=== PATIENT | male | born 1945 ===

== ENCOUNTER 2016-10-23 08:46 | Inpatient (IN) | payer MEDICARE, OTHER ==
[2016-10-23 08:50] VITALS: BMI 18.6
[2016-10-23] MEDS ORDERED: Morphine 4 mg/ml ISec IVP STA ×2 (09:05→13:29)
--- NOTE | 2016-10-23 09:09 | ED PDOC ---
Arrival/HPI - General Chief Complaint: Abdominal Pain Time Seen by Provider: 10/23/16 08:52 Historian: Patient, Family - History of Present Illness Narrative History of Present Illness (Text): 10/23/16 09:02 A 71 year old male, whose past medical history includes lung cancer (in chemotherapy), anemia and hyperlipidema, presents to the emergency department complaining of worsening shortness of breath and left sided chest pain for the past 2 days. Family states the patient started experiencing the symptoms after his chemotherapy session. They denies any fever, cough, nausea, vomiting or any other complaints at this time. PMD: Dr. Greer Oncologist: Dr. Ma Time/Duration: Other (2 days) Symptom Onset: Sudden Symptom Course: Worsening Quality: Other Activities at Onset: Rest Context: Home Past Medical History - Provider Review Nursing Documentation Reviewed: Yes - Infectious Disease Hx of Infectious Diseases: None - Tetanus Immunization Tetanus Immunization: Unknown - Cardiac Hx Pacemaker: No - Pulmonary Hx Respiratory Disorders: No Hx Lung Cancer: Yes Other/Comment: on chemo last treatment wednesday - Neurological Hx Paralysis: No - HEENT Hx HEENT Disorder: No - Renal Hx Renal Disorder: No - Endocrine/Metabolic Hx Endocrine Disorders: No - Hematological/Oncological Hx Blood Transfusions: Yes - Integumentary Hx Dermatological Disorder: No - Musculoskeletal/Rheumatological Hx Musculoskeletal Disorders: Yes - Gastrointestinal Hx Gastrointestinal Disorders: No - Genitourinary/Gynecological Hx Genitourinary Disorders: No - Psychiatric Hx Substance Use: No - Surgical History Hx Appendectomy: Yes - Anesthesia Hx Anesthesia Reactions: No Hx Malignant Hyperthermia: No - Suicidal Assessment Feels Threatened In Home Enviroment: No Family/Social History - Physician Review Nursing Documentation Reviewed: Yes Family/Social History: Unknown Family HX Smoking Status: Former Smoker Hx Alcohol Use: Yes (9-10 beer once a week) Hx Substance Use: No Hx Substance Use Treatment: No Allergies/Home Meds Allergies/Adverse Reactions: Allergies No Known Allergies Allergy (Verified 12/09/15 18:10) Home Medications: Home Meds Medication Instructions Recorded Confirmed Atorvastatin [Lipitor] 10 mg PO DAILY 05/22/16 10/23/16 Ergocalciferol (Vitamin D2) 50,000 iu PO Q7D 06/19/16 10/23/16 [Vitamin D2] Folic Acid [Folic Acid] 1 mg PO DAILY 10/23/16 10/23/16 Review of Systems - Physician Review All systems were reviewed & negative as marked: Yes - Review of Systems Constitutional: absent: Fevers Respiratory: SOB. absent: Cough Cardiovascular: Chest Pain Gastrointestinal: absent: Nausea, Vomiting Physical Exam Vital Signs Reviewed: Yes Vital Signs Temp Pulse Resp BP Pulse Ox 10/23/16 13:21 94 H 16 129/64 98 10/23/16 11:03 89 17 111/62 100 10/23/16 09:00 97.6 F 109 H 18 132/52 L 99 Temperature: Afebrile Blood Pressure: Hypotensive Pulse: Tachycardic Respiratory Rate: Normal Appearance: Positive for: Well-Appearing, Non-Toxic, Comfortable Pain Distress: None Mental Status: Positive for: Alert and Oriented X 3 - Systems Exam Head: Present: Atraumatic, Normocephalic Pupils: Present: PERRL Extroacular Muscles: Present: EOMI Conjunctiva: Present: Normal Mouth: Present: Moist Mucous Membranes Neck: Present: Normal Range of Motion Respiratory/Chest: Present: Rales (bilateral at the bases). No: Respiratory Distress, Accessory Muscle Use, Wheezes, Decreased Breath Sounds, Rhonchi Cardiovascular: Present: Normal S1, S2, Tachycardic. No: Murmurs Abdomen: Present: Normal Bowel Sounds. No: Tenderness, Distention, Peritoneal Signs Back: Present: Normal Inspection Upper Extremity: Present: Normal Inspection. No: Cyanosis, Edema Lower Extremity: Present: Normal Inspection. No: Edema Neurological: Present: GCS=15, CN II-XII Intact, Speech Normal Skin: Present: Warm, Dry, Normal Color. No: Rashes Psychiatric: Present: Alert, Oriented x 3, Normal Insight, Normal Concentration Medical Decision Making ED Course and Treatment: 10/23/16 09:02 Impression: A 71 year old male with shortness of breath and chest pain. Differential Diagnosis include but are not limited to: bronchitis vs. pneumonia vs. lung cancer Plan: -- EKG -- Chest X-ray -- Labs -- Urinalysis -- Morphine -- Reassess and disposition Prior Visits: Notes and results from previous visits were reviewed. The patient last presented to the emergency department on 05/22/16 for evlauation of left flank pain. Progress Notes: EKG: Ordered, reviewed, and independently interpreted the EKG. Rate : 100 BPM Rhythm : Sinus tachycardia Interpretation : Nonspecific ST/T changes. Comparison : No change from previous EKG for comparison. 10/23/16 10:00 Chest X-ray: Creator : Jw Hernandez MD COMPARISON: 08/04/2016 FINDINGS: LUNGS: There is an interstitial infiltrate in the periphery of the right lung. PLEURA: No significant pleural effusion identified, no pneumothorax apparent. CARDIOVASCULAR: Normal. OSSEOUS STRUCTURES: No significant abnormalities. VISUALIZED UPPER ABDOMEN: Normal. OTHER FINDINGS: None. IMPRESSION: Interstitial infiltrate in the periphery of the right lung suspicious for pneumonia Will obtain an Angio-chest CT. 10/23/16 12:30 Angio-Chest CT: Creator : Jw Hernandez MD COMPARISON: 05/24/2016 FINDINGS: PULMONARY ARTERIES: Unremarkable. No pulmonary embolism. AORTA: No acute findings. No thoracic aortic aneurysm. LUNGS: There is an extensive interstitial infiltrate in the right lower lobe and portions of the right upper lobe. There is also an infiltrate at the left lung base. Findings are suspicious for pneumonia PLEURAL SPACES: Unremarkable. No effusion or pneuomothorax. HEART: Unremarkable. No cardiomegaly. No significant pericardial effusion. LYMPH NODES: No lymphadenopathy. BONES, CHEST WALL: Unremarkable. No fracture or destructive lesion OTHER FINDINGS: Unremarkable. IMPRESSION: No evidence of pulmonary embolus. Bilateral interstitial infiltrates right greater than left suspicious for pneumonia Patient will need admission for pneumonia. Dr. Jonathon holm. 10/23/16 12:42 noted luekocytosis. covered emprically for pna. case discussed with dr mejias. states chemo therapy agent can cause leukocytosis. ct added. ct confirms pna. dr jonathon holm. 10/23/16 13:[address] Greer, who is aware and agrees with the plan to admit the patient to Telemetry under his services for Pneumonia and Sepsis. I have discussed the results and plan with the patient and family, who expresses understanding. Patient and family given the opportunity to ask question, all questions were answered and there is agreement with the plan to be admitted to the hospital. - Lab Interpretations Lab Results: 10/23/16 09:25 10/23/16 09:25 Lab Results 10/23/16 10:10: pO2 124 H, VBG pH 7.39, VBG pCO2 38.0 L, VBG HCO3 23.0, VBG Total CO2 24.2, VBG O2 Sat (Calc) 97.7 H, VBG Base Excess -1.7 L, VBG Potassium 4.6, Sodium 132.0, Chloride 103.0, Glucose 86, Lactate 1.3, FiO2 21.0, Venous Blood Potassium 4.6 10/23/16 09:25: WBC 33.8 H* D, RBC 3.78, Hgb 10.5 L, Hct 31.7 L, MCV 83.9, MCH 27.8, MCHC 33.1, RDW 17.9 H, Plt Count 831 H* D, MPV 9.4, Neutrophils % (Manual ) 91 H, Band Neutrophils % 2, Lymphocytes % (Manual) 6 L, Monocytes % (Manual) TEST NOT PERFORMED, Eosinophils % (Manual) 1, Platelet Evaluation High, PT 17.3 H, INR 1.60 H, APTT 44.0 H, Sodium 134, Chloride 99, Potassium 3.9, Carbon Dioxide 24, Anion Gap 15, BUN 16, Creatinine 0.6, Est GFR ( Amer) > 60, Est GFR (Non-Af Amer) > 60, Random Glucose 93, Calcium 9.6, Magnesium 1.7, Total Bilirubin 0.5, AST 49, ALT 46, Alkaline Phosphatase 226 H, Lactate Dehydrogenase 1602 H, Total Creatine Kinase 31 L, Troponin I 0.05 D, NT-Pro-B Natriuret Pep 306, Total Protein 7.3, Albumin 3.7, Globulin 3.6, Albumin/ Globulin Ratio 1.0 L I have reviewed the lab results: Yes - RAD Interpretation Radiology Orders: 10/23/16 09:05 CHEST PORTABLE [RAD] Stat 10/23/16 10:05 ANGIO CHEST PE PROTOCOL [CT] Stat - Medication Orders Current Medication Orders: Discontinued Medications Piperacillin Sod/Tazobactam Sod (Zosyn 3.375 In Ns 100ml) 100 mls @ 200 mls/hr IVPB STAT STA PRN Reason: Protocol Stop: 10/23/16 10:29 Last Admin: 10/23/16 10:27 Dose: 200 MLS/HR eMAR Start Stop Document 10/23/16 10:27 SRE (Rec: 10/23/16 10:28 SRE [id number]) Intravenous Solution Start Date 10/23/16 Start Time 10:27 End Date 10/23/16 End time 11:15 Total Infusion Time 48 Vancomycin HCl (Vancomycin 1gm) 250 mls @ 167 mls/hr IVPB STAT STA PRN Reason: Protocol Stop: 10/23/16 11:29 Last Admin: 10/23/16 11:01 Dose: 167 MLS/HR eMAR Start Stop Document 10/23/16 11:01 SRE (Rec: 10/23/16 11:02 SRE [id number]) Intravenous Solution Start Date 10/23/16 Start Time 11:02 End Date 10/23/16 End time 12:40 Total Infusion Time 98 Iodixanol (Visipaque 320 Mg/Ml 100 Ml) Confirm Administered Dose 100 ml IV .STK- MED ONE Stop: 10/23/16 10:12 Morphine Sulfate (Morphine) 4 mg IVP STAT STA Stop: 10/23/16 09:06 Last Admin: 10/23/16 09:31 Dose: 4 MG MAR Pain Assessment Document 10/23/16 09:31 SRE (Rec: 10/23/16 09:31 SRE [id number]) Pain Reassessment Is this a pain reassessment? Yes Sleep Is patient sleeping during reassessment? Yes Pain Scale Used Pain Scale Used Numeric Location Pain Location Body Site Generalized Description Description Constant IVP Administration Document 10/23/16 09:31 SRE (Rec: 10/23/16 09:31 SRE [id number]) Charges for Administration # of IVP Administrations 1 Morphine Sulfate (Morphine) Confirm Administered Dose 4 mg .ROUTE .STK-MED ONE Stop: 10/23/16 13:08 Last Admin: 10/23/16 13:20 Dose: 4 MG MAR Pain Assessment Document 10/23/16 13:20 SRE (Rec: 10/23/16 13:20 SRE [id number]) Pain Reassessment Is this a pain reassessment? Yes Sleep Is patient sleeping during reassessment? No Presence of Pain Presence of Pain Yes Pain Scale Used Pain Scale Used Numeric Location Pain Location Body Site Generalized - Scribe Statement The provider has reviewed the documentation as recorded by the Shyannibe Kenton Saavedra Provider Scribe Attestation: All medical record entries made by the Scribe were at my direction and personally dictated by me. I have reviewed the chart and agree that the record accurately reflects my personal performance of the history, physical exam, medical decision making, and the department course for this patient. I have also personally directed, reviewed, and agree with the discharge instructions and disposition. Disposition/Present on Arrival - Present on Arrival Any Indicators Present on Arrival: No History of DVT/PE: No History of Uncontrolled Diabetes: No Urinary Catheter: No History of Decub. Ulcer: No History Surgical Site Infection Following: None - Disposition Have Diagnosis and Disposition been Completed?: Yes Diagnosis: Pneumonia Disposition: HOSPITALIZED Disposition Time: 12:30 Patient Problems: Current Active Problems Problem Status Diagnosed Colitis Acute Dehydration Acute Pneumonia Acute Condition: FAIR Referrals: Diego Greer MD [Primary Care Provider] - Follow up with primary
[2016-10-23 09:45] LABS: HEMATOCRIT 31.7 % (42.0-52.0); MEAN CELL VOLUME 83.9 fL (80.0-105.0); MEAN CORPUSCULAR HEMOGLOBIN 27.8 pg (25.0-35.0); MEAN CORPUSCULAR HGB CONC 33.1 g/dl (31.0-37.0); MEAN PLATELET VOLUME 9.4 fl (7.0-11.0); RED CELL DISTRIBUTION WIDTH 17.9 % (11.5-14.5)
[2016-10-23 09:49] LABS: ADD MANUAL DIFF? YES; PLATELET COUNT 831 10^3/uL (120.0-450.0); WHITE BLOOD COUNT 33.8 10^3/ul (4.5-11.0)
[2016-10-23 09:55] LABS: INR 1.6 (0.93-1.08)
[2016-10-23 09:59] LABS: ALKALINE PHOSPHATASE 226 U/L (38-133); ALT/SGPT 46 U/L (7-56); AST/SGOT 49 U/L (15-59); BILIRUBIN,TOTAL 0.5 mg/dL (0.2-1.3); BLOOD UREA NITROGEN 16 mg/dL (7-21); CALCIUM 9.6 mg/dL (8.4-10.5); CARBON DIOXIDE 24 mmol/L (21-33); CHLORIDE 99 mmol/L (98-107); GFR AFRICAN-AMERICAN > 60; GLUCOSE,RANDOM 93 mg/dL (70-110); MAGNESIUM 1.7 mg/dL (1.7-2.2); POTASSIUM 3.9 mmol/L (3.6-5.0); SODIUM 134 mmol/L (132-148); TOTAL PROTEIN 7.3 g/dL (5.8-8.3)
[2016-10-23] MEDS ORDERED: Vancomycin 1gm in NS 250ml 250 ML IVPB STA (10:00)
[2016-10-23] MEDS ORDERED: Piperacillin/Tazobact 3.375 gm 100 ML IVPB STA (10:00)
--- NOTE | 2016-10-23 10:00 | RAD ---
HISTORY: cp COMPARISON: 08/04/2016 FINDINGS: LUNGS: There is an interstitial infiltrate in the periphery of the right lung. PLEURA: No significant pleural effusion identified, no pneumothorax apparent. CARDIOVASCULAR: Normal. OSSEOUS STRUCTURES: No significant abnormalities. VISUALIZED UPPER ABDOMEN: Normal. OTHER FINDINGS: None. IMPRESSION: Interstitial infiltrate in the periphery of the right lung suspicious for pneumonia
[2016-10-23 10:08] LABS: BAND 2 % (0-2); NEUTROPHIL 91 % (50.0-70.0)
[2016-10-23 10:09] LABS: EOSINOPHIL 1 % (0.0-3.0); PLATELET ESTIMATE HIGH (NORMAL)
[2016-10-23] MEDS ORDERED: Iodixanol 320 MG/ML 100 ML BOTTLE IV ONE (10:11)
[2016-10-23 10:25] LABS: VENOUS BLOOD GAS BASE EXCESS -1.7 mmol/L (0.0-2.0); VENOUS BLOOD PH 7.39 (7.32-7.43)
[2016-10-23 12:26] LABS: TROPONIN I 0.05 ng/mL
--- NOTE | 2016-10-23 12:31 | CT ---
PROCEDURE: CT Chest with contrast (Pulmonary Angiogram) HISTORY: cp h/o of lung ca, r/o pe COMPARISON: 05/24/2016 TECHNIQUE: Axial computed tomography images were obtained of the chest in the pulmonary arterial phase of enhancement. Coronal and sagittal reformatted images were created and reviewed. Intravenous contrast dose: 100 cc of Visipaque Radiation dose: Total exam DLP = 842 mGy-cm. This CT exam was performed using one or more of the following dose reduction techniques: Automated exposure control, adjustment of the mA and/or kV according to patient size, and/or use of iterative reconstruction technique. FINDINGS: PULMONARY ARTERIES: Unremarkable. No pulmonary embolism. AORTA: No acute findings. No thoracic aortic aneurysm. LUNGS: There is an extensive interstitial infiltrate in the right lower lobe and portions of the right upper lobe. There is also an infiltrate at the left lung base. Findings are suspicious for pneumonia PLEURAL SPACES: Unremarkable. No effusion or pneuomothorax. HEART: Unremarkable. No cardiomegaly. No significant pericardial effusion. LYMPH NODES: No lymphadenopathy. BONES, CHEST WALL: Unremarkable. No fracture or destructive lesion OTHER FINDINGS: Unremarkable. IMPRESSION: No evidence of pulmonary embolus. Bilateral interstitial infiltrates right greater than left suspicious for pneumonia
[2016-10-23] MEDS ORDERED: Morphine 4 mg/ml ISec ONE (13:07)
[2016-10-23 13:47] LABS: PH,URINE 5.5 (4.7-8.0); URINE BILIRUBIN NEGATIVE (NEGATIVE); URINE BLOOD NEGATIVE (NEGATIVE); URINE KETONE NEGATIVE (NEGATIVE); URINE LEUKOCYTE ESTERASE NEGATIVE Leu/uL (NEGATIVE); URINE PROTEIN NEGATIVE mg/dL (<30 mg/dL); URINE UROBILINOGEN 0.2 E.U./dL (<1 E.U./dL)
[2016-10-23 13:48] LABS: URINE APPEARANCE CLEAR (CLEAR); URINE COLOR YELLOW (YELLOW); URINE GLUCOSE (UA) NEGATIVE (NEGATIVE)
--- NOTE | 2016-10-23 16:46 | CARD ---
APPROVED REPORT EKG Measurement Heart [id number] <Conclusion> Sinus tachycardia Anterior infarct, age undetermined Abnormal ECG
--- NOTE | 2016-10-23 17:38 | CON ---
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 The patient is admitted through the Em ergency Room today with worsening shortness of breath and left-sided chest pain over the past 2 days. The patient had been on Duragesic patches, plus the oxycodone tablets without much significant help and daughter had called me earlier today and I advised her to take her dad to the Emergency Room. T he patient had his last chemotherapy about 10 days ago and he also had his Neulasta about a week ago. The patient has a diagnosis of anemia and hyperlipidemia in addition to the findings of the lung ca ncer. The patient denies any history of fevers, cough, nausea, vomiting or any other complaints at t his time. PAST MEDICAL HISTORY: The patient was recently diagnosed to have stage IV nonsmall cell carcinoma of the lung, who presented with significant pleural effusion, had to have a thoracostomy tube put in. VATS procedure done ____ tetracycline ____ patient is in significant pain in the left side since the procedure, requiring both narcotics in the form of fentanyl patches, but also pills. The patient has also been losing appetite, has been on Megace for the same. Been started on systemic chemotherapy a fter he found out that he could not get radiation in this setting because patient has metastatic dise ase already with malignant fluid in the paracentesis fluid. Because of his overall frail status, we decided we would give him single agent Alimta to see how it did. He was not a candidate for radiatio n at the time of initial diagnosis. MEDICATIONS: Reviewed. He is on atorvastatin, vitamin D2, folic acid. In addition to that, he has been getting Duragesic patches 75 mcg daily. Along with that he has been getting oxycodone 20 mg q. 4 to q. 6 hours p.r.n. for pain. PHYSICAL EXAMINATION: VITAL SIGNS: Stable. T-max is 98.4, pulse of 94, respirations 16, blood pressure is 129/64, O2 sat is 98% on room air. HEENT: Head is normocephalic, atraumatic. Conjunctivae are pale. Sclerae are anicteric. Pupils ar e equally reactive to light and accommodation. Examination of the oropharynx reveals no oropharyngea l lesions. LUNGS: Reveals it to be clear to percussion and auscultation. HEART: S1 and S2 are normal. No gallop or murmur is heard on examination of the cardiovascular syst em. ABDOMEN: Soft, nontender. Liver and spleen are not palpable. EXTREMITIES: Reveals no cyanosis, clubbing or edema. NEUROLOGIC: Higher functions are normal. No focal deficits are noted. PSYCHIATRIC: The patient is awake, alert, and oriented from the psychiatric point of view with man l insight, normal concentration. LABORATORY DATA: Chest x-ray did not show anything significant. CAT scan of the chest showed bilate ral infiltrates, right greater than the left, consistent with evolving pneumonitis. The patient rece ived IV morphine for pain control and we will adjust his pain medicines. In view of the infiltrate, he is going to be admitted for management of pneumonia and will do pain control at the same time. La bs were reviewed. White count 33.8, which is consistent with the Neulasta that he had less than 10 d ays ago, hemoglobin 10.5, hematocrit 31, platelet count of ____. Sodium is 134, K 3.9, chloride 109, CO2 is 24, BUN is 16, creatinine 0.6 and blood sugar is 93. Troponin was 0.05. Creatine kinase is 31. ASSESSMENT, NOTES AND PLAN: The patient has been started on broad spectrum antibiotics with Zosyn. Will continue his pain medications while in the hospital and review his progress. He also received 1 dose of vancomycin in the Emergency Room. The patient received 4 mg of IV morphine stat in the ER f or the pain as well. Routine post exam instructions have been given to the patient. ____ will catracho nue to monitor him and make appropriate recommendations to Dr. Greer. Josee Ma MD cc: [id number] TT: 10/23/2016 17:37:30 Confirmation # [id number] Dictation # [id number] eugene
[2016-10-23] MEDS ORDERED: Pneumococcal 23-Valent Vaccine IM ONE (18:10)
[2016-10-23] MEDS: Oxycodone/Acetaminophen 10/325 mg Tab PO PRN (18:28)
[2016-10-23] MEDS: Meropenem 1g/NS 100mL IVPB 100 ML IVPB SCH (21:52)
[2016-10-23] MEDS: Vancomycin 1gm in NS 250ml 250 ML IVPB SCH (21:52)
[2016-10-23] MEDS ORDERED: Meropenem 1 GM in Sodium Chloride 0.9% 100 ML IVPB SCH (22:00)
[2016-10-24] MEDS: Meropenem 1g/NS 100mL IVPB 100 ML IVPB SCH ×3 (05:42→22:01)
[2016-10-24] MEDS: Oxycodone/Acetaminophen 10/325 mg Tab PO PRN ×2 (05:47→20:30)
[2016-10-24] MEDS: Enoxaparin 40 mg Syringe SC SCH (10:50)
[2016-10-24] MEDS: Vancomycin 1gm in NS 250ml 250 ML IVPB SCH ×2 (10:51→22:01)
[2016-10-24] MEDS: MethylPREDNISolone 40 mg Vial IV SCH ×2 (10:54→18:06)
[2016-10-24] MEDS: Levalbuterol 1.25 MG/3 ML Inhal Soln UD IH PRN ×3 (11:42→19:27)
--- NOTE | 2016-10-24 13:29 | CP.PCM.CON ---
History of Present Illness - History of Present Illness History of Present Illness: 71 year old male with PMH of lung cancer on chemotherapy, chronic anemia, dyslipidemia, S/P appendectomy, was brought in because of worsening shortness of breath for the past 2-3 days associated with dry cough and chest pain on breathing. He denies hemoptysis, no fever or chills, has generalized weakness, no nausea or vomiting, no has intermittent abdominal discomfort, no diarrhea, no dysuria, no dysphagia, no headache or dizziness, no sore throat, no rhinorrhea, no body aches. He had his last chemotherapy about 4 days ago. In the ED, CT chest was done which showed infiltrates on both lung bases, right greater than left. Infectious diseases consult is requested to further evaluate and manage. Review of Systems - Review of Systems All systems: reviewed and no additional remarkable complaints except (as per HPI ) Past Patient History - Infectious Disease Hx of Infectious Diseases: None - Tetanus Immunizations Tetanus Immunization: Unknown - Past Medical History & Family History Past Medical History?: Yes Past Family History: Reviewed and not pertinent - Past Social History Smoking Status: Former Smoker Alcohol: None Drugs: Denies Home Situation {Lives}: With Family - CARDIAC Hx Cardiac Disorders: Yes Hx Hypercholesterolemia: Yes Hx Pacemaker: No - PULMONARY Hx Respiratory Disorders: Yes (SMOKED 2-3 PPD CIGARETTES QUIT.H/O PLEURAL EFFUSION) Hx Chronic Obstructive Pulmonary Disease (COPD): Yes Other/Comment: on chemo last treatment wednesday10-21-2016 - NEUROLOGICAL Hx Neurological Disorder: Yes - HEENT Hx HEENT Problems: Yes Hx Deafness: Yes - RENAL Hx Chronic Kidney Disease: No - ENDOCRINE/METABOLIC Hx Endocrine Disorders: No - HEMATOLOGICAL/ONCOLOGICAL Hx Blood Disorders: Yes Hx Anemia: Yes (BLOOD TRANSFUSION) - INTEGUMENTARY Hx Dermatological Problems: Yes (GENERALIZED SKIN DRYNESS) - MUSCULOSKELETAL/RHEUMATOLOGICAL Hx Musculoskeletal Disorders: Yes Hx Back Pain: Yes Hx Falls: Yes Hx Herniated Disk: Yes - GASTROINTESTINAL Hx Gastrointestinal Disorders: Yes (POOR APPETITE,COLITIS) Hx Gastroesophageal Reflux: Yes - GENITOURINARY/GYNECOLOGICAL Hx Genitourinary Disorders: Yes Hx Incontinence: Yes - PSYCHIATRIC Hx Psychophysiologic Disorder: Yes (H/O SMOKING 2-3 PPD QUIT,ETOH ABUSE DRANK 9- 10 CANS OF BEER A WEEK.) Hx Emotional Abuse: No Hx Physical Abuse: No Hx Substance Use: No - SURGICAL HISTORY Hx Appendectomy: Yes Hx Cardiac Catheterization: Yes - ANESTHESIA Hx Anesthesia Reactions: No Hx Malignant Hyperthermia: No Meds Allergies/Adverse Reactions: Allergies Allergy/AdvReac Type Severity Reaction Status Date / Time No Known Allergies Allergy Verified 10/23/16 15:40 - Medications Medications: Current Medications Levalbuterol HCl (Xopenex) 1.25 mg IH [id number] PRN PRN Reason: Shortness of Breath Oxycodone/Acetaminophen (Percocet 10/325 Mg Tab) 1 tab PO Q6H PRN PRN Reason: Pain, moderate (4-7) Last Admin: 10/23/16 18:28 Dose: 1 tab Physical Exam - Constitutional Appears: Non-toxic, No Acute Distress - Head Exam Head Exam: NORMAL INSPECTION - ENT Exam ENT Exam: Mucous Membranes Moist - Neck Exam Neck exam: Negative for: Lymphadenopathy, Meningismus - Respiratory Exam Respiratory Exam: Decreased Breath Sounds Additional comments: right anterior chest wall port site clean and intact - Cardiovascular Exam Cardiovascular Exam: +S1, +S2 - GI/Abdominal Exam GI & Abdominal Exam: Soft. absent: Tenderness Results - Vital Signs Recent Vital Signs: Last Vital Signs Temp 98.6 F 10/23/16 18:00 Pulse 92 H 10/23/16 18:00 Resp 20 10/23/16 18:00 BP 111/59 L 10/23/16 18:00 Pulse Ox 95 10/23/16 15:15 - Labs Result Diagrams: 10/23/16 09:25 10/23/16 09:25 Labs: Laboratory Results - last 24 hr 10/23/16 13:40 Urine Color Yellow Urine Appearance Clear Urine pH 5.5 Ur Specific [place] 1.015 Urine Protein Negative Urine Glucose (UA) Negative Urine Ketones Negative Urine Blood Negative Urine Nitrate Negative Urine Bilirubin Negative Urine Urobilinogen 0.2 Ur Leukocyte Esterase Negative Assessment & Plan - Assessment and Plan (Free Text) Plan: Assessment sepsis with marked leukocytosis probably secondary to healthcare-associated pneumonia with possible gram positive cocci and/or gram negative bacilli and/or atypical bacteria lung cancer on chemotherapy chronic anemia dyslipidemia S/P appendectomy Plan Started patient on Vancomycin, Merrem and Doxycycline pending blood cx, sputum cx, PCT; reviewed CT chest Will monitor clinical response and trend WBC count
[2016-10-24] MEDS: Arformoterol 15 mcg/2 ml Inh Sol IH SCH (19:27)
[2016-10-24] MEDS: Budesonide 0.25 mg/2 ml Inhal Susp UD IH SCH (19:27)
--- NOTE | 2016-10-24 19:35 | CON ---
DATE: 10/24/2016 REFERRING PHYSICIAN: Dr. Greer. REASON FOR CONSULT: Cough, shortness of breath. HISTORY OF PRESENT ILLNESS: This is a 71-year-old gentleman with past medical history significant fo r lung cancer; been on chemotherapy. Anemia, chronic lung disease. Comes in to Emergency Room with worsening shortness of breath, cough, muscular-type chest pain. No nausea, no vomiting. No diarrhea . No leg pain or leg swelling. Had a CAT scan in the Emergency Room done which shows bibasilar infi ltrate. Seen by infectious disease and started on antibiotics. His last chemotherapy was about 4 da ys ago. PAST MEDICAL HISTORY: Again, significant for lung cancer on chemotherapy, chronic obstructive lung d isease, anemia, hyperlipidemia, has a chronic back problem with herniated disk, history of GERD, urin chandu incontinence. ALLERGIES: None known. SOCIAL HISTORY: Former smoker. Denied any alcohol use. FAMILY HISTORY: No significant cardiopulmonary disease reported. MEDICATIONS: He is on Brovana 15 mcg inhaled twice a day, doxycycline 100 mg twice a day, Lovenox 40 mg daily, meropenem 1 g IV q. 8 hours, Percocet 10/325 one tab q. 6 hours p.r.n., Pulmicort inhaled twice a day, Remeron 50 mg at bedtime, Solu-Medrol 20 mg IV q. 8 hours, vancomycin 1 g q. 12 hours, X openex inhaled q. 4 hours p.r.n. REVIEW OF SYSTEMS: No headache, no rhinitis. Has cough, shortness of breath, pleuritic-type pain. No nausea, no vomiting, no abdominal pain. No dysuria. No leg pain or leg swelling. PHYSICAL EXAMINATION: She is lying in the bed in mild distress secondary to cough and shortness of breath. Temp is 98, heart rate is 100, respiratory rate is 20, blood pressure 107/60, pulse ox 97% nasal raymond sulma. HENT: Moist mucous membrane. No ulcer or oral thrush noted. NECK: Supple. No JVD. LUNGS: Has a prolonged expiratory phase with scattered rhonchi. HEART: S1, S2. ABDOMEN: Soft, nontender. No organomegaly. EXTREMITIES: There is no edema. NEUROLOGICALLY: Awake, alert. Follows simple commands. LABORATORY DATA: Shows hemoglobin 10.5, hematocrit 31.7, WBC 33.8, platelet is 831. INR 1.60, PTT 4 4. VBG shows pH 7.39, pCO2 of 38, O2 of 128 on nasal cannula. Sodium 134, potassium 3.9, chloride 9 9, bicarbonate 24, BUN 16, creatinine 0.6, glucose 93, calcium 9.6, magnesium 1.7. AST 49, ALT 46, a lk phos is 226, creatinine kinase is 31. Troponin 0.05. Procalcitonin 0.78. Urinalysis is unremark able. Blood Culture: There is no growth. Had a CAT scan of the chest done on admission. Shows no evidence of pulmonary embolism, bilateral in terstitial infiltrates, right greater than the left. IMPRESSION AND PLAN: Adenocarcinoma of the lung with a history of malignant effusion, obstructive roxanne ng disease, hyperlipidemia. May have a component of sleep apnea syndrome. Pulmonary point of view, continue IV and inhaled bronchodilator. I agree with antibiotics. Gastric prophylaxis. DVT prophylaxis. Followup labs in the morning. Fall precautions. Thank you, and will follow with you. Shell Vargas MD cc: [phone] TT: 10/24/2016 19:35:39 Confirmation # [id number] Dictation # [id number] jn
[2016-10-24] MEDS ORDERED: Bisacodyl 5mg EC Tab PO PRN (21:08)
[2016-10-25] MEDS: MethylPREDNISolone 40 mg Vial IV SCH ×3 (01:51→17:42)
[2016-10-25] MEDS: Meropenem 1g/NS 100mL IVPB 100 ML IVPB SCH ×3 (05:00→21:24)
[2016-10-25 07:05] LABS: ALB/GLOB RATIO 1.1 (1.1-1.8); ALKALINE PHOSPHATASE 171 U/L (38-133); ALT/SGPT 46 U/L (7-56); AST/SGOT 46 U/L (15-59); BILIRUBIN,TOTAL 0.6 mg/dL (0.2-1.3); BLOOD UREA NITROGEN 15 mg/dL (7-21); CALCIUM 9.6 mg/dL (8.4-10.5); CARBON DIOXIDE 26 mmol/L (21-33); CHLORIDE 101 mmol/L (98-107); GFR AFRICAN-AMERICAN > 60; GLUCOSE,RANDOM 193 mg/dL (70-110); POTASSIUM 4.4 mmol/L (3.6-5.0); SODIUM 135 mmol/L (132-148)
[2016-10-25 07:19] LABS: HEMATOCRIT 31.7 % (42.0-52.0); MEAN CELL VOLUME 84.3 fL (80.0-105.0); MEAN CORPUSCULAR HEMOGLOBIN 27.4 pg (25.0-35.0); MEAN CORPUSCULAR HGB CONC 32.5 g/dl (31.0-37.0); MEAN PLATELET VOLUME 9.8 fl (7.0-11.0); RED CELL DISTRIBUTION WIDTH 17.8 % (11.5-14.5); WHITE BLOOD COUNT 3.9 10^3/ul (4.5-11.0)
[2016-10-25] MEDS: Budesonide 0.25 mg/2 ml Inhal Susp UD IH SCH ×2 (07:35→20:06)
[2016-10-25] MEDS: Arformoterol 15 mcg/2 ml Inh Sol IH SCH ×2 (07:35→20:06)
[2016-10-25] MEDS: Levalbuterol 1.25 MG/3 ML Inhal Soln UD IH PRN (08:13)
[2016-10-25] MEDS: Enoxaparin 40 mg Syringe SC SCH (10:55)
[2016-10-25] MEDS: Vancomycin 1gm in NS 250ml 250 ML IVPB SCH (11:00)
--- NOTE | 2016-10-25 11:57 | CP.PCM.PN ---
Subjective - Date & Time of Evaluation Date of Evaluation: 10/25/16 Time of Evaluation: 10:50 - Subjective Subjective: Patient is feeling a little better today, not in distress, no fevers overnight, less cough, no SOB at rest. Objective - Vital Signs/Intake and Output Vital Signs (last 24 hours): Temp Pulse Resp BP Pulse Ox 97.4 F L 81 20 126/64 100 10/25/16 06:00 10/25/16 06:00 10/25/16 06:00 10/25/16 06:00 10/25/16 06:00 Intake and Output: 10/25/16 10/25/16 06:59 18:59 Intake Total 810 Output Total 1200 Balance -390 - Medications Medications: Current Medications Arformoterol Tartrate (Brovana) 15 mcg IH [id number] [facility] Last Admin: 10/25/16 07:35 Dose: 15 mcg Benzonatate (Tessalon Perles) 100 mg PO TID [facility] Last Admin: 10/25/16 10:55 Dose: 100 mg Bisacodyl (Dulcolax) 5 mg PO BID PRN PRN Reason: Constipation Budesonide (Pulmicort Respules) 0.25 mg IH [id number] [facility] Last Admin: 10/25/16 07:35 Dose: 0.25 mg Doxycycline Hyclate (Doryx) 100 mg PO Q12 DONNA PRN Reason: Protocol Last Admin: 10/25/16 10:55 Dose: 100 mg Enoxaparin Sodium (Lovenox) 40 mg SC DAILY [facility] Last Admin: 10/25/16 10:55 Dose: 40 mg Vancomycin HCl (Vancomycin 1gm) 250 mls @ 167 mls/hr IVPB Q12H [facility] PRN Reason: Protocol Last Admin: 10/25/16 11:00 Dose: 167 mls/hr Meropenem 1g/NS 100mL IVPB (Meropenem 1g/Ns 100ml Ivpb) 100 mls @ 100 mls/hr IVPB Q8 DONNA PRN Reason: Protocol Stop: 10/30/16 22:01 Last Admin: 10/25/16 05:00 Dose: 100 mls/hr Levalbuterol HCl (Xopenex) 1.25 mg IH [id number] PRN PRN Reason: Shortness of Breath Last Admin: 10/25/16 08:13 Dose: 1.25 mg Methylnaltrexone [place] (Relistor) 8 mg SC QOTHERDAY PRN PRN Reason: Constipation Methylprednisolone (Solu-Medrol) 30 mg IV Q8H [facility] Last Admin: 10/25/16 10:55 Dose: 30 mg Mirtazapine (Remeron) 15 mg PO HS [facility] Last Admin: 10/24/16 22:01 Dose: 15 mg Morphine Sulfate (Morphine) 2 mg IVP Q4H PRN PRN Reason: Pain, severe (8-10) Oxycodone/Acetaminophen (Percocet 10/325 Mg Tab) 1 tab PO Q6H PRN PRN Reason: Pain, moderate (4-7) Last Admin: 10/24/16 20:30 Dose: 1 tab - Labs Labs: 10/25/16 06:49 10/25/16 06:49 PT 17.3 Seconds (9.9-11.8) H 10/23/16 09:25 INR 1.60 (0.93-1.08) H 10/23/16 09:25 APTT 44.0 Seconds (23.7-30.8) H 10/23/16 09:25 - Constitutional Appears: Non-toxic, No Acute Distress - Head Exam Head Exam: NORMAL INSPECTION - ENT Exam ENT Exam: Mucous Membranes Moist - Neck Exam Neck Exam: absent: Lymphadenopathy, Meningismus - Respiratory Exam Respiratory Exam: Decreased Breath Sounds (with crackles at the bases) - Cardiovascular Exam Cardiovascular Exam: +S1, +S2 - GI/Abdominal Exam GI & Abdominal Exam: Soft. absent: Tenderness Assessment and Plan - Assessment and Plan (Free Text) Plan: Assessment sepsis with marked leukocytosis probably secondary to healthcare-associated pneumonia with possible gram positive cocci and/or gram negative bacilli and/or atypical bacteria, slowly improving lung cancer on chemotherapy chronic anemia dyslipidemia S/P appendectomy Plan blood cx are negative - will d/c Vancomycin and continue Merrem and Doxycycline day 2; PCT is elevated at 0.78; reviewed CT chest Will continue to monitor clinical response and trend WBC count
[2016-10-25] MEDS: Morphine 2 mg/ml ISec IVP PRN ×2 (13:23→21:25)
--- NOTE | 2016-10-25 15:43 | CP.PCM.PN ---
Subjective - Date & Time of Evaluation Date of Evaluation: 10/24/16 Time of Evaluation: 14:00 - Subjective Subjective: Continues to have SOB with even minimal exertion (like sitting to edge of bed). Has many visitors today with nieces/nephews. Daughter was in earlier this morning. ROS: no fevers; chills; n/v; bowel/urinary changes; headaches; CP; visual changes; Objective - Vital Signs/Intake and Output Vital Signs (last 24 hours): Temp Pulse Resp BP Pulse Ox 97 F L 80 18 122/63 100 10/25/16 12:00 10/25/16 12:00 10/25/16 12:00 10/25/16 12:00 10/25/16 06:00 Intake and Output: 10/25/16 10/25/16 06:59 18:59 Intake Total 810 Output Total 1200 Balance -390 - Medications Medications: Current Medications Arformoterol Tartrate (Brovana) 15 mcg IH [id number] [facility] Last Admin: 10/25/16 07:35 Dose: 15 mcg Benzonatate (Tessalon Perles) 100 mg PO TID [facility] Last Admin: 10/25/16 13:55 Dose: 100 mg Bisacodyl (Dulcolax) 5 mg PO BID PRN PRN Reason: Constipation Budesonide (Pulmicort Respules) 0.25 mg IH [id number] [facility] Last Admin: 10/25/16 07:35 Dose: 0.25 mg Doxycycline Hyclate (Doryx) 100 mg PO Q12 [facility] PRN Reason: Protocol Last Admin: 10/25/16 10:55 Dose: 100 mg Enoxaparin Sodium (Lovenox) 40 mg SC DAILY [facility] Last Admin: 10/25/16 10:55 Dose: 40 mg Meropenem 1g/NS 100mL IVPB (Meropenem 1g/Ns 100ml Ivpb) 100 mls @ 100 mls/hr IVPB Q8 [facility] PRN Reason: Protocol Stop: 10/30/16 22:01 Last Admin: 10/25/16 13:13 Dose: 100 mls/hr Levalbuterol HCl (Xopenex) 1.25 mg IH [id number] PRN PRN Reason: Shortness of Breath Last Admin: 10/25/16 08:13 Dose: 1.25 mg Methylnaltrexone [place] (Relistor) 8 mg SC QOTHERDAY PRN PRN Reason: Constipation Methylprednisolone (Solu-Medrol) 30 mg IV Q8H DONNA Last Admin: 10/25/16 10:55 Dose: 30 mg Mirtazapine (Remeron) 15 mg PO HS DONNA Last Admin: 10/24/16 22:01 Dose: 15 mg Morphine Sulfate (Morphine) 2 mg IVP Q4H PRN PRN Reason: Pain, severe (8-10) Last Admin: 10/25/16 13:23 Dose: 2 mg Oxycodone/Acetaminophen (Percocet 10/325 Mg Tab) 1 tab PO Q6H PRN PRN Reason: Pain, moderate (4-7) Last Admin: 10/24/16 20:30 Dose: 1 tab - Labs Labs: 10/25/16 06:49 10/25/16 06:49 PT 17.3 Seconds (9.9-11.8) H 10/23/16 09:25 INR 1.60 (0.93-1.08) H 10/23/16 09:25 APTT 44.0 Seconds (23.7-30.8) H 10/23/16 09:25 - Constitutional Appears: Non-toxic - Head Exam Head Exam: ATRAUMATIC, NORMAL INSPECTION, NORMOCEPHALIC - Respiratory Exam Respiratory Exam: Accessory Muscle Use Additional comments: Decreased breath sounds b/l at bases with less air movement on lower right - Cardiovascular Exam Cardiovascular Exam: REGULAR RHYTHM, +S1, +S2. absent: Murmur - GI/Abdominal Exam GI & Abdominal Exam: Soft, Normal Bowel Sounds. absent: Tenderness - Extremities Exam Extremities Exam: Full ROM, Normal Capillary Refill, Normal Inspection. absent : Joint Swelling, Pedal Edema Assessment and Plan - Assessment and Plan (Free Text) Plan: 71 year old male with PMH of lung cancer on chemotherapy, chronic anemia, dyslipidemia, S/P appendectomy, was brought in because of worsening shortness of breath for the past 2-3 days associated with dry cough and chest pain on breathing. Ddx for SOB includes infection (pna), COPD exacerbation, or potentially drug affect (Side affect from pemetrexed). For now will continue with corticosteroids, nebulizers and abx and will see how patient responds. Lamine Ma MD Oncology Service p: [phone]
--- NOTE | 2016-10-25 16:29 | PN ---
DATE: 10/24/2016 This is a 71-year-old male who came in with pneumonia. The patient today feels a little better, yaw lee complaining of significant shortness of breath, left-sided pain, seen by consultants. PHYSICAL EXAMINATION: VITAL SIGNS: Temperature 98.2, heart rate 93, blood pressure 113/69, respirations 20. HEAD AND NECK: Normal. No JVD, no thyromegaly. CHEST: Clear, good entry. CARDIAC: First and second sounds are normal. ABDOMEN: Soft, nontender. EXTREMITIES: No edema. LUNGS: Diminished breath sounds, more on the left than right, a few rhonchi. NEUROLOGIC: Normal. LABORATORY DATA: Will be ordered for tomorrow. IMPRESSION AND PLAN: 1. Nosocomial pneumonia. The patient has been immunocompromised by underlying malignancy and chemot herapy, being in the doctor's office multiple times for chemo and the hospital. Continue on current antibiotic, meropenem and vancomycin and doxycycline currently and Brovana and Pulmicort added plus S gerhard-Medrol, small dose. We will follow up with pulmonary and ID consult. Continue current treatment . The patient complained of more pain and we are going to add morphine p.r.n. 2. Lung carcinoma. At this time, we will hold off on any chemo. Follow up with Dr. Ma. 3. Chronic obstructive pulmonary disease. Continue inhaled bronchodilators, IV bronchodilators, cur rent IV antibiotics and will follow up clinically. The patient is full code. Continue current treat ment. Diego Greer MD cc: [phone] TT: 10/25/2016 16:28:21 Confirmation # [id number] Dictation # [id number] mn
--- NOTE | 2016-10-25 16:33 | HP ---
REASON FOR ADMISSION: Fever and short of breath. HISTORY OF PRESENT ILLNESS: A 71-year-old male, history of lung cancer being treated by chemo. With in the last week, patient experienced short of breath, chest pain, coughing, fever and was advised to come to the Emergency Room for evaluation. Initial chest x-ray showed pneumonia and high white coun ts. He denied any nausea or vomiting, but he decreased his appetite. He has loss of appetite. Ther e is no other complaint. He feels weak and tired and fever and chills. PAST MEDICAL HISTORY: As I mentioned, COPD, lung CA, currently on chemotherapy, anemia, also gluten sensitive enteropathy, vitamin D deficiency, chronic neck pain, chronic back pain. HOME MEDICATIONS: He takes vitamin D, Percocet, vitamin B12, , multivitamins, Protonix 40, foli c acid, iron pills and Lipitor 10 and inhalers. ALLERGIES: No known allergies. SOCIAL HISTORY: He lives by himself. His a couple of years ago. He smokes heavily for years. He drinks socially. Recently, he decreased drinking, quit drinking. FAMILY HISTORY: Brother had lung CA. He lives by himself. He has a daughter, very supportive to [facility] and he has grandchildren. REVIEW OF SYSTEMS: As in the present illness, general weakness, dyspnea, cough, depression and anxie ty with recent loss of his . PHYSICAL EXAMINATION: On 10/23/2016: GENERAL: The patient was seen, he complained of left side chest pain, complained of short of breath, cough, feels tired. PHYSICAL EXAMINATION: VITAL SIGNS: Temperature 98.6, heart rate 92, blood pressure 111/59, respirations 20. HEAD AND NECK: Normal. No JVD, no thyromegaly. CHEST: Very diminished breath sounds, more on the left than right, and mild rhonchi. CARDIAC: First sound, second sound normal. ABDOMEN: Soft, nontender. EXTREMITIES: No edema. NEUROLOGIC: Normal. INITIAL LABORATORY STUDIES: Shows white count 33.8, hemoglobin 10.5, hematocrit 31.7, platelet 831. Also shows chemistry: Sodium 134, potassium 3.9, chloride 99, bicarbonate 24, BUN 16, creatinine 0. 6. The patient has alkaline phosphatase 226. Lactate dehydrogenase 1602. His troponin is slightly up 0.05. The patient has procalcitonin, which was high, 0.78. The patient also had PT, PTT which sl ightly elevated on both of them. INR is 1.6 and PTT 44, which is elevated. His urine shows negative urine, clean urine. His ABG shows pO2 124, pH 7.39, pCO2 38. We have also a CT of the chest, which was done, which shows the following: Bilateral interstitial, r ight greater than left, suspicious for pneumonia and no evidence of pulmonary embolism. IMPRESSION AND PLAN: A 71-year-old male with history of lung cancer, immunocompromised under chemoth erapy. Came in with fever and evidence of leukocytosis and infiltrate on the lung. 1. Acute community-acquired pneumonia in immunocompromised patient. We will give the patient merope nem, vancomycin, doxycycline. ID consult, Dr. Laguna, will follow up clinically. Pulmonary consult, Dr. Vargas, will follow up clinically. Continue IV fluid, Percocet p.r.n. for pain and inhaled bronc hodilators. Resume his meds. Also, we will get oncology consult for evaluation of underlying cancer . At this time, we will continue treating his underlying sepsis evident by fever, leukocytosis, pres ence of pneumonia and will follow up on the blood cultures, urine cultures. The patient has been cul tured. Continue current treatment. Diego Greer MD cc: [phone] TT: 10/25/2016 16:32:07 en
--- NOTE | 2016-10-25 16:49 | PN ---
DATE: 10/25/2016 REFERRING PHYSICIAN: Dr. Greer SUBJECTIVE: He is lying in the bed, head at 45 degrees. Mild shortness of breath on supplemental ox ygen. No cough, no nausea, no vomiting, no leg pain or leg swelling. OBJECTIVE: GENERAL: No acute distress. VITAL SIGNS: Temperature is 98, heart is 80, respiratory rate is 20, blood pressure 122/63, pulse ox 100% on nasal cannula. HEENT: Moist mucous membrane. No ulcer or thrush noted. NECK: Supple. No JVD. LUNGS: Has a few scattered rhonchi, prolonged expiratory phase. HEART: S1 and S2. ABDOMEN: Soft, nontender. No organomegaly. EXTREMITIES: There is no edema. NEUROLOGIC: Awake, alert, follows simple command. MEDICATIONS: He is on Brovana 15 mcg inhaled twice a day, doxycycline 100 mg twice a day, Lovenox 40 mg daily, meropenem 1 g IV q. 8 hours, morphine 2 mg IV q. 4 hours p.r.n., Pulmicort inhaled twice a day, Relistor 8 mg p.r.n. basis, mirtazapine 50 mg at bedtime, Solu-Medrol 30 mg q. 8 hours, Tessalo n Perles 100 mg 3 times a day, Xopenex inhaled q. 4 hours. LABORATORY DATA: Shows hemoglobin 10.3, hematocrit 31.7, WBC 3.9, platelet is 690. Sodium 135, pota ssium 4.4, chloride 101, bicarbonate 26, BUN 15, creatinine 0.6, glucose 193, calcium 9.6, AST 46, AL T 46, alkaline phosphatase is 171. Albumin is 3.6. Procalcitonin from yesterday 0.78. MICROBIOLOGY: Blood culture has been negative. IMPRESSION AND PLAN: Adenocarcinoma of the lung with history of malignant effusion, obstructive lung disease, hyperlipidemia, may have a sleep apnea syndrome. Continue antibiotics as per infectious di seases, bronchodilator. Gastric prophylaxis, deep venous thrombosis prophylaxis. Out of bed to cat howard Thank you and we will follow with you. Shell Vargas MD cc: [phone] TT: 10/25/2016 16:49:08 Confirmation # [id number] Dictation # [id number] en
--- NOTE | 2016-10-26 00:09 | PN ---
DATE: 10/25/2016 LOCATION: The patient is in room 264, bed 2. 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 The patient was admitted with fevers, chills, shortness of breath, failure to thrive and has been started on broa d spectrum antibiotics for newly evolving right lower lobe lung pneumonitis and a background history of having pain in the left side related to thoracostomy tube placement and intrapleural instillation of medications and the patient has been in pain ever since. The patient has been on outpatient chemo therapy with Alimta and he has had so far 5 cycles. Each treatment given 3 weeks apart. SUBJECTIVE: The patient is lying in bed, head at 45 degrees. Mild shortness of breath on supplement al oxygen. No cough, no nausea, no vomiting, no leg pain. No fevers or chills. OBJECTIVE GENERAL: The patient is examined in bed. VITAL SIGNS: Stable. T-max is 98.4, heart rate is 80, respirations 20, blood pressure 122/63, pulse ox 100% on nasal cannula. HEENT: Head is normocephalic, atraumatic. Conjunctivae pale. Temporal muscle wasting is noted. No oropharyngeal lesions are noted. Tongue is moist. NECK: Supple. There is no adenopathy. LUNGS: Reveals scattered rhonchi with prolonged expiratory phase and decreased breath sounds on the left side. HEART: Reveals PMI to be in the 5th intercostal space inside the midclavicular line. S1 and S2 are normal. No gallop or murmur is heard. ABDOMEN: Soft, nontender. Bowel sounds are present. There is no rebound, rigidity or guarding note d. EXTREMITIES: Reveals no cyanosis, clubbing or edema. NEUROLOGIC: Higher functions are normal. No focal deficits are noted. MEDICATIONS: The patient's medications were reviewed. He is on Brovana 15 mcg inhaled twice a day. He is on doxycycline 100 b.i.d. for the infiltrate in the right lung, Lovenox 40 mg daily, meropenem 1 gram IV q. 8 hours, morphine 2 mg IV q. 4 hours p.r.n., Pulmicort inhaled twice a day, 8 mg p.r.n., mirtazapine 50 mg at bedtime, Remeron, Solu-Medrol 30 mg IV q. 8 hours, Tessalon 100 mg 3 natalie es a day and Xopenex inhaled q. 4 hours. LABORATORY DATA: Reveals a hemoglobin of 10.3, hematocrit 31, white count 3.9, platelet count is 690 . Sodium is 135, K is 4.4, chloride is 101, bicarbonate 26, BUN 15, creatinine 0.6, glucose of 183, calcium 9.6, AST is 46, ALT is 46, alkaline phosphatase is 171 with an albumin of 3.6, procalcitonin 0.78, blood cultures are negative. ASSESSMENT NOTES AND PLAN: The patient has stage IV metastatic carcinoma of the lung, obstructive roxanne ng disease, hyperlipidemia, may have sleep apnea syndrome. The patient is post-chemotherapy. Did re ceive the Neulasta and, since he is on chemotherapy, the immunity is suppressed, may not show all the tell-tale signs of an infection, so, I would continue the antibiotics as instructed by joselin ellis and not stop it based on the procalcitonin. Continue gastric prophylaxis and venous prophylaxi s, out of bed to chair and will discuss my findings with both Dr. Greer and Dr. Vargas, the pulmonol ogist. We will speak to the family as well. Josee Ma MD cc: [id number] TT: 10/26/2016 00:09:22 Confirmation # [id number] Dictation # [id number] ronaldo
[2016-10-26] MEDS: MethylPREDNISolone 40 mg Vial IV SCH ×3 (03:04→18:00)
[2016-10-26] MEDS: Meropenem 1g/NS 100mL IVPB 100 ML IVPB SCH ×3 (06:27→22:52)
[2016-10-26] MEDS: Arformoterol 15 mcg/2 ml Inh Sol IH SCH ×2 (08:05→19:48)
[2016-10-26] MEDS: Budesonide 0.25 mg/2 ml Inhal Susp UD IH SCH ×2 (08:06→19:48)
[2016-10-26] MEDS: Levalbuterol 1.25 MG/3 ML Inhal Soln UD IH PRN ×3 (08:06→19:48)
[2016-10-26] MEDS: Morphine 2 mg/ml ISec IVP PRN ×3 (08:45→16:40)
[2016-10-26] MEDS: Enoxaparin 40 mg Syringe SC SCH (10:09)
--- NOTE | 2016-10-26 19:41 | PN ---
DATE: 10/26/2016 REFERRING PHYSICIAN: Dr. Greer. SUBJECTIVE: The patient is lying in the bed, head at 45 degrees, using supplement oxygen, feels okay . Short of breath with exertion. No cough, no sputum production, no nausea, vomiting, diarrhea. No leg pain or leg swelling. OBJECTIVE: GENERAL: No acute distress. VITAL SIGNS: Temp is 98, heart rate is 97, respiratory rate is 20, blood pressure 129/57, pulse ox 9 8% on 3 liters nasal cannula. HEENT: Moist mucous membrane. Crowded airway. NECK: Supple. No JVD. LUNGS: Has scattered rhonchi, prolonged expiratory phase. HEART: S1, S2. ABDOMEN: Soft, nontender. No organomegaly. EXTREMITIES: There is no edema. NEUROLOGIC: Awake, alert, follows simple commands. MEDICATIONS: He is on Ambien 5 mg at bedtime p.r.n., Brovana 15 mcg inhaled twice a day, doxycycline 100 mg twice a day, Dulcolax 5 mg twice a day, Lovenox 40 mg daily, meropenem 1 g IV q. 8 hours, mor phine 2 mg IV q. 4 hours p.r.n., Percocet 10/325 one tab q. 6 hours p.r.n., Pulmicort inhaled twice daily, Remeron 50 mg at bedtime, Solu-Medrol 30 mg q. 8 hours, Tessalon Perles 100 mg 3 times a day, Xopenex inhaler q. 8 hours p.r.n. LABORATORY DATA: Reviewed. No new lab is available since yesterday. Microbiology cultures have bee n negative. IMPRESSION AND PLAN: Adenocarcinoma of the lung, history of malignant effusion, obstructive lung dis ease, hyperlipidemia, may have a component of sleep apnea syndrome. Continue antibiotics, IV and inh aled bronchodilator. Gastric prophylaxis. Deep venous thrombosis prophylaxis. Out of bed to chair. Fall precaution. Continue supplemental oxygen. Thank you and we will follow with you. Shell Vargas MD cc: [phone] TT: 10/26/2016 19:41:04 Confirmation # [id number] Dictation # [id number] jn
--- NOTE | 2016-10-26 20:39 | PN ---
DATE: 10/26/2016 SUBJECTIVE: The patient seen in room 264, bed 2 earlier. No fevers and no chills. PHYSICAL EXAMINATION: VITAL SIGNS: Temperature is 97, blood pressure is 130/50, respiratory rate of 18. HEENT: Unremarkable. NECK: Supple. LUNGS: Have decreased breath sounds. HEART: Normal S1, S2. ABDOMEN: Soft, nontender. LABORATORY DATA: Reveals a white count of 3.9, hemoglobin of 10 and platelets of 690, BUN is 15, cre atinine 0.6, procalcitonin 0.78. Urinalysis is noted. Microbiology reveals the blood cultures are n egative. Review of the orders revealed the patient to have p.o. doxycycline and IV meropenem. Microbiology re veals the blood cultures are no growth. Dr. Vargas's progress note from today is reviewed. ASSESSMENT AND PLAN: This is a 71-year-old male with sepsis, marked leukocytosis secondary to health care-associated pneumonia, possible gram-positive cocci, possible gram-negative yamilka, slowly improving lung cancer on chemotherapy and chronic anemia on chemotherapy. The patient is currently on doxycyc line and meropenem day #3. Elevated procalcitonin and now today's WBC count is down to 3.9. The pat ient is on Solu-Medrol. We will follow closely with you. Mack Dubose MD cc: [id number] TT: 10/26/2016 20:39:18 Confirmation # [id number] Dictation # [id number] deniz
--- NOTE | 2016-10-26 22:39 | PN ---
DATE: 10/26/2016 The patient is in room 264, bed 2. SUBJECTIVE: The patient is lying in bed, head at 45 degrees using supplemental oxygen. As per his d artie, who translated for me, the patient has been in considerable pain because he did not get the pain medicine as written around the clock. He is short of breath with exertion. No cough, no sputum production, no nausea, vomiting or diarrhea. No leg pain or leg swelling. PHYSICAL EXAMINATION: GENERAL: The patient is examined in bed, is in no acute distress. VITAL SIGNS: Stable. T-max is 98.4, heart rate is 97, respirations 20, blood pressure is 129/57, pu lse ox is 98% on 3 liters of oxygen. HEENT: Head is normocephalic, atraumatic. Temporal muscle wasting is noted. Conjunctivae pale. Sc lerae are anicteric. Pupils are equally reactive to light and accommodation. Examination of the christian pharynx reveals tongue to be coated. No oropharyngeal lesions are seen. NECK: Supple. There is no adenopathy. No jugular venous distention noted. LUNGS: Reveals scattered rhonchi with prolonged expiratory phase. Decreased breath sounds at the le ft base posteriorly. HEART: Reveals S1 and S2 to be normal. No gallop or murmur is heard. ABDOMEN: Soft, nontender. Bowel sounds are present. EXTREMITIES: Reveals no cyanosis, clubbing or edema. NEUROLOGIC: Higher functions are normal. No focal deficits are noted. MEDICATIONS: Reviewed. He is on Ambien 5 at bedtime, Brovana 15 mcg inhaled twice a day, doxycyclin e 100 mg twice a day, Dulcolax 5 mg twice a day, Lovenox 40 mg daily. He is on meropenem 1 gram q. 8 hours, morphine 2 mg IV q. 4 hours p.r.n., Percocet 10/325 one tablet q. 6 hours p.r.n., Pulmicort inhaled twice daily, Remeron 15 mg at bedtime, Solu-Medrol 30 mg q. 8 hours, Tessalon Perles 100 mg 3 times a day, Xopenex inhaler q. 8 hours p.r.n. LABORATORY DATA: From yesterday were reviewed. No new labs were done today. Microbiology cultures have been negative. 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 Differential diagnosis would be to make sure this was not lung injury caused by chemotherapy as well. Given the fact that this happened after the chemotherapy when he is technicall y immune suppressed, infection is not uncommon and this is on the right side, but his tumor is on the left side, we have to take that into consideration. The patient is on broad-spectrum antibiotics an d he is on inhaled bronchodilators. He is on gastric and DVT prophylaxis. Will continue to monitor him and discuss with the family regarding the overall prognosis and where we proceed from here. Will try to control the pain. I had a talk with the daughter today, I tried to readjust the pain medicin es so the pain is better controlled. Routine post exam instructions have been given to the patient a nd had lengthy discussions with the patient through the daughter earlier this morning. Josee Ma MD cc: [id number] TT: 10/26/2016 22:38:55 Confirmation # [id number] Dictation # [id number] deniz
[2016-10-27] MEDS: Morphine 2 mg/ml ISec IVP PRN ×4 (00:45→14:04)
[2016-10-27] MEDS: MethylPREDNISolone 40 mg Vial IV SCH (03:01)
[2016-10-27 06:23] LABS: ADD MANUAL DIFF? NO
[2016-10-27] MEDS: Meropenem 1g/NS 100mL IVPB 100 ML IVPB SCH ×3 (06:34→21:44)
[2016-10-27 06:51] LABS: ALB/GLOB RATIO 1.2 (1.1-1.8); ALKALINE PHOSPHATASE 162 U/L (38-133); ALT/SGPT 53 U/L (7-56); AST/SGOT 78 U/L (15-59); BILIRUBIN,TOTAL 0.5 mg/dL (0.2-1.3); BLOOD UREA NITROGEN 19 mg/dL (7-21); CALCIUM 9.6 mg/dL (8.4-10.5); CARBON DIOXIDE 29 mmol/L (21-33); CHLORIDE 100 mmol/L (95-110); GFR AFRICAN-AMERICAN > 60; GLUCOSE,RANDOM 162 mg/dL (70-110); POTASSIUM 4.4 mmol/L (3.6-5.0); SODIUM 138 mmol/L (132-148); TOTAL PROTEIN 6.4 g/dL (5.8-8.3)
[2016-10-27 07:03] LABS: BASO # 0.01 K/mm3 (0.0-2.0); BASO % 0.1 % (0.0-3.0); GRAN % 93.9 % (50.0-68.0); HEMATOCRIT 29.5 % (42.0-52.0); LYMPH # 0.4 (1.2-3.4); LYMPH % 2.9 % (22.0-35.0); MEAN CELL VOLUME 84.5 fL (80.0-105.0); MEAN CORPUSCULAR HEMOGLOBIN 27.8 pg (25.0-35.0); MEAN CORPUSCULAR HGB CONC 32.9 g/dl (31.0-37.0); MEAN PLATELET VOLUME 9.6 fl (7.0-11.0); MONO # 0.5 (0.1-0.6); MONO % 3.1 % (1.0-6.0); PLATELET COUNT 481 10^3/uL (120.0-450.0); WHITE BLOOD COUNT 14.4 10^3/ul (4.5-11.0)
[2016-10-27] MEDS: Budesonide 0.25 mg/2 ml Inhal Susp UD IH SCH ×2 (07:54→20:19)
[2016-10-27] MEDS: Arformoterol 15 mcg/2 ml Inh Sol IH SCH ×2 (07:54→20:19)
--- NOTE | 2016-10-27 09:32 | PN ---
DATE: 10/26/2016 The patient seemed better, less short of breath, less pain. Has no nausea, no vomiting. Appetite is a little bit low. Otherwise, he feels better. His temperature is 97.2, heart rate 84, blood pressure 135/57, respirations 20, saturation 95% on 3 L nasal cannula. HEAD AND NECK EXAMINATION: Normal. CHEST EXAMINATION: Diminished breath sounds on the left more than right, but clear. CARDIAC: First sound, second sound normal. ABDOMEN: Soft. Bowel sounds intact. EXTREMITIES: No edema. NEUROLOGICALLY: Normal. LABORATORIES: Last lab is 3.9 white count, hemoglobin 10.3, hematocrit 31.7, platelet 690. Chemistr y: Sodium 135, potassium 4.4, chloride 101, bicarb 26, BUN 15, creatinine 0.6. Blood sugar 193. Li ange function test within normal except alk phos 171. IMPRESSION AND PLAN: Pneumonia in immunocompromised patient. Pneumonia with sepsis and marked leuko cytosis in immunocompromised patient with bilateral lower lobe pneumonia. He does have a history of lung cancer; off chemotherapy a week ago. At this time we will continue meropenem, and also doxycycl ine. Will continue Solu-Medrol, will decrease the dose gradually. The patient feels better. Contin ue current treatment. Continue inhaled bronchodilators, and will follow up clinically. 1. The patient also currently getting doxycycline 100 mg p.o. q. 12. Continue current treatment. 2. Chronic obstructive pulmonary disease, poor appetite. Will give Ensure. 3. Constipation secondary to pain medicine. The patient currently in Relistor every other day. Con yanet also Dulcolax p.r.n. Continue current treatment. Follow up clinically. Follow up with oncology, ID consult, pulmonology. Diego Greer MD cc: [phone] TT: 10/27/2016 09:31:31 Confirmation # [id number] Dictation # [id number] deniz
[2016-10-27] MEDS: MethylPREDNISolone 40 mg Vial IVP SCH ×2 (10:32→21:46)
[2016-10-27] MEDS: Enoxaparin 40 mg Syringe SC SCH (10:41)
--- NOTE | 2016-10-27 13:46 | PN ---
DATE: 10/27/2016 The patient is in bed in no acute distress, nontoxic. The patient was seen early this morning, chron ically ill and debilitated, in room 264, bed 2. PHYSICAL EXAMINATION: VITAL SIGNS: Temperature of 98, blood pressure is 120/50, respiratory rate 20, heart rate of 85. HEENT: Unremarkable. NECK: Supple. LUNGS: Decreased breath sounds. HEART: Normal S1, S2. ABDOMEN: Soft, nontender. LABORATORY EXAMINATION: Reveals a white count of 14,400; hemoglobin of 9, platelets of 481. Machine Stemmer kailash are noted. BUN of 19, creatinine of 0.7. Procalcitonin is noted. Microbiology reveals the blo od cultures have no growth. Review of the orders reveals the patient is on meropenem and Solu-Medrol, doxycycline. Dr. Greer's note is reviewed. ASSESSMENT AND PLAN: A 71-year-old male seen earlier in 264, bed 2, with sepsis with marked leukocyt osis secondary to healthcare-associated pneumonia, possible gram-positive cocci, possible gram-negati ve yamilka. On day #4 of meropenem, doxycycline. Would complete 4-7 days of antibiotics. We will follo w with you. Mack Dubose MD cc: 350 TT: 10/27/2016 13:45:44 Confirmation # [id number] Dictation # [id number] sn
[2016-10-27] MEDS: Oxycodone/Acetaminophen 10/325 mg Tab PO PRN (15:58)
--- NOTE | 2016-10-27 18:29 | PN ---
DATE: 10/27/2016 REFERRING PHYSICIAN: Dr. Greer. SUBJECTIVE: He is lying in the bed, head at 45 degrees, feels better on supplemental oxygen. Cough decreased. Also, shortness of breath is decreased. No nausea, no vomiting, no diarrhea. No leg judy n or leg swelling. OBJECTIVE: GENERAL: In no acute distress. VITAL SIGNS: Temperature is 98, heart rate is 85, respiratory rate is 20, blood pressure 128/65, pul se ox 95% on 2 liters nasal cannula. HEENT: Moist mucous membrane. No ulcer or oral thrush noted. NECK: Supple. No JVD. LUNGS: Has a prolonged expiratory phase with some wheezing. HEART: S1, S2. ABDOMEN: Soft, nontender. No organomegaly. EXTREMITIES: There is no edema. NEUROLOGIC: Awake, alert, follows simple commands. MEDICATIONS: He is on Ambien 5 mg at bedtime p.r.n., Brovana 15 mcg inhaled twice a day, doxycycline 100 mg twice a day, Lovenox 40 mg daily, meropenem 1 g IV q.8 hours, morphine 2 mg IV q.4 hours p.r. n., Percocet 10/325 one tab q.6 hours p.r.n., Pulmicort inhaled twice a day, methylnaltrexone 8 mg valentin bQ p.r.n. basis, Remeron 50 mg at bedtime, Solu-Medrol is 30 mg q.12 hours, Tessalon Perles 100 mg 3 times a day, Xopenex inhaled q.4 hours p.r.n. LABORATORY DATA: Shows hemoglobin 9.7, hematocrit , WBC 14.4, platelet count is 481. Sodium 13 8, potassium 4.4, chloride 100, bicarbonate 29, BUN is 19, creatinine 0.6, glucose is 62, calcium 9.6 , AST 78, ALT 53, alk phos is 162, albumin is 3.5. MICROBIOLOGY: Blood cultures have been negative. IMPRESSION AND PLAN: Adenocarcinoma of the lung, history of malignant effusion, obstructive lung dis ease, hyperlipidemia, there may be a component of sleep apnea syndrome. Pulmonary point of view, he is doing better on IV and inhaled bronchodilator, antibiotics. Keep head elevated at 45 degrees. Ga stric prophylaxis. Deep venous thrombosis prophylaxis. Out of bed to chair. Thank you and will follow with you. Shell Vargas MD cc: [id number] TT: 10/27/2016 18:29:34 Confirmation # [id number] Dictation # [id number] dn
[2016-10-28] MEDS: Meropenem 1g/NS 100mL IVPB 100 ML IVPB SCH ×3 (06:04→21:56)
[2016-10-28] MEDS: Budesonide 0.25 mg/2 ml Inhal Susp UD IH SCH ×2 (07:09→21:10)
[2016-10-28] MEDS: Arformoterol 15 mcg/2 ml Inh Sol IH SCH ×2 (07:09→21:11)
[2016-10-28] MEDS: Morphine 2 mg/ml ISec IVP PRN ×3 (07:50→18:10)
--- NOTE | 2016-10-28 09:19 | PN ---
DATE: 10/27/2016 The patient seems to be doing better. He is comfortable in bed. Otherwise, no new complaints. PHYSICAL EXAMINATION: VITAL SIGNS: Temperature 97.9, heart rate 85, blood pressure 128/65, respirations 20, saturation 100 %. HEAD AND NECK: Normal. No JVD, no thyromegaly. CHEST: Clear but diminished breath sounds, more on the right than left. CARDIAC: First and second sounds are normal. ABDOMEN: Soft, nontender. EXTREMITIES: No edema. NEUROLOGIC: Normal. LABORATORY DATA: White count 14.4, hemoglobin 9.7, hematocrit 29.5, platelets 481. Chemistry: Sodi um 138, potassium 4.4, chloride 100, bicarbonate 29, BUN 19, creatinine 0.6, blood sugar 162. Liver function test is normal. AST 78, ALT is 53 (normal), alkaline phosphatase is 162. Total protein, al bumin, globulin are normal. IMPRESSION AND PLAN: 1. Healthcare-associated pneumonia in immunocompromised patient, lung cancer, received chemotherapy within a week. He is improving. Will continue current IV antibiotic, meropenem IV every 8 hours. T he patient also getting doxycycline 100 mg b.i.d., nebulizer ____, morphine p.r.n. for pain. Seems t o be doing better. Will continue current treatment. 2. Acute chronic obstructive pulmonary disease exacerbation. Continue inhaled bronchodilators and I V. Decrease Solu-Medrol from 30 q. 8 to 30 q. 12. Will monitor his breathing status. 3. Generalized weakness, lung cancer, deconditioning. Will start physical therapy. Possibly patien t may go to transitional care unit for continuation of physical therapy. Continue current treatment. Increase p.o. intake. Diego Greer MD cc: [phone] TT: 10/28/2016 09:18:36 Confirmation # [id number] Dictation # [id number] mn
[2016-10-28] MEDS: Enoxaparin 40 mg Syringe SC SCH (09:59)
[2016-10-28] MEDS: MethylPREDNISolone 40 mg Vial IVP SCH ×2 (10:00→21:56)
--- NOTE | 2016-10-28 12:47 | PN ---
DATE: 10/28/2016 REFERRING PHYSICIAN: Dr. Greer. SUBJECTIVE: He is lying in the bed, head at 45 degrees, feels better on nasal cannula oxygen. Gets short of breath with exertion. No nausea, no vomiting, no diarrhea. No leg pain or leg swelling. OBJECTIVE: GENERAL: No acute distress. VITAL SIGNS: Temp is 98, heart rate is 77, respiratory rate is 20, blood pressure 130/70, pulse ox 9 9% on nasal cannula. HEENT: Moist mucous membrane. No ulcer or oral thrush noted. NECK: Supple. No JVD. LUNGS: Have a few scattered rhonchi, prolonged expiratory phase. HEART: S1, S2. ABDOMEN: Soft, nontender. No organomegaly. EXTREMITIES: There is no edema. NEUROLOGIC: Awake, alert, follows simple commands. MEDICATIONS: He is on Ambien 5 mg at bedtime p.r.n., Brovana 15 mcg inhaled twice a day, doxycycline 100 mg twice a day, Dulcolax 5 mg twice a day p.r.n., Lovenox 40 mg daily, meropenem 1 g IV q. 8 alyssa rs, morphine 2 mg IV q. 4 hours p.r.n., Pulmicort inhaled twice a day, Relistor 8 mg subQ 1 weekly, R emeron 15 mg at bedtime, Solu-Medrol 30 mg q. 12 hours, Tessalon Perles 100 mg 3 times a day, Xopenex inhaled q. 4 hours. LABORATORY DATA: Reviewed, noted. No new laboratory data available since yesterday. Microbiology: Blood cultures have been no growth. IMPRESSION AND PLAN: Adenocarcinoma of the lung, history of malignant effusion, obstructive lung dis ease, hyperlipidemia. There may be a component of sleep apnea syndrome. Activities of daily living dysfunction. Pulmonary point of view, doing okay. Continue IV and inhaled bronchodilator, get him o ut of bed to chair. Fall precautions. Gastric prophylaxis. May benefit from rehab services. We wi ll follow with you. Shell Vargas MD cc: [id number] TT: 10/28/2016 12:46:20 Confirmation # [id number] Dictation # [id number] tn
--- NOTE | 2016-10-28 16:43 | PN ---
DATE: 10/28/2016 The patient was seen early this morning. No fevers and chills; however, chronically ill and debilita eliazar. PHYSICAL EXAMINATION: VITAL SIGNS: Temperature is 98, blood pressure is 130/70, respiratory rate of 20, heart rate of 77. The patient's BMI is only 19. HEENT: Reveals temporal wasting. NECK: Supple. LUNGS: Have decreased breath sounds. HEART: Normal S1, S2. ABDOMEN: Soft. LABORATORY EXAMINATION: Reveals the patient to have a white count of 14,400, hemoglobin of 9, platel ets of 481. Chemistries reveal the BUN of 19, creatinine of 0.6, procalcitonin is 0.78. Urinalysis is noted. Serology: Legionella is negative. Blood cultures are no growth. Review of the orders re veals the repeat procalcitonin is pending. Currently, the patient is on meropenem which we are requi red to renew which I would renew and p.o. doxycycline. ASSESSMENT AND PLAN: A 71-year-old male seen earlier today, sepsis, marked leukocytosis secondary to healthcare-associated pneumonia, possible gram-positive cocci, possible gram-negative yamilka, day #5 of meropenem and doxycycline. Will complete 4-7 days. We will check on the repeat procalcitonin. We will make further recommendations. Mack Dubose MD cc: 350 TT: 10/28/2016 16:42:23 Confirmation # [id number] Dictation # [id number] tn
--- NOTE | 2016-10-28 21:18 | PN ---
DATE: 10/28/2016 This is the patient's hospital visit on the medical floor. For Dr. Ma. SUBJECTIVE: The patient is a 71-year-old male with known stage IV nonsmall cell CA of the lung treat ed with single agent Alimta in the past, admitted by the Emergency Room for shortness of breath, ches t pain on the left side. With this, the patient is now reporting that his pain is significant; not b eing controlled with the 2 mg of morphine given, with the recommendations for increasing the dose, as per Dr. Ma. We will do this for the patient's relief of his severe pain. He is otherwise in n o acute distress. OBJECTIVE: PHYSICAL EXAMINATION: VITAL SIGNS: Temperature 97.7, pulse 74, respirations 20, blood pressure 123/67, pulse ox of 98%. HENT: Unremarkable. NECK: Supple. HEART: Regular rate. Occasional ectopic beat. LUNGS: Rare rhonchi. ABDOMEN: Soft, nontender. EXTREMITIES: No edema. SKIN: Warm, dry, and clear. NEUROLOGIC: Awake and alert. The patient's labs were done yesterday, with a white count of 14.4, hemoglobin 9.7, hematocrit 29.5, platelet count of 481,000 after he came in with initial platelet count of 831,000. His chem metaboli c panel from yesterday was within normal limits, except for an AST of 78, with the procalcitonin leve l today of 0.59. His INR from 5 days prior was 1.60. testing was negative. Blood cultures we re negative after 5 days. The assessment for this patient is that of sepsis, pneumonia, stage IV nonsmall cell carcinoma of the lung, intractable pain of cancer. The plan for this patient, after conversation with Dr. Ma, is to increase the patient's narcotic analgesics to 20 mg of oxycodone q. 6 hours p.r.n., along with morphine 2 mg IV q. 4 hours p.r.n. fo r moderate pain. We will ask nurses to ask the patient q. shift if he needs pain medication. Will m onitor clinically and with labs. Vincenzo Dias MD cc: [id number] TT: 10/28/2016 21:17:41 Confirmation # [id number] Dictation # [id number] jn
[2016-10-29] MEDS: Meropenem 1g/NS 100mL IVPB 100 ML IVPB SCH ×3 (05:53→21:23)
[2016-10-29 06:59] LABS: BASO # 0.01 K/mm3 (0.0-2.0); GRAN # 20.37 (1.4-6.5); GRAN % 92.2 % (50.0-68.0); HEMATOCRIT 34.7 % (42.0-52.0); LYMPH % 4.3 % (22.0-35.0); MEAN CELL VOLUME 84.6 fL (80.0-105.0); MEAN CORPUSCULAR HEMOGLOBIN 27.6 pg (25.0-35.0); MEAN CORPUSCULAR HGB CONC 32.6 g/dl (31.0-37.0); MEAN PLATELET VOLUME 9.4 fl (7.0-11.0); MONO # 0.8 (0.1-0.6); MONO % 3.5 % (1.0-6.0); PLATELET COUNT 329 10^3/uL (120.0-450.0); RED CELL DISTRIBUTION WIDTH 17.8 % (11.5-14.5); WHITE BLOOD COUNT 22.1 10^3/ul (4.5-11.0)
[2016-10-29 07:30] LABS: ALB/GLOB RATIO 1.2 (1.1-1.8); ALKALINE PHOSPHATASE 205 U/L (38-133); ALT/SGPT 81 U/L (7-56); AST/SGOT 47 U/L (15-59); BILIRUBIN,TOTAL 0.5 mg/dL (0.2-1.3); BLOOD UREA NITROGEN 21 mg/dL (7-21); CALCIUM 9.4 mg/dL (8.4-10.5); CARBON DIOXIDE 29 mmol/L (21-33); CHLORIDE 98 mmol/L (98-107); GFR AFRICAN-AMERICAN > 60; GLUCOSE,RANDOM 158 mg/dL (70-110); POTASSIUM 4.2 mmol/L (3.6-5.0); SODIUM 137 mmol/L (132-148); TOTAL PROTEIN 6.5 g/dL (5.8-8.3)
[2016-10-29 08:01] LABS: ADD MANUAL DIFF? NO
[2016-10-29 08:08] LABS: INR 1.3 (0.93-1.08)
[2016-10-29] MEDS: Morphine 2 mg/ml ISec IVP PRN ×3 (08:38→21:34)
[2016-10-29] MEDS: Arformoterol 15 mcg/2 ml Inh Sol IH SCH ×2 (08:40→20:18)
[2016-10-29] MEDS: Budesonide 0.25 mg/2 ml Inhal Susp UD IH SCH ×2 (08:40→20:18)
[2016-10-29] MEDS: MethylPREDNISolone 40 mg Vial IV SCH ×2 (09:58→21:21)
[2016-10-29] MEDS: Enoxaparin 40 mg Syringe SC SCH (09:58)
--- NOTE | 2016-10-29 17:50 | PN ---
DATE: 10/29/2016 The patient is in bed in no acute distress, nontoxic. PHYSICAL EXAMINATION: VITAL SIGNS: Temperature is 97, blood pressure is 125/70, respiratory rate of 16. HEENT: Unremarkable. NECK: Supple. LUNGS: Decreased breath sounds. HEART: Normal S1, S2. ABDOMEN: Soft. LABORATORY EXAMINATION: Reveals a white count of 22,000. Dr. Vincenzo Dias's note is reviewed. ASSESSMENT AND PLAN: A 71-year-old male with sepsis with marked leukocytosis secondary to healthcare -associated pneumonia, possible gram-positive cocci, possible gram-negative yamilka. On day #6 of merope nem and doxycycline. Would complete 4-7 days of antibiotics. Review of the orders reveals the doxyc ycline is active and so is meropenem. Repeat procalcitonin is down to 0.59. The patient is on Solu- Medrol, which may explain the leukocytosis. We will follow closely with you. Mack Dubose MD cc: 350 TT: 10/29/2016 17:49:48 Confirmation # [id number] Dictation # [id number] sn
--- NOTE | 2016-10-29 21:25 | PN ---
DATE: 10/29/2016 SUBJECTIVE: The patient is a 71-year-old male seen lying awake in bed with his pain significantly im proved after adjustment of his pain medications at Dr. Ma's recommendation. He is admitted for left-sided chest pain, shortness of breath, known to have stage IV nonsmall cell CA of the lung. Wit h this, the patient is otherwise now resting more comfortably, in no acute distress, being treated fo r sepsis and pneumonia and intractable pain of cancer. OBJECTIVE: PHYSICAL EXAMINATION: VITAL SIGNS: Temperature 97.5, pulse 89, respirations 20, blood pressure 125/72, pulse ox 98%. HEENT: Unremarkable. NECK: Supple. HEART: Regular rate. LUNGS: Rare rhonchi. ABDOMEN: Soft. EXTREMITIES: No edema. SKIN: Warm, dry and clear. NEUROLOGIC: Awake, alert. LABORATORY DATA: The patient's labs were done. White blood count of 22.1 thousand, hemoglobin 11.3, hematocrit of 34.7 and platelet count of 329,000. A chem metabolic panel showing an ALT of 81, othe rwise normal chem metabolic panel. Procalcitonin 0.59. INR of 1.30. ASSESSMENT: Sepsis, pneumonia, intractable pain of cancer, stage IV nonsmall cell CA of the lung. PLAN: Continue present medical regimen with the patient's leukocytosis related to his Solu-Medrol 20 IV q. 12 at this point. Vincenzo Dias MD cc: [id number] TT: 10/29/2016 21:25:13 Confirmation # [id number] Dictation # [id number] mn
--- NOTE | 2016-10-29 21:54 | PN ---
DATE: 10/29/2016 REFERRING PHYSICIAN: Dr. Greer. SUBJECTIVE: He is lying in the bed. Did well in therapy; able to walk around the nurses' station wi th the therapist. Still short of breath, using supplemental oxygen. No nausea, no vomiting or diarr hea. No leg pain or leg swelling. OBJECTIVE: GENERAL: In no acute distress. VITAL SIGNS: Temp is 98, heart rate 89, respiratory rate is 20, blood pressure 125/72. Pulse ox 98% on nasal cannula. HEENT: Moist mucous membrane. No ulcer or oral thrush noted. NECK: Supple. No JVD. LUNGS: Has a prolonged expiratory phase with few wheezing. HEART: S1 and S2. ABDOMEN: Soft, nontender. No organomegaly. EXTREMITIES: There is no edema. NEUROLOGIC: Awake, alert, follows simple commands. MEDICATIONS: He is on Ambien 5 mg at bedtime p.r.n., Brovana 15 mcg inhaled twice a day, doxycycline 100 mg twice a day, Dulcolax 5 mg twice a day p.r.n., Lovenox 40 mg subQ daily, meropenem 1 g IV q. 8 hours, morphine 2 mg IV q. 4 hours p.r.n., oxycodone immediate release 20 mg q 6 hours p.r.n., Pul micort inhaler twice a day, methylnaltrexone 8 mg subQ weekly p.r.n., mirtazapine 50 mg at bedtime, S gerhard-Medrol 20 mg IV q. 12 hours, Tessalon Perles 100 mg 3 times a day, Xopenex inhaled q. 4 hours p.r .n. LABORATORY DATA: Shows hemoglobin 11.3, hematocrit 34.7, WBC 22,000, platelet count is 329. INR 1.3 0. Sodium 137, potassium 4.2, chloride 98, bicarbonate 29, BUN 21, creatinine 0.6, glucose 158, calc ium is 9.4. AST 47, ALT 81, alkaline phosphatase is 205, albumin is 3.5. Microbiology: Blood cultu res have been negative. IMPRESSION AND PLAN: Adenocarcinoma of the lung, history of malignant effusion, obstructive lung dis ease, hyperlipidemia, activities of daily living dysfunction. Continue bronchodilator, antibiotics, gastric prophylaxis, pain management, gall precaution. Thank you, and will follow with you. Shell Vargas MD cc: 336 TT: 10/29/2016 21:53:58 Confirmation # [id number] Dictation # [id number] mn
[2016-10-30] MEDS: Meropenem 1g/NS 100mL IVPB 100 ML IVPB SCH (05:33)
[2016-10-30] MEDS: Morphine 2 mg/ml ISec IVP PRN ×3 (05:39→17:29)
[2016-10-30] MEDS: Arformoterol 15 mcg/2 ml Inh Sol IH SCH ×2 (07:53→19:58)
[2016-10-30] MEDS: Budesonide 0.25 mg/2 ml Inhal Susp UD IH SCH ×2 (07:55→19:58)
[2016-10-30 09:09] LABS: ADD MANUAL DIFF? NO
[2016-10-30 09:12] LABS: BASO # 0.02 K/mm3 (0.0-2.0); BASO % 0.1 % (0.0-3.0); EOS % 0.1 % (1.5-5.0); GRAN # 15.44 (1.4-6.5); GRAN % 84.5 % (50.0-68.0); HEMATOCRIT 37.6 % (42.0-52.0); LYMPH # 1.3 (1.2-3.4); LYMPH % 7.2 % (22.0-35.0); MEAN CELL VOLUME 85.5 fL (80.0-105.0); MEAN CORPUSCULAR HGB CONC 32.7 g/dl (31.0-37.0); MEAN PLATELET VOLUME 9.4 fl (7.0-11.0); MONO # 1.5 (0.1-0.6); MONO % 8.1 % (1.0-6.0); PLATELET COUNT 278 10^3/uL (120.0-450.0); RED CELL DISTRIBUTION WIDTH 18.5 % (11.5-14.5); WHITE BLOOD COUNT 18.3 10^3/ul (4.5-11.0)
[2016-10-30 09:28] LABS: ALB/GLOB RATIO 1.2 (1.1-1.8); ALKALINE PHOSPHATASE 195 U/L (38-133); ALT/SGPT 85 U/L (7-56); AST/SGOT 43 U/L (15-59); BILIRUBIN,TOTAL 0.8 mg/dL (0.2-1.3); BLOOD UREA NITROGEN 21 mg/dL (7-21); CALCIUM 9.6 mg/dL (8.4-10.5); CARBON DIOXIDE 31 mmol/L (21-33); CHLORIDE 94 mmol/L (98-107); GFR AFRICAN-AMERICAN > 60; GLUCOSE,RANDOM 140 mg/dL (70-110); POTASSIUM 4.2 mmol/L (3.6-5.0); SODIUM 134 mmol/L (132-148); TOTAL PROTEIN 7.1 g/dL (5.8-8.3)
[2016-10-30] MEDS: Enoxaparin 40 mg Syringe SC SCH (09:41)
--- NOTE | 2016-10-30 11:29 | PN ---
DATE: 10/30/2016 The patient is in room 575, bed 1. The patient seen earlier this morning in no acute distress, nonto xic, no fevers and chills. No nausea, no vomiting. PHYSICAL EXAMINATION: VITAL SIGNS: Temperature is 98, blood pressure is 120/70, respiratory rate of 16. HEENT: Unremarkable. NECK: Supple. LUNGS: Have decreased breath sounds. HEART: Normal S1, S2. ABDOMEN: Soft, nontender. LABORATORY EXAMINATION: Reveals the patient's white count of 18,300, hemoglobin of 12 and BUN of 21, creatinine of 0.6. Review of orders reveals the patient to be on doxycycline and meropenem. The pa farheen is also on prednisone. Dr. Vargas's note is reviewed with adenocarcinoma of the lung, history of malignant effusion, obstructive lung disease. Dr. Vincenzo Dias's note is reviewed. ASSESSMENT AND PLAN: A 71-year-old male with sepsis, marked leukocytosis secondary to healthcare-ass ociated pneumonia, possible gram-positive cocci, possible gram-negative yamilka Today is day #7 of merope nem and doxycycline. The patient is on Solu-Medrol. We will discontinue the antibiotics. The patie nt has had adequate antibiotics. Overall, prognosis is quite poor for this patient who has a history of adenocarcinoma of the lung, history of malignant effusion, history of chronic obstructive lung di sease, hyperlipidemia and has received 7 days of antibiotics. Overall prognosis is poor for this pat ient who appears end-stage cachectic with a body mass index of only 18. Mack Dubose MD cc: 350 TT: 10/30/2016 11:28:08 Confirmation # [id number] Dictation # [id number] tn
[2016-10-30] MEDS: oxyCODONE 20 mg Immediate Release Tab PO PRN ×2 (14:07→21:47)
--- NOTE | 2016-10-30 14:37 | PN ---
DATE: 10/30/2016 REFERRING PHYSICIAN: Dr. Greer. SUBJECTIVE: He is lying in the bed, head at 45 degrees. Doing well in therapy. Breathing is better . Decreased cough. No nausea, no vomiting, no diarrhea, no leg pain or leg swelling. OBJECTIVE: GENERAL: No acute distress. VITAL SIGNS: Temperature is 98, heart rate is 78, respiratory rate is 20, blood pressure 117/68, pul se ox 98% on 2 liters nasal cannula. HEENT: Moist mucous membrane. No ulcer or oral thrush noted. NECK: Supple. No JVD. LUNGS: Has a fair airflow with prolonged expiratory phase. HEART: S1, S2. ABDOMEN: Soft, nontender. No organomegaly. EXTREMITIES: There is no edema. NEUROLOGIC: Awake, alert, follows simple commands. MEDICATIONS: He is on Ambien 5 mg at bedtime p.r.n., Brovana 15 mcg inhaled twice a day, Dulcolax 5 mg twice a day p.r.n., Lovenox 40 mg subQ daily, morphine 2 mg q. 4 hours p.r.n., oxycodone immediate release 20 mg q. 6 hours p.r.n., prednisone 10 mg daily, Pulmicort inhaled twice a day, Relistor is 8 mg p.r.n. basis, Remeron 50 mg at bedtime, Tessalon Perles 100 mg 3 times a day, inhaled q. 6 hours. LABORATORY DATA: Shows hemoglobin 12.3, hematocrit 37.6, WBC 18.3, platelet is 278. Sodium 134, pot assium 4.2, chloride 94, bicarbonate 31, BUN 21, creatinine 0.6, glucose 140, calcium is 9.6, AST 43, ALT 85, alk phos is 195, albumin is 3.8. Microbiology: Blood cultures have been negative. IMPRESSION AND PLAN: Adenocarcinoma of the lung, history of malignant effusion, obstructive lung dis ease, hyperlipidemia, activities of daily living dysfunction. Pulmonary point of view, doing okay. Continue p.o. and inhaled bronchodilator. Keep head elevated at 45 degrees, aspiration precautions, fall precautions, gastric prophylaxis, pain management. Will follow with you. Shell Vargas MD cc: [id number] TT: 10/30/2016 14:36:44 Confirmation # [id number] Dictation # [id number] rn
--- NOTE | 2016-10-30 15:19 | PN ---
DATE: 10/30/[address] Ma. SUBJECTIVE: The patient is a 71-year-old male seen lying awake in bed, reporting that his pain is si gnificantly improved on the regimen given. There was a question of constipation; however, he reports that is now not a problem for him. 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 He is being treated for sepsis and pneumonia. OBJECTIVE PHYSICAL EXAMINATION: VITAL SIGNS: Temperature 97.6, pulse 78, respirations 20, blood pressure 117/68, pulse ox 100%. HEENT: With temporal muscle wasting. NECK: Supple. HEART: Regular rate. LUNGS: Occasional rhonchi. ABDOMEN: Soft. EXTREMITIES: No edema. SKIN: Warm, dry. NEUROLOGIC: Awake and alert. LABORATORY DATA: The patient's labs were done. White blood cell count of 18.3, hemoglobin 12.3, hem atocrit 37.6, platelet count 278,000 and admission platelet count of 831,000 which was reactive. Juanis m metabolic panel showed an ALT of 85, alk phos 195. Otherwise, normal chem metabolic panel. INR ye was 1.3. The patient's blood cultures were negative after 5 days. ASSESSMENT: Pneumonia, cachexia, chronic obstructive pulmonary disease, adenocarcinoma of the lung, history of malignant effusion, deconditioning, constipation, intractable pain of cancer. PLAN: To continue with present medical regimen. His elevated white blood cell count is most likely secondary to the Solu-Medrol IV he is receiving with continuation of his present medical regimen. We will monitor clinically and follow up as per Dr. Greer. Vincenzo Dias MD cc: [id number] TT: 10/30/2016 15:18:57 Confirmation # [id number] Dictation # [id number] tn
[2016-10-31] MEDS: Arformoterol 15 mcg/2 ml Inh Sol IH SCH ×2 (07:30→19:52)
[2016-10-31] MEDS: Budesonide 0.25 mg/2 ml Inhal Susp UD IH SCH ×2 (07:31→19:53)
[2016-10-31] MEDS: Enoxaparin 40 mg Syringe SC SCH (09:09)
[2016-10-31] MEDS: oxyCODONE 20 mg Immediate Release Tab PO PRN ×3 (09:10→20:48)
--- NOTE | 2016-10-31 14:08 | PN ---
DATE: 10/31/2016 The patient seen earlier this morning in room 575, bed 1. No fevers and no chills, no nausea, no vom iting. He is weak. He is endstage appearing. PHYSICAL EXAMINATION: VITAL SIGNS: Temperature is 97, blood pressure is 130/70, respiratory rate of 20. HEENT: Unremarkable. NECK: Supple. LUNGS: Have decreased breath sounds. HEART: Normal S1, S2. ABDOMEN: Soft. LABORATORY DATA: Reveals a white count of 18,000, hemoglobin of 12 and BUN of 21, creatinine of 0.6 and procalcitonin is down to 0.59. Urinalysis is noted. Serology for legionella antigen is negative . Microbiology reveals the blood cultures are negative. His sputum cultures are pending. ASSESSMENT AND PLAN: This is a 71-year-old male with sepsis, marked leukocytosis, healthcare-associa eliazar pneumonia, possible gram-positive cocci, possible gram-negative yamilka, had been treated with over 8 days of meropenem and doxycycline in this patient who has adenocarcinoma of the lung with a malignan t effusion and chronic obstructive lung disease, hyperlipidemia. Overall, prognosis is poor. He is cachectic with a BMI of 18. Review of the orders reveals the patient to be now off of antibiotics. The patient is on prednisone, which may explain the leukocytosis. Dr. Vincenzo Dias's progress no te is reviewed. Mack Dubose MD cc: [id number] TT: 10/31/2016 14:07:55 Confirmation # [id number] Dictation # [id number] jn
--- NOTE | 2016-10-31 14:35 | PN ---
DATE: 10/31/[address] Ma. SUBJECTIVE: The patient is a 71-year-old male seen sitting up in a chair, reporting that his pain is significantly improved. Constipation is also improved. He is having his lunch now and is in no acu te distress. 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 OBJECTIVE PHYSICAL EXAMINATION: VITAL SIGNS: Temperature 97.8, pulse 95, respirations 20, blood pressure 137/71 and pulse ox 100%. HEENT: Unremarkable. NECK: Supple. HEART: Regular rate, occasional ectopic beat. LUNGS: Minimal decreased breath sounds at the bases. ABDOMEN: Soft, nontender. EXTREMITIES: No edema. SKIN: Warm, dry and clear. NEUROLOGIC: Awake, alert. The patient appears cachectic as he weighs 126 pounds and is 5 feet 10 in ches tall. LABORATORY DATA: The patient's labs were done yesterday and will be repeated tomorrow. ASSESSMENT: Pneumonia with sepsis, carcinoma of the lung, history of malignant effusion, chronic obs tructive pulmonary disease, deconditioning, cachexia, intractable pain of cancer, constipation, relie nayeli. PLAN: To check his labs in the morning, continue present medical regimen. Prognosis for this patien t is guarded with consideration for hospice care. Vincenzo Dias MD cc: [id number] TT: 10/31/2016 14:35:12 Confirmation # [id number] Dictation # [id number] tn
[2016-10-31 17:29] VITALS: O2SAT 97
--- NOTE | 2016-10-31 18:12 | PN ---
DATE: 10/31/2016 REFERRING PHYSICIAN: Dr. Greer. SUBJECTIVE: The patient is lying in the bed, head at 45 degrees. Feels better, decreased cough, dec reased shortness of breath. No nausea, no vomiting, no diarrhea. No leg pain or leg swelling. OBJECTIVE: GENERAL: In no acute distress. VITAL SIGNS: Temperature is 98, heart rate is 75, respiratory rate is 20, blood pressure 161/70, pul se ox 97% on 3 liter nasal cannula. HEENT: Moist mucous membrane. No ulcer or oral thrush noted. NECK: Supple. No JVD. LUNGS: Has a prolonged expiratory phase. HEART: S1 and S2. ABDOMEN: Soft, nontender. No organomegaly. EXTREMITIES: There is no edema. NEUROLOGIC: Awake, alert, follows simple commands. MEDICATIONS: He is on Ambien 5 mg at bedtime, p.r.n. for insomnia; Brovana 15 mcg inhaled twice a da y, Dulcolax 5 mg twice a day p.r.n., Lovenox 40 mg daily, morphine 2 mg IV q.4 hours p.r.n., oxycodon e 20 mg q.4 hours p.r.n., prednisone 10 mg daily, Pulmicort inhaler twice a day, p.r.n. basis, Remeron 50 mg at bedtime, Tessalon Perles 100 mg 3 times a day, Xopenex inhaler q.4 hours p.r.n. IMPRESSION AND PLAN: Adenocarcinoma of the lung, history of malignant effusion, obstructive lung dis ease, hyperlipidemia, dysfunction. Pulmonary point of view, doing well. Getting pain manageme nt. Continue p.o. and inhaled bronchodilators. Keep head elevated at 45 degrees. Gastric prophylax is. Deep venous thrombosis prophylaxis. Fall precaution. Continue rehabilitation. Thank you and will follow with you. Shell Vargas MD cc: [id number] TT: 10/31/2016 18:11:20 Confirmation # [id number] Dictation # [id number] dn
--- NOTE | 2016-10-31 18:14 | PN ---
DATE: 10/28/2016 The patient clinically stable. He is doing better. Currently on IV antibiotics. No chest pain, get ting physical therapy on daily basis. PHYSICAL EXAMINATION: VITAL SIGNS: Temperature 97.7, heart rate 74, blood pressure 123/67, respirations 20, saturation 98 on room air. HEAD AND NECK: Normal. No JVD, no thyromegaly. CHEST: Clear, good entry. CARDIAC: First and second sounds are normal. ABDOMEN: Soft, nontender. EXTREMITIES: No edema. NEUROLOGIC: Normal. IMPRESSION AND PLAN: 1. Nosocomial pneumonia in immunocompromised patient. Continue Zosyn IV as per ID consults. Contin ue current IV antibiotic. 2. Thrombocytosis, leukocytosis, probably reactive secondary to underlying infections, could be ster oid related. We will monitor blood count in the morning. CBC in the morning. 3. Lung CA adenocarcinoma. His last chemotherapy more than a week ago. Will follow up with oncolog ist. 4. Chronic anemia, stable. His hemoglobin in the 10 to 10+ range. We will follow up labs in the mo rning. 5. Chronic obstructive pulmonary disease. Continue inhaled and IV bronchodilators. 6. Generalized weakness, poor nutrition. The patient seems to be eating better. Continue physical therapy on daily basis. Diego Greer MD cc: 223 TT: 10/31/2016 18:14:05 Confirmation # [id number] Dictation # [id number] ronaldo
--- NOTE | 2016-10-31 18:18 | PN ---
DATE: 10/31/2016 The patient is clinically stable breathing better, comfortable. He still complained of left side judy n, on narcotics, oxycodone. No short of breath, no nausea, no vomiting. Eating better, getting phys ical therapy on a daily basis. PHYSICAL EXAMINATION on 10/29: VITAL SIGNS: Temperature 97.5. Heart rate 89, blood pressure 125/72, respirations 20, saturation 98 %. HEAD AND NECK: Normal. No JVD, no thyromegaly. CHEST: Clear, good entry. CARDIAC: First and second sounds are normal. ABDOMEN: Soft, nontender. EXTREMITIES: No edema. NEUROLOGIC: Nonfocal, alert, awake, oriented x 3, but has generalized weakness. IMPRESSION AND PLAN: 1. Nosocomial pneumonia in immunocompromised patient with underlying malignancy, adenocarcinoma of t he lung, plus underlying chronic obstructive pulmonary disease. Continue IV steroids. The patient i s getting meropenem seems to be doing well. Continue current treatment. Follow up clinically. 2. Poor appetite. Continue Remeron will follow up on that and the patient is getting Ensure 3 times a day, encouraged to take it. 3. Chronic pain, left-sided pain is currently on morphine 2 mg IV q. plus oxycodone. Continue to mo nitor that. 4. Chronic obstructive pulmonary disease. Continue Brovana, Xopenex. Continue Pulmicort. The meredith ent currently on IV steroids would decrease the dose to 30 mg q. 12, planning to switch it to p.o. At this time, continue physical therapy. Continue to encourage p.o. intake. Continue IV antibiotic for now. We will discuss further with the ID consult. Diego Greer MD cc: 223 TT: 10/31/2016 18:18:15 Confirmation # [id number] Dictation # [id number] jn
--- NOTE | 2016-10-31 18:23 | PN ---
DATE: 10/30/2016 The patient seems to be doing well, walking around, moved his bowels last night. He has no chest judy n. His breathing is better. No nausea, no vomiting. Clinically better. PHYSICAL EXAMINATION: VITAL SIGNS: Temperature 97.8, heart rate is 95, blood pressure 137/71, respirations 20, and saturat ion 100%. HEAD AND NECK: Normal. No JVD, no thyromegaly. CHEST: Clear, good air entry. CARDIAC: First sound and second sound normal. ABDOMEN: Soft, nontender. EXTREMITIES: No edema. NEUROLOGIC: Normal. LABORATORY DATA: White count 18.3, hemoglobin 12.3, hematocrit 37.6, platelets are 278. His mix chemist ry noted for sodium 134, potassium 4.2, chloride 94, bicarbonate 31, BUN 21, creatinine 0.6, blood valentin gar is 140. Liver function test noted alk phos and is 195. IMPRESSION AND PLAN: 1. Nosocomial pneumonia in an immunocompromised patient on meropenem. Will discontinue meropenem. As per ID, will switch it him to p.o. antibiotics and probably the patient will be discharged wheneve r the family is ready. Still getting physical therapy. This will be done in the morning. 2. Chronic obstructive pulmonary disease with acute exacerbation. Seems to be doing well. He is cu rrently switched to steroids and being decreased gradually and will be switched to p.o. antibiotics o n the ; it seems white count responding well to that and continue current treatment. 3. Generalized weakness. Continue physical therapy. Encourage p.o. intake. Continue Remeron for a ntidepressant and increasing his appetite. 4. For his left pain, continue oxycodone and will followup. Will discharge him on narcotics f or pain. Continue current treatment. Diego Greer MD cc: 223 TT: 10/31/2016 18:22:49 Confirmation # [id number] Dictation # [id number] brayan
[2016-10-31] MEDS: Levalbuterol 1.25 MG/3 ML Inhal Soln UD IH PRN (19:53)
[2016-11-01] MEDS: oxyCODONE 20 mg Immediate Release Tab PO PRN ×2 (06:07→14:29)
[2016-11-01 06:41] LABS: HEMATOCRIT 31.6 % (42.0-52.0); MEAN CELL VOLUME 87.1 fL (80.0-105.0); MEAN CORPUSCULAR HEMOGLOBIN 28.1 pg (25.0-35.0); MEAN CORPUSCULAR HGB CONC 32.3 g/dl (31.0-37.0); MEAN PLATELET VOLUME 9.6 fl (7.0-11.0); PLATELET COUNT 191 10^3/uL (120.0-450.0); RED CELL DISTRIBUTION WIDTH 19.3 % (11.5-14.5); WHITE BLOOD COUNT 21.9 10^3/ul (4.5-11.0)
[2016-11-01 06:42] LABS: ADD MANUAL DIFF? YES
[2016-11-01 07:05] LABS: ALB/GLOB RATIO 1.1 (1.1-1.8); ALKALINE PHOSPHATASE 161 U/L (38-133); ALT/SGPT 72 U/L (7-56); AST/SGOT 35 U/L (15-59); BILIRUBIN,TOTAL 0.3 mg/dL (0.2-1.3); BLOOD UREA NITROGEN 22 mg/dL (7-21); CALCIUM 8.8 mg/dL (8.4-10.5); CARBON DIOXIDE 29 mmol/L (21-33); CHLORIDE 100 mmol/L (98-107); GFR AFRICAN-AMERICAN > 60; GLUCOSE,RANDOM 135 mg/dL (70-110); SODIUM 136 mmol/L (132-148); TOTAL PROTEIN 6.1 g/dL (5.8-8.3)
[2016-11-01 07:12] LABS: BAND 2 % (0-2); NEUTROPHIL 78 % (50.0-70.0)
[2016-11-01 07:13] LABS: ANISOCYTOSIS SLIGHT; EOSINOPHIL 1 % (0.0-3.0); PLATELET ESTIMATE NORMAL (NORMAL)
[2016-11-01] MEDS: Arformoterol 15 mcg/2 ml Inh Sol IH SCH (07:33)
[2016-11-01] MEDS: Budesonide 0.25 mg/2 ml Inhal Susp UD IH SCH (07:33)
[2016-11-01 08:14] VITALS: BP 109/66; PULSE 99; RESP 22; TEMP 98
[2016-11-01] MEDS: Enoxaparin 40 mg Syringe SC SCH (09:22)
[2016-11-01] MEDS: Morphine 2 mg/ml ISec IVP PRN (09:26)
--- NOTE | 2016-11-01 15:43 | PN ---
DATE: 11/01/2016 This is the patient's hospital visit on the medical floor. SUBJECTIVE: The patient is a 71-year-old male seen sitting up in a chair for discharge home later to day with his pain medication needed to be given every 4 hours as after 5-6 hours pain kicks again. [place] is admitted for sepsis with pneumonia. He is known to have stage IV cancer of the lung. He is oth erwise in no acute distress this visit. OBJECTIVE/PHYSICAL EXAM: VITAL SIGNS: Temperature 98, pulse 75, respirations 22, blood pressure 109/66, pulse ox 97%. HEENT: Unremarkable. NECK: Supple. HEART: Regular rate. LUNGS: Occasional rhonchi. ABDOMEN: Soft, nontender. EXTREMITIES: No edema. SKIN: Warm, dry and clear. NEUROLOGIC: Awake, alert and oriented. SKIN: The patient appears cachectic. LABORATORY DATA: The patient's labs were done. White blood cell count of 21.9, hemoglobin 10.2, hem atocrit 31.6, platelet count of 191,000 with a chem metabolic panel showing an ALT of 72, AST of 35 a nd alkaline phosphatase 161. ASSESSMENT: Pneumonia with sepsis, carcinoma of the lung history with malignant effusions, chronic o bstructive pulmonary disease, deconditioning, cachexia, intractable pain of cancer, nosocomial pneumo miya. PLAN: Will be to continue his present medical regimen and follow up with Dr. Ma in 1 weeks' natalie e or earlier. Vincenzo Dias MD cc: [phone] TT: 11/01/2016 15:42:41 Confirmation # [id number] Dictation # [id number] dn
--- NOTE | 2016-11-01 16:33 | PN ---
DATE: 11/01/2016 REFERRING PHYSICIAN: Dr. Greer SUBJECTIVE: He is lying in the bed, head at 45 degree, off oxygen. Feels better, decreased cough, d ecreased shortness of breath. No nausea, no vomiting, diarrhea. No leg pain or leg swelling. OBJECTIVE: GENERAL: No acute distress. VITAL SIGNS: Temperature is 98, heart rate is 99, respiratory rate is 20, blood pressure 109/66, pul se ox 97% on 3 liters nasal cannula. HEENT: Moist mucous membranes. No ulcer or oral thrush noted. NECK: Supple. No JVD. LUNGS: Has a fair airflow with few rhonchi. HEART: S1, S2. ABDOMEN: Soft, nontender. No organomegaly. EXTREMITIES: There is no edema. NEUROLOGIC: Awake, alert, follows simple commands. MEDICATIONS: Reviewed and noted. No new changes in medication reported since yesterday. LABORATORY DATA: Reviewed. Shows hemoglobin 10.2, hematocrit 31.6, WBC 21.9, and platelet count is 191. IMPRESSION AND PLAN: Adenocarcinoma of the lung, history of malignant effusion, obstructive lung di sease, hyperlipidemia, activities of daily living dysfunction. Pulmonary point of view, he is doing okay, able to stand up and walk, steady on his feet, being discharged home on tapered steroids, antib iotics, gastric prophylaxis, deep venous thrombosis prophylaxis. Thank you and will follow with you. Shell Vargas MD cc: [id number] TT: 11/01/2016 16:33:14 Confirmation # [id number] Dictation # [id number] ln
--- NOTE | 2016-11-01 22:42 | DS ---
HISTORY OF PRESENT ILLNESS: A 71-year-old male admitted with bilateral lower lobe pneumonia versus n osocomial pneumonia in immunocompromised patient with recent chemotherapy. Has bilateral infiltrates on CT of the chest. The patient received 7 days of IV antibiotic and was discharged home. Seen by p ulmonologist, Dr. Vargas; ID consult, Dr. Dubose; and oncology/hematology for the patient's possi bility of drug related reaction in the lung, which is . The patient was given IV meropenem. She was also given bronchodilators, steroids IV, inhaled bronchodilators and did well, improved. Did comp li of left-sided chest pain, was given oxycodone. We increased the dose to 20 mg. He also had a g ood bowel movement. He has no other complaints. Physical therapy was done and patient did very well . On day of discharge, the patient is comfortable, no distress. PHYSICAL EXAMINATION: VITAL SIGNS: Temperature 98, heart rate 99, blood pressure 109/66, saturating 97% room air. HEAD AND NECK: Normal. No JVD, no thyromegaly. CHEST: Clear, good entry. CARDIAC: First and second sounds are normal. ABDOMEN: Soft, nontender. EXTREMITIES: No edema. NEUROLOGIC: Normal. LABORATORY DATA: Blood cultures x 2 were negative, sputum negative. IMPRESSION AND PLAN: 1. Nosocomial pneumonia, finish antibiotic. 2. Acute chronic obstructive pulmonary disease exacerbations. He is off steroids, continue inhaled bronchodilators. 3. Lung adenocarcinoma followed by his oncologist for chemotherapy. 4. Chronic osteoarthritis and decreased p.o. intake. The patient advised to continue Remeron and c ontinue multivitamins, B complex and vitamin Follow up in a week. 5. The patient also has left-sided chest pain, was given oxycodone 15 mg 4 times a day. Diego Greer MD cc: 223 TT: 11/01/2016 22:41:30 ln
--- NOTE | 2016-11-02 08:28 | PN ---
DATE: 11/01/2016 The patient was seen early this morning in 578, bed 1. No fevers, no chills, no nausea, no vomiting. PHYSICAL EXAMINATION: VITAL SIGNS: Temperature is 98, blood pressure is 109/60, respiratory rate 22. HEENT: Unremarkable. NECK: Supple. LUNGS: Have decreased breath sounds. HEART: Normal S1, S2. ABDOMEN: Soft, nontender. LABORATORY DATA: Reveals a white count of 21,000, hemoglobin of 10. BUN of 22, creatinine of 0.5. Procalcitonin 0.59. microbiology is noted. ASSESSMENT AND PLAN: This is a 71-year-old male who was seen early this morning in room 578, bed 1, admitted with sepsis, marked leukocytosis, healthcare-associated pneumonia, possible gram-positive co cci, possible gram-negative yamilka, in a patient with adenocarcinoma of the lung with malignant effusion , chronic obstructive lung disease and hyperlipidemia, off of antibiotics and possible discharge for today. Mack Dubose MD cc: [id number] TT: 11/01/2016 17:48:27 Confirmation # [id number] Dictation # [id number] dn
== END 2016-11-01 15:30 | disposition home or self-care (01) | DRG 871 ==
LOC: ED 08:46 → ERH 13:27 → 2RNO 14:52 → 5RSO 10-27 19:32
PROVIDERS: ADMIT Internal Medicine; ATTEND Internal Medicine
DX: A41.9 Sepsis, unspecified organism (principal); J18.9 Pneumonia, unspecified organism; R64 Cachexia; J91.0 Malignant pleural effusion; D89.9 Disorder involving the immune mechanism, unspecified; C34.92 Malignant neoplasm of unspecified part of left bronchus or lung; J44.0 Chronic obstructive pulmonary disease with (acute) lower respiratory infection; D64.9 Anemia, unspecified; J44.1 Chronic obstructive pulmonary disease with (acute) exacerbation; Z68.1 Body mass index [BMI] 19.9 or less, adult; E86.0 Dehydration; D47.3 Essential (hemorrhagic) thrombocythemia; E78.5 Hyperlipidemia, unspecified; K21.9 Gastro-esophageal reflux disease without esophagitis; K52.9 Noninfective gastroenteritis and colitis, unspecified; Z87.891 Personal history of nicotine dependence; E78.00 Pure hypercholesterolemia, unspecified; G89.29 Other chronic pain; H91.90 Unspecified hearing loss, unspecified ear; K59.03 Drug induced constipation; M19.90 Unspecified osteoarthritis, unspecified site; R62.7 Adult failure to thrive; Y95 Nosocomial condition; Z79.899 Other long term (current) drug therapy; Z80.1 Family history of malignant neoplasm of trachea, bronchus and lung; Z90.49 Acquired absence of other specified parts of digestive tract; E55.9 Vitamin D deficiency, unspecified; M54.9 Dorsalgia, unspecified; M54.2 Cervicalgia; K90.0 Celiac disease; R32 Unspecified urinary incontinence; M51.26 Other intervertebral disc displacement, lumbar region; G47.30 Sleep apnea, unspecified; R53.81 Other malaise; G89.3 Neoplasm related pain (acute) (chronic)

== ENCOUNTER 2016-11-08 21:32 | Inpatient (IN) | payer MEDICARE, OTHER ==
[2016-11-08 21:38] VITALS: BMI 18.4
--- NOTE | 2016-11-08 22:02 | ED PDOC ---
Arrival/HPI - General Chief Complaint: Chest Pain Time Seen by Provider: 11/08/16 21:33 Historian: Patient, Family - History of Present Illness Narrative History of Present Illness (Text): 11/08/16 22:00 Terrence Thornton is a 71 year old male, whose past medical history includes COPD , lung cancer, anemia, hyperlipidemia, and chronic neck/back pain, who presents to the Emergency department accompanied by family complaining of chest pain. Family report patient has been experiencing left-sided chest pain, worsened with deep inspiration, with associated shortness of breath throughout the day. Relative notes patient was recently discharged from the hospital on 11/01/2016 following treatment of pneumonia. Patient denies any fever, chills, nausea, vomiting, diarrhea, urinary symptoms, headache, dizziness, or any other complaints. PMD: Dr. Rupali Greer Oncologist: Dr. Ma Time/Duration: Other (today) Symptom Onset: Gradual Symptom Course: Unchanged Activities at Onset: Rest, Light Context: Home Past Medical History - Provider Review Nursing Documentation Reviewed: Yes - Infectious Disease Hx of Infectious Diseases: None - Tetanus Immunization Tetanus Immunization: Unknown - Cardiac Hx Cardiac Disorders: Yes - Pulmonary Hx Chronic Obstructive Pulmonary Disease (COPD): Yes Hx Lung Cancer: Yes (stage 4) - Neurological Hx Neurological Disorder: Yes - HEENT Hx HEENT Disorder: Yes Hx Deafness: Yes - Renal Hx Renal Disorder: No - Endocrine/Metabolic Hx Endocrine Disorders: No - Hematological/Oncological Hx Blood Disorders: Yes Hx Anemia: Yes (BLOOD TRANSFUSION) - Integumentary Hx Dermatological Disorder: Yes (GENERALIZED SKIN DRYNESS) - Musculoskeletal/Rheumatological Hx Musculoskeletal Disorders: Yes Hx Back Pain: Yes Hx Falls: Yes Hx Herniated Disk: Yes - Gastrointestinal Hx Gastrointestinal Disorders: Yes (POOR APPETITE,COLITIS) Hx Gastroesophageal Reflux: Yes - Genitourinary/Gynecological Hx Genitourinary Disorders: Yes Hx Incontinence: Yes - Psychiatric Hx Psychophysiologic Disorder: Yes (H/O SMOKING 2-3 PPD QUIT,ETOH ABUSE DRANK 9- 10 CANS OF BEER A WEEK.) Hx Emotional Abuse: No Hx Physical Abuse: No Hx Substance Use: No - Surgical History Hx Appendectomy: Yes Hx Cardiac Catheterization: Yes Other/Comment: R chest port - Anesthesia Hx Anesthesia: Yes Hx Anesthesia Reactions: No Hx Malignant Hyperthermia: No - Suicidal Assessment Feels Threatened In Home Enviroment: No Family/Social History - Physician Review Nursing Documentation Reviewed: Yes Family/Social History: No Known Family HX Smoking Status: Former Smoker Hx Alcohol Use: Yes (QUIT DRINKING .DRANK 9-10 BEERS ONCE A WEEK) Hx Substance Use: No Hx Substance Use Treatment: No Allergies/Home Meds Allergies/Adverse Reactions: Allergies No Known Allergies Allergy (Verified 10/23/16 15:40) Home Medications: Home Meds Medication Instructions Recorded Confirmed Atorvastatin [Lipitor] 10 mg PO DAILY 05/22/16 10/23/16 Ergocalciferol (Vitamin D2) 50,000 iu PO Q7D 06/19/16 10/23/16 [Vitamin D2] Folic Acid 1 mg PO DAILY 10/23/16 10/23/16 Review of Systems - Physician Review All systems were reviewed & negative as marked: Yes - Review of Systems Constitutional: Normal. absent: Fevers Eyes: Normal ENT: Normal Respiratory: SOB Cardiovascular: Chest Pain Gastrointestinal: Normal. absent: Abdominal Pain, Diarrhea, Nausea, Vomiting Genitourinary Male: Normal. absent: Dysuria, Frequency, Hematuria, Urinary Output Changes Musculoskeletal: Normal Skin: Normal. absent: Rash Neurological: Normal. absent: Headache, Dizziness Endocrine: Normal Hemo/Lymphatic: Normal Psychiatric: Normal Physical Exam Vital Signs Reviewed: Yes Vital Signs Temp Pulse Pulse Resp BP Pulse Ox 11/09/16 04:49 98.4 F 79 79 19 125/62 11/09/16 04:25 79 19 125/62 11/09/16 03:00 97.6 F 78 22 110/66 97 11/09/16 01:19 97.8 F 89 20 115/64 97 11/08/16 21:32 97.7 F 99 H 24 120/56 L 100 Temperature: Afebrile Blood Pressure: Normal Pulse: Regular Respiratory Rate: Normal Appearance: Positive for: Cachectic, Other (Emaciated) Mental Status: Positive for: Alert and Oriented X 3 - Systems Exam Head: Present: Atraumatic, Normocephalic Pupils: Present: PERRL Extroacular Muscles: Present: EOMI Conjunctiva: Present: Normal Mouth: Present: Moist Mucous Membranes Neck: Present: Normal Range of Motion Respiratory/Chest: Present: Rhonchi (Left-sided rhonchi). No: Respiratory Distress, Accessory Muscle Use Cardiovascular: Present: Regular Rate and Rhythm, Normal S1, S2. No: Murmurs Abdomen: Present: Normal Bowel Sounds. No: Tenderness, Distention, Peritoneal Signs Upper Extremity: Present: Normal Inspection. No: Cyanosis, Edema Lower Extremity: Present: Normal Inspection. No: Edema Neurological: Present: GCS=15, CN II-XII Intact, Speech Normal Skin: Present: Warm, Dry, Normal Color. No: Rashes Psychiatric: Present: Alert, Oriented x 3, Normal Insight, Normal Concentration Medical Decision Making ED Course and Treatment: 11/08/16 22:01 Impression: 71 year old male brought in by family for left-sided chest pain and shortness of breath today. Differential Diagnosis include but are not limited to: pneumonia vs. ACS vs. lung ca Plan: -- EKG -- Chest X-ray -- Labs, cardiac enzymes, BNP -- Duoneb -- Morphine -- Zofran -- Reassess and disposition Prior Visits: Notes and results from previous visits were reviewed. On 10/23/2016, pt was seen in the Emergency department for worsening shortness of breath and left-sided chest pain. Pt was admitted to the hospital for further evaluation. Progress Notes: Reviewed EKG, NSR at 93 bpm. PAC. LVH. Anterior infarct. Non-specific ST/T wave changes. 11/09/16 02:04 Reviewed radiology, Chest X-ray shows: Diffuse interstitial disease, acute versus chronic; mild cardiomegaly; Port-A-Cath 11/09/16 02:[address] Greer, who is aware and agrees with plan. Accepts pt in to his service. Pt will be admitted to Telemetry for lung cancer and COPD exacerbation. Requests Dr. Vargas on consult. - Lab Interpretations Lab Results: 11/08/16 22:10 11/08/16 22:10 Lab Results 11/08/16 22:10: WBC 9.2 D, RBC 3.21 L, Hgb 9.1 L, Hct 27.5 L, MCV 85.7, MCH 28.3, MCHC 33.1, RDW 19.2 H, Plt Count 727 H* D, MPV 8.7, PT 12.8 H, INR 1.19 H , APTT 33.6 H, Sodium 134, Potassium 3.7, Chloride 98, Carbon Dioxide 24, Anion Gap 16, BUN 15, Creatinine 0.5, Est GFR ( Amer) > 60, Est GFR (Non-Af Amer) > 60, Random Glucose 141 H, Calcium 9.4, Total Bilirubin 0.6, AST 55, ALT 84 H, Alkaline Phosphatase 250 H, Lactate Dehydrogenase 984 H, Total Creatine Kinase 23 L, Troponin I < 0.01 D, NT-Pro-B Natriuret Pep 238, Total Protein 7.3 , Albumin 3.6, Globulin 3.7, Albumin/Globulin Ratio 1.0 L I have reviewed the lab results: Yes - RAD Interpretation Narrative RAD Interpretations (Text): Chest X-ray shows: Tubes and catheters: There is a right sided Port-A-Cath, catheter tip in the right atrium Heart, mediastinum and diandra: Heart size is normal. Aorta is mildly uncoiled. Hilar contours are unremarkable. Vascularity: Pulmonary vascularity is normal. Lungs: There is diffuse increase in interstitial markings. There are more focal opacities at the lung bases. Pleural spaces: There is no definite effusions. Bony structures: Bony structures are osteopenic. Upper abdomen: There is gaseous distention of upper bowel loops IMPRESSION: Diffuse interstitial disease, acute versus chronic; mild cardiomegaly; Port-A-Cath Radiology Orders: 11/08/16 22:02 CHEST PORTABLE [RAD] Stat [place] Inspector: Radiologist - EKG Interpretation EKG Interpretation (Text): EKG: Ordered, reviewed, and independently interpreted the EKG. Rate : 93 BPM Rhythm : NSR Interpretation : PAC. LVH. Anterior infarct. Non-specific ST/T wave changes. Comparison : No acute change from previous EKG on 10/23/2016. Interpreted by ED Physician: Yes Type: 12 lead EKG - Medication Orders Current Medication Orders: Arformoterol Tartrate (Brovana) 15 mcg IH [id number] [facility] Last Admin: 11/09/16 22:03 Dose: 15 MCG Bisacodyl (Dulcolax) 5 mg PO DAILY PRN PRN Reason: Constipation Last Admin: 11/09/16 18:04 Dose: 5 MG Budesonide (Pulmicort Respules) 0.5 mg IH [id number] [facility] Last Admin: 11/09/16 22:03 Dose: 0.5 MG Enoxaparin Sodium (Lovenox) 30 mg SC DAILY [facility] PRN Reason: Protocol Famotidine (Pepcid) 40 mg PO [facility] Last Admin: 11/09/16 21:45 Dose: 40 MG Folic Acid (Folic Acid) 1 mg PO DAILY [facility] Last Admin: 11/09/16 10:37 Dose: 1 MG Meropenem 1g/NS 100mL IVPB (Meropenem 1g/Ns 100ml Ivpb) 100 mls @ 100 mls/hr IVPB Q8 DONNA PRN Reason: Protocol Stop: 11/16/16 08:16 Last Admin: 11/09/16 21:05 Dose: 100 MLS/HR eMAR Start Stop Document 11/09/16 21:05 TREE (Rec: 11/09/16 21:05 TREE [id number]) Intravenous Solution Start Date 11/09/16 Start Time 21:05 End Date 11/09/16 End time 22:05 Total Infusion Time 60 Vancomycin HCl (Vancomycin 1gm) 250 mls @ 167 mls/hr IVPB Q12H DONNA PRN Reason: Protocol Stop: 11/16/16 08:16 Last Admin: 11/09/16 21:36 Dose: 167 MLS/HR eMAR Start Stop Document 11/09/16 21:36 TREE (Rec: 11/09/16 21:36 TREE [facility]) Intravenous Solution Start Date 11/09/16 Start Time 21:36 End Date 11/09/16 End time 23:30 Total Infusion Time 114 Methylprednisolone (Solu-Medrol) 20 mg IVP Q12 [facility] Last Admin: 11/09/16 21:46 Dose: 20 MG IVP Administration Document 11/09/16 21:46 TREE (Rec: 11/09/16 21:47 TREE [facility]) Charges for Administration # of IVP Administrations 1 Morphine Sulfate (Morphine) 2 mg IVP Q4H PRN PRN Reason: severe pain Multivitamins (Thera Tab) 1 tab PO DAILY [facility] Last Admin: 11/09/16 10:39 Dose: 1 TAB Non-Formulary Medication (Vit B12/Pyridoxine/Thiamine [Pv Neuro Nisha Tablet]) 1 ,000 mg PO DAILY [facility] Last Admin: 11/09/16 10:43 Dose: Oxycodone HCl (Oxycodone Immediate Release Tab) 15 mg PO Q6H PRN PRN Reason: pain Last Admin: 11/09/16 15:49 Dose: 15 MG Discontinued Medications Albuterol/Ipratropium (Duoneb 3 Mg/0.5 Mg (3 Ml) Ud) 3 ml IH ONCE STA Stop: 11/08/16 22:05 Last Admin: 11/08/16 23:19 Dose: 3 ML Albuterol/Ipratropium (Duoneb 3 Mg/0.5 Mg (3 Ml) Ud) 3 ml IH ONCE STA Stop: 11/09/16 02:07 Last Admin: 11/09/16 02:32 Dose: 3 ML Ceftriaxone Sodium (Rocephin 1 Gram Ivpb) 100 mls @ 200 mls/hr IVPB STAT STA PRN Reason: Protocol Stop: 11/09/16 02:38 Last Admin: 11/09/16 02:32 Dose: 200 MLS/HR eMAR Start Stop Document 11/09/16 02:32 RE (Rec: 11/09/16 02:33 [place] [id number]) Intravenous Solution Start Date 11/09/16 Start Time 02:33 Azithromycin (Zithromax 500mg In Ns) 250 mls @ 166.667 mls/hr IV STAT STA PRN Reason: Protocol Stop: 11/09/16 03:39 Last Admin: 11/09/16 03:21 Dose: 166.667 MLS/HR eMAR Start Stop Document 11/09/16 03:21 RE (Rec: 11/09/16 03:21 [facility] Intravenous Solution Start Date 11/09/16 Start Time 03:21 Morphine Sulfate (Morphine) 4 mg IVP STAT STA Stop: 11/08/16 22:04 Last Admin: 11/08/16 23:18 Dose: 4 MG MAR Pain Assessment Document 11/08/16 23:18 RE (Rec: 11/08/16 23:19 [email or web address] Pain Reassessment Is this a pain reassessment? No Sleep Is patient sleeping during reassessment? No Presence of Pain Presence of Pain Yes Pain Scale Used Pain Scale Used Numeric Location Pain Location Body Site Chest Description Description Constant Pain Behavior Moaning Alleviating Factors/Management Medication Techniques IVP Administration Document 11/08/16 23:18 RE (Rec: 11/08/16 23:19 [email or web address] Charges for Administration # of IVP Administrations 1 Morphine Sulfate (Morphine) 4 mg IVP STAT STA Stop: 11/09/16 02:07 Last Admin: 11/09/16 02:32 Dose: 4 MG MAR Pain Assessment Document 11/09/16 02:32 RE (Rec: 11/09/16 02:32 RE [place] [id number]) Pain Reassessment Is this a pain reassessment? Yes Sleep Is patient sleeping during reassessment? No Presence of Pain Presence of Pain Yes Pain Scale Used Pain Scale Used Numeric Location Pain Location Body Site Back Description Description Throbbing Pain Behavior Moaning Aggravating Factors None IVP Administration Document 11/09/16 02:32 RE (Rec: 11/09/16 02:32 RE [place] [id number]) Charges for Administration # of IVP Administrations 1 Non-Formulary Medication (Multivitamin [Daily Nisha]) 1 each PO DAILY DONNA Ondansetron HCl (Zofran Inj) 4 mg IVP ONCE ONE Stop: 11/08/16 22:04 Last Admin: 11/08/16 23:19 Dose: 4 MG IVP Administration Document 11/08/16 23:19 RE (Rec: 11/08/16 23:19 RE [place] [id number]) Charges for Administration # of IVP Administrations 1 Oxycodone/Acetaminophen (Percocet 5/325 Mg Tab) 1 tab PO Q4H PRN PRN Reason: Pain, moderate (4-7) Stop: 11/09/16 11:00 Last Admin: 11/09/16 04:34 Dose: 1 TAB - Scribe Statement The provider has reviewed the documentation as recorded by the Nic [place] Provider Attestation: All medical record entries made by the Nic were at my direction and personally dictated by me. I have reviewed the chart and agree that the record accurately reflects my personal performance of the history, physical exam, medical decision making, and the department course for this patient. I have also personally directed, reviewed, and agree with the discharge instructions and disposition. Disposition/Present on Arrival - Present on Arrival Any Indicators Present on Arrival: No History of DVT/PE: No History of Uncontrolled Diabetes: No Urinary Catheter: No History of Decub. Ulcer: No History Surgical Site Infection Following: None - Disposition Have Diagnosis and Disposition been Completed?: Yes Diagnosis: Lung mass, Chest pain, Pneumonia Disposition: HOSPITALIZED Disposition Time: 02:20 Patient Problems: Current Active Problems Problem Status Diagnosed Colitis Acute Dehydration Acute Condition: STABLE
[2016-11-08] MEDS ORDERED: Morphine 4 mg/ml ISec IVP STA (22:03)
[2016-11-08] MEDS ORDERED: Albuterol-Ipratrop 3 mg / 0.5 (3 ml) UD IH STA (22:04)
[2016-11-08 22:18] LABS: HEMATOCRIT 27.5 % (42.0-52.0); MEAN CELL VOLUME 85.7 fL (80.0-105.0); MEAN CORPUSCULAR HEMOGLOBIN 28.3 pg (25.0-35.0); MEAN CORPUSCULAR HGB CONC 33.1 g/dl (31.0-37.0); MEAN PLATELET VOLUME 8.7 fl (7.0-11.0); RED CELL DISTRIBUTION WIDTH 19.2 % (11.5-14.5); WHITE BLOOD COUNT 9.2 10^3/ul (4.5-11.0)
[2016-11-08 22:34] LABS: ALKALINE PHOSPHATASE 250 U/L (38-133); ALT/SGPT 84 U/L (7-56); AST/SGOT 55 U/L (15-59); BILIRUBIN,TOTAL 0.6 mg/dL (0.2-1.3); BLOOD UREA NITROGEN 15 mg/dL (7-21); CALCIUM 9.4 mg/dL (8.4-10.5); CARBON DIOXIDE 24 mmol/L (21-33); CHLORIDE 98 mmol/L (98-107); GFR AFRICAN-AMERICAN > 60; GLUCOSE,RANDOM 141 mg/dL (70-110); POTASSIUM 3.7 mmol/L (3.6-5.0); SODIUM 134 mmol/L (132-148); TOTAL PROTEIN 7.3 g/dL (5.8-8.3)
[2016-11-08 22:46] LABS: TROPONIN I < 0.01 ng/mL
[2016-11-08 22:50] LABS: INR 1.19 (0.93-1.08); PARTIAL THROMBOPLASTIN TIME 33.6 Seconds (23.7-30.8)
--- NOTE | 2016-11-09 01:58 | RAD ---
EXAM: XR Chest, 1 View CLINICAL HISTORY: 71 years old, male; Pain; Chest pain TECHNIQUE: Frontal view of the chest. EXAM DATE/TIME: 11/08/2016 10:02 PM COMPARISON: CT - ANGIO CHEST PE PROTOCOL 10/23/2016 11:48:51 AM FINDINGS: Tubes and catheters: There is a right sided Port-A-Cath, catheter tip in the right atrium Heart, mediastinum and diandra: Heart size is normal. Aorta is mildly uncoiled. Hilar contours are unremarkable. Vascularity: Pulmonary vascularity is normal. Lungs: There is diffuse increase in interstitial markings. There are more focal opacities at the lung bases. Pleural spaces: There is no definite effusions. Bony structures: Bony structures are osteopenic. Upper abdomen: There is gaseous distention of upper bowel loops IMPRESSION: Diffuse interstitial disease, acute versus chronic; mild cardiomegaly; Port-A-Cath
[2016-11-09] MEDS ORDERED: Morphine 4 mg/ml ISec IVP STA (02:06)
[2016-11-09] MEDS ORDERED: Albuterol-Ipratrop 3 mg / 0.5 (3 ml) UD IH STA (02:06)
[2016-11-09] MEDS ORDERED: cefTRIAXone 1 gm 100 ML IVPB STA (02:09)
[2016-11-09] MEDS ORDERED: Azithromycin 500MG/NS 250ml 250 ML IV STA (02:10)
[2016-11-09] MEDS ORDERED: Oxycodone/Acetaminophen 5/325 mg Tab PO PRN (02:21)
[2016-11-09] MEDS: Vancomycin 1gm in NS 250ml 250 ML IVPB SCH ×2 (08:41→21:36)
[2016-11-09] MEDS ORDERED: PYRIDOXINE PO SCH (10:00)
[2016-11-09] MEDS ORDERED: THIAMINE PO SCH (10:00)
[2016-11-09] MEDS ORDERED: CYANOCOBALAMIN PO SCH (10:00)
[2016-11-09] MEDS ORDERED: MULTIVITAMIN PO SCH (10:00)
[2016-11-09] MEDS: Meropenem 1g/NS 100mL IVPB 100 ML IVPB SCH ×3 (10:38→21:05)
[2016-11-09] MEDS: Multivitamin Therapeutic Tab PO SCH (10:39)
[2016-11-09] MEDS: CYANOCOBALAMIN PO SCH (10:43)
[2016-11-09] MEDS: THIAMINE PO SCH (10:43)
[2016-11-09] MEDS: PYRIDOXINE PO SCH (10:43)
--- NOTE | 2016-11-09 15:15 | CP.PCM.CON ---
History of Present Illness - History of Present Illness History of Present Illness: 71 year old male with PMH of lung cancer on chemotherapy, chronic anemia, dyslipidemia, S/P appendectomy was recently admitted in [facility] this month for HCAP. He did well with antibiotics and was discharged home. He was doing well until about a day ago when he started complaining of left sided chest pain associated with shortness of breath. He continues to have a dry cough. The patient denies fever or chills, no nausea or vomiting, no abdominal pain, no diarrhea, no dysuria. In the ED, CXR showed some interstitial infiltrates and Infectious diseases consult is requested to further evaluate and manage. Review of Systems - Review of Systems All systems: reviewed and no additional remarkable complaints except (as per HPI ) Past Patient History - Infectious Disease Hx of Infectious Diseases: None - Tetanus Immunizations Tetanus Immunization: Unknown - Past Medical History & Family History Past Medical History?: Yes - Past Social History Smoking Status: Former Smoker - CARDIAC Hx Cardiac Disorders: Yes - PULMONARY Hx Chronic Obstructive Pulmonary Disease (COPD): Yes - NEUROLOGICAL Hx Neurological Disorder: Yes - HEENT Hx HEENT Problems: Yes Hx Deafness: Yes - RENAL Hx Chronic Kidney Disease: No - ENDOCRINE/METABOLIC Hx Endocrine Disorders: No - HEMATOLOGICAL/ONCOLOGICAL Hx Blood Disorders: Yes Hx Anemia: Yes (BLOOD TRANSFUSION) - INTEGUMENTARY Hx Dermatological Problems: Yes (GENERALIZED SKIN DRYNESS) - MUSCULOSKELETAL/RHEUMATOLOGICAL Hx Musculoskeletal Disorders: Yes Hx Back Pain: Yes Hx Falls: Yes Hx Herniated Disk: Yes - GASTROINTESTINAL Hx Gastrointestinal Disorders: Yes (POOR APPETITE,COLITIS) Hx Gastroesophageal Reflux: Yes - GENITOURINARY/GYNECOLOGICAL Hx Genitourinary Disorders: Yes Hx Incontinence: Yes - PSYCHIATRIC Hx Psychophysiologic Disorder: Yes (H/O SMOKING 2-3 PPD QUIT,ETOH ABUSE DRANK 9- 10 CANS OF BEER A WEEK.) Hx Emotional Abuse: No Hx Physical Abuse: No Hx Substance Use: No - SURGICAL HISTORY Hx Appendectomy: Yes Hx Cardiac Catheterization: Yes Other/Comment: R chest port - ANESTHESIA Hx Anesthesia: Yes Hx Anesthesia Reactions: No Hx Malignant Hyperthermia: No Meds Allergies/Adverse Reactions: Allergies Allergy/AdvReac Type Severity Reaction Status Date / Time No Known Allergies Allergy Verified 10/23/16 15:40 - Medications Medications: Current Medications Bisacodyl (Dulcolax) 5 mg PO DAILY PRN PRN Reason: Constipation Folic Acid (Folic Acid) 1 mg PO DAILY DONNA Multivitamins (Thera Tab) 1 tab PO DAILY [facility] Non-Formulary Medication (Vit B12/Pyridoxine/Thiamine [Pv Neuro Nisha Tablet]) 1 ,000 mg PO DAILY [facility] Oxycodone/Acetaminophen (Percocet 5/325 Mg Tab) 1 tab PO Q4H PRN PRN Reason: Pain, moderate (4-7) Stop: 11/09/16 11:00 Last Admin: 11/09/16 04:34 Dose: 1 tab Physical Exam - Constitutional Appears: Non-toxic, No Acute Distress, Cachectic, Chronically Ill - Head Exam Head Exam: NORMAL INSPECTION - ENT Exam ENT Exam: Mucous Membranes Moist - Neck Exam Neck exam: Negative for: Lymphadenopathy, Meningismus - Respiratory Exam Respiratory Exam: Decreased Breath Sounds, Rales (scattered) - Cardiovascular Exam Cardiovascular Exam: +S1, +S2 - GI/Abdominal Exam GI & Abdominal Exam: Soft. absent: Tenderness Results - Vital Signs Recent Vital Signs: Last Vital Signs Temp 98.4 F 11/09/16 04:49 Pulse 79 11/09/16 06:00 Resp 19 11/09/16 04:49 BP 125/62 11/09/16 04:49 Pulse Ox 97 11/09/16 03:00 - Labs Result Diagrams: 11/08/16 22:10 11/08/16 22:10 Assessment & Plan - Assessment and Plan (Free Text) Plan: Assessment Consider hospital-acquired pneumonia in a patient recently treated for healthcare-associated pneumonia lung cancer on chemotherapy chronic anemia dyslipidemia S/P appendectomy Plan started patient on Vancomycin and Merrem pending blood cx, urine cx, sputum cx, PCT; ordered CT chest to further evaluate the infiltrates Follow up Pulmonary evaluation and recommendations Will monitor clinically
[2016-11-09] MEDS: oxyCODONE 15 mg Immediate Release Tab PO PRN (15:49)
[2016-11-09] MEDS: Bisacodyl 5mg EC Tab PO PRN (18:04)
--- NOTE | 2016-11-09 21:07 | CON ---
DATE: 11/09/2016 REFERRING PHYSICIAN: Dr. Greer. REASON FOR CONSULT: Chronic obstructive lung disease, history of lung cancer. HISTORY OF PRESENT ILLNESS: This is a 71-year-old gentleman who just recently discharged from the [facility] with exacerbation of chronic lung disease with lung cancer, comes into ER with chest pain, wor se with deep inspiration, short of breath. No hemoptysis, no hematemesis, no hematuria, no diarrhea reported. PAST MEDICAL HISTORY: Chronic obstructive lung disease, lung cancer, hyperlipidemia. ALLERGIES: None known. SOCIAL HISTORY: He is a former smoker. Denies any alcohol use. FAMILY HISTORY: No significant cardiopulmonary disease reported. MEDICATIONS: He is on Dulcolax 5 mg daily p.r.n., folic acid 1 mg daily, meropenem 1 g q. 8 hours, m orphine 2 mg IV q. 4 hours p.r.n., oxycodone immediate release 15 mg q. 6 hours p.r.n., multivitamins daily, vancomycin 1 g IV q. 12 hours, and getting neuro vitamins daily. REVIEW OF SYSTEMS: No headache, no rhinitis. Had chest pain on admission. Short of breath with exe rtion. No nausea, no vomiting, no diarrhea. Has difficulty walking. PHYSICAL EXAMINATION: GENERAL: Lying in the bed in no acute distress. VITAL SIGNS: Temp is 98, heart rate 85, respiratory rate is 20, blood pressure 120/78, pulse ox 98% on nasal cannula. HEENT: Moist mucous membrane. No ulcer or oral thrush noted. NECK: Supple. No JVD. LUNGS: Has a few crackles at the bases, prolonged expiratory phase with few wheezing. HEART: S1 and S2. ABDOMEN: Soft, nontender. No organomegaly. EXTREMITIES: There is no edema. NEUROLOGIC: Awake, alert, follows simple commands. LABORATORY DATA: Shows hemoglobin 9.1, hematocrit 27.5, WBC 9.2, platelet is 727. INR 1.19, PTT 33. Sodium 134, potassium 3.7, chloride 98, bicarbonate 34, BUN 15, creatinine 0.5, glucose 141, calciu m 9.4. AST is 55, ALT 84, alkaline phosphatase is 250. Albumin is 3.6. Microbiology: Blood cultur e and urine culture have been negative from last admission. Chest x-ray done yesterday shows interst itial lung disease, acute versus chronic, cardiomyopathy, pulmonary infiltrate. Being treated for healthcare-associated pneumonia, history of lung cancer, immunocompromised, been on chemotherapy, anemia, ADL dysfunction. The patient was started on broad spectrum antibiotic. Pulmo nary point of view, he is doing okay. Continue inhaled bronchodilator. May add Solu-Medrol 20 mg q. 12 hours. Gastric prophylaxis, deep venous thrombosis prophylaxis. Supplement oxygen. Thank you and we will follow with you. Shell Vargas MD cc: [id number] TT: 11/09/2016 21:06:28 Confirmation # [id number] Dictation # [id number]
[2016-11-09] MEDS: MethylPREDNISolone 40 mg Vial IVP SCH (21:46)
[2016-11-09] MEDS: Arformoterol 15 mcg/2 ml Inh Sol IH SCH (22:03)
[2016-11-09] MEDS: Budesonide 0.5 mg/2 ml Inhal Susp UD IH SCH (22:03)
--- NOTE | 2016-11-09 23:18 | CON ---
DATE: 11/09/2016 LOCATION: The patient is in ICU 128, bed 2. REASON FOR CONSULT: The patient has a history of stage IV nonsmall cell lung carcinoma on active latricia motherapy with carboplatin and Alimta and is now readmitted to the hospital with worsening shortness of breath. The patient's daughter called me earlier this morning when she was taking him to the ER a s his breathing was progressively worsening. The patient had been just recently in the hospital and was discharged after he had been admitted with exacerbation of his chronic obstructive pulmonary dise ase and the background history of having lung cancer, had come to the ER with chest pain, worsening w ith inspiration. No hemoptysis, no hematemesis, no hematuria, no diarrhea. PAST MEDICAL HISTORY: Significant for COPD, stage IV nonsmall cell carcinoma of the lung. ALLERGIES: No known allergies. SOCIAL HISTORY: The patient is a former smoker. He denies any alcohol use. FAMILY HISTORY: The patient has no significant cardiopulmonary disease reported. MEDICATIONS: Dulcolax 5 mg daily, folic acid 1 mg daily. He is on meropenem 1 gram q. 8 hours, morp haven 2 mg IV q. 4 hours p.r.n., oxycodone 50 mg q. 6 hours p.r.n., multivitamins daily, vancomycin 1 gram IV q. 12 hours. The patient is also taking neurotropic vitamins as well. REVIEW OF SYSTEMS: The patient denies any headaches, . Chest pain on admission, shortness of breath. No nausea, vomiting, diarrhea. PHYSICAL EXAMINATION: GENERAL: The patient is examined by the bedside. VITAL SIGNS: Stable. T-max is 98.4, heart rate is 85, respirations 20, blood pressure is 120/70, pu lse ox of 98% on room air. HEENT: Head is normocephalic, atraumatic. Temporal muscle wasting is noted. Examination of the christian pharynx, tongue to be moist, no oropharyngeal lesions are noted. NECK: Supple. There is no adenopathy. No jugular venous distention is noted. CHEST: Lungs reveals crackles at the bases, prolonged expiratory phase of breathing with few wheezin g. CARDIOVASCULAR: Reveals S1 and S2 to be normal. No gallop or murmur is heard. ABDOMEN: Soft, nontender. No organomegaly is noted. EXTREMITIES: Reveals no cyanosis, clubbing or edema. NEUROLOGIC: Higher functions are normal. No focal deficits are noted. LABORATORY DATA: From today reveals a hemoglobin of 9.1, hematocrit 27.5, white count is 9.2, platel et count 727,000. INR is 1.19, PTT 33, sodium 134, K is 3.7, chloride 98, bicarbonate 34, BUN of 15, creatinine 0.5, glucose is 141, calcium is 9.4. AST is 56, ALT 84, alkaline phosphatase 251, albumi n 3.6. Blood cultures and urine cultures have been negative from the last admission. Chest x-ray sh ows interstitial lung disease and acute versus chronic cardiomyopathy and pulmonary infiltrates. ASSESSMENT NOTES AND PLAN: The patient has already been started on antibiotics. We will get input f rom both renal and pulmonology as far as further management is concerned. Continue inhaled bronchodi lators. He is on Solu-Medrol 20 IV q. 12 hours. The patient also on gastric and deep venous thrombo sis prophylaxis and will try to figure out what else we can do to ameliorate some of the side effects from the Alimta if that was what was a causative factor in this situation. Will follow the patient with you and make appropriate recommendations. Josee Ma MD cc: [id number] TT: 11/09/2016 23:17:15 Confirmation # [id number] Dictation # [id number] ronaldo
[2016-11-10] MEDS: oxyCODONE 15 mg Immediate Release Tab PO PRN ×2 (03:37→16:28)
[2016-11-10 06:58] LABS: ADD MANUAL DIFF? NO
[2016-11-10 07:45] LABS: BASO # 0.01 K/mm3 (0.0-2.0); BASO % 0.2 % (0.0-3.0); GRAN % 96.4 % (50.0-68.0); HEMATOCRIT 28.3 % (42.0-52.0); LYMPH # 0.2 (1.2-3.4); LYMPH % 2.9 % (22.0-35.0); MEAN CELL VOLUME 86.8 fL (80.0-105.0); MEAN CORPUSCULAR HEMOGLOBIN 28.2 pg (25.0-35.0); MEAN CORPUSCULAR HGB CONC 32.5 g/dl (31.0-37.0); MEAN PLATELET VOLUME 8.7 fl (7.0-11.0); MONO % 0.5 % (1.0-6.0); RED CELL DISTRIBUTION WIDTH 19.2 % (11.5-14.5); WHITE BLOOD COUNT 5.5 10^3/ul (4.5-11.0)
[2016-11-10 07:47] LABS: PLATELET COUNT 761 10^3/uL (120.0-450.0)
[2016-11-10] MEDS: Arformoterol 15 mcg/2 ml Inh Sol IH SCH ×2 (08:01→20:02)
[2016-11-10] MEDS: Budesonide 0.5 mg/2 ml Inhal Susp UD IH SCH ×2 (08:01→20:02)
[2016-11-10] MEDS: Vancomycin 1gm in NS 250ml 250 ML IVPB SCH ×2 (08:02→21:41)
[2016-11-10 08:34] LABS: ALKALINE PHOSPHATASE 190 U/L (38-133); ALT/SGPT 59 U/L (7-56); AST/SGOT 54 U/L (15-59); BILIRUBIN,TOTAL 0.5 mg/dL (0.2-1.3); BLOOD UREA NITROGEN 9 mg/dL (7-21); CALCIUM 9.3 mg/dL (8.4-10.5); CARBON DIOXIDE 24 mmol/L (21-33); CHLORIDE 102 mmol/L (95-110); GFR AFRICAN-AMERICAN > 60; GLUCOSE,RANDOM 163 mg/dL (70-110); POTASSIUM 4.4 mmol/L (3.6-5.0); SODIUM 136 mmol/L (132-148); TOTAL PROTEIN 6.7 g/dL (5.8-8.3)
--- NOTE | 2016-11-10 09:47 | HP ---
The patient complained he is short of breath and left side chest pain. HISTORY OF PRESENT ILLNESS: This 71-year-old male with history of adenocarcinoma of his lung due to heavy smoking and chronic smoking. The patient has diagnosis of left side pulmonary adenocarcinoma w hich was biopsied and getting chemotherapy. The patient came to the hospital because of severe left- sided pain, short of breath, not feeling well. Denied fever, but he feels weak, tired and brought in to the Emergency Room very weak and cannot breathe normal. PAST MEDICAL HISTORY: As I mentioned lung CA, COPD, B12 deficiency, gluten sensitive enteropathy, ga stritis, generalized osteoarthritis, chronic osteoarthritis, hypercholesterolemia and getting chemoth erapy. ALLERGIES: No known allergies. SOCIAL HISTORY: He quit smoking recently, but he smoked for years. He does drink beer on weekend ba . He lives by himself, but he has a very supportive daughter. She takes care of him very well. MEDICATIONS: At home, the patient takes inhalers, bronchodilator with Spiriva and he takes, oxycodo ne, B12, Zofran, daily vitamin, folic acid and calcium and vitamin D, Dulcolax, Lipitor 10 mg, Ventol in inhaler also. REVIEW OF SYSTEMS: As in the present illness, the patient complained of left side chest pain. Also, complained of chronic cough and short of breath, especially after recent discharge from the hospital . He does also complain of generalized weakness. Appetite improved after discharge from the [facility] and it was diminished before. Chronic osteoarthritis, chronic pain, especially left side. On 11/09 , which is the day of admission in the ICU, the patient lying in bed, seems comfortable on oxygen. PHYSICAL EXAMINATION: VITAL SIGNS: Temperature is 99.5, heart rate 80, blood pressure 115/54, respirations 20, saturating 98% on 2-3 L. HEAD AND NECK: Normal. No JVD, no thyromegaly. CHEST: A few rhonchi bilaterally, but diminished breath sounds, especially on the left lung base. CARDIAC: First sound, second sound normal. ABDOMEN: Soft, nontender. EXTREMITIES: No edema. NEUROLOGIC: Normal. LABORATORY DATA: White count is 9.2, hemoglobin 9.1, hematocrit 27.5, platelets 727. Chemistry show s sodium 134, potassium 3.7, chloride 98, bicarb 24, BUN 15, creatinine 0.5, blood sugar 141. His li ange enzymes noted for normal AST, ALT 84, dave phos 250. Lactic dehydrogenase is 984. Troponin is n egative. The patient also had a chest x-ray on admission which shows the following: Diffuse interst itial disease, acute versus chronic, mild cardiomegaly, Port-A-Cath in. IMPRESSION AND PLAN: Acute nosocomial pneumonia. Probably, the patient coming in and out from chemo therapy in an immunocompromised patient with underlying chronic obstructive pulmonary disease and ángela g cancer. We will admit the patient for ICU. Continue IV antibiotic. Infectious disease consult, Brielle Laguna and Gracy, pulmonary consult, Dr. Vargas and oncology, Dr. Ma. We will continue inhaled bronchodilators, IV bronchodilators. Continue vancomycin and meropenem for now. The patient also getting Brovana, getting Pulmicort. Continue B12, gastrointestinal and deep venous thrombosis prophylaxis. We will follow up clinically. Diego Greer MD cc: [phone] TT: 11/10/2016 09:45:50 tn
[2016-11-10] MEDS: CYANOCOBALAMIN PO SCH (10:45)
[2016-11-10] MEDS: THIAMINE PO SCH (10:45)
[2016-11-10] MEDS: PYRIDOXINE PO SCH (10:45)
--- NOTE | 2016-11-10 10:54 | CT ---
PROCEDURE: CT Chest without contrast HISTORY: pneumonia COMPARISON: 10/23/2016 and 05/24/2016 TECHNIQUE: Contiguous axial images were obtained through the chest without intravenous contrast enhancement. Sagittal and coronal reconstructions were performed. Radiation dose (DLP): 291.25 mGy-cm. This CT exam was performed using one or more of the following dose reduction techniques: Automated exposure control, adjustment of the mA and/or kV according to patient size, and/or use of iterative reconstruction technique. FINDINGS: LUNGS: Extensive right lower lobe interstitial infiltrate unchanged from prior examination. There is subpleural fibrosis seen in the right upper lobe, unchanged from prior examination. There is no jim right-sided consolidation. There is left posterior pleural thickening associated with pleural calcification, new since examination of 05/24/2016 and possibly resulting from pleurodesis. Please correlate with history. Mild interstitial infiltrate in left lower lobe as well as mild dependent consolidation, possibly atelectasis versus pneumonia. This is slightly decreased from the prior examination. Minimal lingular consolidation, nonspecific and unchanged from prior. MEDIASTINUM: Unremarkable thoracic aorta. No aneurysm. Mild cardiomegaly. Central venous infusion port. Main pulmonary artery unremarkable. No vascular congestion. No lymphadenopathy. Likely multiple right sided thyroid nodules. Correlate with thyroid ultrasound. PLEURA: No pleural effusion. As noted above, left posterior pleural thickening with pleural calcification. Question is raised as to possible prior left pleurodesis. BONES: No fracture. No destructive lesion. UPPER ABDOMEN: Significant for right upper pole renal cyst only partially included, measuring at least 2.9 cm in diameter. OTHER FINDINGS: None. IMPRESSION: Persistent extensive right lower lobe interstitial infiltrate. This is unchanged from examination of 10/23/2016. This was not evident on earlier examination of 05/24/2016. There is subpleural fibrosis noted in the right upper lobe. No jim right-sided consolidation. Probable dependent atelectasis versus minimal residual infiltrate left lower lobe. Curvilinear left pleural calcification, possibly resulting from prior pleurodesis. Please correlate with history. Minimal lingular consolidation, nonspecific and unchanged. Probably multiple right-sided thyroid nodules. Correlate with thyroid ultrasound.
[2016-11-10] MEDS: Enoxaparin 30 mg Syringe SC SCH (11:08)
[2016-11-10] MEDS: Bisacodyl 5mg EC Tab PO PRN (11:08)
[2016-11-10] MEDS: MethylPREDNISolone 40 mg Vial IVP SCH ×2 (11:10→21:40)
[2016-11-10] MEDS: Multivitamin Therapeutic Tab PO SCH (11:13)
--- NOTE | 2016-11-10 13:03 | CP.PCM.PN ---
Subjective - Date & Time of Evaluation Date of Evaluation: 11/10/16 Time of Evaluation: 10:10 - Subjective Subjective: Patient is comfortable on a chair, but still with intermittent shortness of breath. No cough or fevers overnight. Objective - Vital Signs/Intake and Output Vital Signs (last 24 hours): Temp Pulse Resp BP Pulse Ox 99.5 F 79 20 113/54 L 98 11/10/16 00:01 11/10/16 02:00 11/10/16 00:01 11/10/16 00:01 11/10/16 00:01 - Medications Medications: Current Medications Arformoterol Tartrate (Brovana) 15 mcg IH [id number] [facility] Last Admin: 11/10/16 08:01 Dose: 15 mcg Bisacodyl (Dulcolax) 5 mg PO DAILY PRN PRN Reason: Constipation Last Admin: 11/10/16 11:08 Dose: 5 mg Budesonide (Pulmicort Respules) 0.5 mg IH [id number] [facility] Last Admin: 11/10/16 08:01 Dose: 0.5 mg Enoxaparin Sodium (Lovenox) 30 mg SC DAILY [facility] PRN Reason: Protocol Last Admin: 11/10/16 11:08 Dose: 30 mg Famotidine (Pepcid) 40 mg PO HS [facility] Last Admin: 11/09/16 21:45 Dose: 40 mg Fentanyl (Duragesic) 1 patch TD Q72H [facility] Folic Acid (Folic Acid) 1 mg PO DAILY [facility] Last Admin: 11/10/16 11:08 Dose: 1 mg Meropenem 1g/NS 100mL IVPB (Meropenem 1g/Ns 100ml Ivpb) 100 mls @ 100 mls/hr IVPB Q8 [facility] PRN Reason: Protocol Stop: 11/16/16 08:16 Last Admin: 11/09/16 21:05 Dose: 100 mls/hr Vancomycin HCl (Vancomycin 1gm) 250 mls @ 167 mls/hr IVPB Q12H [facility] PRN Reason: Protocol Stop: 11/16/16 08:16 Last Admin: 11/10/16 08:02 Dose: 167 mls/hr Methylprednisolone (Solu-Medrol) 20 mg IVP Q12 [facility] Last Admin: 11/10/16 11:10 Dose: 20 mg Morphine Sulfate (Morphine) 2 mg IVP Q4H PRN PRN Reason: severe pain Multivitamins (Thera Tab) 1 tab PO DAILY [facility] Last Admin: 11/10/16 11:13 Dose: 1 tab Non-Formulary Medication (Vit B12/Pyridoxine/Thiamine [Pv Neuro Nisha Tablet]) 1 ,000 mg PO DAILY [facility] Last Admin: 11/09/16 10:43 Dose: Not Given Oxycodone HCl (Oxycodone Immediate Release Tab) 15 mg PO Q6H PRN PRN Reason: pain Last Admin: 11/10/16 03:37 Dose: 15 mg Pantoprazole Sodium (Protonix Inj) 40 mg IVP DAILY [facility] Last Admin: 11/10/16 11:09 Dose: 40 mg - Labs Labs: 11/10/16 04:30 11/10/16 07:00 PT 12.8 Seconds (9.9-11.8) H 11/08/16 22:10 INR 1.19 (0.93-1.08) H 11/08/16 22:10 APTT 33.6 Seconds (23.7-30.8) H 11/08/16 22:10 - Constitutional Appears: Non-toxic, No Acute Distress - Head Exam Head Exam: NORMAL INSPECTION - ENT Exam ENT Exam: Mucous Membranes Moist - Neck Exam Neck Exam: absent: Lymphadenopathy, Meningismus - Respiratory Exam Respiratory Exam: Decreased Breath Sounds (with crackles at the bases) - Cardiovascular Exam Cardiovascular Exam: +S1, +S2 - GI/Abdominal Exam GI & Abdominal Exam: Soft. absent: Tenderness Assessment and Plan - Assessment and Plan (Free Text) Plan: Assessment Consider hospital-acquired pneumonia in a patient recently treated for healthcare-associated pneumonia lung cancer on chemotherapy chronic anemia dyslipidemia S/P appendectomy Plan started patient on Vancomycin and Merrem day 2 pending final blood cx, urine cx , sputum cx results, PCT;reviewed CT chest results which shows the right lower lobe interstitial infiltrates Follow up Pulmonary evaluation and recommendations Will continue to monitor clinically
[2016-11-10] MEDS: Meropenem 1g/NS 100mL IVPB 100 ML IVPB SCH ×2 (13:30→21:40)
[2016-11-10] MEDS: Morphine 2 mg/ml ISec IVP PRN ×2 (18:54→23:58)
[2016-11-11] MEDS: oxyCODONE 15 mg Immediate Release Tab PO PRN ×2 (00:24→17:35)
--- NOTE | 2016-11-11 02:38 | PN ---
DATE: 11/10/2016 REFERRING PHYSICIAN: Dr. Greer. SUBJECTIVE: He is lying in the bed at 45 degrees, feels better, mild cough and shortness of breath. No nausea, no vomiting, no diarrhea. No leg pain or leg swelling. OBJECTIVE: GENERAL: No acute distress. VITAL SIGNS: Temperature is 98, heart rate is 90, respiratory rate is 18, blood pressure 120/90, pul se ox 97% on room air. HEENT: Moist mucous membrane. No ulcer or oral thrush noted. NECK: Supple. No JVD. LUNGS: Has scattered rhonchi, has a prolonged expiratory phase. HEART: S1 and S2. ABDOMEN: Soft, nontender. No organomegaly. EXTREMITIES: There is no edema. NEUROLOGIC: Awake, alert, follows simple command. MEDICATIONS: Brovana 15 mcg inhaled twice a day, Dulcolax 5 mg daily p.r.n., fentanyl patch q. 72 ho urs, folic acid 1 mg daily, Lovenox 30 mg subQ daily, meropenem 1 g IV q. 8 hours, morphine 2 mg IV q . 4 hours p.r.n., oxycodone 15 mg q. 6 hours p.r.n., Pepcid 40 mg at bedtime, Protonix 40 mg daily, P ulmicort inhaled twice a day, Solu-Medrol 20 mg q. 12 hours, multivitamins daily, vancomycin 1 g IV q . 12 hours, vitamin B12 with pyridoxamine 1000 mg p.o. daily. LABORATORY DATA: Shows hemoglobin 9.2, hematocrit 28.3, WBC 5.5, platelet 761. Sodium 136, potassiu m 4.4, chloride 102, bicarbonate 24, BUN 9, creatinine 0.4, glucose 163, calcium 9.3, AST is 54, ALT 59, and alkaline phosphatase is 190, albumin is 3.3. Microbiology: Blood cultures have been negativ e. IMPRESSION AND PLAN: Being treated for healthcare-associated pneumonia, history of lung cancer, immu nocompromised, been on chemotherapy, anemia, ADL dysfunction, chronic obstructive lung disease. Will continue IV and inhaled bronchodilator, keep head elevated at 45 degree. Antibiotics as per infecti ous diseases. Gastric prophylaxis. Deep venous thrombosis prophylaxis. Fall precaution. Infectiou s disease and oncology followup. Thank you and will follow with you. Shell Vargas MD cc: [phone] TT: 11/11/2016 02:38:06 Confirmation # [id number] Dictation # [id number] mn
[2016-11-11] MEDS: Morphine 2 mg/ml ISec IVP PRN ×3 (05:39→20:37)
[2016-11-11] MEDS: Meropenem 1g/NS 100mL IVPB 100 ML IVPB SCH ×2 (05:39→21:48)
[2016-11-11] MEDS: Vancomycin 1gm in NS 250ml 250 ML IVPB SCH ×2 (08:09→21:48)
[2016-11-11] MEDS: Arformoterol 15 mcg/2 ml Inh Sol IH SCH ×2 (09:30→19:58)
[2016-11-11] MEDS: Budesonide 0.5 mg/2 ml Inhal Susp UD IH SCH ×2 (09:30→19:59)
[2016-11-11] MEDS: Multivitamin Therapeutic Tab PO SCH (09:50)
[2016-11-11] MEDS: Enoxaparin 30 mg Syringe SC SCH (09:50)
[2016-11-11] MEDS: MethylPREDNISolone 40 mg Vial IVP SCH ×2 (09:50→21:48)
[2016-11-11] MEDS: THIAMINE PO SCH (09:54)
[2016-11-11] MEDS: CYANOCOBALAMIN PO SCH (09:54)
[2016-11-11] MEDS: PYRIDOXINE PO SCH (09:54)
--- NOTE | 2016-11-11 10:42 | PN ---
DATE: 11/10/2016 The patient is a 71-year-old male. The patient is in the chair. Complained of left side chest pain. No respiratory distress. No nausea, no vomiting, afebrile, in ICU. PHYSICAL EXAMINATION: VITAL SIGNS: Temperature is 97.6, heart rate 94, blood pressure 120/90, respirations 18, and saturat ing 97% room air. HEAD AND NECK: Normal. No JVD, no thyromegaly. CHEST: Clear, diminished breath sounds on left side. CARDIAC: First and second sounds are normal. ABDOMEN: Soft. Bowel sounds intact. EXTREMITIES: No edema. NEUROLOGIC: Normal. LABORATORY DATA: White count 5.5, hemoglobin 9.2, hematocrit 28.3, platelets 761. Chemistry noted f or sodium 136, potassium 4.4, chloride 102, bicarbonate 24, BUN 9, creatinine 0.4, blood sugar is nor mal. Liver enzymes, AST is normal, ALT elevated at 59, alkaline phosphatase 190, which is less than before. His blood sugar is 163. IMPRESSION AND PLAN: 1. Acute community-acquired pneumonia and patient is on chemotherapy with underlying lung cancer, ad enocarcinoma, came in with short of breath, pain, found to have pneumonia. We will continue current IV antibiotic as per ID consult. The patient currently getting meropenem 1 gram IV q. 8 hours and al so is getting vancomycin. Continue current therapy. Follow up with the oral pathologist. 2. Lung cancer, adenocarcinoma, stable, chronic obstructive pulmonary disease. Continue inhaled bro nchodilators, IV steroids. The patient getting 20 mg IV every 8 hours. We will decrease the dose gr adually. 3. Generalized weakness. Will continue Lovenox for deep venous thrombosis prophylaxis. Continue Br ovana. Continue physical therapy. 4. The patient also has some sort of chronic left side chest pain, chronic pain. Continue . W ill add Duragesic patch 25 mcg every 72 hours. Continue morphine and oxycodone as prescribed before. Will follow up his symptoms. Diego Greer MD cc: [phone] TT: 11/11/2016 10:42:28 Confirmation # [id number] Dictation # [id number] rn
--- NOTE | 2016-11-11 16:22 | PN ---
DATE: 11/11/2016 REFERRING PHYSICIAN: Dr. Greer. SUBJECTIVE: He is lying in the bed, head at 45 degree. No headache, no rhinitis. Feels tired. No nausea, no vomiting, diarrhea. No leg pain or leg swelling. Gets short of breath with exertion. OBJECTIVE: GENERAL: In no acute distress. VITAL SIGNS: Temp is 98, heart is 82, respiratory rate is 18, blood pressure 128/77, pulse ox 99% on nasal cannula. HEENT: Moist mucous membrane. Crowded airway. NECK: Supple, no JVD. LUNGS: Have a prolonged expiratory phase. HEART: S1, S2. ABDOMEN: Soft, nontender. No organomegaly. EXTREMITIES: No edema. NEUROLOGIC: Awake, alert, follows simple commands. MEDICATIONS: He is on Brovana 15 mcg inhaled twice a day, Dulcolax 5 mg daily p.r.n., Duragesic patc h q. 72 hours, folic acid 1 mg daily, Lovenox 30 mg subQ daily, meropenem 1 g IV q. 8 hours, morphine 2 mg IV q. 4 hours, oxycodone immediate release 15 mg q. 6 hours p.r.n., Pepcid 40 mg daily, Protoni x 40 mg daily, prednisone with budesonide 0.5 mg inhaled twice a day, Solu-Medrol 20 mg q. 12 hours, multivitamins daily, vancomycin 1 g IV q. 12 hours, vitamin B12, Pradaxa and thiamine p.o. daily. LABORATORY DATA: Reviewed. No new lab is available since yesterday. MICROBIOLOGY: Blood culture has been negative. IMPRESSION AND PLAN: Chronic obstructive lung disease, unresectable lung cancer. Pulmonary infiltra geeta/ pneumonia. Activities of daily living dysfunction, anemia. We will continue bronchodilator, ke ep head at 45 degree. Gastric prophylaxis. Deep venous thrombosis prophylaxis. Antibiotics as per infectious diseases, out of bed to chair. Physical therapy. Fall precaution. Thank you and will fo llow with you. Shell Vargas MD cc: [phone] TT: 11/11/2016 16:21:31 Confirmation # [id number] Dictation # [id number] tn
--- NOTE | 2016-11-11 20:39 | CP.PCM.PN ---
Subjective - Date & Time of Evaluation Date of Evaluation: 11/11/16 Time of Evaluation: 13:20 - Subjective Subjective: Comfortable in bed, not in distress, afebrile. Breathing better. Objective - Vital Signs/Intake and Output Vital Signs (last 24 hours): Temp Pulse Resp BP Pulse Ox 97.6 F 80 20 124/80 98 11/11/16 16:00 11/11/16 16:00 11/11/16 16:00 11/11/16 16:00 11/11/16 16:00 - Medications Medications: Current Medications Arformoterol Tartrate (Brovana) 15 mcg IH [id number] [facility] Last Admin: 11/11/16 19:58 Dose: 15 mcg Bisacodyl (Dulcolax) 5 mg PO DAILY PRN PRN Reason: Constipation Last Admin: 11/10/16 11:08 Dose: 5 mg Budesonide (Pulmicort Respules) 0.5 mg IH [id number] [facility] Last Admin: 11/11/16 19:59 Dose: 0.5 mg Enoxaparin Sodium (Lovenox) 30 mg SC DAILY [facility] PRN Reason: Protocol Last Admin: 11/11/16 09:50 Dose: 30 mg Famotidine (Pepcid) 40 mg PO HS [facility] Last Admin: 11/10/16 21:40 Dose: 40 mg Fentanyl (Duragesic) 1 patch TD Q72H [facility] Last Admin: 11/10/16 13:20 Dose: 1 patch Folic Acid (Folic Acid) 1 mg PO DAILY [facility] Last Admin: 11/11/16 09:50 Dose: 1 mg Meropenem 1g/NS 100mL IVPB (Meropenem 1g/Ns 100ml Ivpb) 100 mls @ 100 mls/hr IVPB Q8 [facility] PRN Reason: Protocol Stop: 11/16/16 08:16 Last Admin: 11/11/16 05:39 Dose: 100 mls/hr Vancomycin HCl (Vancomycin 1gm) 250 mls @ 167 mls/hr IVPB Q12H [facility] PRN Reason: Protocol Stop: 11/16/16 08:16 Last Admin: 11/11/16 08:09 Dose: 167 mls/hr Methylprednisolone (Solu-Medrol) 20 mg IVP Q12 [facility] Last Admin: 11/11/16 09:50 Dose: 20 mg Morphine Sulfate (Morphine) 2 mg IVP Q4H PRN PRN Reason: severe pain Last Admin: 11/11/16 09:50 Dose: 2 mg Multivitamins (Thera Tab) 1 tab PO DAILY [facility] Last Admin: 11/11/16 09:50 Dose: 1 tab Non-Formulary Medication (Vit B12/Pyridoxine/Thiamine [Pv Neuro Nisha Tablet]) 1 ,000 mg PO DAILY [facility] Last Admin: 11/11/16 09:54 Dose: Not Given Oxycodone HCl (Oxycodone Immediate Release Tab) 15 mg PO Q6H PRN PRN Reason: pain Last Admin: 11/11/16 17:35 Dose: 15 mg Pantoprazole Sodium (Protonix Inj) 40 mg IVP DAILY [facility] Last Admin: 11/11/16 09:50 Dose: 40 mg Zolpidem Tartrate (Ambien) 5 mg PO HS PRN; Protocol PRN Reason: Insomnia - Labs Labs: 11/10/16 04:30 11/10/16 07:00 PT 12.8 Seconds (9.9-11.8) H 11/08/16 22:10 INR 1.19 (0.93-1.08) H 11/08/16 22:10 APTT 33.6 Seconds (23.7-30.8) H 11/08/16 22:10 - Constitutional Appears: Non-toxic, No Acute Distress - Head Exam Head Exam: NORMAL INSPECTION - ENT Exam ENT Exam: Mucous Membranes Moist - Neck Exam Neck Exam: absent: Lymphadenopathy, Meningismus - Respiratory Exam Respiratory Exam: Decreased Breath Sounds - Cardiovascular Exam Cardiovascular Exam: +S1, +S2 - GI/Abdominal Exam GI & Abdominal Exam: Soft. absent: Tenderness Assessment and Plan - Assessment and Plan (Free Text) Plan: Assessment Consider hospital-acquired pneumonia in a patient recently treated for healthcare-associated pneumonia lung cancer on chemotherapy chronic anemia dyslipidemia S/P appendectomy Plan started patient on Vancomycin and Merrem day 3 to complete a 4-7 day course; blood cx negative; reviewed CT chest results which shows the right lower lobe interstitial infiltrates Will continue to monitor clinically
--- NOTE | 2016-11-11 22:20 | PN ---
DATE: 11/11/2016 HISTORY OF PRESENT ILLNESS: The patient seems to be doing better. [facility] is [facility] medical [facility]. His pain patch, Duragesic patch, seems to be doing well for him. He has no other complaint. No nausea, no vomiting, no fever. Still on the chair. PHYSICAL EXAMINATION VITAL SIGNS: Today, which is 11/11/2016, temperature 97.6, heart rate 80, blood pressure 124/80, res pirations 20, saturation 98%. HEAD AND NECK: Normal. No JVD. No thyromegaly. CHEST: Clear, good entry. CARDIAC: First sound, second sound normal. LUNGS: Diminished breath sounds on the left lung. ABDOMEN: Soft, nontender. EXTREMITIES: No edema. NEUROLOGIC: Normal. IMPRESSION AND PLAN: 1. Community-acquired pneumonia in immunocompromised patient with lung cancer and chronic obstructiv e pulmonary disease. Continue current IV antibiotic. The patient currently getting meropenem IV q. 8 hours and vancomycin. Continue current treatment for now. 2. Acute chronic obstructive pulmonary disease exacerbation. The patient getting Solu-Medrol, inhale d and IV bronchodilators. Seems to be doing well on that. Continue current treatment. 3. Chronic left-sided chest pain, probably cancer related. Continue Duragesic patch. Continue oxyc odone and morphine p.r.n. 4. Generalized weakness. Start physical therapy, maybe TCU evaluation. Continue Ambien for insomnia and other medications. Diego Greer MD cc: [phone] TT: 11/11/2016 22:19:36 Confirmation # [id number] Dictation # [id number]
--- NOTE | 2016-11-11 22:51 | PN ---
DATE: 11/11/2016 This is the patient's hospital visit on the medical floor. For Dr. Ma. 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 PHYSICAL EXAMINATION: VITAL SIGNS: Temperature 97.6, pulse 80, respirations 20, blood pressure 124/80, pulse ox 98%. HEENT: Unremarkable. NECK: Supple. HEART: Regular rate. LUNGS: Decreased breath sounds on the left. ABDOMEN: Soft, nontender. EXTREMITIES: No edema. SKIN: Warm, dry and clear. NEUROLOGIC: Awake, alert and oriented. The patient appears cachectic. LABORATORIES: The patient's labs were done yesterday and will be repeated tomorrow. 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 PLAN: Continue his present medical regimen. We will ask for the patient to be out of bed on a daily basis with physiotherapy for his legs as he reports they are weak, with continuation of his antibiot ics as per Dr. Dubose and Dr. Laguna, with analgesics for his pain to continue. We will monitor c linically and with labs. Vincenzo Dias MD cc: 411 TT: 11/11/2016 22:50:27 Confirmation # [id number] Dictation # [id number] ln
[2016-11-12] MEDS: Morphine 2 mg/ml ISec IVP PRN ×4 (01:42→20:37)
[2016-11-12] MEDS: oxyCODONE 15 mg Immediate Release Tab PO PRN ×3 (04:33→21:15)
[2016-11-12 05:07] LABS: ADD MANUAL DIFF? NO
[2016-11-12 05:28] LABS: BASO # 0.01 K/mm3 (0.0-2.0); BASO % 0.2 % (0.0-3.0); GRAN % 90.4 % (50.0-68.0); HEMATOCRIT 29.2 % (42.0-52.0); LYMPH # 0.4 (1.2-3.4); LYMPH % 7.9 % (22.0-35.0); MEAN CELL VOLUME 86.4 fL (80.0-105.0); MEAN CORPUSCULAR HEMOGLOBIN 28.1 pg (25.0-35.0); MEAN CORPUSCULAR HGB CONC 32.5 g/dl (31.0-37.0); MEAN PLATELET VOLUME 8.5 fl (7.0-11.0); MONO # 0.1 (0.1-0.6); MONO % 1.5 % (1.0-6.0); RED CELL DISTRIBUTION WIDTH 18.5 % (11.5-14.5); WHITE BLOOD COUNT 5.4 10^3/ul (4.5-11.0)
[2016-11-12 05:30] LABS: ALKALINE PHOSPHATASE 157 U/L (38-133); ALT/SGPT 50 U/L (7-56); AST/SGOT 71 U/L (15-59); BILIRUBIN,TOTAL 0.4 mg/dL (0.2-1.3); BLOOD UREA NITROGEN 15 mg/dL (7-21); CALCIUM 9.8 mg/dL (8.4-10.5); CARBON DIOXIDE 30 mmol/L (21-33); CHLORIDE 96 mmol/L (95-110); GFR AFRICAN-AMERICAN > 60; GLUCOSE,RANDOM 142 mg/dL (70-110); POTASSIUM 4.4 mmol/L (3.6-5.0); SODIUM 138 mmol/L (132-148); TOTAL PROTEIN 7.2 g/dL (5.8-8.3)
[2016-11-12 05:40] LABS: PLATELET COUNT 832 10^3/uL (120.0-450.0)
[2016-11-12] MEDS: Meropenem 1g/NS 100mL IVPB 100 ML IVPB SCH ×3 (05:41→22:55)
[2016-11-12] MEDS: Pantoprazole 40 mg EC Tab PO SCH (07:55)
[2016-11-12] MEDS: Budesonide 0.5 mg/2 ml Inhal Susp UD IH SCH ×2 (08:07→20:13)
[2016-11-12] MEDS: Arformoterol 15 mcg/2 ml Inh Sol IH SCH ×2 (08:07→20:13)
[2016-11-12] MEDS: Enoxaparin 30 mg Syringe SC SCH (09:18)
[2016-11-12] MEDS: MethylPREDNISolone 40 mg Vial IVP SCH ×2 (09:24→22:57)
[2016-11-12] MEDS: Multivitamin Therapeutic Tab PO SCH (09:24)
[2016-11-12] MEDS: Vancomycin 1gm in NS 250ml 250 ML IVPB SCH ×2 (09:56→20:22)
[2016-11-12] MEDS: CYANOCOBALAMIN PO SCH (09:57)
[2016-11-12] MEDS: PYRIDOXINE PO SCH (09:57)
[2016-11-12] MEDS: THIAMINE PO SCH (09:57)
--- NOTE | 2016-11-12 22:51 | PN ---
DATE: 11/12/2016 SUBJECTIVE: The patient was seen earlier this morning in 364, bed 2. The patient is in bed, appeari ng weak and chronically ill, cachectic. PHYSICAL EXAMINATION: VITAL SIGNS: Temperature of 97, blood pressure is 140/70, respiratory rate of 20, heart rate of 80. HEENT: Unremarkable. NECK: Supple. LUNGS: Have decreased breath sounds. HEART: Normal S1, S2. ABDOMEN: Soft. LABORATORY DATA: Reveals a white count of 5.4, hemoglobin of 9 and a platelet 832. Coagulation is n oted. Chemistries reveal the BUN of 15, creatinine of 0.5. Blood cultures are no growth. ASSESSMENT AND PLAN: This is a 71-year-old with hospital-acquired pneumonia. The patient recently t reated for healthcare-associated pneumonia in a patient with lung cancer on chemotherapy, chronic ane kevin, dyslipidemia, on vancomycin and meropenem day #4. Would complete 4-7 days of antibiotics. Revi ew of the orders reveals the meropenem to be active and vancomycin to be active. Overall prognosis i s poor. Mack Dubose MD cc: 350 TT: 11/12/2016 22:50:25 Confirmation # [id number] Dictation # [id number] jn
--- NOTE | 2016-11-13 00:10 | PN ---
DATE: 11/12/2016 REFERRING PHYSICIAN: Dr. Greer. SUBJECTIVE: The patient is lying in the bed, head at 45 degree. Daughter is at bedside. Did not do well in therapy. Got short of breath. No nausea, no vomiting, diarrhea. No leg pain or leg swelli ng. OBJECTIVE: GENERAL: In no acute distress. VITAL SIGNS: Temp is 98, heart rate is 79, respiratory rate is 18, blood pressure 145/73, pulse ox 9 9% on 2 L nasal cannula. HEENT: Moist mucous membranes. Crowded airway. NECK: Supple. No JVD. LUNGS: Have a fair airflow with prolonged expiratory phase. HEART: S1 and S2. ABDOMEN: Soft, nontender. No organomegaly. EXTREMITIES: There is no edema. NEUROLOGIC: Awake, alert, follows simple commands. MEDICATIONS: He is on Ambien 5 mg at bedtime p.r.n., Brovana inhaled twice a day, Dulcolax p.r.n. ba sis, Duragesic patch q. 72 hours, folic acid 1 mg daily, Lovenox 30 mg subcutaneous daily, meropenem 1 g IV q. 8 hours, morphine 2 mg IV q. 8 hours p.r.n., oxycodone immediate release 15 mg q. 6 hours p .r.n., Pepcid 40 mg at bedtime, Protonix 40 mg daily, Pulmicort inhaled twice a day, Solu-Medrol 20 m g q. 12 hours, multivitamins daily, vancomycin 1 g IV q. 12 hours. Has vitamin B12, Pradaxa, and thi amine daily basis. LABORATORY DATA: Shows hemoglobin 9.5, hematocrit 29.2, WBC 5.4, platelet count is 832. Sodium 138, potassium 4.4, chloride 96, bicarbonate 30, BUN 15, creatinine 0.5, glucose 142, calcium is 9.8, AST 71, ALT 50, alk phos is 157, albumin is 3.6. Microbiology: Blood cultures have been negative. IMPRESSION AND PLAN: Chronic obstructive lung disease, unresectable lung cancer, pulmonary infiltrat e, pneumonia, activities of daily living dysfunction, anemia. I spoke to family at bedside. All the ir questions were answered to their satisfaction. Will continue to encourage out of bed to chair. P hysical therapy. Continue IV and inhaled bronchodilator, antibiotics, pain medication, gastric proph ylaxis, deep venous thrombosis prophylaxis. Thank you and will follow with you. Shell Vargas MD cc: 336 TT: 11/13/2016 00:10:16 Confirmation # [id number] Dictation # [id number] dn
[2016-11-13] MEDS: Morphine 2 mg/ml ISec IVP PRN ×4 (01:27→13:31)
--- NOTE | 2016-11-13 03:13 | PN ---
DATE: 11/12/2016 HISTORY OF PRESENT ILLNESS: The patient was feeling weak, tired. He also felt short of breath today with minimal exertions. Chest pain seems controlled with pain medicine. Otherwise stable. PHYSICAL EXAMINATION: VITAL SIGNS: Temperature 97.6, heart rate 79, blood pressure 135/80, respirations 20, saturation 99% on 2 L nasal cannula. HEAD AND NECK: Normal. No JVD, no thyromegaly. CHEST: Clear on the right. Diminished breath sound on the left. CARDIAC: First sound and second sound normal. No murmur, rub or gallop. ABDOMEN: Soft, nontender. EXTREMITIES: No edema. NEUROLOGIC: Moves all extremities. Alert, awake, oriented x 3. LABORATORY DATA: Shows white count 5.4, hemoglobin 9.5, hematocrit 29.2, platelets are 832. His INR 1.19 and his PTT 33.6. Chemistry shows sodium 138, potassium 4.4, chloride 96, bicarb 30, BUN 15, c reatinine 0.5, blood sugar 142, AST slightly elevated at 71, alkaline phosphatase 157 slightly elevat ed. IMPRESSION AND PLAN: 1. Community-acquired pneumonia in immunocompromised patient with underlying lung malignancy on immun osuppressive aggressive chemotherapy and underlying chronic obstructive pulmonary disease. Continue meropenem. Continue vancomycin. Continue inhaled bronchodilators. 2. Acute COPD exacerbation on top of chronic. Continue Solu-Medrol. We will decrease the dose, curr ently 20 mg IV q. 12. Continue inhaled bronchodilator, Brovana and Pulmicort. We will follow up cli nically. 3. Chronic osteoarthritis, chronic back pain. Continue Duragesic patch, morphine and oxycodone p.r.n . Generalized weakness, dyspnea. The patient needs more physical therapy. Probably TCU evaluation. C annetta current treatment. Diego Greer MD cc: 223 TT: 11/13/2016 03:11:48 Confirmation # [id number] Dictation # [id number] dn
[2016-11-13] MEDS: Meropenem 1g/NS 100mL IVPB 100 ML IVPB SCH (06:10)
[2016-11-13] MEDS: oxyCODONE 15 mg Immediate Release Tab PO PRN ×3 (06:11→21:36)
[2016-11-13] MEDS: Arformoterol 15 mcg/2 ml Inh Sol IH SCH ×2 (07:47→19:44)
[2016-11-13] MEDS: Budesonide 0.5 mg/2 ml Inhal Susp UD IH SCH ×2 (07:47→19:44)
[2016-11-13] MEDS: Enoxaparin 30 mg Syringe SC SCH (09:21)
[2016-11-13] MEDS: Vancomycin 1gm in NS 250ml 250 ML IVPB SCH (09:22)
[2016-11-13] MEDS: MethylPREDNISolone 40 mg Vial IVP SCH (09:22)
[2016-11-13] MEDS: Pantoprazole 40 mg EC Tab PO SCH (09:22)
[2016-11-13] MEDS: Multivitamin Therapeutic Tab PO SCH (09:22)
[2016-11-13] MEDS: PYRIDOXINE PO SCH (09:23)
[2016-11-13] MEDS: CYANOCOBALAMIN PO SCH (09:23)
[2016-11-13] MEDS: THIAMINE PO SCH (09:23)
--- NOTE | 2016-11-13 11:32 | PN ---
DATE: 11/13/2016 The patient seen earlier today in 364, bed 2. He is weak, he is chronically ill. He has had no feve rs and he has mild shortness of breath. PHYSICAL EXAMINATION: VITAL SIGNS: Temperature of 97, blood pressure is 130/78, respiratory rate of 20, heart rate of 72. NECK: Supple. LUNGS: Have decreased breath sounds. HEART: Normal S1, S2. ABDOMEN: Soft. LABORATORY EXAMINATION: Reveals the blood cultures are negative. His white count is 5.4, hemoglobin of 9, platelets of 832 with a BUN of 15, creatinine of 0.5 and blood cultures are no growth. Review of the medications reveals the patient to be on meropenem and vancomycin. ASSESSMENT AND PLAN: A 71-year-old, hospital-acquired pneumonia, treated for healthcare-associated p neumonia with lung cancer and chronic anemia, dyslipidemia and day #5 of antibiotics. Will discontin ue the antibiotics. Dr. Greer's note is reviewed. Will discontinue the IV antibiotics and complete with p.o. Discontinue the meropenem, discontinue the vancomycin. Will switch to p.o. doxycycline 1 00 mg b.i.d. x 5 days. Mack Dubose MD cc: 350 TT: 11/13/2016 11:31:31 Confirmation # [id number] Dictation # [id number] en
--- NOTE | 2016-11-13 11:43 | PN ---
DATE: 11/12/2016 This is the patient's hospital visit on the medical floor. For Dr. Ma. SUBJECTIVE: The patient is a 71-year-old male seen sitting up in bed, known to suffer from stage IV nonsmall cell CA of the lung with exacerbation of COPD, resting comfortably in no acute distress, rep orting that his pain medications are helping and his breathing has now improved. PHYSICAL EXAMINATION: VITAL SIGNS: Temperature 98.4, pulse 79, respirations 18, blood pressure 145/73, pulse ox 99%. HEENT: Unremarkable, poor dentition. NECK: Supple. HEART: Regular rate, occasional ectopic beat. LUNGS: Rare rhonchi. ABDOMEN: Soft, nontender. EXTREMITIES: No edema. SKIN: Warm, dry and clear. NEUROLOGIC: Awake, alert. LABORATORY DATA: The patient's labs were done. White blood cell count 5.4, hemoglobin 9.5, hematocr it 29.2, platelet count of 832,000, which is thought to be reactive. ASSESSMENT: Exacerbation of chronic obstructive pulmonary disease, pneumonia, stage IV nonsmall cell cancer of the lung, on chemotherapy, anemia, chronic pain of cancer. PLAN: The patient is to continue present medical regimen with physiotherapy to evaluate the patient for ambulation with assist. The patient will be monitored clinically and with labs. Vincenzo Dias MD cc: 411 TT: 11/13/2016 11:43:05 Confirmation # [id number] Dictation # [id number] eugene
--- NOTE | 2016-11-13 13:57 | PN ---
DATE: 11/13/2016 This is patient's hospital visit on the medical floor. For Dr. Ma. SUBJECTIVE: The patient is a 71-year-old male looking older than his stated age, sitting in a chair, his son at the bedside, reporting that his pain is worse despite having a Duragesic patch and parent eral and oral analgesics being given. He reports that the oral analgesics work better for him and we will increase the frequency of his pain medication to that end, with consideration to increase his p atch, should this not be effective. Otherwise, he is without complaint, continuing his present medic al regimen for his course of IV antibiotics for his pneumonia. OBJECTIVE: VITAL SIGNS: Temperature 97.5, pulse 72, respirations 20, blood pressure 130/78, pulse ox 100%. GENERAL: He appears cachectic. HEENT: Unremarkable. NECK: Supple. HEART: Regular rate. LUNGS: Occasional rhonchi. ABDOMEN: Soft, nontender. EXTREMITIES: No edema. SKIN: Warm, dry and clear. NEUROLOGIC: Awake, alert. LABORATORY DATA: The patient's labs were done yesterday. They will be repeated in the morning. His blood cultures are negative at 4 days' time. ASSESSMENT: Pneumonia, chronic obstructive pulmonary disease with exacerbation, stage IV nonsmall ce ll cancer of the lung, on chemotherapy, anemia, chronic intractable pain. PLAN: The patient is to continue present medical regimen. We will monitor clinically and check his labs in the morning with IV antibiotics as per Dr. Dubose. We will adjust his analgesics as amy cated. He continues his IV steroids with H2 arlene and proton pump inhibitor as per Dr. Vargas and Dr. Greer as indicated. Prognosis for this patient is guarded. Vincenzo Dias MD cc: 411 TT: 11/13/2016 13:56:51 Confirmation # [id number] Dictation # [id number] eugene
[2016-11-13] MEDS: Morphine 4 mg/ml ISec IVP PRN ×2 (17:49→21:35)
--- NOTE | 2016-11-13 20:43 | PN ---
DATE: 11/13/2016 REFERRING PHYSICIAN: Dr. Greer. SUBJECTIVE: The patient is lying in the bed, head at 45 degrees. Night was unremarkable. Participa eliazar in therapy and did well today. Decreased shortness of breath. No nausea, no vomiting, no diarrh ea. No leg pain or leg swelling. OBJECTIVE: GENERAL: In no acute distress. VITAL SIGNS: Temp is 98, heart rate 89, respiratory rate is 20, blood pressure 126/66, pulse ox 98% on 2 liters nasal cannula. HEENT: Moist mucous membranes. Small oral cavity. NECK: Supple. No JVD. LUNGS: Has a fair airflow with a few rhonchi, prolonged expiratory phase. HEART: S1 and S2. ABDOMEN: Soft, nontender. No organomegaly. EXTREMITIES: There is no edema. NEUROLOGIC: Awake, alert, follows simple commands. MEDICATIONS: He is on Ambien 5 mg at bedtime p.r.n., Brovana 15 mcg inhaled twice a day, doxycycline 100 mg twice a day, Dulcolax 5 mg p.r.n., Duragesic patch q.72 hours, folic acid 1 mg daily, Lovenox 30 mg daily, morphine 3 mg q.4 hours p.r.n., oxycodone immediate release 15 mg q.4 hours p.r.n., Pep memanuel 40 mg daily, Protonix 40 mg daily, Pulmicort inhaled twice a day, Solu-Medrol 20 mg q.12 hours, m ultivitamins daily, vitamin B12, pyridoxine, thiamine 1000 mg daily. LABORATORY DATA: Reviewed. No new lab is available. Microbiology: Blood cultures have been negati ve. IMPRESSION AND PLAN: Chronic obstructive lung disease, lung cancer, pulmonary infiltrate, pneu monia, activities of daily living dysfunction and anemia. Feels a little better. Able to ambulate b gallito with the help of therapist today. Decreased cough, decreased shortness of breath. Continue ga stric prophylaxis, deep venous thrombosis prophylaxis. Will discontinue Solu-Medrol and start predni sone 20 mg daily. Thank you and will follow with you. Shell Vargas MD cc: 336 TT: 11/13/2016 20:42:28 Confirmation # [id number] Dictation # [id number] dn
[2016-11-14] MEDS: Morphine 4 mg/ml ISec IVP PRN ×6 (01:17→21:24)
[2016-11-14] MEDS: Pantoprazole 40 mg EC Tab PO SCH ×2 (05:13→06:48)
[2016-11-14] MEDS: oxyCODONE 15 mg Immediate Release Tab PO PRN (06:12)
[2016-11-14 07:58] LABS: ADD MANUAL DIFF? NO
[2016-11-14 08:02] LABS: BASO # 0.02 K/mm3 (0.0-2.0); BASO % 0.3 % (0.0-3.0); EOS # 0.1 (0.0-0.7); GRAN # 3.99 (1.4-6.5); GRAN % 69.8 % (50.0-68.0); HEMATOCRIT 34.4 % (42.0-52.0); LYMPH # 1.1 (1.2-3.4); LYMPH % 19.8 % (22.0-35.0); MEAN CELL VOLUME 86.9 fL (80.0-105.0); MEAN CORPUSCULAR HEMOGLOBIN 27.3 pg (25.0-35.0); MEAN CORPUSCULAR HGB CONC 31.4 g/dl (31.0-37.0); MEAN PLATELET VOLUME 8.4 fl (7.0-11.0); MONO # 0.5 (0.1-0.6); MONO % 9.1 % (1.0-6.0); WHITE BLOOD COUNT 5.7 10^3/ul (4.5-11.0)
[2016-11-14 08:18] LABS: PLATELET COUNT 720 10^3/uL (120.0-450.0)
[2016-11-14 08:29] LABS: ALB/GLOB RATIO 1.1 (1.1-1.8); ALKALINE PHOSPHATASE 149 U/L (38-133); ALT/SGPT 70 U/L (7-56); AST/SGOT 70 U/L (15-59); BILIRUBIN,TOTAL 0.6 mg/dL (0.2-1.3); BLOOD UREA NITROGEN 17 mg/dL (7-21); CALCIUM 10.2 mg/dL (8.4-10.5); CARBON DIOXIDE 36 mmol/L (21-33); CHLORIDE 94 mmol/L (98-107); GFR AFRICAN-AMERICAN > 60; GLUCOSE,RANDOM 76 mg/dL (70-110); POTASSIUM 4.3 mmol/L (3.6-5.0); SODIUM 138 mmol/L (132-148); TOTAL PROTEIN 7.6 g/dL (5.8-8.3)
[2016-11-14] MEDS: Arformoterol 15 mcg/2 ml Inh Sol IH SCH ×2 (08:40→21:10)
[2016-11-14] MEDS: Budesonide 0.5 mg/2 ml Inhal Susp UD IH SCH ×2 (08:40→21:10)
[2016-11-14] MEDS: Enoxaparin 30 mg Syringe SC SCH (09:00)
[2016-11-14] MEDS: Multivitamin Therapeutic Tab PO SCH (09:01)
[2016-11-14] MEDS: THIAMINE PO SCH (09:03)
[2016-11-14] MEDS: PYRIDOXINE PO SCH (09:03)
[2016-11-14] MEDS: CYANOCOBALAMIN PO SCH (09:03)
--- NOTE | 2016-11-14 14:36 | PN ---
DATE: 11/14/2016 This is the patient's hospital visit on the medical floor. For Dr. Ma. SUBJECTIVE: The patient is a 71-year-old male seen lying awake in bed with the patient's pain medici carlos a adjusted yesterday with good effect, reporting his pain is better. With this, the patient is oth erwise being treated for pneumonia. He has stage IV nonsmall cell CA of the lung, on chemotherapy. OBJECTIVE PHYSICAL EXAMINATION: VITAL SIGNS: Temperature 97.9, pulse 83, respirations 18, blood pressure 123/71, pulse ox 99%. HEENT: Unremarkable. NECK: Supple. HEART: Regular rate. LUNGS: Occasional rhonchi. ABDOMEN: Soft, nontender. EXTREMITIES: No edema with muscle wasting. NEUROLOGIC: Awake and alert. SKIN: Warm, dry. LABORATORY DATA: The patient's labs were done. White blood cell count of 5.7, hemoglobin 10.8, leonides tocrit 34.4, platelet count of 720,000 down from 832,000 yesterday. His chem panel showed an AST of 70, ALT of 70. Otherwise, normal chem panel. ASSESSMENT: Chronic obstructive pulmonary disease with exacerbation, pneumonia, stage IV nonsmall ce ll carcinoma of the lung, on chemotherapy, anemia, chronic intractable pain; thrombocytosis, reactive . PLAN: Continue with present medical regimen. We will monitor clinically and with labs with physioth erapy to continue, for TCU eval. Vincenzo Dias MD cc: 411 TT: 11/14/2016 14:36:03 Confirmation # [id number] Dictation # [id number] tn
[2016-11-14 16:17] VITALS: O2SAT 100
[2016-11-14] MEDS: Bisacodyl 5mg EC Tab PO PRN (17:26)
--- NOTE | 2016-11-14 19:37 | PN ---
DATE: 11/14/2016 The patient is in bed in no acute distress, nontoxic. PHYSICAL EXAMINATION: VITAL SIGNS: Temperature is 98, blood pressure is 125/60, respiratory rate of 18. HEENT: Unremarkable. NECK: Supple. LUNGS: Have decreased breath sounds. HEART: Normal S1, S2. ABDOMEN: Soft. LABORATORY DATA: Reveals a white count of 5.7, hemoglobin of 10 and platelets of 720. Chemistries r eveal the BUN of 17, creatinine of 0.6. LFTs are elevated. Review of the orders reveals the patient to be on doxycycline. Dr. Vincenzo Dias's note is review ed from today. Dr. Vargas's note from yesterday is reviewed. ASSESSMENT AND PLAN: This is a 71-year-old male treated for healthcare-associated pneumonia with pat ient with lung cancer, chronic anemia, dyslipidemia. We will discontinue the p.o. doxycycline due to mild elevation of liver function tests and no further antibiotics necessary at this point. The meredith ent is on prednisone and will monitor the liver function tests. Mack Dubose MD cc: 350 TT: 11/14/2016 19:37:00 Confirmation # [id number] Dictation # [id number] jn
--- NOTE | 2016-11-14 22:16 | PN ---
DATE: 11/14/2016 REFERRING PHYSICIAN: Dr. Duran. SUBJECTIVE: She is lying in the bed, head at 45 degrees, feels better, decreased shortness of breath or decreased cough. No nausea, no vomiting or diarrhea. No leg pain or leg swelling. OBJECTIVE: GENERAL: No acute distress. VITAL SIGNS: Temp is 98, heart rate is 98, respiratory rate is 18, blood pressure 125/66 and pulse o x 100% on 2 liters nasal cannula. HEENT: Moist mucous membranes. No ulcer or oral thrush noted. NECK: Supple. No JVD. LUNGS: Have a prolonged expiratory phase. HEART: S1 and S2. ABDOMEN: Soft and nontender. No organomegaly. EXTREMITIES: No edema. NEUROLOGIC: Awake, alert and follows simple command. MEDICATIONS: He is on Ambien 5 mg at bedtime p.r.n., Brovana 15 mcg inhaled twice a day, Dulcolax 5 mg daily p.r.n., Duragesic patch q. 72 hours, folic acid 1 mg daily, Lovenox 30 mg subcu daily, morph ine 3 mg q. 4 hours p.r.n., oxycodone immediate release 15 mg q. 4 hours p.r.n., Pepcid 40 mg daily, prednisone 20 mg daily, Protonix 40 mg daily, Pulmicort inhaled twice a day, multivitamins daily, vit [place] B and thiamine on a daily basis. LABORATORY DATA: Shows hemoglobin 10.8, hematocrit 34.4, WBC 5.7 and platelets are 20. Sodium 138, potassium 4.3, chloride 98, bicarbonate 36, BUN 17, creatinine 0.6, glucose 76, calcium 10.2, AST 70, ALT 78, alk phos is 149 and albumin 3.9. MICROBIOLOGY: Blood culture has been negative. IMPRESSION AND PLAN: Chronic obstructive lung disease, unresectable lung cancer, pulmonary infiltra te, dysfunction, status post pneumonia and anemia. Pulmonary point of view, doing okay. Continue p.o. and inhaled bronchodilator. Gastric prophylaxis. DVT prophylaxis, physical therapy and fall precautions. Shell Vargas MD cc: 336 TT: 11/14/2016 22:15:26 Confirmation # [id number] Dictation # [id number] sn
[2016-11-15] MEDS: Morphine 4 mg/ml ISec IVP PRN ×3 (01:16→11:33)
[2016-11-15] MEDS: oxyCODONE 15 mg Immediate Release Tab PO PRN ×5 (04:21→21:41)
[2016-11-15] MEDS: Pantoprazole 40 mg EC Tab PO SCH (07:55)
[2016-11-15] MEDS: Budesonide 0.5 mg/2 ml Inhal Susp UD IH SCH (08:11)
[2016-11-15] MEDS: Arformoterol 15 mcg/2 ml Inh Sol IH SCH (08:11)
[2016-11-15 09:01] VITALS: RESP 18; TEMP 98
[2016-11-15] MEDS: Multivitamin Therapeutic Tab PO SCH (09:52)
[2016-11-15] MEDS: Enoxaparin 30 mg Syringe SC SCH (09:52)
[2016-11-15] MEDS: CYANOCOBALAMIN PO SCH (09:56)
[2016-11-15] MEDS: THIAMINE PO SCH (09:56)
[2016-11-15] MEDS: PYRIDOXINE PO SCH (09:56)
[2016-11-15] MEDS: POLYETHYLENE GLYCOL 3350 17 GM/Dose PACKET PO SCH (14:23)
--- NOTE | 2016-11-15 15:19 | PN ---
DATE: 11/15/2016 This is the patient's hospital visit on the medical floor. For Dr. Ma. SUBJECTIVE: The patient is a 71-year-old male with known nonsmall cell CA of the lung with pneumonia , now modestly improved, reporting that his pain medicines are helping his pain. He is in no acute d istress, seen with multiple family members at the bedside. The family members report that his analgesics at home were a 75 mcg per hour patch of fentanyl, not t he present 25 mcg patch. We will increase the fentanyl patch to 50 and continue his p.r.n. morphine as is ordered. Also, he had a bowel movement yesterday. However, family requests something to help his bowels in the future with Colace on a daily basis and MiraLax to be ordered for as this has helpe d in the past. He is feeling better and as per Dr. Greer, we will continue his present medical regimen with dischar ge planning soon with followup in the office with Dr. Ma upon discharge. OBJECTIVE AND PHYSICAL EXAMINATION: VITAL SIGNS: Temperature 98, pulse 82, respirations 18, blood pressure 106/50, pulse ox 100%. HEENT: Unremarkable with muscle wasting noted. NECK: Supple. HEART: Regular rate, occasional ectopic beat. LUNGS: Minimal decreased breath sounds with rare rhonchi. ABDOMEN: Scaphoid, nontender. EXTREMITIES: No edema, but muscle wasting is noted. NEUROLOGIC: Awake and alert. SKIN: Warm and dry. The patient's labs were done yesterday and will be repeated tomorrow with his platelet count modestly improved, thought to be reactive thrombocythemia. ASSESSMENT: Pneumonia, chronic obstructive pulmonary disease with exacerbation, stage IV nonsmall ce ll cancer of the lung, on chemotherapy, chronic intractable pain of cancer, thrombocytosis, reactive, deconditioning. PLAN: As above. We will adjust his pain medications. Give MiraLax, Colace. Colace twice a day wit h MiraLax on a daily basis, to be held for loose stool with discharge planning as per Dr. Greer once the patient is stable. Vincenzo Dias MD cc: 411 TT: 11/15/2016 15:18:35 Confirmation # [id number] Dictation # [id number] en
--- NOTE | 2016-11-15 16:52 | PN ---
DATE: 11/15/2016 The patient is in bed in no acute distress, nontoxic. Was seen earlier this morning, chronically ill and weak. PHYSICAL EXAMINATION: VITAL SIGNS: Temperature of 98, blood pressure is 106/80, respiratory rate 16. HEENT: Unremarkable. NECK: Supple. LUNGS: Have decreased breath sounds. HEART: Normal S1, S2. ABDOMEN: Soft and nontender. LABORATORY DATA: Reveals a white count of 5.7, hemoglobin of 10, platelets of 720. Chemistries reve al the BUN of 17, creatinine of 0.6. Microbiology reveals the blood cultures are negative. Review of the orders reveals the patient to be on prednisone p.o. The patient is off of antibiotics. Dr. Vincenzo Dias's note from today is reviewed. ASSESSMENT AND PLAN: This is a 71-year-old male who was treated for healthcare-associated pneumonia lung cancer, chronic anemia and dyslipidemia. Currently, now off of antibiotics, afebrile; how ever, chronically ill and debilitated. The patient's LFTs are mildly elevated. Will follow with you . Mack Dubose MD cc: 350 TT: 11/15/2016 16:51:24 Confirmation # [id number] Dictation # [id number] brayan
--- NOTE | 2016-11-15 19:29 | PN ---
DATE: 11/15/2016 REFERRING PHYSICIAN: Dr. Greer. SUBJECTIVE: He is lying in the bed, head at 45 degrees. Feels better. Short of breath with exertio n. No cough. No nausea, no vomiting or diarrhea. No leg pain or leg swelling. OBJECTIVE: GENERAL: No acute distress. VITAL SIGNS: Temp is 98, heart rate 82, respiratory rate is 18, blood pressure 106/58, pulse ox 100% on nasal cannula. HEENT: Moist mucous membranes. Small oral cavity. NECK: Supple. No JVD. LUNGS: Have a few scattered rhonchi, prolonged expiratory phase with some wheezing. HEART: S1, S2. ABDOMEN: Soft, nontender. No organomegaly. EXTREMITIES: There is no edema. NEUROLOGIC: Awake, alert, follows simple command. MEDICATIONS: He is on Ambien 5 mg at bedtime p.r.n., Brovana inhaled twice a day, Colace 100 mg twic e daily, Duragesic patch q. 72 hours, folic acid 1 mg daily, Lovenox 30 mg subQ daily, MiraLax 17 gra ms p.o. daily, oxycodone immediate release 15 mg q. 4 hours p.r.n., Pepcid 40 mg at bedtime, predniso ne 20 mg daily, Protonix 40 mg daily, Pulmicort inhaled twice a day, multivitamins daily, vitamin B12 , pyridoxine, thiamine daily. MICROBIOLOGY: Blood cultures have been negative. IMPRESSION AND PLAN: Chronic obstructive lung disease, unresectable lung cancer with pulmonary infil trate, activities of daily living dysfunction, anemia. Will continue p.o. and inhaled bronchodilator . Keep head elevated at 45 degrees. Gastric prophylaxis, deep vein thrombosis prophylaxis. Encoura ge p.o. intake. Oncology follow up. Physical therapy. Thank you, and will follow with you. Shell Vargas MD cc: 336 TT: 11/15/2016 19:28:40 Confirmation # [id number] Dictation # [id number] mn
--- NOTE | 2016-11-16 01:10 | PN ---
DATE: 11/15/2016 SUBJECTIVE: The patient clinically stable. No respiratory distress. He feels is on p.o. antibiotic now. The patient doing well, afebrile. No nausea, no vomiting. PHYSICAL EXAMINATION: VITAL SIGNS: Temperature 98, heart rate 82, blood pressure 106/58, respiration 18, saturation 100%. HEAD AND NECK: Normal. No JVD, no thyromegaly. CHEST: Clear, good entry. CARDIAC: First and second sounds are normal. ABDOMEN: Soft, nontender. EXTREMITIES: No edema. NEUROLOGIC: Normal. IMPRESSION AND PLAN: 1. Healthcare-associated pneumonia. He is off antibiotic. He is off doxycycline due to elevated li ange enzymes. 2. Chronic obstructive pulmonary disease , continuing p.o. . 3. Lung cancer, will follow up with oncologist as outpatient. 4. Poor nutrition. Continue on . The patient is taking Ensure and encouraged p.o. intake. 5. Chronic chest pain, back pain, probably related to his lung cancer. Continue fentanyl patch, con tinue oxycodone. 6. Continue gastrointestinal and deep vein thrombosis prophylaxis for now. David p.rpatrice, multivit amins. PLAN: Discharge the patient home whenever possible. Diego Greer MD cc: 223 TT: 11/16/2016 01:10:14 Confirmation # [id number] Dictation # [id number] ronaldo
--- NOTE | 2016-11-16 01:20 | PN ---
DATE: 11/14/2016 SUBJECTIVE: The patient seems to be doing better regarding his breathing, but is still weak. His ap petite , is getting some Ensure and does not seem to be in any respiratory distress. PHYSICAL EXAMINATION: VITAL SIGNS: Temperature 97.8, heart rate 98, blood pressure 125/66, respirations 19, saturation 100 %. HEAD AND NECK: Normal. No JVD, no thyromegaly. CHEST: Clear, good air entry. CARDIAC: First sound, second sound normal. LUNG: Diminished breath sounds. ABDOMEN: Soft. EXTREMITIES: No edema. NEUROLOGIC: Normal, but generally weak. LABORATORY DATA: His white count 5.7, hemoglobin 10.8, hematocrit 34.4, platelets 720. Chemistry: Sodium 138, potassium 4.6, chloride 94, bicarbonate 36, BUN 17, creatinine 0.6. The patient also has abnormal AST, ALT in the 70s, alkaline phosphatase 149. IMPRESSION AND PLAN: 1. The patient has healthcare-associated pneumonia, seems to be doing better now. He is getting day #7 of IV antibiotics, meropenem and vancomycin. Will follow up with Dr. Dubose, BOB recommendati on, and also pulmonary consult. 2. Acute chronic obstructive pulmonary disease exacerbations. Continue current treatment. The meredith ent is getting inhaled bronchodilators, nebulizer treatments and IV steroids. Continue current treat ment. Seems to be doing better today. We will switch him to p.o. prednisone. 3. Lung cancer, chronic chest pain, chronic back pain, chronic osteoarthritis. Continue oxycodone a nd follow up clinically. Diego Greer MD cc: [phone] TT: 11/16/2016 01:19:47 Confirmation # [id number] Dictation # [id number] ronaldo
[2016-11-16] MEDS: oxyCODONE 15 mg Immediate Release Tab PO PRN ×4 (05:19→16:09)
[2016-11-16 06:28] LABS: ADD MANUAL DIFF? NO
[2016-11-16 07:03] LABS: ALKALINE PHOSPHATASE 123 U/L (38-133); ALT/SGPT 59 U/L (7-56); AST/SGOT 53 U/L (15-59); BILIRUBIN,TOTAL 0.6 mg/dL (0.2-1.3); BLOOD UREA NITROGEN 26 mg/dL (7-21); CALCIUM 9.9 mg/dL (8.4-10.5); CARBON DIOXIDE 34 mmol/L (21-33); CHLORIDE 96 mmol/L (98-107); GFR AFRICAN-AMERICAN > 60; GLUCOSE,RANDOM 96 mg/dL (70-110); POTASSIUM 4.3 mmol/L (3.6-5.0); SODIUM 137 mmol/L (132-148); TOTAL PROTEIN 7.1 g/dL (5.8-8.3)
[2016-11-16 07:18] LABS: BASO # 0.01 K/mm3 (0.0-2.0); BASO % 0.2 % (0.0-3.0); EOS # 0.1 (0.0-0.7); EOS % 2.6 % (1.5-5.0); GRAN # 2.79 (1.4-6.5); GRAN % 60.4 % (50.0-68.0); HEMATOCRIT 31.9 % (42.0-52.0); LYMPH % 20.8 % (22.0-35.0); MEAN CELL VOLUME 86.4 fL (80.0-105.0); MEAN CORPUSCULAR HEMOGLOBIN 27.4 pg (25.0-35.0); MEAN CORPUSCULAR HGB CONC 31.7 g/dl (31.0-37.0); MEAN PLATELET VOLUME 8.6 fl (7.0-11.0); MONO # 0.7 (0.1-0.6); PLATELET COUNT 552 10^3/uL (120.0-450.0); RED CELL DISTRIBUTION WIDTH 17.9 % (11.5-14.5); WHITE BLOOD COUNT 4.6 10^3/ul (4.5-11.0)
[2016-11-16] MEDS: Arformoterol 15 mcg/2 ml Inh Sol IH SCH (08:13)
[2016-11-16] MEDS: Budesonide 0.5 mg/2 ml Inhal Susp UD IH SCH (08:13)
[2016-11-16 08:16] VITALS: BP 117/70; PULSE 85
[2016-11-16] MEDS: Pantoprazole 40 mg EC Tab PO SCH (08:35)
[2016-11-16] MEDS: POLYETHYLENE GLYCOL 3350 17 GM/Dose PACKET PO SCH (09:33)
[2016-11-16] MEDS: Enoxaparin 30 mg Syringe SC SCH (09:33)
[2016-11-16] MEDS: Multivitamin Therapeutic Tab PO SCH (09:33)
[2016-11-16] MEDS: CYANOCOBALAMIN PO SCH (09:51)
[2016-11-16] MEDS: THIAMINE PO SCH (09:51)
[2016-11-16] MEDS: PYRIDOXINE PO SCH (09:51)
--- NOTE | 2016-11-16 19:53 | PN ---
DATE: 11/16/2016 REFERRING PHYSICIAN: Dr. Greer. SUBJECTIVE: The patient is lying in the bed. Daughter is at bedside, night was unremarkable, feels better, decreased cough, decreased shortness of breath. Presently on room air. No nausea, vomiting, diarrhea. No leg pain or leg swelling. OBJECTIVE: GENERAL: No acute distress. VITAL SIGNS: Temperature is 98, heart rate is 85, respiratory rate is 20, blood pressure 117/70, pul se ox 100% on 2 liters nasal cannula. HEENT: Moist mucous membrane. Crowded airway. NECK: Supple. No JVD. LUNGS: Has a fair airflow. HEART: S1, S2. ABDOMEN: Soft, nontender. No organomegaly. EXTREMITIES: There is no edema. NEUROLOGIC: Awake, alert, follows simple command. MEDICATIONS: Reviewed. No new medication reported since yesterday. LABORATORY DATA: Shows hemoglobin 10.1, hematocrit 31.9, WBC 4.6, platelet is 552. Sodium 137, pota ssium 4.3, chloride 96, bicarbonate 34, BUN 26, creatinine 0.5, glucose 96, calcium 9.9, AST 53, ALT 59, and alkaline phosphatase is 123, albumin is 3.6. Microbiology: Blood cultures have been negativ e. IMPRESSION AND PLAN: Chronic obstructive lung disease, unresectable lung cancer with pulmonary infil trate, activities of daily living dysfunction, anemia. Pulmonary point of view, doing well. Will be discharged home today on p.o. prednisone and inhaled bronchodilator. Gastric prophylaxis. Fall pre caution. Oncology follow up as outpatient. Thank you and will follow with you. Shell Vargas MD cc: [phone] TT: 11/16/2016 19:52:59 Confirmation # [id number] Dictation # [id number] mn
--- NOTE | 2016-11-17 08:11 | PN ---
DATE: 11/16/2016 The patient seen earlier today in 364, bed 2. No fevers and no chills. No nausea, no vomiting. PHYSICAL EXAMINATION: VITAL SIGNS: Temperature is 98, blood pressure is 117/70, respiratory rate of 16. HEENT: Unremarkable. NECK: Supple. LUNGS: Have decreased breath sounds. HEART: Normal S1, S2. ABDOMEN: Soft. LABORATORY DATA: Reveals a white count of 4.6, hemoglobin of 10, platelets of 552. Chemistries reve al the BUN of 26, creatinine of 0.5. Blood cultures are no growth. ASSESSMENT AND PLAN: This is a 71-year-old male who was treated with healthcare-associated pneumonia , lung cancer, chronic anemia, dyslipidemia, off of antibiotics, afebrile. The patient to be followe d as an outpatient and will follow the LFTs as outpatient. Mack Dubose MD cc: [phone] TT: 11/16/2016 18:41:42 Confirmation # [id number] Dictation # [id number] mn
--- NOTE | 2016-11-17 08:19 | DS ---
The admitted with pneumonia in an immunocompromised patient with lung cancer and acute COPD exacerbat ion. The patient was given steroids, seems to be doing well. The patient feels better, has no chest pain, no short of breath. He is hemodynamically stable. The patient has most of his meds at home. PHYSICAL EXAMINATION: VITAL SIGNS: Discharge on 11/16/2016, temperature 98, heart rate 85, blood pressure 117/70, respiratio ns 18, saturation 100% on room air. HEAD AND NECK: Normal. No JVD, no thyromegaly. CHEST: Diminished breath sounds, but clear. CARDIAC: First and second sounds are normal. ABDOMEN: Soft, nontender. EXTREMITIES: No edema. NEUROLOGIC: Normal. LABORATORY DATA: White count 4.6, hemoglobin 10.1, hematocrit 31.9, platelets 552. His chemistry sh ows sodium 137, potassium 4.3, chloride 96, bicarb 34, BUN 26, creatinine 0.5. Liver function test i mproved and down. His ALT 59. Alkaline phos is normal. DISCHARGE DIAGNOSES: 1. Community-acquired pneumonia in an immunocompromised patient seems better. He is off antibiotic. We will monitor clinically. 2. Acute chronic obstructive pulmonary disease exacerbation has improved. He is off steroids now. Will follow up at home. Continue inhaled bronchodilators and follow up as outpatient. 3. Chronic back pain. He does have lung cancer, possibly mets. He has persistent left-sided chest pain; stable and comfortable with oxycodone 15 mg every 4 hours p.r.n. plus Duragesic patch 50 mcg ev charly 3 days. The patient will be seen by who will prescribe further pain management and judy n medicine for. At this time, continue with current therapy. Follow up clinically and see him in a couple of weeks. Discussed the case with his daughters. Diego Greer MD cc: [phone] TT: 11/17/2016 08:18:25 fl
== END 2016-11-16 17:34 | disposition home or self-care (01) | DRG 190 ==
LOC: ED 21:32 → ERH 11-09 02:17 → CCU 11-09 04:25 → 3RNO 11-10 17:55
PROVIDERS: ADMIT Internal Medicine; ATTEND Internal Medicine
PROC: 3E0F7GC Introduction of Other Therapeutic Substance into Respiratory Tract, Via Natural or Artificial Opening (ICD-10-PCS; principal; 2016-11-09)
DX: J44.0 Chronic obstructive pulmonary disease with (acute) lower respiratory infection (principal); J18.9 Pneumonia, unspecified organism; C34.90 Malignant neoplasm of unspecified part of unspecified bronchus or lung; J44.1 Chronic obstructive pulmonary disease with (acute) exacerbation; R64 Cachexia; D64.9 Anemia, unspecified; E53.8 Deficiency of other specified B group vitamins; E78.5 Hyperlipidemia, unspecified; K29.70 Gastritis, unspecified, without bleeding; Y95 Nosocomial condition; E78.00 Pure hypercholesterolemia, unspecified; G89.29 Other chronic pain; G47.00 Insomnia, unspecified; M15.9 Polyosteoarthritis, unspecified; Z90.49 Acquired absence of other specified parts of digestive tract; Z87.891 Personal history of nicotine dependence

== ENCOUNTER 2016-11-28 11:51 | Inpatient (IN) | payer MEDICARE, OTHER ==
[2016-11-28 12:08] VITALS: BMI 17.5
[2016-11-28] MEDS ORDERED: HYDROmorphone 1 mg/ml ISec IVP STA (12:10)
[2016-11-28] MEDS ORDERED: Sodium Chloride 0.9% 1,000 ML IV STA (12:11)
--- NOTE | 2016-11-28 12:11 | ED PDOC ---
Arrival/HPI - General Chief Complaint: Chest Pain Time Seen by Provider: 11/28/16 11:53 Historian: Patient - History of Present Illness Narrative History of Present Illness (Text): 11/28/16 12:08 71 year old male whose past medical history includes lung cancer (finished chemo ), COPD, hypercholesterolemia, and chronic osteoarthritis presents to the emergency department with constipation, abdominal pain, chest pain, and shortness of breath for the past two days. No fever, hematochezia, or other symptoms. PMD: Dr. Greer Oncologist: Dr. Ma Time/Duration: < week Symptom Onset: Gradual Symptom Course: Unchanged Modifying Factors (Text): None Past Medical History - Provider Review Nursing Documentation Reviewed: Yes - Infectious Disease Hx of Infectious Diseases: None - Tetanus Immunization Tetanus Immunization: Unknown - Cardiac Hx Cardiac Disorders: Yes - Pulmonary Hx Chronic Obstructive Pulmonary Disease (COPD): Yes - Neurological Hx Neurological Disorder: Yes - HEENT Hx HEENT Disorder: Yes Hx Deafness: Yes - Renal Hx Renal Disorder: No - Endocrine/Metabolic Hx Endocrine Disorders: No - Hematological/Oncological Hx Blood Disorders: Yes Hx Anemia: Yes (BLOOD TRANSFUSION) - Integumentary Hx Dermatological Disorder: Yes (GENERALIZED SKIN DRYNESS) - Musculoskeletal/Rheumatological Hx Musculoskeletal Disorders: Yes Hx Back Pain: Yes Hx Falls: Yes Hx Herniated Disk: Yes - Gastrointestinal Hx Gastrointestinal Disorders: Yes (POOR APPETITE,COLITIS) Hx Gastroesophageal Reflux: Yes - Genitourinary/Gynecological Hx Genitourinary Disorders: Yes Hx Incontinence: Yes - Psychiatric Hx Psychophysiologic Disorder: Yes (H/O SMOKING 2-3 PPD QUIT,ETOH ABUSE DRANK 9- 10 CANS OF BEER A WEEK.) Hx Emotional Abuse: No Hx Physical Abuse: No Hx Substance Use: No - Surgical History Hx Appendectomy: Yes Hx Cardiac Catheterization: Yes Other/Comment: R chest port - Anesthesia Hx Anesthesia: Yes - Suicidal Assessment Feels Threatened In Home Enviroment: No Family/Social History - Physician Review Nursing Documentation Reviewed: Yes Family/Social History: Unknown Family HX Smoking Status: Former Smoker Hx Alcohol Use: Yes (QUIT DRINKING .DRANK 9-10 BEERS ONCE A WEEK) Hx Substance Use: No Hx Substance Use Treatment: No Allergies/Home Meds Allergies/Adverse Reactions: Allergies No Known Allergies Allergy (Verified 11/28/16 11:54) Home Medications: Home Meds Medication Instructions Recorded Confirmed Atorvastatin [Lipitor] 10 mg PO DAILY 05/22/16 11/28/16 Ergocalciferol (Vitamin D2) 50,000 iu PO Q7D 06/19/16 11/28/16 [Vitamin D2] Folic Acid 1 mg PO DAILY 10/23/16 11/28/16 Review of Systems - Physician Review All systems were reviewed & negative as marked: Yes - Review of Systems Constitutional: absent: Fevers Respiratory: SOB Gastrointestinal: Abdominal Pain, Constipation. absent: Hematochezia Physical Exam Vital Signs Reviewed: Yes Vital Signs Temp Pulse Resp BP Pulse Ox 11/28/16 15:32 86 20 115/61 100 11/28/16 11:52 98.7 F 111 H 18 137/76 100 Temperature: Afebrile Blood Pressure: Normal Pulse: Tachycardic Respiratory Rate: Normal Appearance: Positive for: Ill-Appearing Pain Distress: Moderate Mental Status: Positive for: Alert and Oriented X 3 - Systems Exam Head: Present: Atraumatic, Normocephalic Pupils: Present: PERRL Conjunctiva: Present: Normal Mouth: Present: Moist Mucous Membranes Pharnyx: Present: Normal. No: ERYTHEMA, EXUDATE Neck: Present: Normal Range of Motion Respiratory/Chest: Present: Good Air Exchange, Decreased Breath Sounds, Other ( Crackles at left base). No: Respiratory Distress, Accessory Muscle Use Cardiovascular: Present: Regular Rate and Rhythm, Normal S1, S2. No: Murmurs Abdomen: Present: Tenderness (Diffuse), Normal Bowel Sounds. No: Distention, Peritoneal Signs Rectal: Present: Other (Soft brown stool, guaiac negative) Back: Present: Normal Inspection Upper Extremity: Present: Normal Inspection. No: Cyanosis, Edema Lower Extremity: Present: Normal Inspection. No: Edema Neurological: Present: GCS=15, CN II-XII Intact, Speech Normal Skin: Present: Warm, Dry, Normal Color. No: Rashes Psychiatric: Present: Alert, Oriented x 3, Normal Insight, Normal Concentration Medical Decision Making ED Course and Treatment: Impression: 71 year old male whose past medical history includes lung cancer ( finished chemo), COPD, hypercholesterolemia, and chronic osteoarthritis presents to the emergency department with constipation, abdominal pain, and shortness of breath for the past two days. Differential Diagnosis include but are not limited to: pleural spread of CA vs. effusion Plan: -- CT Abdomen/Pelvis, CTA, Chest X-ray, EKG -- Pain medication -- Labs -- Reassess and disposition Prior Visits: Notes and results from previous visits were reviewed. Patient last seen in ED on 11/08/16 for chest pain and admitted for Lung mass, Chest pain, Pneumonia. Progress Notes: 11/28/16 16:21 Patient with noted history presenting with cp, sob, and abd pain. Labs are nondiagnostic. Initially with tachycardia with some improvement after dilaudid for pain. CT of chest results are noted below as is abdomen. Patient with advanced CA and continues to have symptoms - will need to be hospitalized for additional pain control, evaluation, and treatment. 11/28/16 16:25 Case was discussed with Dr. Greer for admission. - Lab Interpretations Lab Results: 11/28/16 11:52 11/28/16 11:52 Lab Results 11/28/16 11:52: Sodium 134, Potassium 3.8, Chloride 98, Carbon Dioxide 24, Anion Gap 16, BUN 8, Creatinine 0.5, Est GFR ( Amer) > 60, Est GFR (Non- Af Amer) > 60, Random Glucose 107, Calcium 10.1, Magnesium 1.9, Total Bilirubin 0.8, AST 47, ALT 39, Alkaline Phosphatase 142 H, Lactate Dehydrogenase 1025 H, Total Creatine Kinase 31 L, Troponin I < 0.01, Total Protein 8.2, Albumin 4.1, Globulin 4.1, Albumin/Globulin Ratio 1.0 L, Lipase 48 11/28/16 11:52: PT 13.7 H, INR 1.27 H, APTT 35.9 H 11/28/16 11:52: WBC 5.3, RBC 3.59, Hgb 9.8 L, Hct 29.9 L, MCV 83.3, MCH 27.3, MCHC 32.8, RDW 17.8 H, Plt Count 451 H, MPV 8.4, Gran % 71.0 H, Lymph % (Auto) 12.8 L, [place] % (Auto) 12.8 H, Eos % (Auto) 3.0, Baso % (Auto) 0.4, Gran # 3.77, Lymph # 0.7 L, [place] # 0.7 H, Eos # 0.2, Baso # 0.02 - RAD Interpretation Narrative RAD Interpretations (Text): PROCEDURE: CT Chest with contrast (Pulmonary Angiogram) Charge Machine Operator : Dong Mix MD Report Date : 11/28/2016 15:33:15 FINDINGS: PULMONARY ARTERIES: Nondiagnostic exam as far as pulmonary arterial defects. AORTA: Contrast seen in the aortic arch. LUNGS: Extensive architectural distortion, stack cystic spaces thickening of interlobular septa noted. These findings are consistent with pulmonary fibrosis. This is particularly seen on the right. Hyperinflation of the right lung. The left lung also demonstrates stat cystic spaces along the peripheral aspect. There is diffuse pleural thickening particularly on the left. Small masslike consolidation along the peripheral aspect of the vertical fissure and along the left lung base. Evaluation of small pulmonary nodules is suboptimal given the setting. PLEURAL SPACES: Focus of pleural calcification in the left upper lobe. Pleurodesis along the left posterior lung. This could be related to prior surgery. HEART: Mild cardiomegaly. Medication port with the distal tip of catheter in the right atrium. Coronary arterial calcifications. LYMPH NODES: Scattered fine moderately enlarged mediastinal lymphadenopathy. Bilateral hilar lymphadenopathy particularly on the right. These are suboptimally evaluated due to timing of contrast. Small AP window lymphadenopathy. Few calcified lymph nodes in the left hilum. BONES, CHEST WALL: Degenerative changes. OTHER FINDINGS: Heterogeneous thyroid gland. Please refer to CT abdomen pelvis done on the same day for evaluation of the abdomen. IMPRESSION: Nondiagnostic study for pulmonary embolism. Architectural distortion consistent with pulmonary fibrosis right greater than left. Masslike consolidation along the peripheral aspect of the wire sickle fissure and along the left lung base could represent atelectasis versus pneumonia. Diffuse pleural thickening on the left. Underlying pulmonary nodules suboptimally evaluated. Patient is status post left lung surgery. Scattered lymphadenopathy in the mediastinum and bilateral hilar regions. Heterogeneous thyroid gland. Dedicated ultrasound can be obtained if indicated. Please refer to CT abdomen pelvis done on the same day for evaluation of the abdomen. PROCEDURE: CT Abdomen and Pelvis with contrast Charge Machine Operator : Dong Mix MD Report Date : 11/28/2016 15:58:03 FINDINGS: LOWER THORAX: Fibrotic changes in architectural distortion including postsurgical changes in the lung bases. (please refer to CT chest done on the same day for further evaluation. LIVER: No obvious gross lesion. GALLBLADDER AND BILE DUCTS: Dilated gallbladder without significant pericholecystic inflammatory changes. PANCREAS: Prominent pancreatic duct measuring approximately 3 millimeters. No definite pancreatic mass identified. KIDNEYS AND URETERS: Exophytic and partially exophytic cysts in both kidneys. No hydronephrosis. S VASCULATURE: Scattered atherosclerotic calcification throughout the abdominal aorta and its main branches. Portal vein patent. No aneurysm. BOWEL: Extensive stool in the rectum with mild rectal wall thickening and perirectal stranding. Fecal impaction with superimposed proctitis can be considered. Extensive stool seen throughout the sigmoid colon with colonic dilatation noted. The distal fecal impaction has caused a partial large bowel obstruction. APPENDIX: No CT evidence of appendicitis. LYMPH NODES: No bulky intra-abdominal lymphadenopathy. BLADDER: Layering contrast seen in the urinary bladder posteriorly. REPRODUCTIVE: Prostatic concretions. BONES: Degenerative changes of the hips. IMPRESSION: Findings suspicious for fecal impaction involving the rectum with associated proctitis. Possible partial large bowel obstruction due to this impaction. Fibrotic changes in both lungs and postsurgical changes in the left lung. Presumed renal cysts. Radiology Orders: 11/28/16 12:08 CHEST PORTABLE [RAD] Stat 11/28/16 12:10 ABD & PELVIS IV CONTRAST ONLY [CT] Stat ANGIO CHEST PE PROTOCOL [CT] Stat Jewelry Estimator: Radiologist - EKG Interpretation EKG Interpretation (Text): EKG shows sinus tachycardia at 104 BPM with LVH, no ST/T changes compared to 02/01 Interpreted by ED Physician: Yes Type: 12 lead EKG - Medication Orders Current Medication Orders: Albuterol/Ipratropium (Duoneb 3 Mg/0.5 Mg (3 Ml) Ud) 3 ml IH [id number] DONNA Hydromorphone HCl (Dilaudid) 1 mg IVP Q4H PRN PRN Reason: Pain, moderate (4-7) Sodium Chloride (Sodium Chloride 0.9%) 1,000 mls @ 200 mls/hr IV .Q5H STA Stop: 11/28/16 17:10 Last Admin: 11/28/16 12:23 Dose: 200 mls/hr Discontinued Medications Hydromorphone HCl (Dilaudid) 1 mg IVP STAT STA Stop: 11/28/16 12:11 Last Admin: 11/28/16 12:23 Dose: 1 mg Re-Assess: NIKIA Pain Assessment Document 11/28/16 13:23 SRE (Rec: 11/28/16 14:11 SRE [id number]) Pain Reassessment Is this a pain reassessment? Yes Sleep Is patient sleeping during reassessment? No Presence of Pain Presence of Pain Yes Pain Scale Used Pain Scale Used Numeric Location Pain Location Body Site Generalized Iodixanol (Visipaque 320 Mg/Ml 100 Ml) Confirm Administered Dose 100 ml IV .STK- MED ONE Stop: 11/28/16 13:52 - Scribe Statement The provider has reviewed the documentation as recorded by the Nic Luciano Provider Scribe Attestation: All medical record entries made by the Shyannibdara were at my direction and personally dictated by me. I have reviewed the chart and agree that the record accurately reflects my personal performance of the history, physical exam, medical decision making, and the department course for this patient. I have also personally directed, reviewed, and agree with the discharge instructions and disposition. Disposition/Present on Arrival - Present on Arrival Any Indicators Present on Arrival: No History of DVT/PE: No History of Uncontrolled Diabetes: No Urinary Catheter: No History of Decub. Ulcer: No History Surgical Site Infection Following: None - Disposition Have Diagnosis and Disposition been Completed?: Yes Diagnosis: Chest pain, Abdominal pain, Constipation Disposition: HOSPITALIZED Disposition Time: 16:15 Patient Plan: Admission Patient Problems: Current Active Problems Problem Status Onset Abdominal pain Acute Chest pain Acute Constipation Acute Condition: SERIOUS
[2016-11-28 12:21] LABS: ADD MANUAL DIFF? NO
[2016-11-28 12:28] LABS: BASO # 0.02 K/mm3 (0.0-2.0); BASO % 0.4 % (0.0-3.0); EOS # 0.2 (0.0-0.7); GRAN # 3.77 (1.4-6.5); HEMATOCRIT 29.9 % (42.0-52.0); LYMPH # 0.7 (1.2-3.4); LYMPH % 12.8 % (22.0-35.0); MEAN CELL VOLUME 83.3 fL (80.0-105.0); MEAN CORPUSCULAR HEMOGLOBIN 27.3 pg (25.0-35.0); MEAN CORPUSCULAR HGB CONC 32.8 g/dl (31.0-37.0); MEAN PLATELET VOLUME 8.4 fl (7.0-11.0); MONO # 0.7 (0.1-0.6); MONO % 12.8 % (1.0-6.0); PLATELET COUNT 451 10^3/uL (120.0-450.0); RED CELL DISTRIBUTION WIDTH 17.8 % (11.5-14.5); WHITE BLOOD COUNT 5.3 10^3/ul (4.5-11.0)
--- NOTE | 2016-11-28 12:28 | RAD ---
HISTORY: sob COMPARISON: 11/08/2016 FINDINGS: LUNGS: Reticular opacities throughout both lungs right greater than left, representing underlying fibrotic changes. PLEURA: Biapical pleural parenchymal thickening noted. CARDIOVASCULAR: Stable cardiomediastinal silhouette. OSSEOUS STRUCTURES: The osseous structures demonstrate degenerative changes. VISUALIZED UPPER ABDOMEN: Upper abdomen is suboptimally evaluated. OTHER FINDINGS: Right-sided medication port with the tip of the catheter overlying the projection of the right atrium. IMPRESSION: Underlying fibrotic changes involving the lungs right greater than left. Evaluation of pulmonary nodules suboptimal given the setting.
[2016-11-28 12:34] LABS: ALKALINE PHOSPHATASE 142 U/L (38-133); ALT/SGPT 39 U/L (7-56); AST/SGOT 47 U/L (15-59); BILIRUBIN,TOTAL 0.8 mg/dL (0.2-1.3); BLOOD UREA NITROGEN 8 mg/dL (7-21); CALCIUM 10.1 mg/dL (8.4-10.5); CARBON DIOXIDE 24 mmol/L (21-33); CHLORIDE 98 mmol/L (98-107); GFR AFRICAN-AMERICAN > 60; GLUCOSE,RANDOM 107 mg/dL (70-110); INR 1.27 (0.93-1.08); LIPASE 48 U/L (23-300); MAGNESIUM 1.9 mg/dL (1.7-2.2); PARTIAL THROMBOPLASTIN TIME 35.9 Seconds (23.7-30.8); POTASSIUM 3.8 mmol/L (3.6-5.0); SODIUM 134 mmol/L (132-148); TOTAL PROTEIN 8.2 g/dL (5.8-8.3)
[2016-11-28 12:48] LABS: TROPONIN I < 0.01 ng/mL
[2016-11-28] MEDS ORDERED: Iodixanol 320 MG/ML 100 ML BOTTLE IV ONE (13:51)
--- NOTE | 2016-11-28 15:34 | CT ---
PROCEDURE: CT Chest with contrast (Pulmonary Angiogram) HISTORY: cp, sob, lung CA - r/p PE COMPARISON: Multiple prior CTs most recently from 11/10/2016 TECHNIQUE: Axial computed tomography images were obtained of the chest in the pulmonary arterial phase of enhancement. Coronal and sagittal reformatted images were created and reviewed. Intravenous contrast dose: 100 mL Radiation dose: Total exam DLP = 557.23 mGy-cm. This CT exam was performed using one or more of the following dose reduction techniques: Automated exposure control, adjustment of the mA and/or kV according to patient size, and/or use of iterative reconstruction technique. FINDINGS: PULMONARY ARTERIES: Nondiagnostic exam as far as pulmonary arterial defects. AORTA: Contrast seen in the aortic arch. LUNGS: Extensive architectural distortion, stack cystic spaces thickening of interlobular septa noted. These findings are consistent with pulmonary fibrosis. This is particularly seen on the right. Hyperinflation of the right lung. The left lung also demonstrates stat cystic spaces along the peripheral aspect. There is diffuse pleural thickening particularly on the left. Small masslike consolidation along the peripheral aspect of the vertical fissure and along the left lung base. Evaluation of small pulmonary nodules is suboptimal given the setting. PLEURAL SPACES: Focus of pleural calcification in the left upper lobe. Pleurodesis along the left posterior lung. This could be related to prior surgery. HEART: Mild cardiomegaly. Medication port with the distal tip of catheter in the right atrium. Coronary arterial calcifications. LYMPH NODES: Scattered fine moderately enlarged mediastinal lymphadenopathy. Bilateral hilar lymphadenopathy particularly on the right. These are suboptimally evaluated due to timing of contrast. Small AP window lymphadenopathy. Few calcified lymph nodes in the left hilum. BONES, CHEST WALL: Degenerative changes. OTHER FINDINGS: Heterogeneous thyroid gland. Please refer to CT abdomen pelvis done on the same day for evaluation of the abdomen. IMPRESSION: Nondiagnostic study for pulmonary embolism. Architectural distortion consistent with pulmonary fibrosis right greater than left. Masslike consolidation along the peripheral aspect of the wire sickle fissure and along the left lung base could represent atelectasis versus pneumonia. Diffuse pleural thickening on the left. Underlying pulmonary nodules suboptimally evaluated. Patient is status post left lung surgery. Scattered lymphadenopathy in the mediastinum and bilateral hilar regions. Heterogeneous thyroid gland. Dedicated ultrasound can be obtained if indicated. Please refer to CT abdomen pelvis done on the same day for evaluation of the abdomen. Discussed with Dr. Kunz at approximately 3:30 p.m. on 11/28/2016.
--- NOTE | 2016-11-28 15:59 | CT ---
PROCEDURE: CT Abdomen and Pelvis with contrast HISTORY: abd pain, lung CA COMPARISON: CT from 12/09/[address]/PET from 06/22/2016 TECHNIQUE: Contrast dose: 100 mL. Radiation dose: Total exam DLP = 289.62 mGy-cm. This CT exam was performed using one or more of the following dose reduction techniques: Automated exposure control, adjustment of the mA and/or kV according to patient size, and/or use of iterative reconstruction technique. Limited evaluation of soft tissue structures due to suboptimal timing of contrast. FINDINGS: LOWER THORAX: Fibrotic changes in architectural distortion including postsurgical changes in the lung bases. (please refer to CT chest done on the same day for further evaluation. LIVER: No obvious gross lesion. GALLBLADDER AND BILE DUCTS: Dilated gallbladder without significant pericholecystic inflammatory changes. PANCREAS: Prominent pancreatic duct measuring approximately 3 millimeters. No definite pancreatic mass identified. SPLEEN: Unremarkable. ADRENALS: Unremarkable. No mass. KIDNEYS AND URETERS: Exophytic and partially exophytic cysts in both kidneys. No hydronephrosis. S VASCULATURE: Scattered atherosclerotic calcification throughout the abdominal aorta and its main branches. Portal vein patent. No aneurysm. BOWEL: Extensive stool in the rectum with mild rectal wall thickening and perirectal stranding. Fecal impaction with superimposed proctitis can be considered. Extensive stool seen throughout the sigmoid colon with colonic dilatation noted. The distal fecal impaction has caused a partial large bowel obstruction. APPENDIX: No CT evidence of appendicitis. PERITONEUM: Unremarkable. No free fluid. No free air. LYMPH NODES: No bulky intra-abdominal lymphadenopathy. BLADDER: Layering contrast seen in the urinary bladder posteriorly. REPRODUCTIVE: Prostatic concretions. BONES: Degenerative changes of the hips. OTHER FINDINGS: None. IMPRESSION: Findings suspicious for fecal impaction involving the rectum with associated proctitis. Possible partial large bowel obstruction due to this impaction. Fibrotic changes in both lungs and postsurgical changes in the left lung. Presumed renal cysts. Discussed with Dr. Kunz at approximately 4 p.m. on 11/28/2016.
[2016-11-28 16:39] LABS: URINE BILIRUBIN NEGATIVE (NEGATIVE); URINE BLOOD NEGATIVE (NEGATIVE); URINE GLUCOSE (UA) NEGATIVE (NEGATIVE); URINE KETONE NEGATIVE (NEGATIVE); URINE LEUKOCYTE ESTERASE NEGATIVE Leu/uL (NEGATIVE); URINE PROTEIN TRACE mg/dL (<30 mg/dL); URINE UROBILINOGEN 0.2 E.U./dL (<1 E.U./dL)
[2016-11-28 16:40] LABS: URINE APPEARANCE CLEAR (CLEAR); URINE COLOR YELLOW (YELLOW)
[2016-11-28] MEDS: HYDROmorphone 1 mg/ml ISec IVP PRN ×2 (17:12→21:13)
[2016-11-28 17:16] LABS: URINE RBC 0 - 2 /hpf (0-2); URINE WBC 0 - 2 /hpf (0-6)
[2016-11-28 17:17] LABS: URINE AMORPHOUS SEDIMENT TRACE; URINE BACTERIA FEW (NEG)
[2016-11-28] MEDS: CYANOCOBALAMIN PO SCH (17:57)
[2016-11-28] MEDS: THIAMINE PO SCH (17:57)
[2016-11-28] MEDS: PYRIDOXINE PO SCH (17:57)
[2016-11-28] MEDS ORDERED: Non Formulary Medication (Ferrous Sulfate [Feosol] 325 MG) PO SCH (18:00)
[2016-11-28] MEDS: Pantoprazole 40 mg EC Tab PO SCH (18:06)
[2016-11-28] MEDS: Enoxaparin 40 mg Syringe SC SCH (18:06)
[2016-11-28] MEDS: Ergocalciferol 50,000 Intl Units Cap PO SCH (18:07)
[2016-11-28] MEDS: Tmp-Smz 800 mg-160 mg DS Tab PO SCH (18:07)
[2016-11-28] MEDS ORDERED: Albuterol-Ipratrop 3 mg / 0.5 (3 ml) UD IH SCH (19:30)
[2016-11-28] MEDS: Bisacodyl 5mg EC Tab PO PRN (20:04)
[2016-11-28] MEDS: Budesonide 0.5 mg/2 ml Inhal Susp UD IH SCH (20:07)
[2016-11-28] MEDS: Arformoterol 15 mcg/2 ml Inh Sol IH SCH (20:07)
[2016-11-28] MEDS: MethylPREDNISolone 40 mg Vial IVP SCH (21:13)
[2016-11-28] MEDS ORDERED: Pneumococcal 23-Valent Vaccine IM ONE (21:25)
[2016-11-29] MEDS: HYDROmorphone 1 mg/ml ISec IVP PRN ×6 (01:17→23:02)
[2016-11-29] MEDS: oxyCODONE 15 mg Immediate Release Tab PO PRN (07:42)
[2016-11-29] MEDS: Bisacodyl 5mg EC Tab PO PRN (07:42)
[2016-11-29] MEDS: Arformoterol 15 mcg/2 ml Inh Sol IH SCH ×2 (07:55→20:34)
[2016-11-29] MEDS: Budesonide 0.5 mg/2 ml Inhal Susp UD IH SCH ×2 (07:55→20:35)
[2016-11-29] MEDS: Enoxaparin 40 mg Syringe SC SCH (09:28)
[2016-11-29] MEDS: Tmp-Smz 800 mg-160 mg DS Tab PO SCH ×2 (09:29→17:05)
[2016-11-29] MEDS: Multivitamin Therapeutic Tab PO SCH (09:29)
[2016-11-29] MEDS: Pantoprazole 40 mg EC Tab PO SCH (09:30)
[2016-11-29] MEDS: MethylPREDNISolone 40 mg Vial IVP SCH ×2 (09:32→22:17)
[2016-11-29] MEDS: THIAMINE PO SCH (09:39)
[2016-11-29] MEDS: PYRIDOXINE PO SCH (09:39)
[2016-11-29] MEDS: CYANOCOBALAMIN PO SCH (09:39)
--- NOTE | 2016-11-29 10:22 | CARD ---
APPROVED REPORT EKG Measurement Heart [id number] <Conclusion> Sinus tachycardia Left ventricular hypertrophy STTW changes c/w ischemia Small q waves 3,F No change
--- NOTE | 2016-11-29 16:09 | CON ---
DATE: 11/29/2016 This is the patient's hospital consult on the medical floor. For Dr. Ma. CHIEF COMPLAINT: Chest pain, abdominal pain. HISTORY OF PRESENT ILLNESS: The patient is a 71-year-old male admitted via the Emergency Room for sh ortness of breath and obstipation and chest pain. 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 oxycodone for breakthrough pain. However, he is now having opioid-induced constipation with disimpaction to be necessary? as per Dr. Laboy. ALLERGIES: No known allergies. 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 PRESENT MEDICATIONS: Include Spiriva, fentanyl, oxycodone, B12, Dulcolax, MiraLax, Lipitor, Ventolin inhaler. The patient was also recently given nebulizer treatments. FAMILY HISTORY AND SOCIAL HISTORY: The patient is a former smoker, drinks beer on weekends, with fam tobi at the bedside. REVIEW OF SYSTEMS: Essentially negative to questioning except as above. OBJECTIVE AND PHYSICAL EXAMINATION: VITAL SIGNS: Temperature 97.5, pulse 93, respirations 21, blood pressure 121/78, pulse ox of 97%. HEENT: The patient appears cachectic, temporal muscle wasting is noted. NECK: Supple. HEART: Regular rate. LUNGS: Decreased breath sounds, occasional expiratory wheeze. ABDOMEN: Soft. EXTREMITIES: No edema. SKIN: Warm, dry and clear. NEUROLOGIC: Awake, alert and oriented. The patient's labs were done yesterday. White blood cell count of 5.3, hemoglobin 9.8, hematocrit 29 .9, platelet count of 451,000 with a chem metabolic panel within normal range except for an LDH of 10 25 with an alk phos of 142. His INR is 1.27 with a urinalysis showing trace of protein, otherwise ne gative. The patient had a chest x-ray done yesterday. It was read as underlying fibrotic changes involving l ungs, right greater than left, evaluation of pulmonary nodule suboptimal. He had a CAT scan of the c hest done yesterday. It was read as pulmonary fibrosis, right greater than left, mass-like consolida tion along the perihilar aspect with along the left lung base, could represent atelectasis vers us pneumonia, diffuse pleural thickening and left underlying pulmonary nodules, status post left lung surgery. The patient had a CAT scan of the abdomen and pelvis done yesterday. It was read as suspicious findi ng for fecal impaction involving the rectum with associated proctitis, possible large bowel obstructi on due to the impaction, fibrotic changes of both lungs, postsurgical change of the left lung. The patient had an EKG done yesterday. It was read as sinus tachycardia, left ventricular hypertroph y, ST-T wave changes consistent with ischemia, small Q-waves in III and F. Otherwise, no change. ASSESSMENT: Stage IV nonsmall cell cancer of the lung, on active chemotherapy with carboplatin and A limta on hold due to readmission to the hospital, chronic obstructive pulmonary disease with exacerba tion, opioid-induced constipation due to patient's intractable pain of cancer, cachexia of malignancy as the patient is 5 feet 11 inches tall and weighs 126 pounds, gluten enteropathy, degenerative join t disease. PLAN: To continue present medical regimen. We will adjust his narcotic analgesics as he was taking 75 mcg per hour of fentanyl with consult with Dr. Laboy for his severe opioid-induced constipation with continuation of present medical regimen as per Dr. Greer. We will monitor clinically and with labs. Consult with Dr. Vargas, his bird cage assembler, with the prognosis for this patient guarded. Vincenzo Dias MD cc: [phone] TT: 11/29/2016 16:08:50 Confirmation # [id number] Dictation # [id number] en
[2016-11-29] MEDS: POLYETHYLENE GLYCOL 3350 17 GM/Dose PACKET PO SCH (17:05)
--- NOTE | 2016-11-29 18:31 | CON ---
DATE: 11/29/2016 REASON FOR CONSULT: Cough, shortness of breath. HISTORY OF PRESENT ILLNESS: This is a 71-year-old gentleman with known history of unresectable lung cancer, hyperlipidemia, chronic obstructive lung disease, pulmonary fibrosis, was seen in Dr. Ma 's office about 2 days or so with shortness of breath. He was placed on p.o. prednisone and also neb ulizer treatment was ordered. He comes in to the Emergency Room with the family with increased short ness of breath with no nausea, no vomiting, diarrhea. No leg pain or leg swelling. PAST MEDICAL HISTORY: Chronic obstructive lung disease, pulmonary fibrosis, lung cancer, hyperlipide kevin. ALLERGIES: None known. SOCIAL HISTORY: He is a former smoker. Denies any alcohol use. FAMILY HISTORY: No significant cardiopulmonary disease reported. MEDICATIONS: He is on Bactrim double strength 1 tab twice a day, Brovana 15 mcg inhaled twice a day, Daliresp 500 mcg daily, Dilaudid 1 mg q. 4 hours p.r.n., vitamin D 50,000 units q. 7 days, Dulcolax 5 mg daily p.r.n., DuoNeb q. 4 hours p.r.n., Duragesic patch q. 72 hours, lactulose 20 grams p.o. at bedtime, ferrous sulfate 324 mg twice a day, folic acid 1 mg daily, Lipitor 10 mg daily, Lovenox 40 mg daily, MiraLax 17 grams twice a day, oxycodone 15 mg p.o. q. 4 hours p.r.n., Protonix 40 mg daily, Pulmicort inhaled twice a day, Solu-Medrol 40 mg q. 12 hours, multivitamins daily, vitamin B12 1000 mg p.o. daily. LABORATORY DATA: Reviewed and shows hemoglobin yesterday is 9.8, hematocrit 29.9, WBC 5.3, platelet is 451. INR 1.27, PTT is 36. Sodium 134, potassium 3.8, chloride 98, bicarbonate , BUN 8, crea tinine 0.5, glucose 107, calcium is 10.1, AST 47, ALT 39, alkaline phosphatase is 142. LDH 1025, cre atinine kinase is 31 and lipase is 48. Microbiology: Blood cultures have been negative. Had a CAT scan of the chest done in ER admission, which shows no PE. There is architectural distortion consist ent with pulmonary fibrosis right greater than the left, mass-like consolidation along the peripheral aspects of the fissure and along the left lung base representing some atelectasis, also pneumo miya and diffuse pleural thickening on the left. He is status post thoracotomy in the remote past. IMPRESSION AND PLAN: Chronic obstructive lung disease with some pulmonary fibrosis, lung cancer, ane kevin, short of breath with minimal exertion. The patient started on IV and inhaled bronchodilator, an tibiotics, gastric prophylaxis, DVT prophylaxis. I spoke to the patient's daughter and patient at [facility]. All of their questions answered. Will request echocardiogram, assess RV and LV function and rule out pulmonary hypertension. Will follow with you. Shell Vargas MD cc: [phone] TT: 11/29/2016 18:30:52 Confirmation # [id number] Dictation # [id number] mn
--- NOTE | 2016-11-29 19:41 | CON ---
DATE: 11/29/2016 This patient was seen and evaluated earlier. The patient's family was at bedside during examination. I also discussed with Dr. Vincenzo Dias. This is a 71-year-old patient with a past medical history of lung cancer, status post chemotherapy an d COPD was admitted with shortness of breath and also constipation. The patient complains also of so me chest pain. The patient has a history of also celiac disease and a history of anemia. The patien t has stage IV nonsmall cell carcinoma of the lung. He has been on pain medication with fentanyl and oxycodone. The patient did receive Relistor earlier and also, just before my examination, had a tap water enema with good results. The patient was feeling better at the time of examination. Other pa st medical history as above; history of gastritis, degenerative joint disease, dyslipidemia and B12 d eficiency. FAMILY HISTORY: Noncontributory. SOCIAL HISTORY: Ex-smoker, alcohol on the weekends. REVIEW OF SYSTEMS: Positive as above. Other systems were reviewed and negative. PHYSICAL EXAMINATION: GENERAL: The patient is lying on the bed, not in acute distress. VITAL SIGNS: Temperature is afebrile. Blood pressure 121/78, pulse 93, respirations 18. HEENT: Atraumatic, anicteric. NECK: Supple. HEART: S1, S2 heard. LUNGS: Bilateral air entry present. ABDOMEN: Soft. There is no tenderness. EXTREMITIES: No edema, no cyanosis. NEUROLOGIC: Alert, oriented. Moves all the extremities. LABORATORY DATA: Hemoglobin 9.8, hematocrit 29.9, WBC 5.3, platelets 2451. Chemistry is essentially unremarkable except LDH was 1025 and alkaline phosphatase was 142. The patient had a CT scan of the abdomen and pelvis done, which showed a large amount of stool in the colon and also a large amount o f the rectum with fecal impaction. The CT of the chest was also done. With the pulmonary fibrosis h e has a mass along the peripheral aspect of the left lung base. He is status post left lung surgery. IMPRESSION: This I a 71-year-old patient with a nonsmall cell carcinoma of the lung, status post truong yusuf, status post chemotherapy, admitted with chest pain and also severe constipation. The patient d oes still have the fecal impaction. Did receive Relistor and also a tap water enema with good result s. At the time of examination his abdomen was soft and there was no tenderness. The patient has bee n on a regular diet. The patient is on steroids. I would recommend: 1. Continue the MiraLax at least twice a day. The patient may require every other day Relistor ____ _ in 48 hours another dose of Relistor. The patient is also taking lactulose 30 mL at night in addit ion to his GoLYTELY and also MiraLax; will continue that for the time being. Will continue to closel y follow up and the patient will be put on a gluten diet. Thank you very much for allowing us to participate in the care of the patient. Celestino Laboy MD cc: [phone] TT: 11/29/2016 19:40:34 Confirmation # [id number] Dictation # [id number] dn
[2016-11-30] MEDS: HYDROmorphone 1 mg/ml ISec IVP PRN ×6 (03:37→23:31)
[2016-11-30 06:43] LABS: HEMATOCRIT 28.1 % (42.0-52.0); MEAN CELL VOLUME 82.4 fL (80.0-105.0); MEAN CORPUSCULAR HEMOGLOBIN 27.3 pg (25.0-35.0); MEAN CORPUSCULAR HGB CONC 33.1 g/dl (31.0-37.0); MEAN PLATELET VOLUME 8.4 fl (7.0-11.0); PLATELET COUNT 392 10^3/uL (120.0-450.0); RED CELL DISTRIBUTION WIDTH 17.6 % (11.5-14.5)
[2016-11-30 06:51] LABS: WHITE BLOOD COUNT 2.1 10^3/ul (4.5-11.0)
[2016-11-30 06:55] LABS: ADD MANUAL DIFF? YES
[2016-11-30 07:08] LABS: ALKALINE PHOSPHATASE 121 U/L (38-133); ALT/SGPT 47 U/L (7-56); AST/SGOT 55 U/L (15-59); BILIRUBIN,TOTAL 0.6 mg/dL (0.2-1.3); BLOOD UREA NITROGEN 14 mg/dL (7-21); CALCIUM 9.9 mg/dL (8.4-10.5); CARBON DIOXIDE 26 mmol/L (21-33); CHLORIDE 99 mmol/L (98-107); GFR AFRICAN-AMERICAN > 60; GLUCOSE,RANDOM 143 mg/dL (70-110); POTASSIUM 4.7 mmol/L (3.6-5.0); SODIUM 135 mmol/L (132-148); TOTAL PROTEIN 7.6 g/dL (5.8-8.3)
[2016-11-30] MEDS: Bisacodyl 5mg EC Tab PO PRN (07:34)
[2016-11-30] MEDS: Budesonide 0.5 mg/2 ml Inhal Susp UD IH SCH ×2 (08:04→21:23)
[2016-11-30] MEDS: Arformoterol 15 mcg/2 ml Inh Sol IH SCH ×2 (08:04→21:23)
[2016-11-30] MEDS: POLYETHYLENE GLYCOL 3350 17 GM/Dose PACKET PO SCH ×2 (09:24→18:11)
[2016-11-30] MEDS: Enoxaparin 40 mg Syringe SC SCH (09:24)
[2016-11-30] MEDS: Tmp-Smz 800 mg-160 mg DS Tab PO SCH ×2 (09:24→18:11)
[2016-11-30] MEDS: MethylPREDNISolone 40 mg Vial IVP SCH ×2 (09:24→21:33)
[2016-11-30] MEDS: Multivitamin Therapeutic Tab PO SCH (09:25)
[2016-11-30] MEDS: Pantoprazole 40 mg EC Tab PO SCH (09:25)
[2016-11-30 09:58] LABS: ANISOCYTOSIS 1+; HYPOCHROMIA 1+; MICROCYTOSIS 1+; NEUTROPHIL 85 % (50.0-70.0); OVALOCYTES SLIGHT; PLATELET ESTIMATE NORMAL (NORMAL); POLYCHROMASIA SLIGHT; TOXIC GRANULATION SLIGHT
[2016-11-30 09:59] LABS: POIKILOCYTOSIS SLIGHT; TEAR DROP CELLS SLIGHT
[2016-11-30] MEDS: PYRIDOXINE PO SCH (10:20)
[2016-11-30] MEDS: CYANOCOBALAMIN PO SCH (10:20)
[2016-11-30] MEDS: THIAMINE PO SCH (10:20)
--- NOTE | 2016-11-30 10:23 | HP ---
The patient was seen on 11/28/2016. REASON FOR ADMISSION: The patient came in with left-sided chest pain and abdominal discomfort with c onstipation. HISTORY OF PRESENT ILLNESS: A 71-year-old male with history of underlying lung CA and getting chemot herapy and has left side chest pain that he is receiving Duragesic patch 75 mcg every 3 days for it i n addiction to oxycodone. He also has been treated for COPD with nebulizers. Has been complaining o f worsening left side chest pain and worsening constipation. He did not move his bowels for almost 5 -7 days. He has no nausea, no vomiting. He does feel rectal discomfort from could not move his hina ls and no nausea and no vomiting. PAST MEDICAL HISTORY: As I mentioned above, COPD, chronic back pain. He does have B12 deficiency. He also has history of anemia, has also celiac disease, lung CA. ALLERGIES: No known allergy. SOCIAL HISTORY: He smoked for almost 30 years, stopped recently. No drinking until recently. He dr inks almost every day or every week, but he has been drinking for years. He lives by himself. He is a . He also has a supportive daughter. FAMILY HISTORY: His brother from lung carcinoma. REVIEW OF SYSTEMS: He does have cough, weakness, chest pain, joint pain, back pain, constipation, sh ort of breath occasionally, otherwise negative. PHYSICAL EXAMINATION: VITAL SIGNS: Temperature 98.7, heart rate 90, blood pressure 119/64, respirations 20, saturation on 2 liters 100%. HEAD AND NECK: Normal. No JVD, no thyromegaly. CHEST: There are diminished sounds, but clear. CARDIAC: First sound, second sound normal. ABDOMEN: Seems a little bit distended and there is some mild discomfort and tenderness in the lower abdomen. Bowel sounds intact. NEUROLOGIC: Normal except general weakness. LABORATORY DATA: White count 5.3, hemoglobin 9.8, hematocrit 29.9 and platelets 451. His chemistry: Sodium 134, potassium 3.8, chloride 98, bicarbonate 24, BUN 8, creatinine 0.5. Liver function test is normal. Alkaline phosphatase 142. Lactate dehydrogenase 1025. CPK is 31. Troponin is negative . Lipase is normal. Also, his urine is negative. The patient also had abdominal CT and pelvic CT in addition to. The abdominal and pelvic CT shows th e following: Exophytic and partially exophytic cysts in both kidneys, no hydronephrosis, also extens benjie stool in the rectum with mild rectal wall thickening and perirectal stranding, fecal impaction wi th superimposed proctitis can be considered, extensive stool through the whole sigmoid colon with col onic dilation noted, distal rectum impaction has caused partial large bowel obstructions. Chest CT w as done also, nondiagnostic. It showed with intravenous contrast heterogeneous thyroid gland, scatte red lymphadenopathy in the mediastinum and bilateral hilar lesions, pulmonary fibrosis greater on the left, mass-like consolidation along the peripheral aspect of the fissure along with lung base, also diffuse pleural thickening on the left and pulmonary nodules. IMPRESSION AND PLAN: 1. Abdominal, probably stool impaction with chronic constipation with partial obstruction. We will try to give the patient Dulcolax suppository and get a GI consult, Dr. Laboy. Dulcolax suppositor y and Colace and Dulcolax tablets. We will see how he does and maybe a small amount maybe will try R elistor for chronic induced and also will get a GI consult, Dr. Laboy. We will follow up clinical ly, see how the patient responds for this problem. 2. Chronic obstructive pulmonary disease, lung cancer. Continue pain meds in addition to Relistor. Continue nebulizer treatment for underlying chronic obstructive pulmonary disease and will follow up with the storage consultant. Oncology consult has been called and pulmonary, Dr. Vargas. Continue current management. Continue steroids. Continue deep venous thrombosis and gastrointestina l prophylaxis. We will follow up clinically. Diego Greer MD cc: [phone] TT: 11/30/2016 10:04:23 en
--- NOTE | 2016-11-30 10:24 | PN ---
DATE: 11/29/2016 A 71-year-old male who has abdominal discomfort, constipation. The patient did move his bowels a lit tle bit last night and also today. He did have a little bit of bowel movement yesterday and little b it of bowel movement today. He still has abdominal discomfort, but he has no nausea and no vomiting. PHYSICAL EXAMINATION: VITAL SIGNS: His temperature is 97.5, heart rate 109, blood pressure 121/78, respirations 21, satura tion 97%. HEAD AND NECK: Normal. No JVD, no thyromegaly. CHEST: Clear, good air entry. CARDIAC: First sound, second sound normal. ABDOMEN: It is mild distended. There is mild tenderness in the lower abdomen, more on the left. EXTREMITIES: No edema. NEUROLOGIC: Normal. IMPRESSION: 1. Abdominal pain, chronic constipation versus superimposed stool infections. The patient seems imp roving a little bit. Still needs more laxatives and more time to help him. We will give him Relisto r every other day. Continue lactulose and MiraLax p.r.n. and twice a day and we will see how the pat ient does. A small tap water edema may help him clinically, but we will see how the patient does. C ontinue current treatment. Follow up clinically. 2. Chronic obstructive pulmonary disease, chronic back pain, left side chest pain, lung cancer. Con tinue nebulizer treatment. Continue inhaled and IV bronchodilators. 3. Anemia. We will continue iron. 4. Chronic pain. We will continue Duragesic patch and oxycodone for pain management. 5. Continue gastrointestinal and deep venous thrombosis prophylaxis. Follow up clinically. Diego Greer MD cc: [phone] TT: 11/30/2016 09:42:05 Confirmation # [id number] Dictation # [id number] en
--- NOTE | 2016-11-30 21:57 | PN ---
DATE: 11/30/2016 REFERRING PHYSICIAN: Dr. Greer. SUBJECTIVE: He is lying in the bed complaining about shortness of breath with exertion, at rest, no cough, no sputum production, no nausea, no vomiting, no diarrhea. No leg pain or leg swelling. OBJECTIVE: GENERAL: No acute distress. VITAL SIGNS: Temp is 98, heart rate is 100, respiratory rate is 18, blood pressure 120/60, pulse ox 96% on nasal cannula. HEENT: Moist mucous membrane. No ulcer or oral thrush noted. NECK: Supple, no JVD. Crowded airway. LUNGS: Have a prolonged expiratory phase with some crackles and wheezing. HEART: S1 and S2. ABDOMEN: Soft, nontender. No organomegaly. EXTREMITIES: No edema. NEUROLOGIC: Awake, alert, follows simple command. MEDICATIONS: 1 tab twice a day, Brovana 15 mcg inhaled twice daily, Daliresp 500 mcg daily, Di laudid 1 mg q. 4 hours p.r.n., vitamin D 50,000 units q. 7 days, Dulcolax 5 mg daily, DuoNeb q. 4 alyssa rs, fentanyl patch q. 72 hours, lactulose 20 mg at bedtime, ferrous sulfate 324 mg twice a day, folic acid 1 mg daily, Lipitor 10 mg daily, Lovenox 40 mg daily, MiraLax 17 grams p.o. twice a day, oxycod one immediate release 15 mg q. 4 hours p.r.n., Protonix 40 mg daily, Pulmicort inhaled twice daily, S gerhard-Medrol 40 mg q. 12 hours, multivitamins daily. LABORATORY DATA: Shows hemoglobin 9.3, hematocrit 28.1, WBC 2.1, platelet is 392. Sodium 135, potas sium 4.7, chloride 99, bicarbonate 26, BUN 14, creatinine 0.5, glucose 143, calcium 9.9. AST 55, ALT 47, alkaline phosphatase is 121. Albumin is 3.8. IMPRESSION AND PLAN: Chronic obstructive lung disease with pulmonary fibrosis, lung cancer, and anem ia. Activities of daily living dysfunction. We will continue IV and inhaled bronchodilator. Gastri c prophylaxis. Sequential compression device to lower extremity. Waiting for echocardiogram to asses s right ventricular and left ventricular function. I spoke to daughter at bedside. All the question s were answered to her satisfaction. Out of bed to chair. Physical therapy. We will follow with pedro u. Shell Vargas MD cc: [phone] TT: 11/30/2016 21:57:02 Confirmation # [id number] Dictation # [id number]
--- NOTE | 2016-11-30 23:38 | CP.PCM.PN ---
Subjective - Date & Time of Evaluation Date of Evaluation: 11/30/16 Time of Evaluation: 23:37 - Subjective Subjective: S:Patient was seen because he requested a sleeping pill. Has no other complaints now. Denies chest pain, sob. Medical record was reviewed. O:VSS. Alert, oriented , not in distress. LUNGS:Normal breathing pattern. A:Adjustment insomnia. P:Ambien 5 mg PO x 1 . Objective - Vital Signs/Intake and Output Vital Signs (last 24 hours): Temp Pulse Resp BP Pulse Ox 97.2 F L 80 18 120/60 96 11/30/16 16:00 11/30/16 22:00 11/30/16 16:00 11/30/16 16:00 11/30/16 16:00 Intake and Output: 11/30/16 12/01/16 18:59 06:59 Intake Total 540 Output Total 850 Balance -310 - Medications Medications: Current Medications Albuterol/Ipratropium (Duoneb 3 Mg/0.5 Mg (3 Ml) Ud) 3 ml IH [id number] PRN PRN Reason: Shortness of Breath Arformoterol Tartrate (Brovana) 15 mcg IH [id number] [facility] Last Admin: 11/30/16 21:23 Dose: 15 mcg Atorvastatin Calcium (Lipitor) 10 mg PO DAILY [facility] Last Admin: 11/30/16 09:24 Dose: 10 mg Bisacodyl (Dulcolax) 5 mg PO DAILY PRN PRN Reason: Constipation Last Admin: 11/30/16 07:34 Dose: 5 mg Budesonide (Pulmicort Respules) 0.5 mg IH [id number] [facility] Last Admin: 11/30/16 21:23 Dose: 0.5 mg Enoxaparin Sodium (Lovenox) 40 mg SC DAILY [facility] PRN Reason: Protocol Last Admin: 11/30/16 09:24 Dose: 40 mg Ergocalciferol (Drisdol 50,000 Intl Units Cap) 1 cap PO Q7D [facility] Last Admin: 11/28/16 18:07 Dose: 1 cap Fentanyl (Duragesic) 1 patch TD Q72H [facility] Last Admin: 11/29/16 13:18 Dose: 1 patch Ferrous Sulfate (Feosol) 324 mg PO BID [facility] Last Admin: 11/30/16 18:11 Dose: 324 mg Folic Acid (Folic Acid) 1 mg PO DAILY [facility] Last Admin: 11/30/16 09:24 Dose: 1 mg Hydromorphone HCl (Dilaudid) 1 mg IVP Q4H PRN PRN Reason: Pain, moderate (4-7) Last Admin: 11/30/16 23:31 Dose: 1 mg Lactulose (Enulose) 20 gm PO HS [facility] Last Admin: 11/30/16 21:33 Dose: 20 gm Methylprednisolone (Solu-Medrol) 40 mg IVP Q12 [facility] Last Admin: 11/30/16 21:33 Dose: 40 mg Multivitamins (Thera Tab) 1 tab PO DAILY [facility] Last Admin: 11/30/16 09:25 Dose: 1 tab Non-Formulary Medication (Vit B12/Pyridoxine/Thiamine [Pv Neuro Nisha Tablet]) 1 ,000 mg PO DAILY [facility] Last Admin: 11/30/16 10:20 Dose: Not Given Oxycodone HCl (Oxycodone Immediate Release Tab) 15 mg PO Q4H PRN PRN Reason: Pain, severe (8-10) Last Admin: 11/29/16 07:42 Dose: 15 mg Pantoprazole Sodium (Protonix Ec Tab) 40 mg PO DAILY [facility] Last Admin: 11/30/16 09:25 Dose: 40 mg Polyethylene Glycol (Miralax) 17 gm PO BID [facility] Last Admin: 11/30/16 18:11 Dose: 17 gm Roflumilast (Daliresp) 500 mcg PO DAILY [facility] Last Admin: 11/30/16 09:25 Dose: 500 mcg Trimethoprim/Sulfamethoxazole (Bactrim Ds Tab) 1 tab PO BID [facility] PRN Reason: Protocol Last Admin: 11/30/16 18:11 Dose: 1 tab - Labs Labs: 11/30/16 06:00 11/30/16 06:00 PT 13.7 Seconds (9.9-11.8) H 11/28/16 11:52 INR 1.27 (0.93-1.08) H 11/28/16 11:52 APTT 35.9 Seconds (23.7-30.8) H 11/28/16 11:52
--- NOTE | 2016-11-30 23:50 | PN ---
DATE: 11/30/2016 LOCATION: The patient is in room 367, bed 2. 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 SUBJECTIVE: The patient is lying in bed complaining of shortness of breath on minimal exertion. At rest, the patient has no cough, no sputum production, no nausea, vomiting or diarrhea. Denies any le g pain, leg swelling, fevers or chills. PHYSICAL EXAMINATION: GENERAL: The patient is examined in bed, is in no acute distress. VITAL SIGNS: Stable. T-max is 98.4, heart rate is 100, respirations 18, blood pressure is 120/60, p ulse ox is 96% on nasal cannula. HEENT: Head is normocephalic, atraumatic. Temporal muscle wasting is noted. Examination of the christian pharynx reveals no ulcers or oral thrush. No oropharyngeal lesions are noted. NECK: Supple. There is no adenopathy. No jugular venous distention noted. LUNGS: Reveals a prolonged expiratory phase with crackles and wheezing. HEART: Reveals S1 and S2 to be normal. No gallop or murmur is heard. ABDOMEN: Soft, nontender. Liver and spleen not palpable. EXTREMITIES: Reveals no cyanosis, clubbing or edema. NEUROLOGIC: Higher functions are normal. No focal deficits are noted. MEDICATIONS: The patient is on multiple pulmonary medications. He is on Brovana 15 mcg inhaled twic e a day, Daliresp 500 mcg daily, Dilaudid 1 mg q. 4 hours p.r.n. for pain, vitamin D 50,000 units a q . weekly, Dulcolax 5 mg daily, DuoNeb q. 4 hours inhalation therapy, fentanyl patch q. 72 hours, lact ulose 20 mg at bedtime, ferrous sulfate 325 mg b.i.d., folic acid 1 daily, Lipitor 10 mg daily, Loven ox 40 mg subQ daily, MiraLax 17 grams p.o. twice a day, oxycodone immediate release 15 mg q. 4 hours p.r.n., Protonix 40 mg daily, Pulmicort inhaled twice a day, Solu-Medrol 40 mg q. 12 hours, multivita mins 1 tablet daily. LABORATORY DATA: Reveals a hemoglobin of 9.3, hematocrit 28, white count of 2.1 with a platelet coun t 392,000. Sodium is 135, K is 4.7, chloride 99, bicarbonate 26, BUN 14, creatinine 0.5, glucose 143 , calcium is 9.9, AST is 56, ALT is 47, and alkaline phosphatase is 121, albumin is 3.8. ASSESSMENT NOTES AND PLAN: The patient has chronic obstructive pulmonary disease with pulmonary fibr osis, lung cancer, anemia, activities of daily living dysfunction. The patient is on IV and inhaled bronchodilators, is on gastric prophylaxis, he is on sequential compression devices to the lower extr emities. The patient had an echocardiogram, results of which are still pending. Out of bed to chair and physical therapy has been ordered. Labs for a.m. have been requested. A CAT scan of the chest that was done initially on admission for PE purposes does not reveal anything major except for the ch ronic changes in the form of emphysema, along with changes in the left lower lobe near the base that could be compatible either with pneumonia and/or, possibly at this time, persistent disease. Routine post exam instructions have been given to the patient. I will speak to the daughter in [facility] as far as further plans for therapy for his cancer are concerned. Routine post exam instructions have been given to the patient. I will speak to Dr. Greer as well and will also discuss the finding s with the automated teller manager, Dr. Vargas. Josee Ma MD cc: [id number] TT: 11/30/2016 23:49:34 Confirmation # [id number] Dictation # [id number] mn
[2016-12-01] MEDS: HYDROmorphone 1 mg/ml ISec IVP PRN ×5 (03:37→20:02)
[2016-12-01] MEDS: Budesonide 0.5 mg/2 ml Inhal Susp UD IH SCH ×2 (07:47→19:17)
[2016-12-01] MEDS: Arformoterol 15 mcg/2 ml Inh Sol IH SCH ×2 (07:47→19:17)
--- NOTE | 2016-12-01 08:13 | PN ---
DATE: 11/30/2016 ADDENDUM: This patient was seen and evaluated earlier today. The patient does not want to eat a gluten diet. He wants bread. The patient did have bowel movements. PHYSICAL EXAMINATION: VITAL SIGNS: Temperature is 97.2, pulse 111 and blood pressure is 120/60. HEENT: Atraumatic. Anicteric. NECK: Supple. HEART: S1, S2 heard. LUNGS: Bilateral air entry present. ABDOMEN: Soft. There is some tenderness. EXTREMITIES: No edema. LABORATORY DATA: Hemoglobin 9.3, hematocrit 28.1, WBC 2.1 and platelets . Chemistry is essentially unremarkable. IMPRESSION: This 71-year-old patient with a history of lung cancer status post- surgery, status post chemotherapy is now admitted with abdominal discomfort. 1. The patient was found to have chronic constipation with fecal impactions. The patient did have bowel movements and the patient has been on lactulose and also MiraLAX. Will consider another dose of Relistor based on hisBM, if no further bowel movements. 2. History of chronic obstructive pulmonary disease and history of lung cancer. Continue the present treatment. 3. History of anemia with celiac disease. The patient is poorly compliant. 4. The patient is said to be Gluten sensitive. Would request for a celiac disease profile also. Consider in a.m. Thank you very much for allowing us to participate in the care of this patient. Celestino Laboy MD cc: [id number] TT: 11/30/2016 21:27:39 Confirmation # [id number] Dictation # [id number] sn [email or web address]
--- NOTE | 2016-12-01 08:52 | PN ---
DATE: 11/30/2016 SUBJECTIVE: The patient seems feeling better today. He had a bowel movement yesterday with a tap wa ter edema, still complains of constipation, but feels better. His breathing seems better. He has pa in in his left side. Chest pain is controlled with pain medicine. PHYSICAL EXAMINATION: VITAL SIGNS: Temperature 97.2, heart rate 62, blood pressure 120/60, respiratory rate 18, saturation 96% saturation. HEAD AND NECK: Normal. No JVD, no thyromegaly. CHEST: Clear, good air entry. Few rhonchi in the bases, and diminished breath sounds on the left si de. CARDIAC: First and second sounds are normal. ABDOMEN: Soft, nontender. General - maybe on the left side. EXTREMITIES: No edema. NEUROLOGIC: Normal. LABORATORY DATA: White count 2.1, hemoglobin 9.3, hematocrit 28.1, platelets 392. Chemistry shows s odium 135, potassium 4.7, chloride 99, bicarb 26, BUN 14, creatinine 0.5. Blood sugar is 143. Calci um 9.9, total bilirubin 0.6. AST and ALT, alk phos is normal. Urine is normal. IMPRESSION AND PLAN: 1. Abdominal pain. Constipation seems better. Continue Relistor every other day and MiraLax plus l actulose. 2. Chronic obstructive pulmonary disease. Continue IV steroids, inhaled bronchodilators, oxygen, an d seems better. 3. Lung carcinoma. Left-sided pain, pleural thickness. Continue pain medicine as it is. The patie nt may benefit from Movantik ____. 4. Chronic back pain, chronic chest pain. Continue pain medicine. We will continue current treatment. Continue physical therapy. Diego Greer MD cc: [phone] TT: 12/01/2016 08:51:46 Confirmation # [id number] Dictation # [id number] jn
[2016-12-01] MEDS: Pantoprazole 40 mg EC Tab PO SCH (09:07)
[2016-12-01] MEDS: Tmp-Smz 800 mg-160 mg DS Tab PO SCH ×2 (09:07→18:44)
[2016-12-01] MEDS: Multivitamin Therapeutic Tab PO SCH (09:08)
[2016-12-01] MEDS: MethylPREDNISolone 40 mg Vial IVP SCH ×3 (09:09→21:53)
[2016-12-01] MEDS: POLYETHYLENE GLYCOL 3350 17 GM/Dose PACKET PO SCH ×2 (09:11→18:45)
[2016-12-01] MEDS: Enoxaparin 40 mg Syringe SC SCH (09:12)
--- NOTE | 2016-12-01 12:28 | PN ---
DATE: 12/01/2016 Seen and examined at the bedside earlier today. He is reporting he had a good bowel movement yesterd ay. No reports of any bleeding. Occasionally, has the periumbilical discomfort, but is in no distre ss now. Complains of a poor appetite, but no problems swallowing. No respiratory distress at this t zack. VITAL SIGNS: Temperature 98.3, blood pressure 120/78, pulse 91, respirations 20, 98% nasal cannula. LABORATORIES: No new labs are noted for today. PHYSICAL EXAMINATION: HEENT: Sclera is anicteric. NECK: Supple. CARDIAC: S1, S2. LUNG SOUNDS: With decreased breath sounds with good air entry, positive air entry, minimal rhonchi. ABDOMEN: With bowel sounds, soft, no tenderness at this time. No rebound, guarding, or organomegaly . EXTREMITIES: No edema. NEUROLOGIC: Awake, alert, and oriented. ASSESSMENT: The patient with abdominal pain. The patient was found to be fecally impacted with demond re constipation. The patient was given, was cleaned out, given Relistor as well as MiraLax and enema s. No reports of any bleeding. He also has history of chronic obstructive pulmonary disease and ángela g cancer, anemia with celiac disease. Continue gluten free, low fiber diet. He is on Lovenox. He is on Duragesic patch. He is also on ir on, Dilaudid p.r.n., getting lactulose, on Solu-Medrol. Continue PPI. The patient is on multiple me dications for pain relief. Continue the MiraLax b.i.d. He is also on oral antibiotics of Bactrim. Follow up celiac disease panel. The patient was seen and case discussed with Dr. Laboy. Elo Perezes BELÉN cc: [id number] TT: 12/01/2016 12:27:34 Confirmation # [id number] Dictation # [id number] en
[2016-12-01] MEDS: oxyCODONE 15 mg Immediate Release Tab PO PRN ×2 (16:40→21:06)
--- NOTE | 2016-12-01 22:51 | PN ---
DATE: 12/01/2016 REFERRING PHYSICIAN: Dr. Greer. SUBJECTIVE: He is out of bed to chair, having dinner. Gets short of breath with exertion. No nause a, vomiting, diarrhea. No leg pain or leg swelling. OBJECTIVE: GENERAL: No acute distress. VITAL SIGNS: Temp is 98, heart rate 68, respiratory rate is 20, blood pressure 116/72, pulse ox 98% on 2 liters nasal cannula. HEENT: Moist mucous membranes. Crowded airway. NECK: Supple. No JVD. LUNGS: Have crackles at the bases with scattered rhonchi. HEART: S1, S2. ABDOMEN: Soft, nontender. No organomegaly. EXTREMITIES: There is no edema. NEUROLOGIC: Awake, alert, follows simple command. MEDICATIONS: He is on Bactrim double strength 1 tab twice a day, Brovana 15 mcg inhaled twice a day , Daliresp 500 mcg daily, Dilaudid 1 mg q. 4 hours, vitamin D 50,000 units q. 7 days, Dulcolax p.r.n. basis, DuoNeb q. 4 hours p.r.n., fentanyl patch q. 72 hours, lactulose 20 mg p.o. at bedtime, ferrou s sulfate mg twice a day, folic acid 1 mg daily, Lipitor 10 mg daily, Lovenox 40 mg subQ daily, MiraLax 17 grams twice a day, oxycodone 15 mg q. 4 hours p.r.n., Protonix 40 mg daily, Pulmicort inh aled twice a day, Solu-Medrol 40 mg q. 12 hours, multivitamins daily, also getting vitamin B12 with t hiamine daily. LABORATORY DATA: Shows hemoglobin 9.3, hematocrit 28.1, WBC 2.1, platelet is 392. IMPRESSION AND PLAN: Chronic obstructive lung disease with pulmonary fibrosis, lung cancer, anemia, activities of daily living dysfunction. We will decrease Solu-Medrol to 20 q. 12 hours. Continue Ba ctrim, gastric prophylaxis, SCD to lower extremities. Waiting for echocardiogram to assess LV and RV function. Physical therapy, out of bed to chair as tolerated. Thank and will follow with you. Shell Vargas MD cc: [phone] TT: 12/01/2016 22:50:49 Confirmation # [id number] Dictation # [id number] mn
[2016-12-02] MEDS: oxyCODONE 15 mg Immediate Release Tab PO PRN ×4 (01:05→14:39)
--- NOTE | 2016-12-02 02:04 | PN ---
DATE: 12/01/2016 SUBJECTIVE: This patient was seen and evaluated earlier today. Discussed with nursing staff. PHYSICAL EXAMINATION: ABDOMEN: Soft. There is no mass, no tenderness. The patient initially received Relistor and has been on MiraLax. The patient is on chronic pain medication. History of lung cancer. Celestino Laboy MD cc: [id number] TT: 12/02/2016 01:49:47 Confirmation # [id number] Dictation # [id number] tn MTDD
--- NOTE | 2016-12-02 02:04 | PN ---
DATE: 12/01/2016 LOCATION: The patient is in room 367, bed 2. SUBJECTIVE: The patient is out of bed to the chair. He is having his meal and still gets short of b reath on minimal exertion without any nausea, vomiting, or diarrhea. No significant leg pain, leg sw elling, fevers or chills. OBJECTIVE: GENERAL: The patient is in no acute distress. VITAL SIGNS: Stable. T-max is 98.4, heart rate is 68, respirations 20, blood pressure is 116/72, pu lse ox is 98% on 2 liters of oxygen. HEENT: Head is normocephalic, atraumatic. Conjunctivae pale. Sclerae are anicteric. Pupils are eq ually reactive to light and accommodation. Examination of the oropharynx reveals no oropharyngeal le sions. Tongue is moist. NECK: Supple. There is no adenopathy. No jugular venous distention noted. LUNGS: Reveals crackles at the bases with scattered wheezes and rhonchi. HEART: Reveals S1 and S2 to be normal. No gallop or murmur is heard. ABDOMEN: Soft, nontender. No rebound, rigidity or guarding is noted. EXTREMITIES: Reveals no cyanosis, clubbing or edema. NEUROLOGIC: Higher functions are normal. No focal deficits are noted. MEDICATIONS: Reviewed. Bactrim-DS one tablet twice a day, Brovana 15 mcg inhaled twice a day, Dalir jose francisco 500 mcg daily. He is on Dilaudid 1 mg q. 4 hours p.r.n., vitamin B 50,000 units q. 7 days, Dulco lax p.r.n., DuoNeb q. 4 hours, Fentanyl patch q. 72 hours, lactulose 20 mg p.o. at bedtime, ferrous s ulfate 325 mg twice a day, folic acid 1 mg daily, Lipitor 10 daily, Lovenox 40 mg subQ daily, MiraLax 17 grams twice a day, oxycodone 15 mg q. 4 hours p.r.n., Protonix 40 mg daily, Pulmicort inhaled twi ce a day, Solu-Medrol 40 mg IV q. 12 hours, multivitamins daily. He is also getting B12 and thiamine also daily. LABORATORY DATA: Reveals a hemoglobin of 9.3, hematocrit 28, white count is 2.8 with a platelet coun t of 390,000. ASSESSMENT NOTES AND PLAN: The patient has chronic obstructive pulmonary disease, which is acutely e xacerbated with pulmonary fibrosis, stage IV nonsmall cell lung adenocarcinoma, currently off treatme nt. CAT scan showing no significant active disease at this time. The patient also has activities of daily living dysfunction, tapered 20 mg q. 12 hours. He is still on Bactrim, gastric prophyla xis, and sequential compression device for the lower extremities. The patient is going to start phys ical therapy and out of bed as tolerated. Lab chemistries have been ordered for tomorrow. We will f ollow the patient with you and make appropriate recommendations. The patient may be a candidate base d on his disease to be maintained on a drug such as Keytruda or Opdivo that may be enough to keep his disease from progressing. I will speak to the daughter about the same in the near future. Routine post exam instructions have been given to the patient. Josee Ma MD cc: [phone] TT: 12/02/2016 00:02:59 Confirmation # [id number] Dictation # [id number] ronaldo
[2016-12-02] MEDS: HYDROmorphone 1 mg/ml ISec IVP PRN ×5 (05:03→21:30)
[2016-12-02] MEDS: Budesonide 0.5 mg/2 ml Inhal Susp UD IH SCH ×2 (08:28→19:31)
[2016-12-02] MEDS: Arformoterol 15 mcg/2 ml Inh Sol IH SCH ×2 (08:28→19:31)
[2016-12-02] MEDS: Enoxaparin 40 mg Syringe SC SCH (09:07)
[2016-12-02] MEDS: Tmp-Smz 800 mg-160 mg DS Tab PO SCH ×2 (09:07→17:24)
[2016-12-02] MEDS: Pantoprazole 40 mg EC Tab PO SCH (09:07)
[2016-12-02] MEDS: POLYETHYLENE GLYCOL 3350 17 GM/Dose PACKET PO SCH ×2 (09:08→17:27)
[2016-12-02] MEDS: MethylPREDNISolone 40 mg Vial IVP SCH ×2 (09:10→21:29)
[2016-12-02] MEDS: Bisacodyl 5mg EC Tab PO PRN ×2 (09:15→17:28)
[2016-12-02] MEDS: Multivitamin Therapeutic Tab PO SCH (09:15)
[2016-12-02] MEDS: PYRIDOXINE PO SCH (10:00)
[2016-12-02] MEDS: THIAMINE PO SCH (10:00)
[2016-12-02] MEDS: CYANOCOBALAMIN PO SCH (10:00)
[2016-12-02 10:41] LABS: ADD MANUAL DIFF? NO
[2016-12-02 10:53] LABS: ALB/GLOB RATIO 1.1 (1.1-1.8); ALKALINE PHOSPHATASE 125 U/L (38-133); ALT/SGPT 67 U/L (7-56); AST/SGOT 66 U/L (15-59); BILIRUBIN,TOTAL 0.7 mg/dL (0.2-1.3); BLOOD UREA NITROGEN 19 mg/dL (7-21); CALCIUM 10.2 mg/dL (8.4-10.5); CARBON DIOXIDE 28 mmol/L (21-33); CHLORIDE 93 mmol/L (98-107); GFR AFRICAN-AMERICAN > 60; GLUCOSE,RANDOM 218 mg/dL (70-110); POTASSIUM 4.5 mmol/L (3.6-5.0); SODIUM 131 mmol/L (132-148); TOTAL PROTEIN 7.9 g/dL (5.8-8.3)
[2016-12-02 11:08] LABS: GRAN # 4.66 (1.4-6.5); HEMATOCRIT 32.5 % (42.0-52.0); LYMPH # 0.3 (1.2-3.4); LYMPH % 5.4 % (22.0-35.0); MEAN CELL VOLUME 80.8 fL (80.0-105.0); MEAN CORPUSCULAR HEMOGLOBIN 26.6 pg (25.0-35.0); MEAN CORPUSCULAR HGB CONC 32.9 g/dl (31.0-37.0); MEAN PLATELET VOLUME 8.6 fl (7.0-11.0); MONO # 0.2 (0.1-0.6); MONO % 4.6 % (1.0-6.0); PLATELET COUNT 443 10^3/uL (120.0-450.0); RED CELL DISTRIBUTION WIDTH 17.3 % (11.5-14.5); WHITE BLOOD COUNT 5.2 10^3/ul (4.5-11.0)
--- NOTE | 2016-12-02 11:43 | PN ---
DATE: 12/02/2016 GI FOLLOWUP NOTE Seen and examined at the bedside earlier this morning. The patient still gets some abdominal discomf ort. Report of no bowel movement, although no reports of nausea or vomiting. The patient is asking for food. No acute overnight events are reported. VITAL SIGNS: Temperature is 97.7. Heart rate is 102. His blood pressure is 126/76, respirations 21 , 100 on O2. LABORATORY DATA: Sodium 131. K is 4.5. BUN 19. Creatinine is 0.6. His total bilirubin is 0.7. A ST 66. ALT is 67. Alkaline phosphatase is 125. This is mildly elevated - his AST and ALT. PHYSICAL EXAMINATION: HEENT: Sclerae are anicteric. NECK: Supple. CARDIAC: S1 and S2. LUNGS: Lung sounds with decreased breath sounds with positive air entry, and noted some minimal rhon chi. ABDOMEN: With bowel sounds, softly distended, nontender on palpation. No rebound or organomegaly. EXTREMITIES: No edema. ASSESSMENT: This 71-year-old male with history of lung cancer, chronically on pain medication was fo und to be fecally impacted with severe constipation. He was initially given a dose of Relistor and s tarted on MiraLax and enemas. He did have a bowel movement, but no recent reports, occasionally has some abdominal pain. He also has history of chronic obstructive pulmonary disease, anemia, and alberto c disease. PLAN: We will request for an abdominal x-ray, rule out any obstruction. If the abdominal x-ray is n egative, then we will consider giving him a dose of Relistor which can only be administered every 48 hours. He currently is on maintenance with MiraLax b.i.d. He is also on lactulose, and can get Dulc olax p.r.n., but the patient remains on a fentanyl patch. He is also on iron, getting Dilaudid and o xycodone. The patient is also on oral antibiotic of Bactrim. He is noted to have some mild elevatio n of AST, ALT. It could be drug-induced. We will continue to monitor. The patient was seen and case discussed with Dr. Laboy. Elo MELISSA cc: [phone] TT: 12/02/2016 11:42:13 Confirmation # [id number] Dictation # [id number] jn
--- NOTE | 2016-12-02 13:02 | RAD ---
HISTORY: constipation COMPARISON: No prior. FINDINGS: BOWEL: Normal. No obstruction. No free air. Mild constipation BONES: Normal. OTHER FINDINGS: None. IMPRESSION: Mild constipation
--- NOTE | 2016-12-02 13:58 | PN ---
DATE: 12/02/2016 The patient seen, complained of weakness. He did have a small bowel movement. His abdominal discomf ort is better. His still complained of short of breath and chest pain on the left side. PHYSICAL EXAMINATION: On 12/01: VITAL SIGNS: Temperature is 97.2, heart rate 88, blood pressure 116/72, respirations 20, saturating 98%. HEAD AND NECK: Normal. No JVD, no thyromegaly. CHEST: Clear, good air entry. CARDIAC: First sound, second sound normal. ABDOMEN: Soft. Mild general tender. EXTREMITIES: No edema. NEUROLOGIC: Normal. LABORATORY DATA: As follows: Lab ordered for tomorrow, but his sodium 135, potassium 4.7, chloride 99, bicarb 26, BUN 14, creatinine 0.5. CBC shows white count 2.1, hemoglobin 9.3, hematocrit 28.1, p latelets 392. The patient also had a CT abdomen and pelvis which shows proctitis and stool and parti al obstructions, also ____ changes in both lungs and postsurgical changes in the left lung, also feca l impaction and proctitis. IMPRESSION AND PLAN: 1. Chronic constipation, seems improving clinically. Doing well with medications, continue current management. 2. Chronic obstructive pulmonary disease exacerbation. Continue intravenous and inhaled bronchodila tors. Seems doing well. 3. Chronic back pain, chronic chest pain. Continue oxycodone. 4. Hypercholesterolemia, iron deficiency anemia. The patient has celiac sprue. Continue iron intra venous. Continue ____. The patient will need physical therapy. We will followup clinically. Kurtdara marerin on Bactrim-DS 1 twice a day. Diego Greer MD cc: [phone] TT: 12/02/2016 13:57:31 Confirmation # [id number] Dictation # [id number] sn
--- NOTE | 2016-12-02 15:56 | CARD ---
APPROVED REPORT EXAM: Two-dimensional and M-mode echocardiogram with Doppler and color Doppler. INDICATION Cardiomyopathy 2D DIMENSIONS Left Atrium (2D)3.0 (1.6-4.0cm)IVSd1.0 (0.7-1.1cm) LVDd4.1 (3.9-5.9cm)PWd1.0 (0.7-1.1cm) LVDs3.3 (2.5-4.0cm)FS (%) 20.1 % LVEF (%)41.6 (>50%) M-Mode DIMENSIONS Aortic Root2.70 (2.2-3.7cm)Aortic Cusp Exc.1.70 (1.5-2.0cm) Aortic Valve AoV Peak Yqlsigwg548.0cm/Ashu Peak GR.8mmHg Mitral Valve MV E Lnudmfmb87.5cm/sMV A Jpztrwhk991.0cm/sE/A ratio0.6 TDI E/Lateral E'0.0E/Medial E'0.0 Tricuspid Valve TR Peak Xoudhmgm420li/sRAP [id number] Peak Gr.8mmHg [id number] LEFT VENTRICLE The left ventricle is normal size. There is normal left ventricular wall thickness. The systolic function is moderately impaired. There is global hypokinesis of the left ventricle. Transmitral Doppler flow pattern is Grade I-abnormal relaxation pattern. No left ventricle thrombus noted on this study. RIGHT VENTRICLE The right ventricle is normal size. There is normal right ventricular wall thickness. The right ventricular systolic function is normal. ATRIA The left atrium size is normal. The right atrium size is normal. AORTIC VALVE The aortic valve is normal in structure. No aortic regurgitation is present. MITRAL VALVE The mitral valve is normal in structure. There is no mitral valve regurgitation noted. TRICUSPID VALVE There is no pulmonary hypertension. GREAT VESSELS The aortic root is normal in size. The IVC is normal in size and collapses >50% with inspiration. <Conclusion> The left ventricle is normal size. There is normal left ventricular wall thickness. The systolic function is moderately impaired. Transmitral Doppler flow pattern is Grade I-abnormal relaxation pattern. No left ventricle thrombus noted on this study.
--- NOTE | 2016-12-02 15:58 | PN ---
DATE: 12/02/2016 REFERRING PHYSICIAN: Dr. Greer. SUBJECTIVE: He just came back from echocardiograph. Got short of breath with minimal exertion routi ne. There is no cough, no sputum production. No nausea, vomiting or diarrhea. No leg pain or leg s welling. OBJECTIVE: GENERAL: No acute distress. VITAL SIGNS: Temperature is 98, heart is 82, respiratory rate is 20, blood pressure 126/76, pulse ox 95% on 2 liters nasal cannula. HEENT: Moist mucous membrane. No ulcer or oral thrush noted. NECK: Supple. No JVD. LUNGS: Have a prolonged expiratory phase with a few crackles at the bases. HEART: S1 and S2. ABDOMEN: Soft, nontender. No organomegaly. EXTREMITIES: There is no edema. NEUROLOGIC: Awake, alert, follows simple commands. MEDICATIONS: He is on Bactrim double strength 1 tab twice, Brovana 15 mcg inhaled twice a day, Dalir jose francisco 500 mcg daily, Dilaudid 1 mg q. 4 hours p.r.n., vitamin D 50,000 units weekly, Dulcolax p.r.n. ba sis, DuoNeb q. 4 hours p.r.n., Duragesic patch q. 72 hours, lactulose 20 grams p.o. at bedtime, abril us sulfate 325 mg twice a day, folic acid 1 mg daily, Lipitor 10 mg daily, Lovenox 40 mg subQ daily, MiraLax 17 grams daily, oxycodone immediate release 15 mg q. 4 hours p.r.n., Protonix 40 mg daily, P ulmicort inhaled twice a day, Solu-Medrol 20 mg q. 12 hours, multivitamins daily. LABORATORY DATA: Shows hemoglobin 10.7, hematocrit 32.5, WBC 5.2, platelet is 443. Sodium 131, pota ssium 4.5, chloride 93, bicarbonate 28, BUN 19, creatinine 0.6, glucose 218, calcium 10.2. AST 66, A LT 67, alk phos is 125, albumin is 4.2. Had abdominal x-ray done today which suggested constipation, otherwise unremarkable. Echocardiogram done, report is still pending. IMPRESSION AND PLAN: Chronic obstructive lung disease, pulmonary fibrosis, history of lung cancer, a nemia, constipated, activities of daily living dysfunction. Repeating the echocardiogram to assure t hat there is no pulmonary hypertension related to severe lung disease, which may be adding up into th e shortness of breath with exertion. Previous echocardiogram 6 months ago did not reveal any pulmona ry hypertension. Presently, continue Solu-Medrol, continue Bactrim, continue inhaled bronchodilator. Gastric prophylaxis. DVT prophylaxis. Also, has a mild anemia that could be also contributing to the shortness of breath with exertion. Thank you, and will follow with you. Shell Vargas MD cc: [phone] TT: 12/02/2016 15:57:59 Confirmation # [id number] Dictation # [id number] mn
[2016-12-02] MEDS ORDERED: HYDROmorphone 1 mg/ml ISec IVP PRN (17:08)
--- NOTE | 2016-12-02 17:56 | CP.PCM.PCO ---
Physician Communication Note - Physician Communication Note Physician Communication Note: abd xray negative, had good bm w/relief of abd pain, no Relistor
--- NOTE | 2016-12-02 23:18 | PN ---
DATE: 12/02/2016 This is the patient's hospital visit on the medical floor. For Dr. Ma. SUBJECTIVE: The patient is a 71-year-old male seen lying awake in bed with the patient reporting pedrito t his abdominal pain has subsided after the patient's obstipation was improved; however, a flat plate of the abdomen today showed mild constipation. He is being treated by Dr. Laboy and the patient is reporting that his analgesics are helping his pain with resumption of chemotherapy to begin once h e is stable in the near future should he improved. 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 PHYSICAL EXAMINATION: VITAL SIGNS: Temperature 97.4, pulse 108, respirations 18, blood pressure 155/68, pulse ox 98%. GENERAL: He appears cachectic, 5 foot 11 inches tall, 126 pounds. HEENT: Temples are sunken. NECK: Supple. HEART: Tachy rate, regular rhythm. LUNGS: Faint crackles, minimal decreased breath sounds. ABDOMEN: Soft, nontender. EXTREMITIES: No edema. SKIN: Warm, dry and clear. NEUROLOGIC: Awake, alert. LABORATORY DATA: The patient's labs were done. White blood cell count of 5.2, hemoglobin 10.7, leonides tocrit 32.5, platelet count of 443,000 with a chem panel showing a sodium of 131, chloride of 93, AST of 66, ALT of 67 with celiac disease testing pending. The patient did have a flat plate of the abdo men earlier today. It was read as mild constipation. He had an echocardiogram done earlier today. It was read as systolic function moderately impaired. No ventricle thrombus noted on the study. ASSESSMENT: Constipation, opioid induced secondary to narcotic analgesics for chronic intractable pa in of cancer of the lung, stage IV nonsmall cell adenocarcinoma, pulmonary fibrosis, chronic back juyd n. PLAN: Will be to continue present medical regimen as per Dr. Greer with further treatment as per Dr Rolly Laboy as the patient needs his analgesics to control his intractable pain of cancer with resumpt ion of chemotherapy once the patient should stabilize. Dr. Ma reports he may be a candidate for Keytruda or Opdivo to keep his disease from progressing. We will monitor clinically and with labs. Vincenzo Arun REESE cc: [phone] TT: 12/02/2016 23:17:59 Confirmation # [id number] Dictation # [id number] mn
--- NOTE | 2016-12-03 07:37 | PN ---
DATE: 12/02/2016 ADDENDUM This is an addendum to the GI progress report dictated by Elo Casiano NP. This patient was seen and evaluated earlier. The patient has been moving his bowels now. On examination abdomen is soft. Abdominal x-ray was negative. The patient did received Relistor at time of admission. The patient has been on MiraLax. We will continue with that. History of celiac disease on the gluten-free diet. History of lung cancer, chronic obstructive pulmonary disease. Continue the present management. Celestino Laboy MD cc: [id number] TT: 12/02/2016 21:45:08 Confirmation # [id number] Dictation # [id number] jn MTDD
--- NOTE | 2016-12-03 16:40 | PN ---
DATE: 12/03/2016 Seen and examined at the bedside earlier today. [employer] system is unavailable and as of now remains unavailable. HISTORY OF PRESENT ILLNESS: The patient had abdominal x-ray done yesterday which was negative, showe d mild constipation. The patient reported having a bowel movement with relief. No abdominal pain. The patient this morning denies any nausea, vomiting, or pain. No further reports of bowel movement. No reports of any overt GI bleed. VITAL SIGNS: Stable. Any recent labs or diagnostic tests are unable to be reviewed as [employer] system is unavailable. PHYSICAL EXAMINATION: HEENT: Sclerae are anicteric. NECK: Supple. CARDIAC: S1, S2. LUNGS: With decreased breath sounds. No wheezing. ABDOMEN: With bowel sounds. Soft. It was nontender on palpation. No rebound, guarding, or organom egaly. ASSESSMENT: This is a 71-year-old male with history of lung cancer; chronic pain, on multiple narcot ics with severe constipation, likely narcotic induced; he also has a history of celiac disease, he is noncompliant with the diet, and anemia. PLAN: We will give the patient a dose of Relistor 8 mg subQ x 1 today; this can only be given every 48 hours. He has not had a recent dose. We will continue his bowel regimen. He is also on MiraLax. The patient is still on pain medicines, Dilaudid and oxycodone. Continue the diet as tolerated. H e should be on a gluten-free diet and monitor for any overt GI bleed. The patient was seen and case discussed with Dr. Laboy. Elo MELISSA cc: [id number] TT: 12/03/2016 16:39:56 Confirmation # [id number] Dictation # [id number] mn
--- NOTE | 2016-12-03 17:32 | CON ---
DATE: 12/03/2016 SERVICE: Cardiology. REASON FOR CONSULTATION: Tachycardia, sinus tachycardia. BRIEF CLINICAL HISTORY: This is a 71-year-old male with past medical history of lung CA diagnosed 6 months ago, ex-smoker, admitted with chest pain, very tender left side secondary to tumor, found to be tachycardic, so cardiac consult was called. The patient denies any palpitation. The chest pain is tender and it is on the left side of the chest. PAST MEDICAL HISTORY: Significant for hypertension, hyperlipidemia, lung CA, status post chemo, according to patient, hypertension, hyperlipidemia. PREVIOUS CARDIAC WORKUP: The patient had echocardiography done on 05/25/2016 that shows a technically difficult study, normal chamber size, ejection fraction 55%-60%, trace MR, trace TR. SOCIAL HISTORY: Ex-tobacco abuse, ex-alcohol abuse. REVIEW OF SYSTEMS: A 14-point review of systems is negative except as per HPI. PHYSICAL EXAMINATION: VITAL SIGNS: Temperature afebrile, heart rate 100, blood pressure 130/80. HEENT: PERRLA. Extraocular muscles intact. NECK: Supple. No carotid bruits. No thyromegaly. CHEST: Decreased air entry on the left. HEART: S1, S2 regular. ABDOMEN: Soft. EXTREMITIES: Clubbing and cyanosis negative. EKG shows sinus at rate of 84, LVH. Echo shows technically difficult study, normal chamber size, ejection fraction 55%-60%, trace MR, trace TR, dated 2015, sinus tachycardia secondary to pain. Rule out hyperthyroidism.. RECOMMENDATION: We will get TSH, lipid profile and hemoglobin A1c. We will start atenolol 25 mg twice. We will follow with you. Thank you, Dr. Greer, for providing us the opportunity in taking care of the patient. We will follow with you. Shell Mota MD cc: [id number] TT: 12/03/2016 17:31:31 Confirmation # [id number] Dictation # [id number] eugene GAY
[2016-12-03] MEDS: Arformoterol 15 mcg/2 ml Inh Sol IH SCH (20:16)
[2016-12-03] MEDS: Budesonide 0.5 mg/2 ml Inhal Susp UD IH SCH (20:17)
[2016-12-03] MEDS: HYDROmorphone 1 mg/ml ISec IVP PRN (20:46)
--- NOTE | 2016-12-03 22:12 | PN ---
DATE: 12/03/[address] Ma. SUBJECTIVE: The patient is a 71-year-old male seen lying awake in bed, reporting that his abdominal pain has subsided with the obstipation modestly improved. 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 PHYSICAL EXAMINATION: VITAL SIGNS: Not available in the computer due to computers being done today. The hard copy report at the bedside shows the vital signs are stable. HEENT: Unremarkable. NECK: Supple. HEART: Tachy rate, regular rhythm. LUNGS: Decreased breath sounds on the left. ABDOMEN: Soft, nontender. EXTREMITIES: No edema. SKIN: Warm, dry and clear with the patient showing temporal muscle wasting and appearing cachectic. NEUROLOGIC: Awake and alert. LABORATORY DATA: The patient's labs were done; however, the computer system is down. With review to be done once the labs are available. Yesterday's labs showed a white blood cell count of 5.2, hemog lobin 10.7, hematocrit 32.5, platelet count 443,000 with a chem panel showing sodium 131, chloride of 93, AST of 66, ALT of 67. ASSESSMENT: Constipation, intractable pain of cancer, opioid-induced constipation, stage IV nonsmall cell carcinoma of the lung, pulmonary fibrosis, chronic back pain, cachexia of malignancy. PLAN: The patient is to continue present medical regimen as per Dr. Greer with consultants' recomme ndations to be followed. He will be monitored clinically and with labs will be repeated in the [facility], with the patient's prognosis guarded. Also, consult with Dr. Mota was noted for his tachycardia. Vincenzo Dias MD cc: [phone] TT: 12/03/2016 22:11:10 Confirmation # [id number] Dictation # [id number] jn
[2016-12-03] MEDS: MethylPREDNISolone 40 mg Vial IVP SCH (22:44)
--- NOTE | 2016-12-03 22:58 | PN ---
DATE: 12/03/2016 REFERRING PHYSICIAN: Dr. Greer. SUBJECTIVE: He is lying in the bed, head at 45 degree. Day was unremarkable. Still feels very shor t of breath with minimal exertion. No cough, no sputum production, no nausea, no vomiting, no diarrh ea. No leg pain or leg swelling. OBJECTIVE: GENERAL: No acute distress. VITAL SIGNS: Temperature is 98, heart rate 60, respiratory rate is 20, blood pressure 150/86, pulse ox 98% on nasal cannula. HEENT: Moist mucous membrane. No ulcer or thrush noted. NECK: Supple. No JVD. LUNGS: Has a prolonged expiratory phase. HEART: S1 and S2. ABDOMEN: Soft, nontender. No organomegaly. EXTREMITIES: There is no edema. NEUROLOGIC: Awake, alert, follows simple commands. MEDICATIONS: He is on Ambien 10 mg at bedtime p.r.n., Bactrim 1 tab twice a day, Brovana 15 mcg inha led twice a day, 500 mcg daily, Dilaudid 1 mg q. hours p.r.n., vitamin D 50,000 units rhianna neff, Dulcolax p.r.n. basis, DuoNeb q. 4 hours p.r.n., Fentanyl 1 patch q. 72 hours, lactulose 20 gra ms at bedtime, ferrous sulfate 324 mg twice a day, folic acid 1 mg daily, Lipitor 10 mg daily, Loveno x 40 mg subQ daily, MiraLax 17 grams twice a day, oxycodone 15 mg q. 4 hours p.r.n., Protonix 40 mg daily, Pulmicort inhaled twice a day, Remeron 30 mg at bedtime, Solu-Medrol 20 mg q. 12 hours, Tenorm in 25 mg daily, multivitamins daily, Tylenol p.r.n. basis, vitamin B12 with thiamine 1 tab daily, Bernardo ax 0.25 mg twice a day. LABORATORY DATA: Reviewed. Had an echocardiogram done today, which shows decreased LV function acco rding to echo report, which is compared to previous echo which was done early this year. IMPRESSION AND PLAN: Chronic obstructive lung disease with pulmonary fibrosis, lung cancer, anemia, chronic constipation, activities of daily living dysfunction, cardiomyopathy with decreased left vent ricular function as both systolic and diastolic dysfunction, also history of hypertension, severe ángela g disease. His cardiomyopathy may be contributing to his shortness of breath. I think look at the new echo yet because of the system being down so we will have him take a look at it and see if there is anything else that can be done for his cardiac dysfunction. Pulmonary point of view, his t reatment is maximized. Will continue p.o. and inhaled bronchodilator. Gastric prophylaxis. Deep karen ous thrombosis prophylaxis. We will recommend to do attended sleep study to assure there is no compo nent of sleep apnea. Thank you and we will follow with you. Shell Vargas MD cc: [phone] TT: 12/03/2016 22:57:59 Confirmation # [id number] Dictation # [id number]
[2016-12-04] MEDS: HYDROmorphone 1 mg/ml ISec IVP PRN ×4 (07:01→20:11)
[2016-12-04 07:08] LABS: ADD MANUAL DIFF? NO
[2016-12-04 07:17] LABS: BASO # 0.01 K/mm3 (0.0-2.0); BASO % 0.1 % (0.0-3.0); GRAN # 10.39 (1.4-6.5); GRAN % 81.3 % (50.0-68.0); HEMATOCRIT 34.1 % (42.0-52.0); LYMPH % 7.6 % (22.0-35.0); MEAN CELL VOLUME 80.6 fL (80.0-105.0); MEAN CORPUSCULAR HEMOGLOBIN 26.7 pg (25.0-35.0); MEAN CORPUSCULAR HGB CONC 33.1 g/dl (31.0-37.0); MEAN PLATELET VOLUME 8.7 fl (7.0-11.0); MONO # 1.4 (0.1-0.6); PLATELET COUNT 452 10^3/uL (120.0-450.0); RED CELL DISTRIBUTION WIDTH 17.7 % (11.5-14.5); WHITE BLOOD COUNT 12.8 10^3/ul (4.5-11.0)
[2016-12-04] MEDS: Budesonide 0.5 mg/2 ml Inhal Susp UD IH SCH ×2 (08:08→19:55)
[2016-12-04] MEDS: Arformoterol 15 mcg/2 ml Inh Sol IH SCH ×2 (08:08→19:55)
[2016-12-04 08:11] LABS: ALB/GLOB RATIO 1.1 (1.1-1.8); ALKALINE PHOSPHATASE 117 U/L (38-133); ALT/SGPT 65 U/L (7-56); AST/SGOT 44 U/L (15-59); BLOOD UREA NITROGEN 18 mg/dL (7-21); CARBON DIOXIDE 27 mmol/L (21-33); CHLORIDE 92 mmol/L (98-107); GFR AFRICAN-AMERICAN > 60; GLUCOSE,RANDOM 132 mg/dL (70-110); POTASSIUM 4.8 mmol/L (3.6-5.0); SODIUM 130 mmol/L (132-148); TOTAL PROTEIN 7.8 g/dL (5.8-8.3)
--- NOTE | 2016-12-04 08:16 | PN ---
DATE: 12/02/2016 The patient complained of left-sided chest pain. He also complained of not able to sleep, very anxio us. PHYSICAL EXAMINATION: VITAL SIGNS: Temperature 97, heart rate 92, blood pressure 155/86, respirations 18, . HEAD AND NECK: Normal. No JVD, no thyromegaly. CHEST: Clear, diminished breath sounds, more on the left than right. CARDIAC: First and second sounds normal. Tachycardic. ABDOMEN: Soft, nontender. EXTREMITIES: No edema. NEUROLOGIC: Normal. LABORATORY DATA: Today, white count 5.2, hemoglobin 10.7, hematocrit 32.5, platelets 443. Sodium 13 1, potassium 4.5, chloride 93, bicarb 28, BUN 19, creatinine 0.6, blood sugar is 218, 10.8 and 10.2. AST 66, ALT 67, alkaline phos 125. IMPRESSION AND PLAN: 1. Left-sided chest pain due to underlying lung CA probably. Will need a PET scan. Will further ev aluate with Dr. Ma for that. This pain since the biopsy site he has been complaining. He will received chemotherapy, which a good response as per Dr. Ma. So, for his pain symptoms, we will increase the Dilaudid 2 mg, make it every 3 hours. I will hold off on the oxycodone at this time. W ill see how he does with the Dilaudid only. Continue Duragesic patch 75 and follow up clinically. 2. Chronic constipation: Seems better. Continue current management. 3. The patient seems anxious, some anxiety, insomnia. Will give him Xanax 0.25 mg b.i.d. and will a dd Ambien 10 mg at night. Will follow up clinically. 4. Chronic obstructive pulmonary disease with acute exacerbations. Continue current treatment, Solu -Medrol. Follow up with Dr. Vargas. PLAN: Continue current treatment. Continue GI and DVT prophylaxis. Follow up clinically. Diego Greer MD cc: [phone] TT: 12/04/2016 00:26:44 Confirmation # [id number] Dictation # [id number] dn
--- NOTE | 2016-12-04 08:17 | PN ---
DATE: 12/03/2016 ADDENDUM This is an addendum to the GI consultation report dictated by Elo Casiano APN. This patient was seen and evaluated earlier. The patient has been on chronic pain medication. Did h ave bowel movements. Abdomen is softly distended and abdominal x-ray was reviewed. It is reasonable to consider another dose of Relistor. The patient has a history of celiac disease and lung cancer. Thank you very much for allowing us to participate in the care of the patient. Celestino Laboy MD cc: [phone] TT: 12/04/2016 01:41:50 Confirmation # [id number] Dictation # [id number] jn
--- NOTE | 2016-12-04 08:17 | PN ---
DATE: 12/03/2016 HISTORY OF PRESENT ILLNESS: The patient is still complaining of pain on his left side. He also had trouble sleeping last night with a sleeping pill. He has no other new complaints. PHYSICAL EXAMINATION: VITAL SIGNS: He is . Temperature 98, heart rate 107, blood pressure 119/73, respiration 18 and saturation 98%. HEAD AND NECK: Normal. No JVD. CHEST: Diminished breath sounds, left more than right. CARDIAC: First and second sounds are normal. ABDOMEN: Soft, nontender. EXTREMITIES: No edema. NEUROLOGIC: Normal. LABORATORY DATA: Nothing new. IMPRESSION AND PLAN: 1. Left-sided chest pain. Continue Dilaudid 2 mg every 3 hours. Continue Duragesic patch. Will re sume oxycodone 15 mg every 4 hours as before and will follow up clinically. 2. Chronic insomnia. Will continue Ambien 10 mg with , which is kind of antidepressant and hel p his appetite. 3. Chronic anxiety, probably due to physical medical problems. Will give him Xanax, assurance, cont inue current treatment. 4. Acute chronic obstructive pulmonary disease exacerbation. Continue inhaled and IV bronchodilator s. 5. Chronic back pain. The patient does have a history of celiac sprue. Continue current treatment. Continue the constipation medicine, which seems working, Relistor every other day and will follow u p clinically. Discussed with the daughter, discussed with the son, with the patient and explained the plan of thera py, risk of opioid and respiratory depression in one side and relief of pain and improved quality of life from other side and the risk associated with respiratory depressions. Continue current manageme nt. Diego Greer MD cc: [phone] TT: 12/04/2016 00:43:16 Confirmation # [id number] Dictation # [id number] mn
[2016-12-04] MEDS: MethylPREDNISolone 40 mg Vial IVP SCH ×2 (10:32→22:38)
[2016-12-04] MEDS: Pantoprazole 40 mg EC Tab PO SCH (10:33)
[2016-12-04] MEDS: Multivitamin Therapeutic Tab PO SCH (10:39)
[2016-12-04] MEDS: Tmp-Smz 800 mg-160 mg DS Tab PO SCH ×2 (10:39→17:26)
[2016-12-04] MEDS: POLYETHYLENE GLYCOL 3350 17 GM/Dose PACKET PO SCH ×2 (10:40→17:27)
[2016-12-04] MEDS: Enoxaparin 40 mg Syringe SC SCH (10:40)
--- NOTE | 2016-12-04 11:52 | PN ---
DATE: 12/04/2016 Seen and examined at the bedside earlier this morning. The patient was given a dose of Relistor yest erday and the patient reports having a good bowel movement. Denies any melena or bright red blood. No complaints of nausea, vomiting or abdominal pain. No respiratory distress. LABORATORY DATA: WBC 12.8, H and H is 11.3 and 34.1, platelet is 452. Sodium 130, K 4.8, BUN is 18, creatinine is 0.6. Total bilirubin is 1.0, AST 44, ALT 65, alkaline phosphatase is 117. This is im proved. PHYSICAL EXAMINATION: HEENT: Sclerae are anicteric. NECK: Supple. CARDIAC: S1, S2. LUNGS: Decreased breath sounds and positive rhonchi. Did not hear any wheezing. ABDOMEN: With bowel sounds, soft, nondistended, no tenderness on palpation. ASSESSMENT: A 71-year-old male with lung cancer, chronically on pain medication with severe constipa tion likely narcotic-induced constipation, history of chronic obstructive pulmonary disease, chronic anemia and celiac disease. PLAN: Continue the bowel regimen. He is on MiraLax b.i.d. He gets lactulose in the evening. He is on multiple pain medications, fentanyl patch, gets Dilaudid, oxycodone. Continue GI prophylaxis. Taj e is on Protonix and on iron supplements. The patient is also on Lovenox as per oncology and pulmona ry. The patient was seen and case discussed with Dr. Laboy. Elo MELISSA cc: [phone] TT: 12/04/2016 11:32:36 Confirmation # [id number] Dictation # [id number] eugene
--- NOTE | 2016-12-04 18:24 | PN ---
DATE: 12/04/2016 The patient is in room 367, bed 2. PROBLEMS: This is a 71-year-old male with metastatic stage IV carcinoma of the lung on the left side , who was admitted to the hospital with failure to thrive, acute exacerbation of chronic obstructive lung disease, chronic persistent pain on the left side where he is status post thoracostomy and defin itely the pain is from nerve entrapment. The last CAT scan showing no significantly active disease a t this time. The patient has also activities of daily living dysfunction, and he is on multiple anti biotics and bronchodilators and steroids at this time. SUBJECTIVE: The patient is out of bed in the chair. He is having his meals. He said he had a good bowel movement today after he had the Relistor. He still continues to be short of breath, but more i mportantly, the pain on the left side has been very bothersome despite getting the pain medications. May have to increase the doses at the cost of affecting his respiratory function. OBJECTIVE: Will speak to Dr. Greer about getting a pain specialist to see if he can do a local bloc k. PHYSICAL EXAMINATION: GENERAL: The patient is awake, alert, and oriented, complaining of pain, which he says on a pain sca le of 0-10 is at least a 7. VITAL SIGNS: Reveal T-max of 98.4, pulse of 96, blood pressure is 108/64, respirations 20, O2 sat is 95%, this is on room air. HEENT: Head is normocephalic, atraumatic. Temporal muscle wasting is noted. Examination of the christian pharynx reveals tongue to be coated. No oropharyngeal lesions are noted. NECK: Supple. There is no adenopathy. LUNGS: Reveals decreased breath sounds at the bases, left greater than the right. Scattered wheezes are heard. CARDIOVASCULAR: Reveals S1 and S2 to be normal. No gallop or murmur is heard. ABDOMEN: Soft, nontender, scaphoid. No rebound, rigidity or guarding noted. EXTREMITIES: Reveals no cyanosis, clubbing or edema. NEUROLOGIC: Higher functions are normal. No focal deficits are noted. The patient continues to be in pain in the left thoracotomy side, which is of concern to us. We will proceed to see if there is any bone involvement, getting a bone scan which may be a good tool to loo k into the nature of the pain. Also recommend probably getting a pain MD to see if there is a value for local block to relieve and alleviate the pain. LABORATORY DATA: From today were reviewed. White count is 12.8, hemoglobin 11.3, hematocrit 34, shantanu telet count is 452,000. Chemistry with sodium 130, K of 4.8, chloride of 92, AST and ALT are reasona torin okay, ALT 65 it is on the higher side. Alkaline phosphatase has come down to 117, total protein 7.8 with an albumin of 4.1. MEDICATIONS: The patient's medications were reviewed. He is on acetylcysteine 4 mL inhaled b.i.d., Ambien 10 mg p.o. at bedtime p.r.n., Bactrim-DS 1 b.i.d., Brovana 15 mcg inhaled q. 12 hours, Dalires p 500 mcg p.o. daily. He is on Dilaudid 1 mg IV q. 3 hours. He is on Drisdol 50,000 units, 1 cap on ce a week. He is on bisacodyl 5 mg p.o. b.i.d. (Dulcolax). He is on albuterol, DuoNeb 3 mL q. 4 h. for shortness of breath and congestion. He is on fentanyl patch q. 72 hours 50 mcg, ____ 35 mcg q. 72 hours. He is on lactulose 20 mg p.o. at bedtime, Feosol 324 mg b.i.d., folic acid 1 mg daily. He got Lidoderm patches, 2 patches to the left chest wall to see if that will alleviate his pain, Lipit or 10 mg daily, Lovenox 40 mg subQ daily, MiraLax 17 grams p.o. b.i.d. He is on pantoprazole 40 mg d aily. He is n Pulmicort 0.5 q. 12 hours. He is on Remeron 30 mg p.o. at bedtime. He is on methylp rednisolone 20 mg IV q. 12 hours. He is on Tenormin 25 b.i.d., multivitamin daily and Tylenol p.r.n . ASSESSMENT NOTES AND PLAN: The patient is failing to thrive. In this background history, it was karen ked to the patient's family to see which direction we should be heading based on the patient's ____ c are. Will order a bone scan to see if that will help ____ in finding what the reason for the worsenin g pain is besides nerve entrapment. I will check to see whether radiation oncology whether there is a role for palliative radiation, if that may be caused by tumor causing the pain. I will discuss my findings with Dr. Greer as well. Routine post exam instructions have been given to the patient. Leslie bs for tomorrow have been requested. Josee Ma MD cc: [id number] TT: 12/04/2016 18:24:09 Confirmation # [id number] Dictation # [id number] jn
--- NOTE | 2016-12-04 18:42 | PN ---
DATE: 12/04/2016 SUBJECTIVE: He is lying in bed, head at 45 degrees, sleepy, arousable. No more chest pain which ___ __ old chest tube site. Gets short of breath with exertion. At rest, he is okay. No nausea, vomiti ng, diarrhea. No leg pain or leg swelling. OBJECTIVE: GENERAL: No acute distress. VITAL SIGNS: Temperature is 98, heart rate is 96, respiratory rate is 20, blood pressure 108/64, pul se ox 95% on 2 liters nasal cannula. HEENT: Moist mucous membrane. No ulcer or thrush noted. NECK: Supple. No JVD. LUNGS: Has a prolonged respiratory phase. No wheezing. HEART: S1, S2. ABDOMEN: Soft, nontender. No organomegaly. EXTREMITIES: No edema. NEUROLOGIC: Sleepy, arousable, follows simple command. MEDICATIONS: He is on Mucomyst 20% 4 mL inhaled twice a day, Ambien 10 mg at bedtime p.r.n., Bactrim Double Strength 1 tab twice a day, Brovana mcg inhaled twice a day, Daliresp 500 mcg daily, Di laudid 1 mg q. 3 hours p.r.n., vitamin D 50,000 units q. 7 days, Dulcolax 5 mg daily, DuoNeb q. 4 alyssa rs p.r.n., Duragesic patch q. 72 hours, lactulose 20 grams p.o. at bedtime, ferrous sulfate 324 mg tw ice a day, folic acid 1 mg daily, Lidoderm patch daily, Lipitor 10 mg daily, Lovenox 40 mg subQ daily , MiraLax 17 grams twice a day, oxycodone 15 mg q. 4 hours p.r.n., Protonix 40 mg daily, Pulmicort in haled twice a day, mirtazapine 30 mg at bedtime, Solu-Medrol 20 mg q. 12 hours, Tenormin 25 mg twice a day, multivitamins daily, Tylenol p.r.n. basis, vitamin B with thiamine 1000 mg daily, Xanax 0.25 m g twice a day. LABORATORY DATA: Shows hemoglobin 11.3, hematocrit 34.1, WBC 12.8, platelet count is 452. Sodium 13 0, potassium 4.8, chloride 92, bicarbonate 27, BUN 18, creatinine 0.6, glucose 132, calcium is 10.0, AST 44, ALT 65, alkaline phosphatase is 117. Albumin is 4.1. 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 Pulmonary point of view, doing okay. Continue supplemental oxygen, bro nchodilators, IV steroids, antibiotics. Cardiology followup. Need to address new finding of decreas ed systolic function. Thank you and will follow with you. Shell Vargas MD cc: [phone] TT: 12/04/2016 18:42:28 Confirmation # [id number] Dictation # [id number] mn
--- NOTE | 2016-12-04 19:32 | PN ---
DATE: 12/04/2016 REASON FOR CONSULTATION: Sinus tachycardia, lung carcinoma and chest pain. BRIEF CLINICAL HISTORY: This is a 71-year-old male with a past medical history significant for lung CA that is radiating to the chest with a diagnosis ex-smoker, admitted with chest pain, very te nder secondary to tumor and also tachycardia with the pain. He denies any prior episodes of chest pa in. PHYSICAL EXAMINATION: VITAL SIGNS: Temperature afebrile, heart rate 93, blood pressure 108/64. HEENT: PERRLA. Extraocular muscles intact. NECK: Supple. No carotid bruits. No thyromegaly. CHEST: Clear to auscultation. HEART: S1, S2 regular. ABDOMEN: Soft. EXTREMITIES: Clubbing and cyanosis negative. BLOOD WORKUP: As follows: WBC 12, hemoglobin, , hematocrit 34.1, platelet count 452. Chemistr y shows sodium 130, potassium 4.0, chloride 90, , anion gap of 15, BUN 18, creatinine 0.7. Trop onin negative. IMPRESSION: Chest pain secondary to lung carcinoma, inoperable; sinus tachycardia secondary to lung carcinoma. Last echo shows technically difficult study, normal chambers with ejection fraction of 55 % to 60%, trace mitral regurgitation and trace tricuspid regurgitation dated 05/25/2016. The patient had a repeat echocardiography done yesterday that shows systolic function is moderately impaired. No thrombus noted, no mitral regurgitation, no pulmonary hypertension. Impression sinus tachycardia se condary to pain. Continue adequate analgesia, low-dose beta-arlene as tolerated. Has anemia, statu s post packed red blood cell transfusion. RECOMMENDATION: Continue iron supplementation. Will continue DVT prophylaxis. Will follow with you . Thank you, Dr. Greer, for providing the opportunity in taking care of this patient. Shell Mota MD cc: [id number] TT: 12/04/2016 19:31:07 Confirmation # [id number] Dictation # [id number] dn
[2016-12-04] MEDS: Acetylcysteine 20% Inhal Soln (4ml) IH SCH (19:55)
[2016-12-04] MEDS: oxyCODONE 15 mg Immediate Release Tab PO PRN (22:38)
[2016-12-05] MEDS: HYDROmorphone 1 mg/ml ISec IVP PRN ×4 (03:31→21:09)
[2016-12-05] MEDS: oxyCODONE 15 mg Immediate Release Tab PO PRN ×3 (06:55→23:11)
--- NOTE | 2016-12-05 08:16 | PN ---
DATE: 12/04/2016 SUBJECTIVE: This patient was seen and evaluated earlier today. The patient received Relistor, had a good bowel movement. PHYSICAL EXAMINATION: ABDOMEN: Soft. This is an addendum to the GI progress report dictated by Elo Casiano NP. We will continue to close ly follow up his care and suggest further management based on the clinical course. Celestino Laboy MD cc: [phone] TT: 12/05/2016 08:15:47 Confirmation # [id number] Dictation # [id number] tn
[2016-12-05] MEDS: Acetylcysteine 20% Inhal Soln (4ml) IH SCH ×2 (08:24→19:59)
[2016-12-05] MEDS: Budesonide 0.5 mg/2 ml Inhal Susp UD IH SCH ×2 (08:24→19:59)
[2016-12-05] MEDS: Arformoterol 15 mcg/2 ml Inh Sol IH SCH ×2 (08:24→19:59)
[2016-12-05] MEDS: Enoxaparin 40 mg Syringe SC SCH (09:39)
[2016-12-05] MEDS: POLYETHYLENE GLYCOL 3350 17 GM/Dose PACKET PO SCH ×2 (09:39→17:05)
[2016-12-05] MEDS: Tmp-Smz 800 mg-160 mg DS Tab PO SCH ×3 (09:40→20:13)
[2016-12-05] MEDS: Multivitamin Therapeutic Tab PO SCH (09:41)
[2016-12-05] MEDS: Pantoprazole 40 mg EC Tab PO SCH (09:41)
[2016-12-05] MEDS: Lidocaine 5% Patch TD SCH (09:43)
[2016-12-05] MEDS: MethylPREDNISolone 40 mg Vial IVP SCH ×2 (09:44→21:09)
[2016-12-05] MEDS: THIAMINE PO SCH (09:45)
[2016-12-05] MEDS: CYANOCOBALAMIN PO SCH (09:45)
[2016-12-05] MEDS: PYRIDOXINE PO SCH (09:45)
[2016-12-05] MEDS ORDERED: Lidocaine 5% Patch TD SCH (10:00)
[2016-12-05] MEDS: Ergocalciferol 50,000 Intl Units Cap PO SCH (17:05)
--- NOTE | 2016-12-05 21:34 | CP.PCM.PN ---
<Rupa Doll - Last Filed: 12/05/16 21:31> Subjective - Date & Time of Evaluation Date of Evaluation: 12/05/16 Time of Evaluation: 21:31 - Subjective Subjective: GI for Dr. Laboy Pt s&e. reports BM. On Relister. Denies F/C/N/V/D/CP/SOB. Tolerating diet. Denies abd pain. Difficulty ambulating. Objective - Vital Signs/Intake and Output Vital Signs (last 24 hours): Temp Pulse Resp BP Pulse Ox 97.4 F L 105 H 21 121/59 L 100 12/05/16 07:27 12/05/16 18:00 12/05/16 07:27 12/05/16 17:06 12/05/16 07:27 Intake and Output: 12/05/16 12/06/16 18:59 06:59 Intake Total 840 Output Total 500 Balance 340 - Medications Medications: Current Medications Acetaminophen (Tylenol 325mg Tab) 650 mg PO Q6H PRN PRN Reason: Headache Last Admin: 12/05/16 21:09 Dose: 650 mg Acetylcysteine (Acetylcysteine 20%) 4 ml IH BIDRESP DONNA Last Admin: 12/05/16 19:59 Dose: 4 ml Albuterol/Ipratropium (Duoneb 3 Mg/0.5 Mg (3 Ml) Ud) 3 ml IH [id number] PRN PRN Reason: Shortness of Breath Alprazolam (Xanax) 0.25 mg PO BID DONNA PRN Reason: Protocol Stop: 12/09/16 20:16 Last Admin: 12/05/16 17:05 Dose: 0.25 mg Arformoterol Tartrate (Brovana) 15 mcg IH [id number] DONNA Last Admin: 12/05/16 19:59 Dose: 15 mcg Atenolol (Tenormin) 25 mg PO BID DONNA Last Admin: 12/05/16 17:06 Dose: 25 mg Atorvastatin Calcium (Lipitor) 10 mg PO DAILY DONNA Last Admin: 12/05/16 09:40 Dose: 10 mg Bisacodyl (Dulcolax) 5 mg PO DAILY PRN PRN Reason: Constipation Last Admin: 12/02/16 17:28 Dose: 5 mg Budesonide (Pulmicort Respules) 0.5 mg IH [id number] [facility] Last Admin: 12/05/16 19:59 Dose: 0.5 mg Enoxaparin Sodium (Lovenox) 40 mg SC DAILY [facility] PRN Reason: Protocol Last Admin: 12/05/16 09:39 Dose: 40 mg Ergocalciferol (Drisdol 50,000 Intl Units Cap) 1 cap PO Q7D [facility] Last Admin: 12/05/16 17:05 Dose: 1 cap Fentanyl (Duragesic) 1 patch TD Q72H [facility] Last Admin: 12/05/16 18:35 Dose: 1 patch Ferrous Sulfate (Feosol) 324 mg PO BID [facility] Last Admin: 12/05/16 17:05 Dose: 324 mg Folic Acid (Folic Acid) 1 mg PO DAILY [facility] Last Admin: 12/05/16 09:41 Dose: 1 mg Hydromorphone HCl (Dilaudid) 1 mg IVP Q3H PRN PRN Reason: Pain, severe (8-10) Last Admin: 12/05/16 21:09 Dose: 1 mg Lactulose (Enulose) 20 gm PO HS [facility] Last Admin: 12/05/16 21:10 Dose: 20 gm Lidocaine (Lidoderm) 2 ea TD DAILY [facility] Last Admin: 12/05/16 09:43 Dose: 2 ea Methylprednisolone (Solu-Medrol) 20 mg IVP DAILY [facility] Mirtazapine (Remeron) 30 mg PO HS [facility] Last Admin: 12/05/16 21:10 Dose: 30 mg Multivitamins (Thera Tab) 1 tab PO DAILY [facility] Last Admin: 12/05/16 09:41 Dose: 1 tab Non-Formulary Medication (Vit B12/Pyridoxine/Thiamine [Pv Neuro Nisha Tablet]) 1 ,000 mg PO DAILY [facility] Last Admin: 12/05/16 09:45 Dose: Not Given Oxycodone HCl (Oxycodone Immediate Release Tab) 15 mg PO Q4H PRN PRN Reason: Pain, severe (8-10) Last Admin: 12/05/16 17:05 Dose: 15 mg Pantoprazole Sodium (Protonix Ec Tab) 40 mg PO DAILY [facility] Last Admin: 12/05/16 09:41 Dose: 40 mg Polyethylene Glycol (Miralax) 17 gm PO BID [facility] Last Admin: 12/05/16 17:05 Dose: 17 gm Roflumilast (Daliresp) 500 mcg PO DAILY [facility] Last Admin: 12/05/16 09:41 Dose: 500 mcg Zolpidem Tartrate (Ambien) 10 mg PO HS PRN; Protocol PRN Reason: Insomnia Last Admin: 12/04/16 22:49 Dose: 10 mg - Labs Labs: 12/04/16 07:00 12/04/16 07:00 PT 13.7 Seconds (9.9-11.8) H 11/28/16 11:52 INR 1.27 (0.93-1.08) H 11/28/16 11:52 APTT 35.9 Seconds (23.7-30.8) H 11/28/16 11:52 - Constitutional Appears: Non-toxic, No Acute Distress, Cachectic - Head Exam Head Exam: ATRAUMATIC, NORMAL INSPECTION, NORMOCEPHALIC - Eye Exam Eye Exam: EOMI, Normal appearance, PERRL Pupil Exam: NORMAL ACCOMODATION, PERRL - ENT Exam ENT Exam: Mucous Membranes Moist, Normal Exam - Neck Exam Neck Exam: Full ROM, Normal Inspection. absent: Lymphadenopathy - Respiratory Exam Respiratory Exam: NORMAL BREATHING PATTERN - Cardiovascular Exam Cardiovascular Exam: REGULAR RHYTHM, +S1, +S2. absent: Murmur - GI/Abdominal Exam GI & Abdominal Exam: Soft, Normal Bowel Sounds. absent: Tenderness - Extremities Exam Extremities Exam: Normal Inspection - Back Exam Back Exam: NORMAL INSPECTION - Neurological Exam Neurological Exam: Alert, Awake, CN II-XII Intact, Oriented x3 - Psychiatric Exam Psychiatric exam: Normal Affect, Normal Mood - Skin Skin Exam: Dry, Intact, Normal Color, Warm Assessment and Plan - Assessment and Plan (Free Text) Assessment: 71 w constipation likely 2/2 narcotic abuse: Improved -Continue relister -MOnitor BM -Encourage ambulation -PT DW Dr. Laboy <Celestino Laboy V - Last Filed: 01/27/17 14:05> Objective - Vital Signs/Intake and Output Vital Signs (last 24 hours): Temp Pulse Resp BP Pulse Ox 97.5 F L 90 18 100/60 100 12/15/16 16:00 12/15/16 16:00 12/15/16 16:00 12/15/16 17:04 12/15/16 16:00 - Labs Labs: 12/15/16 06:45 12/15/16 06:45 PT 13.7 Seconds (9.9-11.8) H 11/28/16 11:52 INR 1.27 (0.93-1.08) H 11/28/16 11:52 APTT 35.9 Seconds (23.7-30.8) H 11/28/16 11:52 - GI/Abdominal Exam GI & Abdominal Exam: Soft, Normal Bowel Sounds. absent: Guarding, Tenderness, Rebound Assessment and Plan - Assessment and Plan (Free Text) Assessment: The patient was seen and examined at bedside. Medical records, lab studies, imagings were reviewed. Last 24 hours events reviewed. Agreed with the above findings and treatment plan as outlined in 's note, continue bowel regmine.
--- NOTE | 2016-12-05 22:08 | PN ---
DATE: 12/05/2016 REFERRING PHYSICIAN: Dr. Greer. SUBJECTIVE: He is lying in the bed. Night was unremarkable. On pain medication. No new complaint. Short of breath with exertion. No chest pain today. No nausea, vomiting, diarrhea. No leg pain o r leg swelling. OBJECTIVE: GENERAL: No acute distress. VITAL SIGNS: Temperature is 98, heart rate is 85, respiratory rate is 20, blood pressure 121/59 and pulse ox 100% on 2 liter nasal cannula. HEENT: Moist mucous membranes. Crowded airway. No ulcer or oral thrush noted. NECK: Supple. No JVD. LUNGS: Has a prolonged expiratory phase. HEART: S1 and S2. ABDOMEN: Soft, nontender. No organomegaly. EXTREMITIES: There is no edema. NEUROLOGIC: Awake, alert, follows simple command. MEDICATIONS: He is on Mucomyst 20% inhaled twice a day, Ambien 10 mg at bedtime p.r.n., Bactrim doub le strength 1 tab twice a day, Brovana 15 mcg inhaled twice a day, Daliresp 500 mcg daily, Dilaudid 1 mg q. 3 hours p.r.n., vitamin D 50,000 units q. 7 days, Dulcolax 5 mg daily p.r.n., DuoNeb q. 4 hour s p.r.n., Duragesic patch q. 72 hours, lactulose 20 grams at bedtime, ferrous sulfate 324 mg twice a day, folic acid 1 mg daily, Lidoderm patch daily, Lipitor 10 mg daily, Lovenox 40 mg daily, MiraLax 1 7 grams twice a day, oxycodone immediate release 15 mg q. 4 hours p.r.n., Protonix 40 mg daily, Pulmi ciarra inhaled twice a day, budesonide 0.5 mg inhaled twice a day, Remeron 30 mg at bedtime, Solu-Medro l 20 mg q. 12 hours, Tenormin 25 mg twice a day, multivitamins daily, Tylenol p.r.n., vitamin B plus thiamine 1000 mg daily, Xanax 0.25 mg twice a day. LABORATORY DATA: Reviewed. 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 Pulmonary point of view, doing okay. I will discontinue Bactrim, decrease Solu-Medrol to 20 once a day. Gastric prophylaxis. DVT prophyla xis. Start physical therapy. Thank you and we will follow with you. Shell Vargas MD cc: [phone] TT: 12/05/2016 22:07:27 Confirmation # [id number] Dictation # [id number] mn
--- NOTE | 2016-12-05 23:44 | PN ---
DATE: 12/04/2016 The patient today seems better, less short of breath and slept well last night, pain seems controlled better and he eats and he had a bowel movement. There are no other new complaints, will monitor him today, that day, and we will see how he does. PHYSICAL EXAMINATION: VITAL SIGNS: He is on oxygen 2 liters, saturating in mid 90s to high 90s. His temperature 98, heart rate 97, blood pressure 119/67, respirations 20. HEAD AND NECK: Normal. No JVD, no thyromegaly. CHEST: Clear, good entry. CARDIAC: First sounds and second sounds are normal. ABDOMEN: Soft, nontender. EXTREMITIES: No edema. NEUROLOGIC: Generally weakness, but otherwise normal. LUNGS: There is diminished breath sound on the left more than right. LABORATORY DATA: White count 12.8, hemoglobin 11.3, hematocrit 34.1, platelets 452. His chemistry n oted for sodium 130, potassium 4.8, chloride 92, bicarbonate 27, BUN 18, creatinine 0.6, blood sugar 132, calcium 10. Liver enzymes are normal. Alkaline phosphatase is 65. TSH is 0.84. IMPRESSION AND PLAN: 1. Intractable left-sided chest pain. Continue Duragesic 75 mcg. Continue Dilaudid and oxycodone f or pain control. Dilaudid is 2 mg every 3 hours. 2. Insomnia. The patient got Ambien 10 mg in addition to Remeron 30 mg at bedtime, seems to be doin g well with that. 3. Chronic obstructive pulmonary disease, currently on inhaled bronchodilator and IV bronchodilator, seems stable. 4. Generalized weakness. Continue Lovenox for deep venous thrombosis prophylaxis. Continue Protoni x for gastrointestinal prophylaxis. The patient will go for transitional care unit for continuation of therapy. PLAN: Continue current treatment for his medications. In addition to the constipation problems, con tinue MiraLax. Continue lactulose, Colace, seems to be doing well. The patient also complained of t hick phlegm. We will add Mucomyst and chest PT for improvement of his chest congestions. We will re peat a chest x-ray and will follow up clinically. Diego Greer MD cc: [phone] TT: 12/05/2016 23:44:11 Confirmation # [id number] Dictation # [id number] mn
--- NOTE | 2016-12-05 23:58 | PN ---
DATE: 12/05/2016 The patient is still complaining today he feels that the pain comes so quick that the Dilaudid is not more than 3 hours and he feels more pain. The patient otherwise has no new complaint. He still has some dyspnea, but is less than before. The patient currently we added Xanax, we added Ambien, which seems to be helping with his dyspnea. PHYSICAL EXAMINATION: VITAL SIGNS: Today, which is 12/05, his temperature 97.4, heart rate 89, blood pressure 112/61, resp iratory rate 21, saturation 100%. HEAD AND NECK: Normal. No JVD, no thyromegaly. CHEST: Clear, good air entry. CARDIAC: First sounds and second sounds normal. LUNGS: Again diminished breath sounds, more on the left than right. ABDOMEN: Soft, nontender. EXTREMITIES: No edema. NEUROLOGIC: General weakness, otherwise nonfocal. IMPRESSION AND PLAN: 1. Intractable left sided chest pain. This is the biopsy site where the lung cancer is located. At this time, we will continue Lidoderm patch. We will increase Duragesic patch to 100 mcg. Discussed the case with Dr. Ma. We will continue also on oxycodone and Dilaudid. 2. Chronic constipation problem, seems to be doing better with the current medicines, with the lactu lose, MiraLax, Colace and Dulcolax p.r.n. 3. Generalized weakness. The patient will go for TCU for continuation of physical therapy. 4. Chronic obstructive pulmonary disease exacerbation with acute worsening, seems stable. Continue IV and inhaled bronchodilators and seems to be doing better. Saturating about higher 90 with less dy spnea. 5. Tachycardia. The patient on atenolol 25 mg, seems to be doing well with that. Continue current treatment. PLAN: Continue current treatment. Follow up clinically. Follow up with oncologist. Diego Greer MD cc: [phone] TT: 12/05/2016 23:57:23 Confirmation # [id number] Dictation # [id number] mn
[2016-12-06] MEDS: HYDROmorphone 1 mg/ml ISec IVP PRN ×5 (01:54→17:39)
[2016-12-06] MEDS: oxyCODONE 15 mg Immediate Release Tab PO PRN ×3 (05:18→20:26)
[2016-12-06 07:47] LABS: ADD MANUAL DIFF? NO
[2016-12-06 07:50] LABS: GRAN # 5.06 (1.4-6.5); HEMATOCRIT 32.2 % (42.0-52.0); LYMPH # 0.4 (1.2-3.4); LYMPH % 6.4 % (22.0-35.0); MEAN CELL VOLUME 82.1 fL (80.0-105.0); MEAN CORPUSCULAR HEMOGLOBIN 26.3 pg (25.0-35.0); MEAN PLATELET VOLUME 8.3 fl (7.0-11.0); MONO # 0.5 (0.1-0.6); MONO % 8.6 % (1.0-6.0); PLATELET COUNT 457 10^3/uL (120.0-450.0); RED CELL DISTRIBUTION WIDTH 17.7 % (11.5-14.5)
[2016-12-06 08:05] LABS: BLOOD UREA NITROGEN 21 mg/dL (7-21); CARBON DIOXIDE 29 mmol/L (21-33); CHLORIDE 96 mmol/L (98-107); GFR AFRICAN-AMERICAN > 60; GLUCOSE,RANDOM 128 mg/dL (70-110); POTASSIUM 5.4 mmol/L (3.6-5.0); SODIUM 133 mmol/L (132-148)
[2016-12-06] MEDS: Arformoterol 15 mcg/2 ml Inh Sol IH SCH ×2 (08:06→19:45)
[2016-12-06] MEDS: Budesonide 0.5 mg/2 ml Inhal Susp UD IH SCH ×2 (08:06→19:45)
[2016-12-06] MEDS: Acetylcysteine 20% Inhal Soln (4ml) IH SCH ×2 (08:06→19:45)
--- NOTE | 2016-12-06 09:08 | PN ---
DATE: 12/05/2016 ADDENDUM This is an addendum to the GI progress report dictated by Dr. Doll. The patient was seen and evaluated today. The patient is comfortable, has been on MiraLax. The patient came with fecal impaction, on narcotic pain medication. The patient was given Relistor and is on MiraLax. The patient has been on oxycodone. History of lung cancer, celiac disease, chronic obstructive pulmonary disease. Continue the MiraLax. Will need p.r.n. doses of Relistor. The patient may be considered for Melodie as an outpatient, management for constipation, 24 mcg twice daily. Thank you very much for allowing us to participate in the care of the patient. Celestino Laboy MD cc: [phone] TT: 12/06/2016 09:07:31 Confirmation # [id number] Dictation # [id number] MTDD
[2016-12-06] MEDS: Bisacodyl 5mg EC Tab PO PRN (10:51)
[2016-12-06] MEDS: Pantoprazole 40 mg EC Tab PO SCH (10:52)
[2016-12-06] MEDS: Multivitamin Therapeutic Tab PO SCH (10:53)
[2016-12-06] MEDS: Enoxaparin 40 mg Syringe SC SCH (10:54)
[2016-12-06] MEDS: Lidocaine 5% Patch TD SCH (10:54)
[2016-12-06] MEDS: POLYETHYLENE GLYCOL 3350 17 GM/Dose PACKET PO SCH ×2 (10:55→17:40)
[2016-12-06] MEDS: MethylPREDNISolone 40 mg Vial IVP SCH (10:55)
[2016-12-06] MEDS: CYANOCOBALAMIN PO SCH (10:55)
[2016-12-06] MEDS: THIAMINE PO SCH (10:55)
[2016-12-06] MEDS: PYRIDOXINE PO SCH (10:55)
--- NOTE | 2016-12-06 12:30 | RAD ---
HISTORY: copd, leukocytosis COMPARISON: 11/28/2016 TECHNIQUE: Chest PA and lateral FINDINGS: LUNGS: Diffuse interstitial infiltrate predominantly right side, more prominent at right base. Grossly unchanged. Cannot rule out right basilar infiltrate. No left-sided infiltrate. PLEURA: Small left pleural effusion. No evidence of right pleural effusion. No pneumothorax. CARDIOVASCULAR: Normal heart size. Right central venous infusion port. OSSEOUS STRUCTURES: No significant abnormalities. VISUALIZED UPPER ABDOMEN: Normal. OTHER FINDINGS: None. IMPRESSION: Interstitial infiltrate predominantly right-sided. Opacity at right base grossly unchanged. Cannot rule out alveolar infiltrate. . Small left pleural effusion.
--- NOTE | 2016-12-06 17:03 | PN ---
DATE: 12/06/2016 The patient has been moving his bowels. No complaints of any abdominal pain. Tolerating the diet. PHYSICAL EXAMINATION: VITAL SIGNS: Temperature is 97.9, pulse 78, blood pressure is 100/63, respirations 18. HEENT: Atraumatic, anicteric. NECK: Supple. HEART: S1, S2 heard. LUNGS: Bilateral air entry present. ABDOMEN: Soft. There is no tenderness. EXTREMITIES: No edema, no cyanosis. LABORATORY DATA: Hemoglobin 10.3, hematocrit 32.2, WBC 6.0, platelets 457, potassium 5.4. MEDICATIONS: The patient is presently on oxycodone, iron supplement and MiraLax twice daily. IMPRESSION: 1. A 71-year-old patient with lung cancer. 2. Celiac disease. Admitted with severe constipation, fecal impaction. Received a few doses of Relistor before presently on MiraLax twice daily. We will continue that. The patient may benefit from an outpatient Amitiza treatment for chronic constipation narcotic induced. The patient's other comorbidities include chronic obstructive pulmonary disease , tachycardia, on atenolol. Thank you very much for allowing us to participate in the care of the patient. Celestino Laboy MD cc: [phone] TT: 12/06/2016 17:03:09 Confirmation # [id number] Dictation # [id number] sn MTDD
--- NOTE | 2016-12-06 23:26 | PN ---
DATE: 12/06/2016 REFERRING PHYSICIAN: Dr. Greer. SUBJECTIVE: The patient is lying in the bed, head at 45 degrees, sleepy, arousable, feels okay. Get s short of breath with minimal exertion. No chest pain, no nausea, no vomiting, diarrhea. No leg pa in or leg swelling. OBJECTIVE: GENERAL: No acute distress. VITAL SIGNS: Temperature is 98, heart rate is 89, respiratory rate is 18, blood pressure 113/65, pul se ox 99% on 2 liter nasal cannula. HEENT: Moist mucous membrane. Crowded airway. NECK: Supple, no JVD. LUNGS: Have a fair airflow with few rhonchi, prolonged expiratory phase. HEART: S1, S2. ABDOMEN: Soft, nontender. No organomegaly. EXTREMITIES: There is no edema. NEUROLOGIC: Sleepy, arousable, follows simple command. MEDICATIONS: He is on Mucomyst 20% inhaled twice a day, Ambien 10 mg at bedtime p.r.n., Brovana 15 m cg q. 12 hours, Daliresp 500 mcg daily, vitamin D 50,000 units q. 7 days, Dulcolax 5 mg p.o. daily p. r.n., DuoNeb q. 4 hours p.r.n., Duragesic patch q. 72 hours, lactulose 20 grams p.o. at bedtime, ferr ous sulfate 324 mg twice a day, folic acid 1 mg daily, lidocaine patch daily, Lipitor 10 mg daily, Mi raLax 17 grams twice a day, oxycodone immediate release 15 mg q. 4 hours p.r.n., Protonix 40 mg daily , Pulmicort inhaled twice a day, Remeron 30 mg at bedtime, Solu-Medrol 20 mg IV daily, Tenormin 25 mg twice a day, multivitamins daily, Tylenol p.r.n. basis, vitamin B12, , thiamine 100 mg p.o. alvaro ly, Xanax 0.25 mg twice a day. LABORATORY DATA: Shows hemoglobin 10.3, hematocrit 32.2, WBC 6.0, platelet count is 457. Sodium 133 , potassium 5.4, chloride 96, bicarbonate 29, BUN 21, creatinine 0.6, glucose is 128, calcium is 10. Chest x-ray done yesterday shows interstitial infiltrates, predominantly right-sided, opacity at the right base grossly unchanged, mild left pleural effusion. IMPRESSION AND PLAN: Chronic obstructive lung disease with pulmonary fibrosis, lung cancer, anemia, chronic constipation, cardiomyopathy with decreased left ventricle function. Pulmonary point of view , doing okay. Continue IV and inhaled bronchodilator, keep head elevated at 45 degrees. Gastric pro phylaxis. Deep venous thrombosis prophylaxis. Fall precaution. Start physical therapy. Thank you and will follow with you. Shell Vargas MD cc: [phone] TT: 12/06/2016 23:25:25 Confirmation # [id number] Dictation # [id number] mn
[2016-12-07] MEDS: oxyCODONE 15 mg Immediate Release Tab PO PRN ×3 (04:42→17:36)
[2016-12-07 07:00] LABS: ADD MANUAL DIFF? NO
[2016-12-07 07:17] LABS: EOS % 0.3 % (1.5-5.0); GRAN # 6.96 (1.4-6.5); GRAN % 73.5 % (50.0-68.0); HEMATOCRIT 31.6 % (42.0-52.0); LYMPH # 1.1 (1.2-3.4); LYMPH % 11.9 % (22.0-35.0); MEAN CELL VOLUME 82.1 fL (80.0-105.0); MEAN CORPUSCULAR HEMOGLOBIN 26.2 pg (25.0-35.0); MEAN PLATELET VOLUME 8.7 fl (7.0-11.0); MONO # 1.4 (0.1-0.6); MONO % 14.3 % (1.0-6.0); PLATELET COUNT 535 10^3/uL (120.0-450.0); RED CELL DISTRIBUTION WIDTH 17.5 % (11.5-14.5); WHITE BLOOD COUNT 9.5 10^3/ul (4.5-11.0)
[2016-12-07] MEDS: Acetylcysteine 20% Inhal Soln (4ml) IH SCH ×2 (08:14→19:52)
[2016-12-07] MEDS: Budesonide 0.5 mg/2 ml Inhal Susp UD IH SCH ×2 (08:14→19:52)
[2016-12-07] MEDS: Arformoterol 15 mcg/2 ml Inh Sol IH SCH ×2 (08:14→19:52)
[2016-12-07] MEDS: POLYETHYLENE GLYCOL 3350 17 GM/Dose PACKET PO SCH ×2 (09:55→17:36)
[2016-12-07] MEDS: Lidocaine 5% Patch TD SCH (09:55)
[2016-12-07] MEDS: Pantoprazole 40 mg EC Tab PO SCH (09:55)
[2016-12-07] MEDS: MethylPREDNISolone 40 mg Vial IVP SCH (09:56)
[2016-12-07] MEDS: Multivitamin Therapeutic Tab PO SCH (09:59)
[2016-12-07] MEDS: THIAMINE PO SCH (10:00)
[2016-12-07] MEDS: CYANOCOBALAMIN PO SCH (10:00)
[2016-12-07] MEDS: PYRIDOXINE PO SCH (10:00)
[2016-12-07] MEDS ORDERED: Meropenem 1g/NS 100mL IVPB 1 GM/100 ML PIGGYBACK IVPB SCH (10:15)
--- NOTE | 2016-12-07 10:34 | PN ---
DATE: 12/06/2016 The patient - it seems he slept well. He is doing better. He moved his bowels. He is eating. His chest pain is much better than before coming down to 3/10 from 04/27 with medications. I explained t o the patient that he will have some pain, but we are ____ the pain with gradually increasing the med ications. He does still complain of some shortness of breath. Otherwise, no new complaint. PHYSICAL EXAMINATION: VITAL SIGNS: Temperature 97.9, heart rate 78, blood pressure 113/65, respirations 19, saturating 99% . HEAD AND NECK: Normal. No JVD, no thyromegaly. CHEST: Clear, diminished breath sounds on the left side. CARDIAC: First and second sounds are normal. ABDOMEN: Soft, nontender. EXTREMITIES: No edema. NEUROLOGIC: Normal. LABORATORY STUDY: White count 6, hemoglobin 10.3, hematocrit 32.2. Platelets are 457. Chemistry sh ows sodium 133, potassium 5.4, chloride 96, bicarb 29. His BUN is 21, creatinine 0.6. His blood sug ar is 128. His blood calcium level is 10. The patient also had a chest x-ray, which was done that day, which is 12/06, and it shows diffuse inte rstitial infiltrate predominantly on the right side, more predominant on the right base grossly uncha nged, cannot rule out right basal infiltrate, no left-sided infiltrates. IMPRESSION AND PLAN: 1. Right lower lobe pneumonia. We will get infectious disease consult, pulmonary consult on the denisa e, Dr. Vargas. We will discuss with him, and we will follow up clinically. 2. Chest pain. Continue current pain medicine. The patient is getting Dilaudid, getting Duragesic patch, and getting the oxycodone 15 mg every 4 hours p.r.n., and Dilaudid every 3 hours p.r.n., and D uragesic patch went up to 100 mcg daily. 3. Abdominal discomfort, constipation, seems resolving. Continue Relistor every other day. The pat ient is getting also lactulose, MiraLax p.r.n., and seems to be doing better with that. 4. Sleeping, insomnia. He seems better with David Lemus. He slept well. We will continue curr ent treatment. 5. Chronic obstructive pulmonary disease. The patient is getting steroids. We will follow up clini deirdre. At this time, we will continue current treatment. We will get ID consultation. We will check his ec hocardiogram, which has been done and read, and it shows left ventricle good size and functions, and systolic function moderately ____, and there is relaxation impairment. There are not any clots. The IVC size collapsed more than 50% with inspirations. IMPRESSION: Continue current treatment. Follow up clinically. We will get Dr. Mota to see and foll ow up with the patient, and infectious disease consultation. Diego Greer MD cc: [phone] TT: 12/07/2016 10:33:36 Confirmation # [id number] Dictation # [id number] jn
[2016-12-07] MEDS: Vancomycin 1gm in NS 250ml 1 GM/250 ML BAG IVPB SCH ×2 (10:45→22:22)
--- NOTE | 2016-12-07 11:33 | CP.PCM.PN ---
Subjective - Date & Time of Evaluation Date of Evaluation: 12/05/16 Time of Evaluation: 18:00 - Subjective Subjective: Patient continue to have pain at thoracotomy cite. Unable to get out of bed w/o pain. Using prn IV dilaudid and PO breakthrough regularly. ROS: 12 ROS otherwise negative. Objective - Vital Signs/Intake and Output Vital Signs (last 24 hours): Temp Pulse Resp BP Pulse Ox 98 F 90 21 106/69 96 12/07/16 08:07 12/07/16 09:56 12/07/16 08:07 12/07/16 09:56 12/07/16 08:07 - Medications Medications: Current Medications Acetaminophen (Tylenol 325mg Tab) 650 mg PO Q6H PRN PRN Reason: Headache Last Admin: 12/05/16 21:09 Dose: 650 mg Acetylcysteine (Acetylcysteine 20%) 4 ml IH BIDRESP [facility] Last Admin: 12/07/16 08:14 Dose: 4 ml Albuterol/Ipratropium (Duoneb 3 Mg/0.5 Mg (3 Ml) Ud) 3 ml IH [id number] PRN PRN Reason: Shortness of Breath Alprazolam (Xanax) 0.25 mg PO BID DONNA PRN Reason: Protocol Stop: 12/09/16 20:16 Last Admin: 12/07/16 09:56 Dose: 0.25 mg Arformoterol Tartrate (Brovana) 15 mcg IH [id number] [facility] Last Admin: 12/07/16 08:14 Dose: 15 mcg Atenolol (Tenormin) 25 mg PO BID [facility] Last Admin: 12/07/16 09:56 Dose: 25 mg Atorvastatin Calcium (Lipitor) 10 mg PO DAILY [facility] Last Admin: 12/07/16 09:55 Dose: 10 mg Bisacodyl (Dulcolax) 5 mg PO DAILY PRN PRN Reason: Constipation Last Admin: 12/06/16 10:51 Dose: 5 mg Budesonide (Pulmicort Respules) 0.5 mg IH [id number] [facility] Last Admin: 12/07/16 08:14 Dose: 0.5 mg Ergocalciferol (Drisdol 50,000 Intl Units Cap) 1 cap PO Q7D [facility] Last Admin: 12/05/16 17:05 Dose: 1 cap Fentanyl (Duragesic) 1 patch TD Q72H [facility] Last Admin: 12/05/16 18:35 Dose: 1 patch Ferrous Sulfate (Feosol) 324 mg PO BID [facility] Last Admin: 12/07/16 09:54 Dose: 324 mg Folic Acid (Folic Acid) 1 mg PO DAILY [facility] Last Admin: 12/07/16 09:55 Dose: 1 mg Meropenem 1g/NS 100mL IVPB (Meropenem 1g/Ns 100ml Ivpb) 1 gm in 100 mls @ 100 mls/hr IVPB Q8 DONNA PRN Reason: Protocol Stop: 12/14/16 14:01 Vancomycin HCl (Vancomycin 1gm) 1 gm in 250 mls @ 167 mls/hr IVPB Q12H DONNA PRN Reason: Protocol Lactulose (Enulose) 20 gm PO HS [facility] Last Admin: 12/06/16 21:30 Dose: 20 gm Lidocaine (Lidoderm) 2 ea TD DAILY [facility] Last Admin: 12/07/16 09:55 Dose: 2 ea Methylprednisolone (Solu-Medrol) 20 mg IVP DAILY [facility] Last Admin: 12/07/16 09:56 Dose: 20 mg Mirtazapine (Remeron) 30 mg PO HS [facility] Last Admin: 12/06/16 21:30 Dose: 30 mg Multivitamins (Thera Tab) 1 tab PO DAILY [facility] Last Admin: 12/07/16 09:59 Dose: 1 tab Non-Formulary Medication (Vit B12/Pyridoxine/Thiamine [Pv Neuro Nisha Tablet]) 1 ,000 mg PO DAILY [facility] Last Admin: 12/07/16 10:00 Dose: Not Given Oxycodone HCl (Oxycodone Immediate Release Tab) 15 mg PO Q4H PRN PRN Reason: Pain, severe (8-10) Last Admin: 12/07/16 08:35 Dose: 15 mg Pantoprazole Sodium (Protonix Ec Tab) 40 mg PO DAILY [facility] Last Admin: 12/07/16 09:55 Dose: 40 mg Polyethylene Glycol (Miralax) 17 gm PO BID [facility] Last Admin: 12/07/16 09:55 Dose: 17 gm Roflumilast (Daliresp) 500 mcg PO DAILY [facility] Last Admin: 12/07/16 09:54 Dose: 500 mcg Zolpidem Tartrate (Ambien) 10 mg PO HS PRN; Protocol PRN Reason: Insomnia Last Admin: 12/06/16 20:26 Dose: 10 mg - Labs Labs: 12/07/16 06:50 12/06/16 07:40 PT 13.7 Seconds (9.9-11.8) H 11/28/16 11:52 INR 1.27 (0.93-1.08) H 11/28/16 11:52 APTT 35.9 Seconds (23.7-30.8) H 11/28/16 11:52 - Constitutional Appears: Non-toxic - Respiratory Exam Respiratory Exam: Clear to Ausculation Bilateral, NORMAL BREATHING PATTERN - Cardiovascular Exam Cardiovascular Exam: REGULAR RHYTHM, +S1, +S2. absent: Murmur - GI/Abdominal Exam GI & Abdominal Exam: Soft, Normal Bowel Sounds. absent: Tenderness - Extremities Exam Extremities Exam: Full ROM, Normal Capillary Refill, Normal Inspection. absent : Joint Swelling, Pedal Edema - Skin Skin Exam: Dry, Intact, Normal Color, Warm Assessment and Plan - Assessment and Plan (Free Text) Assessment: Mr. Thornton pollo 71 y/o man with a pmhx signfiicant for stage IV carcioma of lung currently admited for failure to thrive and pain control and bowel impaction s/p manual disempaction. Patient continues to have significant pain at thoracotomy cite with constant use of prn medications. After discussion with primary physician will plan on increasing fentanly to 100mcg as patient would likely benefit from increased basal long acting control.
--- NOTE | 2016-12-07 11:36 | CP.PCM.PN ---
Subjective - Date & Time of Evaluation Date of Evaluation: 12/06/16 Time of Evaluation: 20:00 - Subjective Subjective: Patient continues to have pain and using PRN dilaudid and PO pain medications. However, patient states pain is better controlled since uptitraion of fentanyl Bowel movement are regular. 12 ROS otherwise negative Objective - Vital Signs/Intake and Output Vital Signs (last 24 hours): Temp Pulse Resp BP Pulse Ox 98 F 90 21 106/69 96 12/07/16 08:07 12/07/16 09:56 12/07/16 08:07 12/07/16 09:56 12/07/16 08:07 - Medications Medications: Current Medications Acetaminophen (Tylenol 325mg Tab) 650 mg PO Q6H PRN PRN Reason: Headache Last Admin: 12/05/16 21:09 Dose: 650 mg Acetylcysteine (Acetylcysteine 20%) 4 ml IH BIDRESP [facility] Last Admin: 12/07/16 08:14 Dose: 4 ml Albuterol/Ipratropium (Duoneb 3 Mg/0.5 Mg (3 Ml) Ud) 3 ml IH [id number] PRN PRN Reason: Shortness of Breath Alprazolam (Xanax) 0.25 mg PO BID DONNA PRN Reason: Protocol Stop: 12/09/16 20:16 Last Admin: 12/07/16 09:56 Dose: 0.25 mg Arformoterol Tartrate (Brovana) 15 mcg IH [id number] [facility] Last Admin: 12/07/16 08:14 Dose: 15 mcg Atenolol (Tenormin) 25 mg PO BID [facility] Last Admin: 12/07/16 09:56 Dose: 25 mg Atorvastatin Calcium (Lipitor) 10 mg PO DAILY [facility] Last Admin: 12/07/16 09:55 Dose: 10 mg Bisacodyl (Dulcolax) 5 mg PO DAILY PRN PRN Reason: Constipation Last Admin: 12/06/16 10:51 Dose: 5 mg Budesonide (Pulmicort Respules) 0.5 mg IH [id number] [facility] Last Admin: 12/07/16 08:14 Dose: 0.5 mg Ergocalciferol (Drisdol 50,000 Intl Units Cap) 1 cap PO Q7D [facility] Last Admin: 12/05/16 17:05 Dose: 1 cap Fentanyl (Duragesic) 1 patch TD Q72H [facility] Last Admin: 12/05/16 18:35 Dose: 1 patch Ferrous Sulfate (Feosol) 324 mg PO BID [facility] Last Admin: 12/07/16 09:54 Dose: 324 mg Folic Acid (Folic Acid) 1 mg PO DAILY [facility] Last Admin: 12/07/16 09:55 Dose: 1 mg Meropenem 1g/NS 100mL IVPB (Meropenem 1g/Ns 100ml Ivpb) 1 gm in 100 mls @ 100 mls/hr IVPB Q8 DONNA PRN Reason: Protocol Stop: 12/14/16 14:01 Vancomycin HCl (Vancomycin 1gm) 1 gm in 250 mls @ 167 mls/hr IVPB Q12H DONNA PRN Reason: Protocol Lactulose (Enulose) 20 gm PO HS [facility] Last Admin: 12/06/16 21:30 Dose: 20 gm Lidocaine (Lidoderm) 2 ea TD DAILY [facility] Last Admin: 12/07/16 09:55 Dose: 2 ea Methylprednisolone (Solu-Medrol) 20 mg IVP DAILY [facility] Last Admin: 12/07/16 09:56 Dose: 20 mg Mirtazapine (Remeron) 30 mg PO HS [facility] Last Admin: 12/06/16 21:30 Dose: 30 mg Multivitamins (Thera Tab) 1 tab PO DAILY [facility] Last Admin: 12/07/16 09:59 Dose: 1 tab Non-Formulary Medication (Vit B12/Pyridoxine/Thiamine [Pv Neuro Nisha Tablet]) 1 ,000 mg PO DAILY [facility] Last Admin: 12/07/16 10:00 Dose: Not Given Oxycodone HCl (Oxycodone Immediate Release Tab) 15 mg PO Q4H PRN PRN Reason: Pain, severe (8-10) Last Admin: 12/07/16 08:35 Dose: 15 mg Pantoprazole Sodium (Protonix Ec Tab) 40 mg PO DAILY [facility] Last Admin: 12/07/16 09:55 Dose: 40 mg Polyethylene Glycol (Miralax) 17 gm PO BID [facility] Last Admin: 12/07/16 09:55 Dose: 17 gm Roflumilast (Daliresp) 500 mcg PO DAILY [facility] Last Admin: 12/07/16 09:54 Dose: 500 mcg Zolpidem Tartrate (Ambien) 10 mg PO HS PRN; Protocol PRN Reason: Insomnia Last Admin: 12/06/16 20:26 Dose: 10 mg - Labs Labs: 12/07/16 06:50 12/06/16 07:40 PT 13.7 Seconds (9.9-11.8) H 11/28/16 11:52 INR 1.27 (0.93-1.08) H 11/28/16 11:52 APTT 35.9 Seconds (23.7-30.8) H 11/28/16 11:52 - Constitutional Appears: Non-toxic - Head Exam Head Exam: ATRAUMATIC, NORMAL INSPECTION, NORMOCEPHALIC - Respiratory Exam Respiratory Exam: Clear to Ausculation Bilateral, NORMAL BREATHING PATTERN - Cardiovascular Exam Cardiovascular Exam: REGULAR RHYTHM, +S1, +S2. absent: Murmur - Skin Skin Exam: Dry, Intact, Normal Color, Warm Assessment and Plan - Assessment and Plan (Free Text) Assessment: Mr. Thornton pollo 71 y/o man with a pmhx signfiicant for stage IV carcioma of lung currently admited for failure to thrive and pain control and bowel impaction s/p manual disempaction. Patient's pain improved with uptitration of fentanyl but he continues to require prn pain medications? Will obtain bone scan for further elucidation of pain primarily around thoracotomy site. Consider pain managemet consultation.
--- NOTE | 2016-12-07 12:08 | PN ---
DATE: 12/07/2016 Seen and examined at the bedside this morning. The patient complains of left flank pain. No reports of nausea or vomiting. The patient reported to have bowel movement. No reports of bleeding. VITAL SIGNS: Temperature is 98, blood pressure 106/69, pulse is 90, respirations 21, 96% nasal cannu la. LABORATORIES: WBC is 9.5, H and H is 10.1 and 31.6, platelets is 535. PHYSICAL EXAMINATION: HEENT: Sclera is anicteric. NECK: Supple. CARDIAC: S1, S2. LUNG SOUNDS: With decreased breath sounds with good air entry, positive rhonchi. ABDOMEN: With bowel sounds, soft, not much tenderness to left lower quadrant. No rebound or guardin g. EXTREMITIES: No edema. NEUROLOGIC: Awake, alert, oriented. ASSESSMENT: The patient with abdominal discomfort, has severe constipation, likely narcotic induced. He has had 2 doses of Relistor. He is moving his bowels now. He also has lung cancer, chronic obs tructive pulmonary disease, celiac disease, right lower lobe pneumonia. PLAN: Continue the bowel regimen. He is getting Dulcolax p.o. p.r.n., is on MiraLax b.i.d. He is a lso on IV antibiotics. He will start on vancomycin. He is also on meropenem, on iron supplements, p ain medication. He has a fentanyl patch. He is also on oxycodone and consider Amitiza for outpatien t treatment of chronic constipation. The patient was seen and case discussed with Dr. Laboy. Elo MELISSA cc: [phone] TT: 12/07/2016 11:54:09 Confirmation # [id number] Dictation # [id number] en
[2016-12-07] MEDS: Meropenem 1g/NS 100mL IVPB 1 GM/100 ML PIGGYBACK IVPB SCH ×2 (15:04→21:26)
--- NOTE | 2016-12-07 15:41 | CP.PCM.CON ---
History of Present Illness - History of Present Illness History of Present Illness: 71 year old male with PMH of lung cancer on chemotherapy, chronic anemia, dyslipidemia, S/P appendectomy was admitted last month for probable hospital- acquired pneumonia and did well with medical management. He comes back because of a 2-3 day history of shortness of breath and cough and is currently being treated for COPD exacerbation. Infectious Diseases consult is requested to evaluate for the possiblity of pneumonia in this patient. Currently the patient still has cough, some mild SOB at rest. He currently denies fever or chills, no nausea or vomiting, no chest pain, no abdominal pain, no diarrhea, no dysuria, no rhinorrhea, no sore throat. Review of Systems - Review of Systems All systems: reviewed and no additional remarkable complaints except (as per HPI ) Past Patient History - Infectious Disease Hx of Infectious Diseases: None - Tetanus Immunizations Tetanus Immunization: Unknown - Past Medical History & Family History Past Medical History?: Yes - Past Social History Smoking Status: Former Smoker - CARDIAC Hx Cardiac Disorders: Yes Hx Hypercholesterolemia: Yes - PULMONARY Hx Respiratory Disorders: Yes Hx Chronic Obstructive Pulmonary Disease (COPD): Yes Hx Pneumonia: Yes Other/Comment: SMOKED 2-3 PPD QUIT 2014 - NEUROLOGICAL Hx Neurological Disorder: Yes - HEENT Hx HEENT Problems: Yes Hx Deafness: Yes - RENAL Hx Chronic Kidney Disease: No - ENDOCRINE/METABOLIC Hx Endocrine Disorders: No - HEMATOLOGICAL/ONCOLOGICAL Hx Blood Disorders: Yes Hx Anemia: Yes (BLOOD TRANSFUSION) - INTEGUMENTARY Hx Dermatological Problems: Yes (GENERALIZED SKIN DRYNESS) - MUSCULOSKELETAL/RHEUMATOLOGICAL Hx Musculoskeletal Disorders: Yes Hx Back Pain: Yes Hx Falls: Yes Hx Herniated Disk: Yes - GASTROINTESTINAL Hx Gastrointestinal Disorders: Yes (POOR APPETITE,COLITIS) Hx Gastroesophageal Reflux: Yes Other/Comment: CONSTIPATION,5-13-17 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 - GENITOURINARY/GYNECOLOGICAL Hx Genitourinary Disorders: Yes Hx Incontinence: Yes - PSYCHIATRIC Hx Psychophysiologic Disorder: Yes (H/O SMOKING 2-3 PPD QUIT,ETOH ABUSE DRANK 9- 10 CANS OF BEER A WEEK.) Hx Emotional Abuse: No Hx Physical Abuse: No Hx Substance Use: No - SURGICAL HISTORY Hx Surgeries: Yes Hx Appendectomy: Yes Hx Cardiac Catheterization: Yes Other/Comment: R chest port - ANESTHESIA Hx Anesthesia: Yes Meds Allergies/Adverse Reactions: Allergies Allergy/AdvReac Type Severity Reaction Status Date / Time No Known Allergies Allergy Verified 11/28/16 18:32 - Medications Medications: Current Medications Acetaminophen (Tylenol 325mg Tab) 650 mg PO Q6H PRN PRN Reason: Headache Last Admin: 12/05/16 21:09 Dose: 650 mg Acetylcysteine (Acetylcysteine 20%) 4 ml IH BIDRESP [facility] Last Admin: 12/07/16 08:14 Dose: 4 ml Albuterol/Ipratropium (Duoneb 3 Mg/0.5 Mg (3 Ml) Ud) 3 ml IH [id number] PRN PRN Reason: Shortness of Breath Alprazolam (Xanax) 0.25 mg PO BID DONNA PRN Reason: Protocol Stop: 12/09/16 20:16 Last Admin: 12/07/16 09:56 Dose: 0.25 mg Arformoterol Tartrate (Brovana) 15 mcg IH [id number] [facility] Last Admin: 12/07/16 08:14 Dose: 15 mcg Atenolol (Tenormin) 25 mg PO BID [facility] Last Admin: 12/07/16 09:56 Dose: 25 mg Atorvastatin Calcium (Lipitor) 10 mg PO DAILY [facility] Last Admin: 12/07/16 09:55 Dose: 10 mg Bisacodyl (Dulcolax) 5 mg PO DAILY PRN PRN Reason: Constipation Last Admin: 12/06/16 10:51 Dose: 5 mg Budesonide (Pulmicort Respules) 0.5 mg IH [id number] [facility] Last Admin: 12/07/16 08:14 Dose: 0.5 mg Ergocalciferol (Drisdol 50,000 Intl Units Cap) 1 cap PO Q7D [facility] Last Admin: 12/05/16 17:05 Dose: 1 cap Fentanyl (Duragesic) 1 patch TD Q72H [facility] Last Admin: 12/05/16 18:35 Dose: 1 patch Ferrous Sulfate (Feosol) 324 mg PO BID [facility] Last Admin: 12/07/16 09:54 Dose: 324 mg Folic Acid (Folic Acid) 1 mg PO DAILY [facility] Last Admin: 12/07/16 09:55 Dose: 1 mg Meropenem 1g/NS 100mL IVPB (Meropenem 1g/Ns 100ml Ivpb) 1 gm in 100 mls @ 100 mls/hr IVPB Q8 DONNA PRN Reason: Protocol Stop: 12/14/16 14:01 Lactulose (Enulose) 20 gm PO HS [facility] Last Admin: 12/06/16 21:30 Dose: 20 gm Lidocaine (Lidoderm) 2 ea TD DAILY [facility] Last Admin: 12/07/16 09:55 Dose: 2 ea Methylprednisolone (Solu-Medrol) 20 mg IVP DAILY [facility] Last Admin: 12/07/16 09:56 Dose: 20 mg Mirtazapine (Remeron) 30 mg PO HS [facility] Last Admin: 12/06/16 21:30 Dose: 30 mg Multivitamins (Thera Tab) 1 tab PO DAILY [facility] Last Admin: 12/07/16 09:59 Dose: 1 tab Non-Formulary Medication (Vit B12/Pyridoxine/Thiamine [Pv Neuro Nisha Tablet]) 1 ,000 mg PO DAILY [facility] Last Admin: 12/07/16 10:00 Dose: Not Given Oxycodone HCl (Oxycodone Immediate Release Tab) 15 mg PO Q4H PRN PRN Reason: Pain, severe (8-10) Last Admin: 12/07/16 08:35 Dose: 15 mg Pantoprazole Sodium (Protonix Ec Tab) 40 mg PO DAILY [facility] Last Admin: 12/07/16 09:55 Dose: 40 mg Polyethylene Glycol (Miralax) 17 gm PO BID [facility] Last Admin: 12/07/16 09:55 Dose: 17 gm Roflumilast (Daliresp) 500 mcg PO DAILY [facility] Last Admin: 12/07/16 09:54 Dose: 500 mcg Zolpidem Tartrate (Ambien) 10 mg PO HS PRN; Protocol PRN Reason: Insomnia Last Admin: 12/06/16 20:26 Dose: 10 mg Physical Exam - Constitutional Appears: Non-toxic, No Acute Distress - Head Exam Head Exam: NORMAL INSPECTION - ENT Exam ENT Exam: Mucous Membranes Moist - Neck Exam Neck exam: Negative for: Lymphadenopathy, Meningismus - Respiratory Exam Respiratory Exam: Decreased Breath Sounds - Cardiovascular Exam Cardiovascular Exam: +S1, +S2 - GI/Abdominal Exam GI & Abdominal Exam: Soft. absent: Tenderness Results - Vital Signs Recent Vital Signs: Last Vital Signs Temp 98 F 12/07/16 08:07 Pulse 90 12/07/16 09:56 Resp 21 12/07/16 08:07 BP 106/69 12/07/16 09:56 Pulse Ox 96 05/22/17 08:07 - Labs Result Diagrams: 12/07/16 06:50 12/06/16 07:40 Labs: Laboratory Results - last 24 hr 12/07/16 06:50 WBC 9.5 D RBC 3.85 Hgb 10.1 L Hct 31.6 L MCV 82.1 MCH 26.2 MCHC 32.0 RDW 17.5 H Plt Count 535 H MPV 8.7 Gran % 73.5 H Lymph % (Auto) 11.9 L [place] % (Auto) 14.3 H Eos % (Auto) 0.3 L Baso % (Auto) 0.0 Gran # 6.96 H Lymph # 1.1 L [place] # 1.4 H Eos # 0.0 Baso # 0.00 Assessment & Plan - Assessment and Plan (Free Text) Plan: Assessment R/O HCAP in this patient being treated for COPD exacerbation history of hospital-acquired pneumonia lung cancer on chemotherapy chronic anemia dyslipidemia S/P appendectomy Plan started patient on Vancomycin and Merrem pending blood cx and PCT Will monitor clinically
[2016-12-07] MEDS: Albuterol-Ipratrop 3 mg / 0.5 (3 ml) UD IH PRN (18:01)
--- NOTE | 2016-12-07 18:49 | PN ---
DATE: 12/07/2016 ADDENDUM The patient is in room 367, bed 2. This is an addendum to my progress note which got interrupted and I did not complete my progress note . PLAN: The patient's potassium yesterday was 5.4, so I am going to repeat a stat potassium. If eleva eliazar, then I will give Kayexalate. In the meantime, we will continue present therapy as has been orde red and we will follow with you. Shell Rosario MD cc: [id number] TT: 12/07/2016 18:48:03 Confirmation # [id number] Dictation # [id number] mn
--- NOTE | 2016-12-07 19:04 | PN ---
DATE: 12/07/2016 The patient is in room 367, bed #2. REASON FOR CONSULTATION AND FOLLOWUP: Sinus tachycardia, lung carcinoma and chest pain. HISTORY OF PRESENT ILLNESS: This is a 71-year-old male with a past medical history significant for l jb carcinoma that is causing the chest pain. While having chest pain, the patient also got sinus ta chycardia. The patient also had tenderness at the area of the chest pain. The patient's echo on thi s admission showed ejection fraction of 42%. The patient is in no acute distress, lying comfortably in the bed at present. PHYSICAL EXAMINATION: VITAL SIGNS: Blood pressure 113/62, respirations 22, pulse 94, temperature 98.5. HEAD: Normocephalic. EYES: Pupils normal. Conjunctivae slightly pale. NECK: JVP low. Carotid equal. THORAX: AP diameter normal. LUNGS: No significant rales. CARDIOVASCULAR: S1, S2. The patient had local tenderness at the area of the chest pain. ABDOMEN: Soft, nontender, no organomegaly. EXTREMITIES: No clubbing, no cyanosis. LABORATORY DATA: WBC 9.5, hemoglobin 10.1, hematocrit 31.6, platelet 535. Sodium 133, potassium 5.4 , BUN 21, creatinine 0.6. TSH 0.84. DIAGNOSES: Chest pain secondary to lung carcinoma, which is inoperable; sinus tachycardia related to the pain, chronic obstructive pulmonary disease and lung carcinoma. Echo on this admission showed l eft ventricular dysfunction with an ejection fraction of 42%. No pulmonary hypertension on present e cho. Anemia. PLAN: The patient is getting Lipitor 10 mg p.o. daily, methylprednisone 20 mg IV daily, atenolol 25 mg b.i.d. to help tachycardia. The patient on vancomycin 1 gram IV q.12 hours, Protonix 40 mg p.o. d aily, meropenem 1 gram IV q.8 hours and Lipitor 10 mg daily. Shell Rosario MD cc: [id number] TT: 12/07/2016 19:03:23 Confirmation # [id number] Dictation # [id number] dn
[2016-12-07] MEDS ORDERED: Sod Polystyrene Sulf 15 gm/60 ml Oral Susp PO STA (20:02)
[2016-12-07] MEDS ORDERED: HYDROmorphone 1 mg/ml ISec IVP STA (22:05)
--- NOTE | 2016-12-07 22:32 | PN ---
DATE: 12/07/2016 REFERRING PHYSICIAN: Dr. Greer. SUBJECTIVE: The patient is lying in the bed, head at 45 degree. Day was unremarkable. Still gets s hort of breath with exertion. No nausea, no vomiting, no diarrhea. No leg pain or leg swelling. OBJECTIVE: GENERAL: No acute distress. VITAL SIGNS: Temperature is 98, heart rate 94, respiratory rate is 22, blood pressure 113/62, pulse ox 95% on 2 liters nasal cannula. HEENT: Moist mucous membrane. Crowded airway. NECK: Supple, no JVD. LUNGS: Have a few scattered rhonchi. Crackles at the right base and prolonged expiratory phase. HEART: S1, S2. ABDOMEN: Soft, nontender. No organomegaly. EXTREMITIES: There is no edema. NEUROLOGIC: Awake, alert, follows simple commands. MEDICATIONS: He is on Mucomyst 20% inhaled twice a day, Ambien 10 mg at bedtime p.r.n., Brovana 15 m cg inhaled twice a day, Daliresp 500 mcg daily, vitamin D 50,000 units weekly, Dulcolax 5 mg daily p. r.n., DuoNeb q. 4 hours, Duragesic patch q. 72 hours, lactulose 20 g p.o. at bedtime, ferrous sulfate 324 mg twice a day, folic acid 1 mg daily, Lidoderm patch daily, Lipitor 10 mg daily, meropenem 1 g IV q. 8 hours, MiraLax 17 grams p.o. twice a day, Protonix 20 mg daily, Pulmicort inhaled twice a day , Remeron 30 mg p.o. at bedtime, Solu-Medrol 20 mg daily, Tenormin 25 mg twice a day, multivitamins d aily, Tylenol p.r.n. basis, vancomycin 1 g IV q. 12 hours, vitamin B12 with thiamine, ____ 100 mg alvaro ly, Xanax 0.25 mg twice a day. LABORATORY DATA: Shows hemoglobin 10.1, hematocrit 31.6, WBC 9.5, platelet is 535. Potassium 5.4. Procalcitonin is 0.08. 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 Seen by the infectious disease, started on broad spectrum antibiotics covering healthcare-asso ciated organism. Pulmonary point of view, continue IV and inhaled bronchodilator, keep head elevated at 45 degree. DVT prophylaxis. Start physical therapy. Thank you and will follow with you. Shell Vargas MD cc: [phone] TT: 12/07/2016 22:31:53 Confirmation # [id number] Dictation # [id number] jn
--- NOTE | 2016-12-08 00:05 | PN ---
DATE: 12/07/2016 ADDENDUM: This is an addendum to the GI progress report dictated by Elo Casiano APN. The patient was seen and evaluated earlier. Tolerating the diet, appears more alert and comfortable. Hemoglobin remained stable at 10.1. No obvious melena or bleeding. RECOMMENDATIONS: Would recommend to continue the empiric therapy with PPI. History of anemia, drop in blood count and no obvious external bleeding . Follow up with the hemoglobin and hemat ocrit and transfuse. Thank you very much for allowing us to participate in the care of the patient. Celestino Laboy MD cc: [phone] TT: 12/08/2016 00:03:59 Confirmation # [id number] Dictation # [id number] mn
--- NOTE | 2016-12-08 00:33 | PN ---
DATE: 12/07/2016 ADDENDUM: This is an addendum to the GI progress report dictated by Elo Casiano NP. SUBJECTIVE: The patient is tolerating the diet, had bowel movements on MiraLax. History of celiac d isease. PHYSICAL EXAMINATION: ABDOMEN: Soft. There is no tenderness. Thank you very much for allowing us to participate in the care of the patient. Celestino Laboy MD cc: [id number] TT: 12/08/2016 00:32:52 Confirmation # [id number] Dictation # [id number] mn
[2016-12-08] MEDS ORDERED: HYDROmorphone 1 mg/ml ISec IVP STA (02:54)
[2016-12-08] MEDS: Meropenem 1g/NS 100mL IVPB 1 GM/100 ML PIGGYBACK IVPB SCH ×3 (06:08→21:21)
[2016-12-08 06:36] LABS: BLOOD UREA NITROGEN 17 mg/dL (7-21); CALCIUM 9.1 mg/dL (8.4-10.5); CARBON DIOXIDE 32 mmol/L (21-33); CHLORIDE 99 mmol/L (95-110); GFR AFRICAN-AMERICAN > 60; GLUCOSE,RANDOM 92 mg/dL (70-110); MAGNESIUM 1.7 mg/dL (1.7-2.2); PHOSPHOROUS 3.1 mg/dL (2.5-4.5); POTASSIUM 3.8 mmol/L (3.6-5.0); SODIUM 136 mmol/L (132-148)
[2016-12-08] MEDS: Budesonide 0.5 mg/2 ml Inhal Susp UD IH SCH ×2 (07:00→19:27)
[2016-12-08] MEDS: Acetylcysteine 20% Inhal Soln (4ml) IH SCH ×2 (07:00→19:27)
[2016-12-08] MEDS: Arformoterol 15 mcg/2 ml Inh Sol IH SCH ×2 (07:00→19:27)
--- NOTE | 2016-12-08 08:23 | PN ---
DATE: 12/07/2016 The patient complained of left-sided chest pain as he always does and asking for pain medications. T he patient also noted he has infiltrates in his lung with respiratory symptoms. Will reconsult ID. Does not look like any infiltrate. It does not look like malignancy related or any spread of his can cer; it is more on the right side. He complains of left side chest pain which is since biopsy. The patient otherwise no new complaint. He is getting his pain management around the clock. He moved hi s bowels. Otherwise stable. PHYSICAL EXAMINATION: VITAL SIGNS: Temperature is 98, heart rate 94, blood pressure 113/62, respiration 22, saturating 95% . HEAD AND NECK: Normal. No JVD, no thyromegaly. CHEST: Diminished breath sounds, more on the left than the right. CARDIAC: First sound, second sound normal. ABDOMEN: Soft, nontender. EXTREMITIES: No edema. NEUROLOGIC: Generally weak but moves all extremities. He is alert, awake, oriented x 3. LABORATORY DATA: Shows white count 9.5, hemoglobin 10.1, hematocrit 31.6, platelets are 535. Chemis try shows potassium of 5.4, sodium 133, potassium 5.4, chloride 96, bicarb 29, BUN 21, creatinine 0.6 , blood sugar 128, calcium is 10. Chest x-ray shows ____ pneumonia, a right lower lobe pneumonia. IMPRESSION: 1. Right lower lobe pneumonia; probably this is a nosocomial pneumonia. Will continue meropenem and vancomycin. ID consult, and Dr. Vargas also for pulmonary consult. The patient had initially leuko cytosis; however, his white count, came down good 2. Chronic left side chest pain. Continue pain management. The patient is getting Dilaudid 2 mg ev charly 3 hours in addition to Duragesic patch increased to 100 every 3 days, in addition to oxycodone 15 mg every 4 hours p.r.n. 3. Chronic constipation or opioid-induced constipation. He is getting Relistor injections in additi on to MiraLax, Dulcolax, and lactulose p.r.n. 4. Chronic obstructive pulmonary disease. The patient currently is not wheezing. Seems stable on I V and inhaled steroids. Will continue current treatment. 5. Generalized weakness. The patient advised to go for subacute rehab for at least 2 weeks; however , family has some restrictions, she does want that. Will continue current therapy for now. Discuss more with the family/the daughter. Diego Greer MD cc: [phone] TT: 12/08/2016 08:20:18 Confirmation # [id number] Dictation # [id number] mn
[2016-12-08] MEDS: POLYETHYLENE GLYCOL 3350 17 GM/Dose PACKET PO SCH ×2 (09:33→17:28)
[2016-12-08] MEDS: Lidocaine 5% Patch TD SCH (09:33)
[2016-12-08] MEDS: HYDROmorphone 1 mg/ml ISec IVP PRN ×4 (09:33→21:33)
[2016-12-08] MEDS: Multivitamin Therapeutic Tab PO SCH (09:34)
[2016-12-08] MEDS: MethylPREDNISolone 40 mg Vial IVP SCH (09:34)
[2016-12-08] MEDS: Pantoprazole 40 mg EC Tab PO SCH (09:35)
[2016-12-08] MEDS: Vancomycin 1gm in NS 250ml 1 GM/250 ML BAG IVPB SCH (11:22)
--- NOTE | 2016-12-08 11:33 | PN ---
DATE: 12/08/2016 The patient is in room 367, bed #2. REASON FOR CONSULTATION AND FOLLOWUP: Sinus tachycardia, lung carcinoma, chest pain, hyperkalemia. HISTORY OF PRESENT ILLNESS: The patient is a 71-year-old male with past medical history significant for lung carcinoma which is causing his chest pain, having chest pain in the left posteriorly. The p atient, during pain, also developed sinus tachycardia which was related to his chest pain. The patie nt's echo on this admission showed ejection fraction 42%. The patient is lying flat in bed without a ny respiratory distress, still complaining about the chest pain. Breathing has been stable. PHYSICAL EXAMINATION: VITAL SIGNS: Blood pressure 121/63, respirations 20, pulse 75, temperature 97.6. HEAD: Normocephalic. EYES: Pupils normal. Conjunctivae are slightly pale. NECK: JVP low. Carotids equal. THORAX: AP diameter normal. The patient had tenderness in the area of the chest pain. LUNGS: No significant rales. CARDIOVASCULAR: S1, S2. ABDOMEN: Soft, nontender, no organomegaly. EXTREMITIES: No clubbing, no cyanosis. LABORATORY DATA: WBC 9.5, hemoglobin 10.1, hematocrit 31.6, and platelet 535. Labs show sodium 136, potassium 3.8. Yesterday, potassium was 5.4. BUN 17, creatinine 0.4, calcium 9.1, phosphorus 3.1, m agnesium 1.7. DIAGNOSES: Chest pain secondary to lung carcinoma which is inoperable, sinus tachycardia related to the pain, chronic obstructive pulmonary disease, lung carcinoma. Echo showed left ventricular ejection fraction of 42%, which showed mildly reduced left ventricular systolic function, no pulmonar y hypertension on echo. Anemia, hyperkalemia, which has improved with a dose of Kayexalate yesterday . PLAN: The patient's potassium was 5.4 yesterday and Kayexalate was given and now today the potassium is normal. Continue symptomatic treatment of chest pain and continue ferrous sulfate 324 mg b.i.d., folic acid 1 mg daily, Lipitor 10 mg daily. The patient is on antibiotic meropenem 1 gram IV q. 8 h ours, Protonix 40 daily, methylprednisone 20 mg IV daily, atenolol 25 b.i.d., vancomycin 1 gram IV q. 12 hours. We will follow with you. Shell Rosario MD cc: [phone] TT: 12/08/2016 11:32:09 Confirmation # [id number] Dictation # [id number] rn
--- NOTE | 2016-12-08 12:27 | PN ---
DATE: 12/08/2016 Seen and examined at the bedside late this morning. The patient, no acute distress, occasional cough . No reports of hematemesis or hemoptysis. He reported having a bowel movement yesterday. No abdom inal pain. The patient states he may have seen blood. VITAL SIGNS: Temperature is 97.6, blood pressure 121/63, pulse 75, respirations 20, 100% nasal cannu la. Sodium 136, potassium is 3.8, BUN is 17, creatinine is 0.4. PHYSICAL EXAMINATION: HEENT: Sclera is anicteric. NECK: Supple. CARDIAC: S1, S2. LUNG SOUNDS: With decreased breath sounds with some rhonchi. Did not hear any rales or wheeze. ABDOMEN: With bowel sounds, soft, nondistended and nontender. ASSESSMENT: The patient with stage IV lung carcinoma with pneumonia. He has chronic constipation, m ay be secondary to opioid-induced constipation, chronic obstructive pulmonary disease. PLAN: Continue bowel regimen. He is on Dulcolax p.r.n. He is also getting lactulose in the evening and is on MiraLax b.i.d. The patient has also had doses of Relistor. Continue gastrointestinal pro phylaxis. He is on Protonix, on iron supplements, remains on oxycodone, Duragesic patch. He is also on IV antibiotics of meropenem and vancomycin. The patient was seen and case discussed with Dr. Laboy. Elo MELISSA cc: [phone] TT: 12/08/2016 12:26:42 Confirmation # [id number] Dictation # [id number] en
[2016-12-08] MEDS: CYANOCOBALAMIN PO SCH (15:40)
[2016-12-08] MEDS: THIAMINE PO SCH (15:40)
[2016-12-08] MEDS: PYRIDOXINE PO SCH (15:40)
[2016-12-08] MEDS: oxyCODONE 15 mg Immediate Release Tab PO PRN (15:52)
--- NOTE | 2016-12-08 20:26 | CP.PCM.PN ---
Subjective - Date & Time of Evaluation Date of Evaluation: 12/08/16 Time of Evaluation: 12:40 - Subjective Subjective: Less short of breath, no fevers overnight. Objective - Vital Signs/Intake and Output Vital Signs (last 24 hours): Temp Pulse Resp BP Pulse Ox 99 F 94 H 70 H 149/79 99 12/08/16 16:00 12/08/16 18:00 12/08/16 16:00 12/08/16 17:36 12/08/16 16:00 - Medications Medications: Current Medications Acetaminophen (Tylenol 325mg Tab) 650 mg PO Q6H PRN PRN Reason: Headache Last Admin: 12/05/16 21:09 Dose: 650 mg Acetylcysteine (Acetylcysteine 20%) 4 ml IH BIDRESP [facility] Last Admin: 12/08/16 19:27 Dose: 4 ml Albuterol/Ipratropium (Duoneb 3 Mg/0.5 Mg (3 Ml) Ud) 3 ml IH [id number] PRN PRN Reason: Shortness of Breath Last Admin: 12/07/16 18:01 Dose: 3 ml Alprazolam (Xanax) 0.25 mg PO BID DONNA PRN Reason: Protocol Stop: 12/09/16 20:16 Last Admin: 12/08/16 17:36 Dose: 0.25 mg Arformoterol Tartrate (Brovana) 15 mcg IH [id number] [facility] Last Admin: 12/08/16 19:27 Dose: 15 mcg Atenolol (Tenormin) 25 mg PO BID DONNA Last Admin: 12/08/16 17:36 Dose: 25 mg Atorvastatin Calcium (Lipitor) 10 mg PO DAILY [facility] Last Admin: 12/08/16 09:35 Dose: 10 mg Bisacodyl (Dulcolax) 5 mg PO DAILY PRN PRN Reason: Constipation Last Admin: 12/06/16 10:51 Dose: 5 mg Budesonide (Pulmicort Respules) 0.5 mg IH [id number] [facility] Last Admin: 12/08/16 19:27 Dose: 0.5 mg Ergocalciferol (Drisdol 50,000 Intl Units Cap) 1 cap PO Q7D [facility] Last Admin: 12/05/16 17:05 Dose: 1 cap Fentanyl (Duragesic) 1 patch TD Q72H [facility] Last Admin: 12/08/16 17:35 Dose: 1 patch Ferrous Sulfate (Feosol) 324 mg PO BID [facility] Last Admin: 12/08/16 17:36 Dose: 324 mg Folic Acid (Folic Acid) 1 mg PO DAILY [facility] Last Admin: 12/08/16 09:34 Dose: 1 mg Hydromorphone HCl (Dilaudid) 1 mg IVP Q3H PRN PRN Reason: Pain, moderate (4-7) Last Admin: 12/08/16 17:35 Dose: 1 mg Meropenem 1g/NS 100mL IVPB (Meropenem 1g/Ns 100ml Ivpb) 1 gm in 100 mls @ 100 mls/hr IVPB Q8 [facility] PRN Reason: Protocol Stop: 12/14/16 14:01 Last Admin: 12/08/16 13:34 Dose: 100 mls/hr Vancomycin HCl (Vancomycin 1gm) 1 gm in 250 mls @ 167 mls/hr IVPB Q12H [facility] PRN Reason: Protocol Last Admin: 12/08/16 11:22 Dose: 167 mls/hr Lactulose (Enulose) 20 gm PO HS [facility] Last Admin: 12/07/16 21:25 Dose: 20 gm Lidocaine (Lidoderm) 2 ea TD DAILY [facility] Last Admin: 12/08/16 09:33 Dose: 2 ea Methylprednisolone (Solu-Medrol) 20 mg IVP DAILY [facility] Last Admin: 12/08/16 09:34 Dose: 20 mg Mirtazapine (Remeron) 30 mg PO HS [facility] Last Admin: 12/07/16 21:26 Dose: 30 mg Multivitamins (Thera Tab) 1 tab PO DAILY [facility] Last Admin: 12/08/16 09:34 Dose: 1 tab Non-Formulary Medication (Vit B12/Pyridoxine/Thiamine [Pv Neuro Nisha Tablet]) 1 ,000 mg PO DAILY [facility] Last Admin: 12/08/16 15:40 Dose: Not Given Oxycodone HCl (Oxycodone Immediate Release Tab) 15 mg PO Q4H PRN PRN Reason: Pain, moderate (4-7) Last Admin: 12/08/16 15:52 Dose: 15 mg Pantoprazole Sodium (Protonix Ec Tab) 40 mg PO DAILY [facility] Last Admin: 12/08/16 09:35 Dose: 40 mg Polyethylene Glycol (Miralax) 17 gm PO BID [facility] Last Admin: 12/08/16 17:28 Dose: Not Given Roflumilast (Daliresp) 500 mcg PO DAILY [facility] Last Admin: 12/08/16 09:35 Dose: 500 mcg Zolpidem Tartrate (Ambien) 10 mg PO HS PRN; Protocol PRN Reason: Insomnia Last Admin: 12/06/16 20:26 Dose: 10 mg - Labs Labs: 12/07/16 06:50 12/08/16 06:15 PT 13.7 Seconds (9.9-11.8) H 11/28/16 11:52 INR 1.27 (0.93-1.08) H 11/28/16 11:52 APTT 35.9 Seconds (23.7-30.8) H 11/28/16 11:52 - Constitutional Appears: Non-toxic, No Acute Distress - Head Exam Head Exam: NORMAL INSPECTION - Neck Exam Neck Exam: absent: Lymphadenopathy, Meningismus - Respiratory Exam Respiratory Exam: Decreased Breath Sounds - Cardiovascular Exam Cardiovascular Exam: +S1, +S2 - GI/Abdominal Exam GI & Abdominal Exam: Soft. absent: Tenderness Assessment and Plan - Assessment and Plan (Free Text) Plan: Assessment R/O HCAP in this patient being treated for COPD exacerbation history of hospital-acquired pneumonia lung cancer on chemotherapy chronic anemia dyslipidemia S/P appendectomy Plan on Vancomycin and Merrem day 2; blood cx negative x 24 hours and PCT is normal - if cultures continue to be negative, will switch antibiotics to Doxycycline; will d/c Vancomycin since there is no evidence of MRSA Will monitor clinically
--- NOTE | 2016-12-08 23:18 | PN ---
DATE: 12/08/2016 PULMONARY PROGRESS NOTE REFERRING PHYSICIAN: Dr. Greer. SUBJECTIVE: He is lying in the bed; daughter is at bedside. Complaining about left-sided rib pain, mild cough. No nausea, no vomiting, diarrhea. No leg pain or leg swelling. OBJECTIVE: GENERAL: No acute distress. VITAL SIGNS: Temperature is 99, heart rate is 94, respiratory rate is 20, blood pressure 149/79, pul se ox 99% on nasal cannula. HEENT: Moist mucous membranes. NECK: Supple. No JVD. LUNGS: Has scattered rhonchi. HEART: S1, S2. ABDOMEN: Soft, nontender. No organomegaly. EXTREMITIES: There is no edema. NEUROLOGIC: Awake, alert, follows simple command. MEDICATIONS: He is on Mucomyst 20% inhaled twice a day, Ambien 10 mg at bedtime, Brovana inhaled twi ce a day, Daliresp 500 mcg daily, Dilaudid 1 mg q. 3 hours p.r.n., vitamin D 50,000 units weekly, Dul colax 5 mg daily p.r.n., DuoNeb q. 6 hours, Duragesic patch q. 72 hours, lactulose 20 grams at bedtim e, ferrous sulfate 324 mg twice a day, folic acid 1 mg daily, Lidoderm patch daily, Lipitor 10 mg alvaro ly, meropenem 1 g IV q. 8 hours, MiraLax 17 grams twice a day, oxycodone immediate release 15 mg q. 4 hours p.r.n., Protonix 40 mg daily, Pulmicort inhaled twice daily, Remeron 30 mg at bedtime, Solu-Me drol 20 mg daily, Tenormin 25 mg twice a day, multivitamins daily, Tylenol p.r.n. basis, vitamin B12, thiamine and tablet 1000 mg daily. LABORATORY DATA: Reviewed. Sodium 136, potassium 3.8, chloride 99, bicarbonate 32, BUN 17, creatini ne , glucose 92, calcium is 9.1, phosphorus 3.1, magnesium 1.7. Microbiology: Blood cultures h ave been negative. 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 We will get bone scan to show there is no metastatic disease t o bone. Gastric prophylaxis. DVT prophylaxis. Continue antibiotics as per infectious diseases. Ou t of bed to chair. Thank you and will follow with you. Shell Vargas MD cc: [phone] TT: 12/08/2016 23:17:40 Confirmation # [id number] Dictation # [id number] mn
--- NOTE | 2016-12-09 00:28 | PN ---
DATE: 12/08/2016 LOCATION: The patient is in room 367, bed 2. 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 He is admitted to the hospital with failure to thrive, healthcare-associated pneumonia, sinus tachycardia, chest pain, and hyperkalemia. HOSPITAL COURSE: The patient's pain medicines have been adjusted. He is on Duragesic 100 mcg an hour_ mcg patches that are changed every 72 hours and the patient has been increased from 75 to 100 just 2 days ago. He is also on Dilaudid IV q. 3 hours p.r.n. and oxycodone orally q. 4 hours for mild to moderate pain. Most of the pain is in the left side where he had a chest tube and thoracotomy done for persistent pleural effusion. He continues to have pain there. The patient's appetite has been affected and overall, significantly , his activities of daily living have also been affected as the patient spends more than 50% of his time in the bed. The patient, during the times when he gets the severe pain, also gets sinus tachycardia. The patient's echo showed an ejection fraction of 42%. The patient is lying in bed flat without any acute respiratory distress, but still complaining of left-sided rib cage pain. The patient is also getting Lidoderm patches, 2 patches at a time applied across that thoracostomy site to alleviate the pain. SUBJECTIVE: The patient tells me pain is a big issue. The patient's constipation appears to be slightly improved and he did have a bowel movement yesterday, but, philomena problem has been the pain and this has really taken the quality of life out of him. OBJECTIVE: VITAL SIGNS: Stable. Blood pressure is 121/63, respirations 20, pulse 75, T- max of 97.6. HEENT: Head is normocephalic, atraumatic. Temporal muscle wasting is noted. Examination of the eyes reveals conjunctivae to be pale. Pupils are equally reactive to light and accommodation. Examination of the oropharynx reveals no oropharyngeal lesions. The patient is edentulous. NECK: Supple. There is no adenopathy. No jugular venous distention noted. CHEST: AP diameter is normal. The patient has tenderness over the left ribcage over the 7th, 8th, 9th and 10th ribs along the anterior axillary line. LUNGS: Reveal no significant findings such as rales or rhonchi with decreased breath sounds at the bases. ABDOMEN: Soft, nontender without masses. No organomegaly is noted. No rebound , rigidity or guarding is noted. EXTREMITIES: Reveal no cyanosis, clubbing or edema. NEUROLOGIC: Higher functions are normal. No focal deficits are noted on neurologic exam. LABORATORY DATA: Reveals a white count 9.5, hemoglobin 10.1, hematocrit 31.6, platelet count of 535. Electrolytes reveal sodium of 136, potassium 3.8, BUN 17 , creatinine 0.4, calcium 9.1, phosphorus 3.1, magnesium of 1.7. ASSESSMENT NOTES AND PLAN: The patient has stage IV lung cancer, which is inoperable, status post chemotherapy. The patient has not gotten radiation for the pain and it may not be a bad idea for radiation oncology to reassess if indeed the pain has been caused by tumor. Getting a bone scan would also be of some help to ascertain the nature of the pain. If it is indeed from bone mets, he may be able to be a candidate for radiation. Meanwhile, the patient's pain medicines are being adjusted and we will continue to increase the dose of the medicine gingerly until the pain is bearable for the patient. The patient continues to be on antibiotic Merrem 1 gram IV q. 8 hours, Protonix 40 daily, methylprednisolone 20 mg IV daily, atenolol 25 b.i.d. and vancomycin 1 gram q. 12 hours. I told the patient that I would speak to Dr. Greer and also his daughter as to what the best management should be for the immediate future help him get better. Routine post exam instructions have been given to the patient. Orders have been placed. Josee Ma MD cc: [phone] TT: 12/09/2016 00:28:14 Confirmation # [id number] Dictation # [id number] ronaldo GAY
[2016-12-09] MEDS: HYDROmorphone 1 mg/ml ISec IVP PRN ×4 (03:38→17:55)
[2016-12-09] MEDS: Meropenem 1g/NS 100mL IVPB 1 GM/100 ML PIGGYBACK IVPB SCH ×2 (05:27→13:38)
[2016-12-09] MEDS: Arformoterol 15 mcg/2 ml Inh Sol IH SCH ×2 (07:56→22:25)
[2016-12-09] MEDS: Acetylcysteine 20% Inhal Soln (4ml) IH SCH ×2 (07:56→22:25)
[2016-12-09] MEDS: Budesonide 0.5 mg/2 ml Inhal Susp UD IH SCH ×2 (07:57→22:25)
--- NOTE | 2016-12-09 08:27 | PN ---
DATE: 12/08/2016 ADDENDUM This is an addendum to the GI progress report dictated by Elo Casiano APN. The patient has stage IV lung cancer ,COPD admitted with pneumonia, admitted with opioid-induced constipation, fecal impaction. Did receive twice Relistor. He has been on MiraLax regimen. History of celiac disease, also on iron supplement. Continue the antibiotics. Continue the bowel regimen now. The patient may benefit from outpatient Amitiza for this narcotic-induced constipation. Thank you very much for allowing us to participate in the care of the patient. Celestino Laboy MD cc: [phone] TT: 12/09/2016 08:26:32 Confirmation # [id number] Dictation # [id number] jn MTDD
[2016-12-09] MEDS: MethylPREDNISolone 40 mg Vial IVP SCH (10:39)
[2016-12-09] MEDS: Pantoprazole 40 mg EC Tab PO SCH (10:41)
[2016-12-09] MEDS: POLYETHYLENE GLYCOL 3350 17 GM/Dose PACKET PO SCH ×2 (10:41→17:53)
[2016-12-09] MEDS: Multivitamin Therapeutic Tab PO SCH (10:42)
[2016-12-09] MEDS: CYANOCOBALAMIN PO SCH (10:45)
[2016-12-09] MEDS: THIAMINE PO SCH (10:45)
[2016-12-09] MEDS: Lidocaine 5% Patch TD SCH (10:45)
[2016-12-09] MEDS: PYRIDOXINE PO SCH (10:45)
--- NOTE | 2016-12-09 11:03 | PN ---
DATE: 12/09/2016 Seen and examined at the bedside this morning. He does report having bowel movement and denies any a bdominal pain. No reports of any bleeding. VITAL SIGNS: Temperature os afebrile, blood pressure 149/79, respirations are 20, 99 nasal cannula. LABORATORY DATA: No new labs are noted today. PHYSICAL EXAMINATION: HEENT: Sclerae are anicteric. NECK: Supple. CARDIAC: S1, S2. LUNGS: With decreased breath sounds and positive rhonchi. No wheezing. ABDOMEN: With bowel sounds. Soft, nondistended, nontender. No organomegaly. EXTREMITIES: No edema. ASSESSMENT: This 71-year-old patient has a history of stage IV lung cancer and pneumonia, has chroni c obstructive pulmonary disease, and chronic constipation which seems to have improved. He has been moving his bowels and not complaining of any abdominal pain, likely secondary to opioid-induced const ipation. History of celiac disease. PLAN: We will continue the bowel regimen. He is on MiraLax b.i.d. He is also getting Dulcolax p.r. n. Is on iron. Remains on Duragesic patch, Dilaudid, oxycodone and is also receiving lactulose in t he evening. Continue the gluten-free diet as tolerated. The patient was seen and case discussed yudith Laboy. Elo MELISSA cc: [phone] TT: 12/09/2016 11:03:20 Confirmation # [id number] Dictation # [id number] mn
--- NOTE | 2016-12-09 12:30 | PN ---
DATE: 12/08/2016 The patient on 12/08 seems comfortable, very well and has good analgesia. The patient is sedated. He has no respiratory distress. He seems very comfortable, currently on meropenem and vancomycin for h is pneumonia. PHYSICAL EXAMINATION: GENERAL: The patient does not have any respiratory distress at this time. VITAL SIGNS: Temperature is 99, respirations 18, blood pressure 104/55 and saturation 99% on 2 L. HEAD AND NECK: Normal. No JVD, no thyromegaly. CHEST: Diminished breath sounds on the left. CARDIAC: First sound, second sound normal. ABDOMEN: Soft, nontender. EXTREMITIES: No edema. NEUROLOGIC: The patient moves all extremities. He is alert, awake, oriented. LAST LABORATORY STUDIES: White count 9.5, hemoglobin 10.1, hematocrit 31.6, platelets 535. Chemistr y: Sodium 136, potassium 3.8, chloride 99, bicarb 32, BUN 17, creatinine 0.4. Liver function test i s normal. IMPRESSION AND PLAN: 1. Nosocomial pneumonia, right lower lobe. Continue IV vancomycin and meropenem. Stable pulmonary sheets. Continue inhaled and IV bronchodilators and oxygen 2 L nasal cannula. 2. Chronic left severe persistent intractable left side chest pain. The patient has left side cance r, had a biopsy done. The patient always complains of left side pain, has been adequately analgesia and seems stable on current medication. We will hold off on any intervention at this time. Continue current treatment. 3. Lung cancer. Will follow up with Dr. Ma. Cancer sheets, according to Dr. Ma, he got anuradha ugh chemotherapy. We may need to repeat PET scan to see if any residual cancer cells somewhere. We will get a bone scan and we will get a PET scan. We will continue current treatment. Continue curre nt medication. Follow up with him and thank you. 4. We are going to talk about chronic constipation, seems to be doing well with Relistor, MiraLax an d Dulcolax suppository and pills p.r.n. Seems doing well with that. We will continue current treatm ents. We will follow up clinically. I spoke with the daughter about her dad's condition and will co ntinue current treatment. Diego Greer MD cc: [phone] TT: 12/09/2016 12:30:06 Confirmation # [id number] Dictation # [id number] tn
--- NOTE | 2016-12-09 13:22 | PN ---
DATE: 12/09/2016 The patient is in room 367, bed #2. REASON FOR CONSULTATION AND FOLLOWUP: Sinus tachycardia, lung carcinoma, chest pain, hyperkalemia, c hronic obstructive pulmonary disease. HISTORY OF PRESENT ILLNESS: The patient is a 71-year-old male who is known to have stage IV lung car cinoma, COPD, intractable left-sided chest pain due to carcinoma, had developed sinus tachycardia whi ch was related to his chest pain. Echo showed slightly reduced LV systolic function with ejection fr action 42%. The patient now denies any shortness of breath, but he continues to have left chest pain . Denies palpitation. The patient is also under treatment for pneumonia. PHYSICAL EXAMINATION: VITAL SIGNS: Blood pressure 110/62, respirations 22, pulse 70, temperature 97.8. HEAD: Normocephalic. EYES: Pupils normal. Conjunctivae are slightly pale. NECK: JVP low. Carotids equal. THORAX: AP diameter normal. LUNGS: No significant rales. CARDIOVASCULAR: S1, S2. ABDOMEN: Soft, nontender, no organomegaly. EXTREMITIES: No clubbing, no cyanosis. CHEST WALL: The patient had tenderness on the area of the severe pain on the left. LABORATORY DATA: WBC 9.5, hemoglobin 10.1, hematocrit 31.6, platelets 535. Sodium 136, potassium 3. 8, BUN 17, creatinine 0.4, glucose 92, calcium 9.1, phosphorus 3.1, magnesium 1.7. DIAGNOSES: Chest pain secondary to lung carcinoma, sinus tachycardia related to pain, stage IV lung carcinoma, chronic obstructive pulmonary disease, mild left ventricular dysfunction on echo, anemia, hyperkalemia has improved. PLAN: Continue DuoNeb hand nebulizer therapy, ferrous sulfate 324 b.i.d., folic acid 1 mg daily, Lip itor 10 mg daily, meropenem 1 gram IV q. 8 hours, Protonix 40 p.o. daily, atenolol 25 mg b.i.d., meth ylprednisone 20 mg IV daily. We will continue present therapy and will follow with you. Shell Rosario MD cc: [phone] TT: 12/09/2016 13:22:04 Confirmation # [id number] Dictation # [id number] rn
--- NOTE | 2016-12-09 18:14 | PN ---
DATE: 12/09/2016 PULMONARY PROGRESS NOTE REFERRING PHYSICIAN: Dr. Greer. SUBJECTIVE: He is lying in the bed, head 45 degrees. He just come back from nuclear scan. Breathin tracie is okay, but mostly complaining about left side rib cage pain. No nausea, no vomiting, no diarrhea . No leg pain or leg swelling. OBJECTIVE: GENERAL: No acute distress. VITAL SIGNS: Temp is 98, heart rate is , respiratory rate is 20, blood pressure 107/61, pulse o x 100% on 2 liters nasal cannula. HEENT: Moist mucous membrane. Crowded airway. NECK: Supple. No JVD. LUNGS: Has a fair airflow with few rhonchi, has tenderness in the left rib cage, especially 6-7 rib area. HEART: S1, S2. ABDOMEN: Soft, nontender. No organomegaly. EXTREMITIES: There is no edema. NEUROLOGIC: Awake, alert, follows simple commands. MEDICATIONS: He is on Mucomyst 20% inhaled twice a day, Ambien 10 mg at bedtime p.r.n., Brovana 15 m cg inhaled twice a day, Daliresp 500 mcg daily, Dilaudid 1 mg q. 3 hours p.r.n., vitamin D 50,000 uni ts q. 7 days, Dulcolax 5 mg daily p.r.n., DuoNeb q. 6 hours, Duragesic patch q. 72 hours, lactulose 2 0 grams p.o. at bedtime, ferrous sulfate 324 mg twice a day, folic acid 1 mg daily, lidocaine patch d aily, atorvastatin 10 mg daily, meropenem 1 gram IV q. 8 hours, MiraLax 17 grams p.o. twice a day, ox ycodone immediate release 15 mg q. 4 hours p.r.n., Protonix 40 mg daily, Pulmicort inhaled twice a d ay, 30 mg at bedtime, Solu-Medrol 20 mg daily, Tenormin 25 mg twice a day, multivitamins daily, Tylenol p.r.n. basis. Vitamin B12, , thiamine 1000 mg daily. Xanax 0.25 mg twice a day. LABORATORY DATA: Shows no new lab is available since yesterday. MICROBIOLOGY: Blood culture has been negative. He has a bone scan done, but report is pending. 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 Status post nuclear scan, report is pending. Continue p.o. and inhaled broncho dilator. Antibiotics as per infectious diseases. Gastric prophylaxis. Sequential compression devic e to lower extremity. Out of bed to chair, physical therapy, pain management. Thank you and will fo llow with you. Shell Vargas MD cc: [phone] TT: 12/09/2016 18:14:18 Confirmation # [id number] Dictation # [id number] mn
--- NOTE | 2016-12-09 18:15 | NM ---
PROCEDURE: Whole Body Bone Scan HISTORY: r/o mets, lung cancer COMPARISON: None available. TECHNIQUE: Following administration of 28.7 miCu of Tc MDP multiplanar whole body images were obtained. FINDINGS: Evidence for bony metastatic disease: None. Degenerative uptake: None. Physiologic uptake: Normal physiologic activity in the kidneys. Other findings: Mild thoracolumbar scoliosis. IMPRESSION: No evidence of bony metastatic disease.
[2016-12-09] MEDS: oxyCODONE 15 mg Immediate Release Tab PO PRN (20:29)
--- NOTE | 2016-12-09 21:32 | CP.PCM.PN ---
Subjective - Date & Time of Evaluation Date of Evaluation: 12/09/16 Time of Evaluation: 12:30 - Subjective Subjective: Comfortable, afebrile, not in distress. Objective - Vital Signs/Intake and Output Vital Signs (last 24 hours): Temp Pulse Resp BP Pulse Ox 97.6 F 89 64 H 108/60 95 12/09/16 16:00 12/09/16 18:00 12/09/16 16:00 12/09/16 17:54 12/09/16 16:00 Intake and Output: 12/09/16 12/10/16 18:59 06:59 Intake Total 0 Output Total 400 Balance -400 - Medications Medications: Current Medications Acetaminophen (Tylenol 325mg Tab) 650 mg PO Q6H PRN PRN Reason: Headache Last Admin: 12/05/16 21:09 Dose: 650 mg Acetylcysteine (Acetylcysteine 20%) 4 ml IH BIDRESP DONNA Last Admin: 12/09/16 07:56 Dose: 4 ml Albuterol/Ipratropium (Duoneb 3 Mg/0.5 Mg (3 Ml) Ud) 3 ml IH [id number] PRN PRN Reason: Shortness of Breath Last Admin: 12/07/16 18:01 Dose: 3 ml Arformoterol Tartrate (Brovana) 15 mcg IH [id number] DONNA Last Admin: 12/09/16 07:56 Dose: 15 mcg Atenolol (Tenormin) 25 mg PO BID DONNA Last Admin: 12/09/16 17:54 Dose: 25 mg Atorvastatin Calcium (Lipitor) 10 mg PO DAILY DONNA Last Admin: 12/09/16 10:39 Dose: 10 mg Bisacodyl (Dulcolax) 5 mg PO DAILY PRN PRN Reason: Constipation Last Admin: 12/06/16 10:51 Dose: 5 mg Budesonide (Pulmicort Respules) 0.5 mg IH [id number] [facility] Last Admin: 12/09/16 07:57 Dose: 0.5 mg Doxycycline Hyclate (Doryx) 100 mg PO Q12 DONNA PRN Reason: Protocol Ergocalciferol (Drisdol 50,000 Intl Units Cap) 1 cap PO Q7D DONNA Last Admin: 12/05/16 17:05 Dose: 1 cap Ferrous Sulfate (Feosol) 324 mg PO BID DONNA Last Admin: 12/09/16 17:55 Dose: 324 mg Folic Acid (Folic Acid) 1 mg PO DAILY [facility] Last Admin: 12/09/16 10:39 Dose: 1 mg Hydromorphone HCl (Dilaudid) 2 mg IVP Q3H PRN PRN Reason: Pain, severe (8-10) Lactulose (Enulose) 20 gm PO HS [facility] Last Admin: 12/08/16 21:21 Dose: 20 gm Lidocaine (Lidoderm) 2 ea TD DAILY [facility] Last Admin: 12/09/16 10:45 Dose: 2 ea Methylprednisolone (Solu-Medrol) 20 mg IVP DAILY [facility] Last Admin: 12/09/16 10:39 Dose: 20 mg Mirtazapine (Remeron) 30 mg PO HS [facility] Last Admin: 12/08/16 21:21 Dose: 30 mg Multivitamins (Thera Tab) 1 tab PO DAILY [facility] Last Admin: 12/09/16 10:42 Dose: 1 tab Non-Formulary Medication (Vit B12/Pyridoxine/Thiamine [Pv Neuro Nisha Tablet]) 1 ,000 mg PO DAILY [facility] Last Admin: 12/09/16 10:45 Dose: Not Given Oxycodone HCl (Oxycodone Immediate Release Tab) 15 mg PO Q4H PRN PRN Reason: Pain, moderate (4-7) Last Admin: 12/09/16 20:29 Dose: 15 mg Pantoprazole Sodium (Protonix Ec Tab) 40 mg PO DAILY [facility] Last Admin: 12/09/16 10:41 Dose: 40 mg Polyethylene Glycol (Miralax) 17 gm PO BID [facility] Last Admin: 12/09/16 17:53 Dose: 17 gm Roflumilast (Daliresp) 500 mcg PO DAILY [facility] Last Admin: 12/09/16 10:39 Dose: 500 mcg Zolpidem Tartrate (Ambien) 10 mg PO HS PRN; Protocol PRN Reason: Insomnia Last Admin: 12/06/16 20:26 Dose: 10 mg - Labs Labs: 12/07/16 06:50 12/08/16 06:15 PT 13.7 Seconds (9.9-11.8) H 11/28/16 11:52 INR 1.27 (0.93-1.08) H 11/28/16 11:52 APTT 35.9 Seconds (23.7-30.8) H 11/28/16 11:52 - Constitutional Appears: Non-toxic, No Acute Distress - Head Exam Head Exam: NORMAL INSPECTION - Neck Exam Neck Exam: absent: Lymphadenopathy, Meningismus - Respiratory Exam Respiratory Exam: Decreased Breath Sounds - Cardiovascular Exam Cardiovascular Exam: +S1, +S2 - GI/Abdominal Exam GI & Abdominal Exam: Soft. absent: Tenderness Assessment and Plan - Assessment and Plan (Free Text) Plan: Assessment R/O HCAP in this patient being treated for COPD exacerbation history of hospital-acquired pneumonia lung cancer on chemotherapy chronic anemia dyslipidemia S/P appendectomy Plan on Merrem day 3; blood cx negative x 48 hours and PCT is normal - will switch antibiotics to Doxycycline Will monitor clinically
--- NOTE | 2016-12-09 22:36 | PN ---
DATE: 12/09/2016 This is the patient's hospital visit on the medical floor. For Dr. Ma. SUBJECTIVE: The patient is a 71-year-old male seen lying awake in bed, reporting that his pain is ba ck with the patient now having a bone scan done earlier today to be reviewed. 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 At present, he reports that the pain has returned on the left rib area with the patient's Dilaudid to be adjusted for his pain. OBJECTIVE: VITAL SIGNS: Temperature 97.6, pulse 64, respirations 22, blood pressure 108/60, pulse ox 95%. HEENT: Unremarkable. NECK: Supple. HEART: Tachy rate, regular rhythm. LUNGS: Occasional rhonchi. Tenderness on the left ribs. ABDOMEN: Soft, nontender. EXTREMITIES: No edema. SKIN: Warm, dry and clear. NEUROLOGIC: Awake, alert and oriented. LABORATORY DATA: The patient's labs were done 2 days prior and they will be repeated in the morning. The patient did have a bone scan done earlier today. It was read as no evidence of bony metastatic d isease. The patient did have a CT scan of his chest on admission 11/28/2016, which was read as mass-like cons olidation along the peripheral aspect of the fissure along the left lung base, could represent atelectasis versus pneumonia, pleural thickening on the left, underlying pulmonary nodules suboptimal ly evaluated, scattered lymphadenopathy in the mediastinum. The patient did have a PET CT scan done on 06/22/2016; it was read as multiple small foci of increase d FDG activity seen the peripheral ports of the left chest with a maximum SUV of 7, largest foci was in the left chest lung base, diffuse pleural thickening, small foci pleural calcification left chest. No evidence mediastinal lymphadenopathy, questionable small increased FDG right lobe of the liver a djacent to the gallbladder. Otherwise, no evidence of distant metastases. Interval almost complete resolving of previously seen large left pleural effusion. ASSESSMENT: For this patient is intractable pain of cancer, questionable bony metastases to the ribs , chronic obstructive pulmonary disease, pulmonary fibrosis, anemia of chronic disease, constipation, cardiomyopathy, stage IV nonsmall cell adenocarcinoma, chronic back pain. PLAN: After conversation with Dr. Ma is to have a consult with radiation oncology, , w ith his analgesics suggested. His lab will be also checked in the morning. We will monitor clinical ly and with labs as indicated. Vincenzo Dias MD cc: [phone] TT: 12/09/2016 22:35:27 Confirmation # [id number] Dictation # [id number] mn
[2016-12-10] MEDS: HYDROmorphone 2 mg/ml ISec IVP PRN ×4 (00:28→19:47)
--- NOTE | 2016-12-10 00:35 | PN ---
DATE: 12/09/2016 ADDENDUM This is an addendum to the GI progress report dictated by Elo Casiano APN. This 71-year-old patient with Chronic constipation, celiac disease, stage IV lung cancer, COPD. The patient has been on antibiotics, Merrem, and this was changed to doxycycline now by ID. Continue the present bowel regimen. Thank you very much for allowing us to participate in the care of the patient. Celestino Laboy MD cc: [phone] TT: 12/10/2016 00:35:16 Confirmation # [id number] Dictation # [id number] brayan GAY
[2016-12-10 06:15] LABS: ADD MANUAL DIFF? NO
[2016-12-10 06:22] LABS: EOS % 0.8 % (1.5-5.0); GRAN # 2.46 (1.4-6.5); GRAN % 50.5 % (50.0-68.0); HEMATOCRIT 28.5 % (42.0-52.0); LYMPH # 0.9 (1.2-3.4); LYMPH % 18.7 % (22.0-35.0); MEAN CELL VOLUME 84.1 fL (80.0-105.0); MEAN CORPUSCULAR HEMOGLOBIN 26.5 pg (25.0-35.0); MEAN CORPUSCULAR HGB CONC 31.6 g/dl (31.0-37.0); MEAN PLATELET VOLUME 8.3 fl (7.0-11.0); MONO # 1.5 (0.1-0.6); PLATELET COUNT 481 10^3/uL (120.0-450.0); RED CELL DISTRIBUTION WIDTH 17.4 % (11.5-14.5); WHITE BLOOD COUNT 4.9 10^3/ul (4.5-11.0)
[2016-12-10 06:39] LABS: ALB/GLOB RATIO 1.1 (1.1-1.8); ALKALINE PHOSPHATASE 82 U/L (38-133); ALT/SGPT 61 U/L (7-56); AST/SGOT 44 U/L (15-59); BILIRUBIN,TOTAL 0.4 mg/dL (0.2-1.3); BLOOD UREA NITROGEN 20 mg/dL (7-21); CALCIUM 9.1 mg/dL (8.4-10.5); CARBON DIOXIDE 32 mmol/L (21-33); CHLORIDE 99 mmol/L (95-110); GFR AFRICAN-AMERICAN > 60; GLUCOSE,RANDOM 98 mg/dL (70-110); POTASSIUM 3.8 mmol/L (3.6-5.0); SODIUM 137 mmol/L (132-148)
[2016-12-10] MEDS: Acetylcysteine 20% Inhal Soln (4ml) IH SCH ×2 (08:21→19:44)
[2016-12-10] MEDS: Budesonide 0.5 mg/2 ml Inhal Susp UD IH SCH ×2 (08:22→19:45)
[2016-12-10] MEDS: Arformoterol 15 mcg/2 ml Inh Sol IH SCH ×2 (08:22→19:44)
--- NOTE | 2016-12-10 10:21 | PN ---
DATE: 12/09/2016 The patient is comfortable. His pain management seems better. He is stable. He is awake, alert, an d oriented. He moved his bowels. He is currently on IV meropenem and vancomycin. No other new comp laints. PHYSICAL EXAMINATION: VITAL SIGNS: Today temperature 97, heart rate ____, blood pressure 108/____, respiration 22, saturat ing 100% on 2 liters. HEAD AND NECK: No JVD, no thyromegaly. CHEST: Diminished breath sounds on the left side. CARDIAC: First and second sounds are normal. ABDOMEN: Soft, nontender. EXTREMITIES: No edema. NEUROLOGIC: The patient is normal. LABORATORY STUDIES: Will be ordered - CBC and comprehensive metabolic panel in the morning. The [facility] is also going to get a bone scan. Bone scan has been ordered by Dr. Ma to rule out any met astatic bone disease, and it was done, and there was no evidence of any bone metastasis. IMPRESSION AND PLAN: 1. Left-sided chest pain, etiology unclear. The patient required a lot of pain management. We will get maybe Dr. Ordaz to see him. Maybe a nerve block will help. We will do that. Maybe that will help and alleviate some of the pain medicines, which carry a risk of respiratory depression. This h as been explained to the patient and the daughter, which she is taking care of him. 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 2. ____ chronic obstructive pulmonary disease with nosocomial pneumonia. Continue current IV antibi otic. The patient currently has been on antibiotic, which will be switched to p.o. hopefully by infe ctious disease tomorrow. 3. Chronic constipation resolved. Continue current treatment. 4. Chronic insomnia. The patient is getting Ambien, Remeron, seems stable. Plan to continue current treatment. We may consider discharging the patient home. CURRENT MEDICATIONS: Mucomyst, Ambien, Brovana, Daliresp, Dilaudid IV, vitamin D, Dulcolax, DuoNeb, ____ lactulose, iron pills, folic acid, Lidoderm, Lipitor, MiraLax, oxycodone, Protonix, Pulmicort, Remeron, and he is getting Solu-Medrol once a day at 20, Tenormin 25 p.o. b.i.d., vitamin, multivitam in, Tylenol. The patient is also getting multivitamins. ___ the patient is also off, will be receiving meropenem and vancomycin, which will be discontinued, and we will switch the patient to p.o. antibiotic. Probably, the patient will be planned discharge t omorrow. Diego Greer MD cc: [phone] TT: 12/10/2016 10:05:37 Confirmation # [id number] Dictation # [id number] jn 12/10/2016 09:21:07
[2016-12-10] MEDS: MethylPREDNISolone 40 mg Vial IVP SCH (10:54)
[2016-12-10] MEDS: PYRIDOXINE PO SCH (10:55)
[2016-12-10] MEDS: CYANOCOBALAMIN PO SCH (10:55)
[2016-12-10] MEDS: THIAMINE PO SCH (10:55)
[2016-12-10] MEDS: Multivitamin Therapeutic Tab PO SCH (10:56)
[2016-12-10] MEDS: Lidocaine 5% Patch TD SCH (10:57)
[2016-12-10] MEDS: POLYETHYLENE GLYCOL 3350 17 GM/Dose PACKET PO SCH ×2 (10:59→18:33)
[2016-12-10] MEDS: Pantoprazole 40 mg EC Tab PO SCH (10:59)
--- NOTE | 2016-12-10 11:48 | PN ---
DATE: 12/10/2016 The patient is in room 367, bed 2. REASON FOR CONSULTATION AND FOLLOWUP: Sinus tachycardia, lung carcinoma, chest pain due to lung carc inoma, hyperkalemia, chronic obstructive pulmonary disease, and pneumonia. HISTORY OF PRESENT ILLNESS: The patient is a 71-year-old male known to have stage IV lung carcinoma, COPD, intractable left-sided chest pain due to carcinoma, developed sinus tachycardia, which was rel ated to chest pain and his underlying pulmonary condition. Echo showed slightly-reduced LV systolic function with ejection fraction 42%. The patient denies shortness of breath or palpitation, but cont inued to have pain for which he is being treated symptomatically. The patient clinically does not se em to be in any acute distress. PHYSICAL EXAMINATION: VITAL SIGNS: Blood pressure is 105/55, respirations 20, pulse 80, temperature 97.4. HEAD: Normocephalic. EYES: Pupils are normal. Conjunctivae are slightly pale. NECK: JVP is low. Carotids equal. THORAX: AP diameter normal. LUNGS: No significant rales. CARDIOVASCULAR: S1, S2. ABDOMEN: Soft, nontender. No organomegaly. Bowel sounds normal. EXTREMITIES: No clubbing, no cyanosis. LABORATORY DATA: WBC 4.9, hemoglobin 9.0, hematocrit 28.5, platelets 481. Sodium 137, potassium 3.8 , BUN 20, creatinine 0.5, total protein 6.0, albumin 3.1, globulin 2.8. AST 44, ALT 61. DIAGNOSES: Chest pain secondary to lung carcinoma, sinus tachycardia related to pain, stage IV lung carcinoma, chronic obstructive pulmonary disease, mild left ventricular dysfunction on echo. Anemia. Hyperkalemia has been improved. Pneumonia. PLAN: Chest pain related to carcinoma of the lung. We will continue to be treated symptomatically w ith analgesics. The patient is getting atenolol 25 mg b.i.d., methylprednisone 20 mg IV daily, atorvastatin 10 mg alvaro ly, folic acid 1 mg daily, ferrous sulfate 324 b.i.d., doxycycline hyclate 100 mg p.o. q. 12 hours. We will continue present therapy, and we will follow with you. Shell Rosario MD cc: [phone] TT: 12/10/2016 11:47:26 Confirmation # [id number] Dictation # [id number] jn
--- NOTE | 2016-12-10 17:15 | CP.PCM.PN ---
Subjective - Date & Time of Evaluation Date of Evaluation: 12/10/16 Time of Evaluation: 10:20 - Subjective Subjective: Seen and examined at bedside, reports having BM, no blood, denies abdominal pain , no SOB or chest pain. No acute overnight events reported. BOne scan no bony librado. Objective - Vital Signs/Intake and Output Vital Signs (last 24 hours): Temp Pulse Resp BP Pulse Ox 97.4 F L 80 20 108/60 100 12/10/16 08:02 12/10/16 10:54 12/10/16 08:02 12/10/16 10:54 12/10/16 08:02 Intake and Output: 12/10/16 12/10/16 06:59 18:59 Intake Total 420 360 Output Total 600 400 Balance -180 -40 - Medications Medications: Current Medications Acetaminophen (Tylenol 325mg Tab) 650 mg PO Q6H PRN PRN Reason: Headache Last Admin: 12/05/16 21:09 Dose: 650 mg Acetylcysteine (Acetylcysteine 20%) 4 ml IH BIDRESP [facility] Last Admin: 12/10/16 08:21 Dose: 4 ml Albuterol/Ipratropium (Duoneb 3 Mg/0.5 Mg (3 Ml) Ud) 3 ml IH [id number] PRN PRN Reason: Shortness of Breath Last Admin: 12/07/16 18:01 Dose: 3 ml Arformoterol Tartrate (Brovana) 15 mcg IH [id number] [facility] Last Admin: 12/10/16 08:22 Dose: 15 mcg Atenolol (Tenormin) 25 mg PO BID DONNA Last Admin: 12/10/16 10:54 Dose: 25 mg Atorvastatin Calcium (Lipitor) 10 mg PO DAILY [facility] Last Admin: 12/10/16 10:54 Dose: 10 mg Bisacodyl (Dulcolax) 5 mg PO DAILY PRN PRN Reason: Constipation Last Admin: 12/06/16 10:51 Dose: 5 mg Budesonide (Pulmicort Respules) 0.5 mg IH [id number] [facility] Last Admin: 12/10/16 08:22 Dose: 0.5 mg Doxycycline Hyclate (Doryx) 100 mg PO Q12 DONNA PRN Reason: Protocol Last Admin: 12/10/16 10:54 Dose: 100 mg Ergocalciferol (Drisdol 50,000 Intl Units Cap) 1 cap PO Q7D [facility] Last Admin: 12/05/16 17:05 Dose: 1 cap Ferrous Sulfate (Feosol) 324 mg PO BID [facility] Last Admin: 12/10/16 10:54 Dose: 324 mg Folic Acid (Folic Acid) 1 mg PO DAILY [facility] Last Admin: 12/10/16 10:53 Dose: 1 mg Hydromorphone HCl (Dilaudid) 2 mg IVP Q3H PRN PRN Reason: Pain, severe (8-10) Last Admin: 12/10/16 16:49 Dose: 2 mg Lactulose (Enulose) 20 gm PO HS [facility] Last Admin: 12/09/16 21:38 Dose: 20 gm Lidocaine (Lidoderm) 2 ea TD DAILY [facility] Last Admin: 12/10/16 10:57 Dose: 2 ea Methylprednisolone (Solu-Medrol) 20 mg IVP DAILY [facility] Last Admin: 12/10/16 10:54 Dose: 20 mg Mirtazapine (Remeron) 30 mg PO HS [facility] Last Admin: 12/09/16 21:38 Dose: 30 mg Multivitamins (Thera Tab) 1 tab PO DAILY [facility] Last Admin: 12/10/16 10:56 Dose: 1 tab Non-Formulary Medication (Vit B12/Pyridoxine/Thiamine [Pv Neuro Nisha Tablet]) 1 ,000 mg PO DAILY [facility] Last Admin: 12/10/16 10:55 Dose: Not Given Oxycodone HCl (Oxycodone Immediate Release Tab) 15 mg PO Q4H PRN PRN Reason: Pain, moderate (4-7) Last Admin: 12/09/16 20:29 Dose: 15 mg Pantoprazole Sodium (Protonix Ec Tab) 40 mg PO DAILY [facility] Last Admin: 12/10/16 10:59 Dose: 40 mg Polyethylene Glycol (Miralax) 17 gm PO BID [facility] Last Admin: 12/10/16 10:59 Dose: 17 gm Roflumilast (Daliresp) 500 mcg PO DAILY [facility] Last Admin: 12/10/16 10:53 Dose: 500 mcg Zolpidem Tartrate (Ambien) 10 mg PO HS PRN; Protocol PRN Reason: Insomnia Last Admin: 12/06/16 20:26 Dose: 10 mg - Labs Labs: 12/10/16 06:00 12/10/16 06:00 PT 13.7 Seconds (9.9-11.8) H 11/28/16 11:52 INR 1.27 (0.93-1.08) H 11/28/16 11:52 APTT 35.9 Seconds (23.7-30.8) H 11/28/16 11:52 - Constitutional Appears: No Acute Distress, Cachectic - Head Exam Head Exam: NORMAL INSPECTION - Eye Exam Eye Exam: Normal appearance. absent: Scleral icterus - ENT Exam ENT Exam: Mucous Membranes Moist - Neck Exam Neck Exam: Normal Inspection - Respiratory Exam Respiratory Exam: Decreased Breath Sounds, Rhonchi. absent: Respiratory Distress, NORMAL BREATHING PATTERN - Cardiovascular Exam Cardiovascular Exam: +S1, +S2 - GI/Abdominal Exam GI & Abdominal Exam: Soft, Normal Bowel Sounds. absent: Guarding, Tenderness, Rebound - Extremities Exam Extremities Exam: absent: Calf Tenderness, Pedal Edema - Neurological Exam Neurological Exam: Alert, Awake, Oriented x3 - Skin Skin Exam: Dry, Warm Assessment and Plan - Assessment and Plan (Free Text) Assessment: ASSESSMENT: Stage IV Lung cancer Pneumonia CPOD Chronic consitpation, narcotic induced, had few doses of Relistor Resolved abdominal pain Celiac Disease PLAN: continue Miralax, on Dulcolax prn, lacutolose in PM, monitor stools Pain control: durgesic patch, Dilaudid, oxycodone gluten-free diet as per oncology ID pulmonary Seen and case discussed with Dr. Laboy.
--- NOTE | 2016-12-10 17:55 | CP.PCM.PN ---
Subjective - Date & Time of Evaluation Date of Evaluation: 12/10/16 Time of Evaluation: 11:35 - Subjective Subjective: Comfortable, afebrile, not in distress, breathing better. Objective - Vital Signs/Intake and Output Vital Signs (last 24 hours): Temp Pulse Resp BP Pulse Ox 97.4 F L 80 20 108/60 100 12/10/16 08:02 12/10/16 10:54 12/10/16 08:02 12/10/16 10:54 12/10/16 08:02 Intake and Output: 12/10/16 12/10/16 06:59 18:59 Intake Total 420 360 Output Total 600 400 Balance -180 -40 - Medications Medications: Current Medications Acetaminophen (Tylenol 325mg Tab) 650 mg PO Q6H PRN PRN Reason: Headache Last Admin: 12/05/16 21:09 Dose: 650 mg Acetylcysteine (Acetylcysteine 20%) 4 ml IH BIDRESP DONNA Last Admin: 12/10/16 08:21 Dose: 4 ml Albuterol/Ipratropium (Duoneb 3 Mg/0.5 Mg (3 Ml) Ud) 3 ml IH [id number] PRN PRN Reason: Shortness of Breath Last Admin: 12/07/16 18:01 Dose: 3 ml Arformoterol Tartrate (Brovana) 15 mcg IH [id number] DONNA Last Admin: 12/10/16 08:22 Dose: 15 mcg Atenolol (Tenormin) 25 mg PO BID DONNA Last Admin: 12/10/16 10:54 Dose: 25 mg Atorvastatin Calcium (Lipitor) 10 mg PO DAILY [facility] Last Admin: 12/10/16 10:54 Dose: 10 mg Bisacodyl (Dulcolax) 5 mg PO DAILY PRN PRN Reason: Constipation Last Admin: 12/06/16 10:51 Dose: 5 mg Budesonide (Pulmicort Respules) 0.5 mg IH [id number] [facility] Last Admin: 12/10/16 08:22 Dose: 0.5 mg Doxycycline Hyclate (Doryx) 100 mg PO Q12 DONNA PRN Reason: Protocol Last Admin: 12/10/16 10:54 Dose: 100 mg Ergocalciferol (Drisdol 50,000 Intl Units Cap) 1 cap PO Q7D [facility] Last Admin: 12/05/16 17:05 Dose: 1 cap Ferrous Sulfate (Feosol) 324 mg PO BID [facility] Last Admin: 12/10/16 10:54 Dose: 324 mg Folic Acid (Folic Acid) 1 mg PO DAILY [facility] Last Admin: 12/10/16 10:53 Dose: 1 mg Hydromorphone HCl (Dilaudid) 2 mg IVP Q3H PRN PRN Reason: Pain, severe (8-10) Last Admin: 12/10/16 16:49 Dose: 2 mg Lactulose (Enulose) 20 gm PO HS [facility] Last Admin: 12/09/16 21:38 Dose: 20 gm Lidocaine (Lidoderm) 2 ea TD DAILY [facility] Last Admin: 12/10/16 10:57 Dose: 2 ea Methylprednisolone (Solu-Medrol) 20 mg IVP DAILY [facility] Last Admin: 12/10/16 10:54 Dose: 20 mg Mirtazapine (Remeron) 30 mg PO HS [facility] Last Admin: 12/09/16 21:38 Dose: 30 mg Multivitamins (Thera Tab) 1 tab PO DAILY [facility] Last Admin: 12/10/16 10:56 Dose: 1 tab Non-Formulary Medication (Vit B12/Pyridoxine/Thiamine [Pv Neuro Nisha Tablet]) 1 ,000 mg PO DAILY [facility] Last Admin: 12/10/16 10:55 Dose: Not Given Oxycodone HCl (Oxycodone Immediate Release Tab) 15 mg PO Q4H PRN PRN Reason: Pain, moderate (4-7) Last Admin: 12/09/16 20:29 Dose: 15 mg Pantoprazole Sodium (Protonix Ec Tab) 40 mg PO DAILY [facility] Last Admin: 12/10/16 10:59 Dose: 40 mg Polyethylene Glycol (Miralax) 17 gm PO BID [facility] Last Admin: 12/10/16 10:59 Dose: 17 gm Roflumilast (Daliresp) 500 mcg PO DAILY [facility] Last Admin: 12/10/16 10:53 Dose: 500 mcg Zolpidem Tartrate (Ambien) 10 mg PO HS PRN; Protocol PRN Reason: Insomnia Last Admin: 12/06/16 20:26 Dose: 10 mg - Labs Labs: 12/10/16 06:00 12/10/16 06:00 PT 13.7 Seconds (9.9-11.8) H 11/28/16 11:52 INR 1.27 (0.93-1.08) H 11/28/16 11:52 APTT 35.9 Seconds (23.7-30.8) H 11/28/16 11:52 - Constitutional Appears: Non-toxic, No Acute Distress - Head Exam Head Exam: NORMAL INSPECTION - ENT Exam ENT Exam: Mucous Membranes Moist - Neck Exam Neck Exam: absent: Lymphadenopathy, Meningismus - Respiratory Exam Respiratory Exam: Decreased Breath Sounds - Cardiovascular Exam Cardiovascular Exam: +S1, +S2 - GI/Abdominal Exam GI & Abdominal Exam: Soft. absent: Tenderness Assessment and Plan - Assessment and Plan (Free Text) Plan: Assessment consider HCAP in this patient being treated for COPD exacerbation history of hospital-acquired pneumonia lung cancer on chemotherapy chronic anemia dyslipidemia S/P appendectomy Plan on doxycycline day 4, to complete 4-7 days of therapy; blood cx negative and PCT is normal Will continue to monitor clinically
--- NOTE | 2016-12-10 20:09 | PN ---
DATE: 12/10/2016 REFERRING PHYSICIAN: Dr. Greer. SUBJECTIVE: The patient is lying in the bed, head at 45 degrees. Had a bone scan done yesterday. N o headache, no rhinitis. Decreased left-sided rib pain. No nausea, no vomiting, diarrhea. No leg p ain or leg swelling. OBJECTIVE: GENERAL: No acute distress. VITAL SIGNS: Temp is 98, heart rate is 80, respiratory rate is 20, blood pressure 108/60, pulse ox 1 00% on nasal cannula. HEENT: Moist mucous membrane. No ulcer or thrush noted. NECK: Supple. No JVD. LUNGS: Has a fair airflow with few rhonchi. HEART: S1 and S2. ABDOMEN: Soft and nontender. No organomegaly. EXTREMITIES: There is no edema. NEUROLOGIC: Awake, alert, follows simple commands. MEDICATIONS: He is on Mucomyst 20% inhaled twice a day, Ambien 10 mg at bedtime p.r.n., Brovana 15 m cg inhaled twice a day, Daliresp 500 mcg daily, Dilaudid 2 mg q. 3 hours p.r.n., doxycycline 100 mg t wice a day, vitamin D 50,000 units q. 7 days, Dulcolax is 5 mg daily p.r.n., albuterol/Atrovent nebul izer on p.r.n. basis, lactulose 20 mg p.o. at bedtime, ferrous sulfate 324 mg twice a day, Lidoderm p atch is daily, Lipitor 10 mg daily, MiraLax 17 grams twice a day, oxycodone immediate release 50 mg q . 4 hours p.r.n., Protonix 40 mg daily, Pulmicort inhaled twice a day, Remeron 30 mg at bedtime, Solu -Medrol 20 mg IV daily, Tenormin 25 mg twice a day, multivitamins daily, Tylenol p.r.n. basis, vitami n B12 plus and thiamine 100 mg daily. LABORATORY DATA: Shows hemoglobin 9.0, hematocrit 28.5, WBC 4.9, platelet is 481. Sodium 137, potas sium 3.8, chloride 99, bicarbonate 32, BUN 20, creatinine 0.5, glucose 98, calcium is 9.1, AST 44, AL T 61, alkaline phosphatase is 82, albumin is 3.1. MICROBIOLOGY: Blood culture has been negative. Bone scan is unremarkable for any mets. 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 Bone scan negative for metastatic disease. Pulmonary point of view, continue IV and inhaled bronchodilator, gastric prophylaxis, deep venous thrombosis prophylaxis. Fall precaut ions. Thank you and will follow with you. Shell Vargas MD cc: [phone] TT: 12/10/2016 20:08:06 Confirmation # [id number] Dictation # [id number] eugene
[2016-12-10] MEDS: oxyCODONE 15 mg Immediate Release Tab PO PRN (20:13)
--- NOTE | 2016-12-10 21:43 | PN ---
DATE: 12/10/[address] Ma. SUBJECTIVE: The patient is a 71-year-old male seen lying awake in bed, reporting that his pain is ba ck. He also feels significant discomfort and is unable to getting a comfortable position due to tele metry stick ons on his chest and abdomen with the telemetry to be discontinued for his comfort. With this, the patient is now reporting that his pain medicines are helping his pain with the patient oth erwise in no acute distress this visit. However, his hemoglobin has dropped to 9.0. We will monitor clinically with consideration for transfusion should it be necessary. The patient did have a bone scan done yesterday showing no evidence of bony metastatic disease. PHYSICAL EXAMINATION: VITAL SIGNS: Temperature 98, pulse 95, respirations 22, blood pressure 125/61, pulse ox 98%. HEENT: Unremarkable. NECK: Supple. HEART: Tachy rate, regular rhythm. LUNGS: Scattered rhonchi, tenderness to left ribs. ABDOMEN: Soft, nontender. EXTREMITIES: No edema. SKIN: Warm, dry and clear. NEUROLOGIC: Awake, alert. LABORATORY DATA: The patient's labs were done today, white blood cell count of 4.9, hemoglobin 9.0, hematocrit 28.5, platelet count of 481,000 with a chem metabolic panel complete within normal range e xcept for an ALT of 61. ASSESSMENT: Hospital-acquired pneumonia, history of chronic obstructive pulmonary disease exacerbati on, anemia of chronic disease, intractable pain of cancer, pulmonary fibrosis, constipation, cardiomy opathy, stage IV nonsmall cell carcinoma, adenocarcinoma of the lung, chronic back pain. PLAN: After conversation with Dr. Ma, we await consult with ____ ,radiation oncology, along with continuation of present medical regimen. We will discontinue telemetry at this juncture with c onsideration for transfusion with a repeat of his labs in the morning as his hemoglobin was down to 9 .0. Consideration for comfort measures as per Dr. Greer. Vincenzo Dias MD cc: [phone] TT: 12/10/2016 21:43:05 Confirmation # [id number] Dictation # [id number] jn
--- NOTE | 2016-12-11 01:46 | PN ---
DATE: 12/10/2016 ADDENDUM: This is an addendum to the GI progress report dictated by Elo Casiano NP. The patient was seen and evaluated earlier. We will continue the present antibiotic course. No comp laints of abdominal pain. Continue the same bowel regimen. Thank you for allowing us to participate in the care of this patient. Celestino Laboy MD cc: [phone] TT: 12/11/2016 01:45:31 Confirmation # [id number] Dictation # [id number] an
[2016-12-11] MEDS: HYDROmorphone 2 mg/ml ISec IVP PRN ×6 (02:34→22:45)
[2016-12-11] MEDS: oxyCODONE 15 mg Immediate Release Tab PO PRN (04:18)
[2016-12-11 07:20] LABS: ADD MANUAL DIFF? NO
[2016-12-11 07:29] LABS: EOS # 0.1 (0.0-0.7); EOS % 1.1 % (1.5-5.0); GRAN # 2.27 (1.4-6.5); HEMATOCRIT 26.6 % (42.0-52.0); LYMPH # 1.1 (1.2-3.4); LYMPH % 22.7 % (22.0-35.0); MEAN CELL VOLUME 82.6 fL (80.0-105.0); MEAN CORPUSCULAR HEMOGLOBIN 26.4 pg (25.0-35.0); MONO # 1.3 (0.1-0.6); MONO % 28.2 % (1.0-6.0); PLATELET COUNT 448 10^3/uL (120.0-450.0); RED CELL DISTRIBUTION WIDTH 17.2 % (11.5-14.5); WHITE BLOOD COUNT 4.7 10^3/ul (4.5-11.0)
[2016-12-11 07:36] LABS: ALB/GLOB RATIO 1.1 (1.1-1.8); ALKALINE PHOSPHATASE 95 U/L (38-133); ALT/SGPT 57 U/L (7-56); AST/SGOT 51 U/L (15-59); BILIRUBIN,TOTAL 0.4 mg/dL (0.2-1.3); BLOOD UREA NITROGEN 15 mg/dL (7-21); CALCIUM 8.9 mg/dL (8.4-10.5); CARBON DIOXIDE 33 mmol/L (21-33); CHLORIDE 97 mmol/L (95-110); GFR AFRICAN-AMERICAN > 60; GLUCOSE,RANDOM 95 mg/dL (70-110); POTASSIUM 3.7 mmol/L (3.6-5.0); SODIUM 136 mmol/L (132-148); TOTAL PROTEIN 5.9 g/dL (5.8-8.3)
[2016-12-11] MEDS: Acetylcysteine 20% Inhal Soln (4ml) IH SCH ×2 (07:42→19:48)
[2016-12-11] MEDS: Budesonide 0.5 mg/2 ml Inhal Susp UD IH SCH ×2 (07:43→19:50)
[2016-12-11] MEDS: Arformoterol 15 mcg/2 ml Inh Sol IH SCH ×2 (07:43→19:49)
[2016-12-11] MEDS: Lidocaine 5% Patch TD SCH (09:05)
[2016-12-11] MEDS: POLYETHYLENE GLYCOL 3350 17 GM/Dose PACKET PO SCH ×2 (09:20→18:06)
[2016-12-11] MEDS: Pantoprazole 40 mg EC Tab PO SCH (09:20)
[2016-12-11] MEDS: Multivitamin Therapeutic Tab PO SCH (09:20)
[2016-12-11] MEDS: MethylPREDNISolone 40 mg Vial IVP SCH (09:21)
[2016-12-11] MEDS: CYANOCOBALAMIN PO SCH (09:24)
[2016-12-11] MEDS: PYRIDOXINE PO SCH (09:24)
[2016-12-11] MEDS: THIAMINE PO SCH (09:24)
--- NOTE | 2016-12-11 09:25 | PN ---
DATE: 12/10/2016 A 71-year-old male, has been stable. He is off antibiotics. Complained of left side pain, which is less than before. No nausea, no vomiting. The patient seen sitting up and going to the commode. Re fused rehabilitations. PHYSICAL EXAMINATION: VITAL SIGNS: Temperature 98, heart rate is 80, blood pressure 125/61, respiratory rate 22, saturatin g 98% on 2 liters. HEAD AND NECK: Normal. No JVD, no thyromegaly. CHEST: Clear. CARDIAC: First sound, second sound normal. ABDOMEN: Soft, nontender. EXTREMITIES: No edema. NEUROLOGIC: He moves all extremities. He is alert, awake, oriented x 3. LABORATORY DATA: 12/10, the white count 4.9, hemoglobin 9, hematocrit 28.5, platelets 481. His chemi stry showed sodium 137, potassium 3.8, chloride 99, bicarb 32, BUN 20, creatinine 0.5. Liver functio n test is normal. The patient also procalcitonin was 0.08. IMPRESSION: 1. Acute chronic obstructive pulmonary disease exacerbations, pneumonia, nosocomial. He is off anti biotics. Continue inhaled bronchodilators. Will discuss with the daughter about discharging the pat ient. She is reluctant to take him home, however, they refused rehabilitation. She wants more pain control for his left side rib pain bone scan negative for metastasis. May be related to injury of the nerve. We will get Dr. Diego Ordaz, which could be done as outpatient. 2. Lung cancer, metastasis. 3. Hypercholesterolemia, chronic left side chest pain. Continue oxycodone 50 mg every 4 hours. Con tinue Dilaudid 2 mg every 3 hours. Continue Duragesic patch 100. Continue Lidoderm patch. 4. Constipation. The patient getting current medication, which is MiraLax, lactulose, Relistor ever y other day. Plan: Continue current therapy. We will also continue vitamins, vitamin D, Remeron, T enormin, Tylenol and multivitamins. PLAN: Discharge the patient if the family is ready to take him, probably tomorrow. Will see if Dr. Ordaz will give him an injection before he leaves. If not, then we do as outpatient. Continue cur rent therapy. Discharge planning in the morning after being seen by Dr. Ordaz or it should be done as outpatient. Diego Greer MD cc: [phone] TT: 12/11/2016 09:25:04 Confirmation # [id number] Dictation # [id number] en
--- NOTE | 2016-12-11 12:16 | PN ---
DATE: 12/11/2016 The patient is in room 367, bed #2. REASON FOR CONSULTATION AND FOLLOWUP: Sinus tachycardia, lung carcinoma, chest pain due to lung carc inoma, hyperkalemia, chronic obstructive pulmonary disease, pneumonia. HISTORY OF PRESENT ILLNESS: The patient is a 71-year-old male known to have stage IV lung carcinoma, COPD, intractable left-sided chest pain due to carcinoma of the lung, developed sinus tachycardia wh ich is related to chest pain, underlying pulmonary condition. Echo showed slightly reduced LV systol ic function with ejection fraction 42%. The patient's breathing is stable, but she continued to have the pain due to carcinoma of the lung and the chest. Denies any palpitation. PHYSICAL EXAMINATION: VITAL SIGNS: Blood pressure 116/61, respirations 22, pulse 81, temperature 97.9. HEAD: Normocephalic. EYES: Pupils normal. Conjunctivae are slightly pale. NECK: JVP low. Carotids equal. THORAX: AP diameter normal. LUNGS: Few fine rales on the right base. CARDIOVASCULAR: S1, S2. ABDOMEN: Soft, nontender, no organomegaly. EXTREMITIES: No clubbing, no cyanosis. LABORATORY DATA: WBC 4.7, hemoglobin 8.5, hematocrit 26.6, platelet 448. Sodium 136, potassium 3.7, BUN 15, creatinine 0.4. AST 51, ALT 57. Total protein, albumin, globulin normal. DIAGNOSES: Chest pain secondary to lung carcinoma, sinus tachycardia related to pain, stage IV lung carcinoma, chronic obstructive pulmonary disease, mild left ventricle dysfunction on echo, anemia, pn eumonia. PLAN: Continue Doryx 100 mg p.o. q. 12 hours, DuoNeb hand nebulizer therapy, ferrous sulfate 324 ___ __ daily, folic acid 1 mg daily, Lipitor 10 mg daily, Solu-Medrol 20 mg IV daily, atenolol 25 b.i.d., analgesics for chest pain. We will continue to follow closely with you. Shell Rosario MD cc: [phone] TT: 12/11/2016 12:16:03 Confirmation # [id number] Dictation # [id number] rn
[2016-12-11] MEDS ORDERED: DiphenhydrAMINE 50 mg/ml Inj IVP ONE ×2 (12:30→21:15)
[2016-12-11] MEDS: Albuterol-Ipratrop 3 mg / 0.5 (3 ml) UD IH PRN ×2 (12:33→15:52)
--- NOTE | 2016-12-11 13:47 | CP.PCM.PN ---
Subjective - Date & Time of Evaluation Date of Evaluation: 12/11/16 Time of Evaluation: 09:30 - Subjective Subjective: Seen and examined at bedside this am, continue to have BM, no bleeding. NO acute overnight events reported. No new complaints. Objective - Vital Signs/Intake and Output Vital Signs (last 24 hours): Temp Pulse Resp BP Pulse Ox 97.9 F 81 22 116/61 100 12/11/16 08:27 12/11/16 09:06 12/11/16 08:27 12/11/16 09:06 12/11/16 08:27 Intake and Output: 12/11/16 12/11/16 06:59 18:59 Intake Total 540 Output Total 700 Balance -160 - Medications Medications: Current Medications Acetaminophen (Tylenol 325mg Tab) 650 mg PO Q6H PRN PRN Reason: Headache Last Admin: 12/10/16 21:51 Dose: 650 mg Acetylcysteine (Acetylcysteine 20%) 4 ml IH BIDRESP DONNA Last Admin: 12/11/16 07:42 Dose: 4 ml Albuterol/Ipratropium (Duoneb 3 Mg/0.5 Mg (3 Ml) Ud) 3 ml IH [id number] PRN PRN Reason: Shortness of Breath Last Admin: 12/11/16 12:33 Dose: 3 ml Arformoterol Tartrate (Brovana) 15 mcg IH [id number] DONNA Last Admin: 12/11/16 07:43 Dose: 15 mcg Atenolol (Tenormin) 25 mg PO BID DONNA Last Admin: 12/11/16 09:06 Dose: 25 mg Atorvastatin Calcium (Lipitor) 10 mg PO DAILY DONNA Last Admin: 12/11/16 09:06 Dose: 10 mg Bisacodyl (Dulcolax) 5 mg PO DAILY PRN PRN Reason: Constipation Last Admin: 12/06/16 10:51 Dose: 5 mg Budesonide (Pulmicort Respules) 0.5 mg IH [id number] [facility] Last Admin: 12/11/16 07:43 Dose: 0.5 mg Doxycycline Hyclate (Doryx) 100 mg PO Q12 DONNA PRN Reason: Protocol Last Admin: 12/11/16 09:06 Dose: 100 mg Ergocalciferol (Drisdol 50,000 Intl Units Cap) 1 cap PO Q7D [facility] Last Admin: 12/05/16 17:05 Dose: 1 cap Ferrous Sulfate (Feosol) 324 mg PO DAILY [facility] Last Admin: 12/11/16 09:09 Dose: 324 mg Folic Acid (Folic Acid) 1 mg PO DAILY [facility] Last Admin: 12/11/16 09:06 Dose: 1 mg Hydromorphone HCl (Dilaudid) 2 mg IVP Q3H PRN PRN Reason: Pain, severe (8-10) Last Admin: 12/11/16 08:16 Dose: 2 mg Lactulose (Enulose) 20 gm PO HS [facility] Last Admin: 12/10/16 21:51 Dose: 20 gm Lidocaine (Lidoderm) 2 ea TD DAILY [facility] Last Admin: 12/11/16 09:05 Dose: 2 ea Methylprednisolone (Solu-Medrol) 20 mg IVP DAILY [facility] Last Admin: 12/11/16 09:21 Dose: 20 mg Mirtazapine (Remeron) 30 mg PO HS [facility] Last Admin: 12/10/16 21:51 Dose: 30 mg Multivitamins (Thera Tab) 1 tab PO DAILY [facility] Last Admin: 12/11/16 09:20 Dose: 1 tab Non-Formulary Medication (Vit B12/Pyridoxine/Thiamine [Pv Neuro Nisha Tablet]) 1 ,000 mg PO DAILY [facility] Last Admin: 12/11/16 09:24 Dose: Not Given Oxycodone HCl (Oxycodone Immediate Release Tab) 15 mg PO Q4H PRN PRN Reason: Pain, moderate (4-7) Last Admin: 12/11/16 04:18 Dose: 15 mg Pantoprazole Sodium (Protonix Ec Tab) 40 mg PO DAILY [facility] Last Admin: 12/11/16 09:20 Dose: 40 mg Polyethylene Glycol (Miralax) 17 gm PO BID [facility] Last Admin: 12/11/16 09:20 Dose: 17 gm Roflumilast (Daliresp) 500 mcg PO DAILY [facility] Last Admin: 12/11/16 09:20 Dose: 500 mcg Zolpidem Tartrate (Ambien) 10 mg PO HS PRN; Protocol PRN Reason: Insomnia Last Admin: 12/10/16 21:51 Dose: 10 mg - Labs Labs: 12/11/16 06:50 12/11/16 06:50 PT 13.7 Seconds (9.9-11.8) H 05/13/17 11:52 INR 1.27 (0.93-1.08) H 11/28/16 11:52 APTT 35.9 Seconds (23.7-30.8) H 11/28/16 11:52 - Constitutional Appears: No Acute Distress - Head Exam Head Exam: NORMAL INSPECTION - Eye Exam Eye Exam: Normal appearance. absent: Scleral icterus - ENT Exam ENT Exam: Mucous Membranes Moist - Neck Exam Neck Exam: Normal Inspection - Respiratory Exam Respiratory Exam: Decreased Breath Sounds, Rhonchi, NORMAL BREATHING PATTERN. absent: Wheezes, Respiratory Distress - Cardiovascular Exam Cardiovascular Exam: +S1, +S2 - GI/Abdominal Exam GI & Abdominal Exam: Soft, Normal Bowel Sounds. absent: Guarding, Tenderness, Rebound - Extremities Exam Extremities Exam: absent: Calf Tenderness, Pedal Edema Assessment and Plan - Assessment and Plan (Free Text) Assessment: ASSESSMENT: Stage IV Lung cancer Pneumonia CPOD Improved Chronic consitpation, narcotic induced, had few doses of Relistor Resolved abdominal pain Celiac Disease PLAN: continue Miralax, on Dulcolax prn, lacutolose in PM, monitor stools Pain control: durgesic patch, Dilaudid, oxycodone gluten-free diet as per oncology,ID, pulmonary Seen and case discussed with Dr. Laboy.
--- NOTE | 2016-12-11 14:30 | PN ---
DATE: 12/11/2016 This is the patient's hospital visit on the medical floor. For Dr. Ma. SUBJECTIVE: The patient is a 71-year-old male seen lying awake in bed with his main complaint that o f discomfort to the left mid abdomen and lower chest with the patient to be transfused today and then discharged home as per Dr. Greer. He is known to suffer from intractable pain of cancer with his t reatment on hold for his stage IV nonsmall cell CA of the lung. His analgesics have been adjusted wi th modest effect on his pain. He is anemic indices and will be transfused as per Dr. Ma's recommendation. PHYSICAL EXAMINATION: VITAL SIGNS: Temperature 97.9, pulse 81, respirations 22, blood pressure 116/61, pulse ox 100%. GENERAL: He appears cachectic. HEENT: Otherwise unremarkable. NECK: Supple. HEART: Regular rate, occasional ectopic beat. ABDOMEN: Soft. Minimal tenderness to the left side to gentle palpation. EXTREMITIES: No edema. SKIN: Warm, dry and clear. NEUROLOGIC: Awake and alert. LABORATORY DATA: The patient's labs were done. White blood cell count of 4.7, hemoglobin of 8.5, he matocrit of 26.6, platelet count of 448,000 with a chem metabolic panel within normal limits except f or an ALT of 57. ASSESSMENT: Symptomatic anemia for transfusion, intractable pain of cancer, stage IV nonsmall cell a denocarcinoma of the lung, pulmonary fibrosis, hospital acquired pneumonia, chronic obstructive pulmo nary disease, constipation, cardiomyopathy, chronic back pain, deconditioning. PLAN: After conversation with Dr. Ma and Dr. Greer, we will transfuse his blood with discharge home afterwards, as per Dr. Greer, refuses reconditioning, although he would be a candidate for it. Vincenzo Dias MD cc: [phone] TT: 12/11/2016 14:29:47 Confirmation # [id number] Dictation # [id number] eugene
--- NOTE | 2016-12-11 16:51 | CP.PCM.PN ---
Subjective - Date & Time of Evaluation Date of Evaluation: 12/11/16 Time of Evaluation: 11:35 - Subjective Subjective: Comfortable in bed, not in distress, afebrile overnight. Objective - Vital Signs/Intake and Output Vital Signs (last 24 hours): Temp Pulse Resp BP Pulse Ox 97.9 F 81 22 116/61 100 12/11/16 08:27 12/11/16 09:06 12/11/16 08:27 12/11/16 09:06 12/11/16 08:27 Intake and Output: 12/11/16 12/11/16 06:59 18:59 Intake Total 540 Output Total 700 Balance -160 - Medications Medications: Current Medications Acetaminophen (Tylenol 325mg Tab) 650 mg PO Q6H PRN PRN Reason: Headache Last Admin: 12/10/16 21:51 Dose: 650 mg Acetylcysteine (Acetylcysteine 20%) 4 ml IH BIDRESP DONNA Last Admin: 12/11/16 07:42 Dose: 4 ml Albuterol/Ipratropium (Duoneb 3 Mg/0.5 Mg (3 Ml) Ud) 3 ml IH [id number] PRN PRN Reason: Shortness of Breath Last Admin: 12/11/16 15:52 Dose: 3 ml Arformoterol Tartrate (Brovana) 15 mcg IH [id number] DONNA Last Admin: 12/11/16 07:43 Dose: 15 mcg Atenolol (Tenormin) 25 mg PO BID DONNA Last Admin: 12/11/16 09:06 Dose: 25 mg Atorvastatin Calcium (Lipitor) 10 mg PO DAILY [facility] Last Admin: 12/11/16 09:06 Dose: 10 mg Bisacodyl (Dulcolax) 5 mg PO DAILY PRN PRN Reason: Constipation Last Admin: 12/06/16 10:51 Dose: 5 mg Budesonide (Pulmicort Respules) 0.5 mg IH [id number] [facility] Last Admin: 12/11/16 07:43 Dose: 0.5 mg Doxycycline Hyclate (Doryx) 100 mg PO Q12 DONNA PRN Reason: Protocol Last Admin: 12/11/16 09:06 Dose: 100 mg Ergocalciferol (Drisdol 50,000 Intl Units Cap) 1 cap PO Q7D [facility] Last Admin: 05/20/17 17:05 Dose: 1 cap Ferrous Sulfate (Feosol) 324 mg PO DAILY [facility] Last Admin: 12/11/16 09:09 Dose: 324 mg Folic Acid (Folic Acid) 1 mg PO DAILY [facility] Last Admin: 12/11/16 09:06 Dose: 1 mg Hydromorphone HCl (Dilaudid) 2 mg IVP Q3H PRN PRN Reason: Pain, severe (8-10) Last Admin: 12/11/16 16:40 Dose: 2 mg Lactulose (Enulose) 20 gm PO HS [facility] Last Admin: 12/10/16 21:51 Dose: 20 gm Lidocaine (Lidoderm) 2 ea TD DAILY [facility] Last Admin: 12/11/16 09:05 Dose: 2 ea Methylprednisolone (Solu-Medrol) 20 mg IVP DAILY [facility] Last Admin: 12/11/16 09:21 Dose: 20 mg Mirtazapine (Remeron) 30 mg PO HS [facility] Last Admin: 12/10/16 21:51 Dose: 30 mg Multivitamins (Thera Tab) 1 tab PO DAILY [facility] Last Admin: 12/11/16 09:20 Dose: 1 tab Non-Formulary Medication (Vit B12/Pyridoxine/Thiamine [Pv Neuro Nisha Tablet]) 1 ,000 mg PO DAILY [facility] Last Admin: 12/11/16 09:24 Dose: Not Given Oxycodone HCl (Oxycodone Immediate Release Tab) 15 mg PO Q4H PRN PRN Reason: Pain, moderate (4-7) Last Admin: 12/11/16 04:18 Dose: 15 mg Pantoprazole Sodium (Protonix Ec Tab) 40 mg PO DAILY [facility] Last Admin: 12/11/16 09:20 Dose: 40 mg Polyethylene Glycol (Miralax) 17 gm PO BID [facility] Last Admin: 12/11/16 09:20 Dose: 17 gm Roflumilast (Daliresp) 500 mcg PO DAILY [facility] Last Admin: 12/11/16 09:20 Dose: 500 mcg Zolpidem Tartrate (Ambien) 10 mg PO HS PRN; Protocol PRN Reason: Insomnia Last Admin: 12/10/16 21:51 Dose: 10 mg - Labs Labs: 12/11/16 06:50 12/11/16 06:50 PT 13.7 Seconds (9.9-11.8) H 11/28/16 11:52 INR 1.27 (0.93-1.08) H 11/28/16 11:52 APTT 35.9 Seconds (23.7-30.8) H 11/28/16 11:52 - Constitutional Appears: Non-toxic, No Acute Distress - Head Exam Head Exam: NORMAL INSPECTION - ENT Exam ENT Exam: Mucous Membranes Moist - Neck Exam Neck Exam: absent: Lymphadenopathy, Meningismus - Respiratory Exam Respiratory Exam: Decreased Breath Sounds - Cardiovascular Exam Cardiovascular Exam: +S1, +S2 - GI/Abdominal Exam GI & Abdominal Exam: Soft. absent: Tenderness Assessment and Plan - Assessment and Plan (Free Text) Plan: Assessment consider HCAP in this patient being treated for COPD exacerbation, clinically improving history of hospital-acquired pneumonia lung cancer on chemotherapy chronic anemia dyslipidemia S/P appendectomy Plan on doxycycline day 5, to complete 4-7 days of therapy; blood cx negative and PCT is normal Will continue to monitor clinically
--- NOTE | 2016-12-11 18:52 | PN ---
DATE: 12/11/2016 REFERRING PHYSICIAN: Dr. Greer. SUBJECTIVE: The patient is lying in the bed, head at 45 degrees. Night was unremarkable. Gets shor t of breath with exertion, but not much cough. No nausea, vomiting, diarrhea. No leg pain or leg sw elling. OBJECTIVE: GENERAL: No acute distress. VITAL SIGNS: Temperature is 98, heart rate 81, respiratory rate is 20, blood pressure 116/61, pulse ox % 2 liters nasal cannula. HEENT: Moist mucous membrane. No ulcer or oral thrush noted. NECK: Supple. No JVD. LUNGS: Have a fair airflow with prolonged expiratory phase. HEART: S1 and S2. ABDOMEN: Soft, nontender. No organomegaly. EXTREMITIES: There is no edema. NEUROLOGIC: Awake, alert, follows simple commands. MEDICATIONS: He is on Mucomyst 20% inhaled twice a day, Ambien 10 mg at bedtime, Brovana 15 mcg inha led twice a day, Daliresp 500 mcg daily, Dilaudid 2 mg q. 3 hours p.r.n., doxycycline 100 mg twice a day, vitamin D 50,000 units weekly, Dulcolax p.r.n. basis, DuoNeb q. 4 hours p.r.n., Lactulose 20 gra ms p.o. at bedtime, ferrous sulfate 324 mg daily, folic acid 1 mg daily, lidocaine patch daily, Lipit or 10 mg daily, MiraLax 17 grams twice a day, oxycodone immediate release 15 mg q. 4 hours p.r.n., Pr otonix 40 mg daily, Pulmicort inhaled twice a day, Remeron 30 mg at bedtime, Solu-Medrol 20 mg daily, Tenormin 25 mg twice a day, multivitamins daily, Tylenol p.r.n. basis, vitamin B, thiamine alvaro ly basis. LABORATORY DATA: Shows hemoglobin 8.5, hematocrit 26.6, WBC 4.7, platelet count is 448. Sodium 136, potassium 3.7, chloride 97, bicarbonate 33, BUN 15, creatinine 0.4, glucose 95, calcium is 8.9. AST 51, ALT 57, alkaline phosphatase is 95. Albumin is 3.1. Microbiology: Blood cultures have been ne gative. 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 Bone scanning negative for mets. Pulmonary point of view, doing okay. Will continue bronchodilator. Keep head elevated at 45 degrees. Incentive spirometer, gastric prophylax is, deep venous thrombosis prophylaxis. physical therapy. Fall precautions. Thank you and will foll ow with you. Shell Vargas MD cc: [phone] TT: 12/11/2016 18:52:24 Confirmation # [id number] Dictation # [id number] rn
[2016-12-12] MEDS: HYDROmorphone 2 mg/ml ISec IVP PRN ×6 (03:09→22:19)
[2016-12-12] MEDS: Arformoterol 15 mcg/2 ml Inh Sol IH SCH ×2 (07:35→20:25)
[2016-12-12] MEDS: Budesonide 0.5 mg/2 ml Inhal Susp UD IH SCH ×2 (07:35→20:25)
[2016-12-12] MEDS: Acetylcysteine 20% Inhal Soln (4ml) IH SCH ×2 (07:36→20:25)
[2016-12-12 08:42] LABS: HEMATOCRIT 32.5 % (42.0-52.0); MEAN CELL VOLUME 81.9 fL (80.0-105.0); MEAN CORPUSCULAR HEMOGLOBIN 27.7 pg (25.0-35.0); MEAN CORPUSCULAR HGB CONC 33.8 g/dl (31.0-37.0); MEAN PLATELET VOLUME 8.1 fl (7.0-11.0); RED CELL DISTRIBUTION WIDTH 16.1 % (11.5-14.5); WHITE BLOOD COUNT 3.3 10^3/ul (4.5-11.0)
--- NOTE | 2016-12-12 09:55 | DS ---
A 71-year-old male. The patient is stable, comfortable, no distress. We spoke with the patient, spo ke with the daughter about discharge home. The patient's hemoglobin is in the 8 range. He was 11. We will give 2 units of blood transfusion after consultation with Dr. Ma. PHYSICAL EXAMINATION: VITAL SIGNS: Stable. On 12/11, temperature 97.9, heart rate 81, blood pressure 116/61, respirations 22, saturation 100%. HEAD AND NECK: Normal. No JVD, no thyromegaly. CHEST: Clear with diminished breath on the left side. CARDIAC: First sound, second sound normal. ABDOMEN: Soft, nontender. EXTREMITIES: No edema. NEUROLOGIC: Normal. LABORATORY DATA: White count 4.7, hemoglobin 8.5, hematocrit 26.6, platelet 448. Chemistry: Sodium 136, potassium 3.7, chloride 97, bicarb 33, BUN 15, creatinine 0.4. Liver function test within norm al range except ALT slightly elevated 57, improved. The patient has multiple CAT scans, consults, pulmonary, oncology, pain management, interventional, i nfectious disease consults. The patient finally received 2 units of blood transfusions. Hemoglobin will be checked in the morning. Plan: We will discharge the patient home on multiple medications. DISCHARGE DIAGNOSES: 1. Abdominal pain, probably due to severe constipation. 2. Narcotic-induced constipation. 3. Bilateral pneumonia. 4. Acute chronic obstructive pulmonary disease exacerbation on top of chronic. 5. Lung cancer. 6. Left side chest pain, probably injury to subcostal nerve. 7. Anemia. 8. Hypercholesterolemia. 9. Chronic intractable left-sided pain. 10. Tachycardia. PLAN: We will send the patient on Ambien 10 mg at night. We will give him Breo 1 inhalation once a day and he has albuterol machine and albuterol treatments. Continue oxycodone 15 mg every 4 hours in addition to Duragesic patch 125 mcg every 3 days. Continue Lipitor, continue MiraLax, lactulose, Pr otonix. The patient also will get a Medrol pack, doxycycline also for 7 days, Tenormin 25 b.i.d., mu ltivitamins and will follow up as outpatient. The patient is ready for discharge after repeating blo od count tomorrow morning when he goes home. Diego Greer MD cc: [phone] TT: 12/12/2016 09:54:37 tn
[2016-12-12] MEDS: MethylPREDNISolone 40 mg Vial IVP SCH (10:20)
[2016-12-12] MEDS: POLYETHYLENE GLYCOL 3350 17 GM/Dose PACKET PO SCH ×2 (10:21→17:50)
[2016-12-12] MEDS: Lidocaine 5% Patch TD SCH (10:21)
[2016-12-12] MEDS: Multivitamin Therapeutic Tab PO SCH (10:22)
[2016-12-12] MEDS: Pantoprazole 40 mg EC Tab PO SCH (10:22)
[2016-12-12] MEDS: PYRIDOXINE PO SCH (10:49)
[2016-12-12] MEDS: CYANOCOBALAMIN PO SCH (10:49)
[2016-12-12] MEDS: THIAMINE PO SCH (10:49)
--- NOTE | 2016-12-12 13:50 | PN ---
DATE: 12/12/2016 SUBJECTIVE: The patient was seen earlier today in 367, bed 2. The patient appears weak and overall in poor condition. No fevers reported. He states he had an uneventful evening. PHYSICAL EXAMINATION: VITAL SIGNS: Temperature 98, blood pressure is 114/59, respiratory rate of 20, heart rate of 75. HEENT: Unremarkable. NECK: Supple. LUNGS: Have decreased breath sounds. HEART: Normal S1, S2. ABDOMEN: Soft. LABORATORY DATA: Reveals the patient to have a white count of 3.3, hemoglobin of 11. BUN of 15, cre atinine of 0.4. Procalcitonin 0.08. Urinalysis is noted. Microbiology reveals the blood cultures a re negative. ASSESSMENT AND PLAN: This is a 71-year-old male with healthcare-associated pneumonia in a patient wi th chronic obstructive lung disease, on p.o. doxycycline day #6. Would complete 5-7 days of antibiot ics. Dr. Greer's note is reviewed. Mack Dubose MD cc: 350 TT: 12/12/2016 13:50:14 Confirmation # [id number] Dictation # [id number] eugene
--- NOTE | 2016-12-12 15:07 | PN ---
DATE: 12/12/2016 This is patient's hospital visit on the medical floor. For Dr. Ma. SUBJECTIVE: The patient is a 71-year-old male seen lying awake in bed, status post transfusion yeste rday, prior to his recommended discharge home; however, he is feeling uncomfortable this visit, repor ting that he is experiencing occasional dizziness; however, he is known to have a fentanyl patch that was increased from 75-125 mcg per hour along with Lidoderm patches along with IV narcotic analgesics for his severe pain of cancer. With this, the patient is otherwise reporting his appetite is good, despite the complaint as above. His hemoglobin improved from 8.5 yesterday to 11.0 today. PHYSICAL EXAMINATION: VITAL SIGNS: Temperature 98.8, pulse 73, respirations 20, blood pressure 123/67, pulse ox 99%. GENERAL: The patient appears cachectic. HEENT: Poor dentition. NECK: Supple. HEART: Regular rate, occasional ectopic beat. LUNGS: Rare rhonchi. ABDOMEN: Soft. Minimal tenderness on left side to gentle palpation. EXTREMITIES: No edema. SKIN: Warm, dry and clear. NEUROLOGIC: Awake and alert. LABORATORY DATA: The patient's labs were done. White blood cell count of 3.3, hemoglobin 11.0, leonides tocrit 32.5, platelet count of 351,000 with a chem metabolic panel showing an ALT of 57, otherwise no rmal chem metabolic panel. 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 PLAN: The patient is to continue present medical regimen as per Dr. Greer with discharge home with followup within [address] Ma in the office. Vincenzo Dias MD cc: [phone] TT: 12/12/2016 15:06:31 Confirmation # [id number] Dictation # [id number] eugene
[2016-12-12] MEDS: Ergocalciferol 50,000 Intl Units Cap PO SCH (17:51)
--- NOTE | 2016-12-12 18:21 | PN ---
DATE: 12/12/2016 REFERRING PHYSICIAN: Dr. Greer. SUBJECTIVE: He is lying in the bed, head at 45 degree. This morning there was discussion about send ing the patient home with the family, a parent. According to nurses, family unable to take care of h im since he is very limited with ambulating, requesting correction type care. He is short of breat h with minimal exertion, but no nausea, no vomiting, diarrhea. No leg pain or leg swelling. OBJECTIVE: GENERAL: No acute distress. VITAL SIGNS: Temp is 98, heart rate is 73, respiratory rate is 20, blood pressure 123/67, pulse ox 9 9% on nasal cannula. HEENT: Moist mucous membranes. Crowded airway. NECK: Supple. No JVD. LUNGS: Has a fair airflow with prolonged expiratory phase. HEART: S1, S2. ABDOMEN: Soft, nontender. No organomegaly. EXTREMITIES: There is no edema. NEUROLOGIC: Awake, alert, follows simple command. MEDICATIONS: He is on Mucomyst 20% inhaled twice a day, Ambien 10 mg at bedtime p.r.n., Antivert 12. 5 mg q. 8 hours, aspirin 81 mg daily, Brovana 15 mcg inhaled twice a day, Daliresp 500 mcg daily, Dil audid 2 mg q. 3 hours p.r.n., Doxycycline 100 mg. q. 8 hours, vitamin D 50,000 units q. 7 days, Dulco lax 5 mg daily p.r.n., lactulose 20 mg at bedtime, ferrous sulfate 324 mg daily, folic acid 1 mg jamari y, lidocaine patch daily, Lipitor 10 mg daily, MiraLax 17 grams twice a day, oxycodone immediate rele ase 15 mg q. 4 hours p.r.n., prednisone 20 mg daily, Protonix 40 mg daily, Pulmicort inhaled twice da tobi, Remeron is 30 mg at bedtime, Tenormin 25 mg twice a day, multivitamins daily, Tylenol p.r.n. bas is, vitamin B, pyridoxine, thiamine, ____ 1000 mg daily. LABORATORY DATA: Shows hemoglobin 11.0, hematocrit 32.5, WBC 3.3, platelet count is 351. Microbiolo gy: Blood cultures have been negative. IMPRESSION AND PLAN: Chronic obstructive lung disease, pulmonary fibrosis, lung cancer, anemia, bottom turning lathe tender tay constipation, cardiomyopathy, decreased left ventricular function, pulmonary infiltrate, persiste nt shortness of breath, activities of daily living dysfunction. I spoke to nursing staff. Continue p.o. and inhaled bronchodilator. Gastric prophylaxis. Deep venous thrombosis prophylaxis. Fall pre caution. Physical therapy, out of bed to chair. We will benefit from subacute type services. Thank you and will follow with you. Shell Vargas MD cc: [phone] TT: 12/12/2016 18:21:01 Confirmation # [id number] Dictation # [id number] jn
[2016-12-13] MEDS: HYDROmorphone 2 mg/ml ISec IVP PRN ×6 (02:09→21:15)
[2016-12-13] MEDS: Arformoterol 15 mcg/2 ml Inh Sol IH SCH ×2 (07:44→21:55)
[2016-12-13] MEDS: Budesonide 0.5 mg/2 ml Inhal Susp UD IH SCH ×2 (07:44→21:55)
[2016-12-13] MEDS: Acetylcysteine 20% Inhal Soln (4ml) IH SCH ×2 (07:44→21:55)
[2016-12-13] MEDS: Albuterol-Ipratrop 3 mg / 0.5 (3 ml) UD IH PRN (07:44)
--- NOTE | 2016-12-13 08:50 | PN ---
DATE: 12/12/2016 SUBJECTIVE: This patient was seen and evaluated earlier today. Discussed with the nursing staff. The patient's family was at bedside. Complaining of weakness and tiredness. The patient did receive a blood transfusion earlier. PHYSICAL EXAMINATION: VITAL SIGNS: Temperature is 98.8, blood pressure is 132/69, pulse 80. HEENT: Atraumatic, anicteric. NECK: Supple. HEART: S1, S2 heard. LUNGS: Bilateral air entry present. A few scattered rhonchi present. ABDOMEN: Soft. There is no tenderness. LABORATORY DATA: Hemoglobin 11, hematocrit 32.5, platelets ____, WBC is 3.3. BUN 15, creatinine 0.4. IMPRESSION: This is a 71-year-old patient with lung cancer. This patient has chronic obstructive pulmonary disease, fibrosis of lungs. Constipation, has been improved. His hemoglobin posttransfusion was 11. Yesterday, it was 8.5, only 1 unit given. This could be due to lab error. However, we will repeat the CBC again tomorrow. Continue the present management. Thank you very much for allowing us to participate in the care of the patient. Celestino Laboy MD cc: [id number] TT: 12/13/2016 08:49:37 Confirmation # [id number] Dictation # [id number] brayan GAY
[2016-12-13] MEDS: Lidocaine 5% Patch TD SCH (09:01)
[2016-12-13] MEDS: POLYETHYLENE GLYCOL 3350 17 GM/Dose PACKET PO SCH ×2 (09:02→17:56)
[2016-12-13] MEDS: Pantoprazole 40 mg EC Tab PO SCH (09:02)
[2016-12-13] MEDS: Multivitamin Therapeutic Tab PO SCH (09:02)
[2016-12-13] MEDS: THIAMINE PO SCH (10:00)
[2016-12-13] MEDS: CYANOCOBALAMIN PO SCH (10:00)
[2016-12-13] MEDS: PYRIDOXINE PO SCH (10:00)
--- NOTE | 2016-12-13 11:07 | PN ---
DATE: 12/13/2016 The patient is in bed in no acute distress, nontoxic. PHYSICAL EXAMINATION: VITAL SIGNS: Temperature is 98. Blood pressure is 130/60, respiratory rate of 18, heart rate of 64. HEENT: Unremarkable. NECK: Supple. LUNGS: Have decreased breath sounds. HEART: Normal S1, S2. ABDOMEN: Soft, nontender. LABORATORY EXAMINATION: Reveals a white count of 3.3, hemoglobin of 11. Chemistries are noted. BUN of 15, creatinine of 0.4. Procalcitonin 0.8. Urinalysis is noted. Microbiology is noted. The blo od cultures are negative. Dr. Laboy's note from today is reviewed, and Dr. Vargas's note is also reviewed. Review of the orders reveals the patient is on prednisone, off of antibiotics. Dr. Vincenzo Dias's note is reviewed. ASSESSMENT AND PLAN: This is a 71-year-old male with healthcare-associated pneumonia in patient with chronic obstructive lung disease, on day #7 completed doxycycline -currently now day #7 of doxycycli ne. Would discontinue the p.o. doxycycline after today's last dose - it is p.o. The patient is also on prednisone, who appears end-stage cachectic with pulmonary fibrosis, lung cancer. Mack Dubose MD cc: [phone] TT: 12/13/2016 11:06:55 Confirmation # [id number] Dictation # [id number] jn
--- NOTE | 2016-12-13 14:21 | CP.PCM.PN ---
<LavonRupa - Last Filed: 12/13/16 14:19> Subjective - Date & Time of Evaluation Date of Evaluation: 12/13/16 Time of Evaluation: 14:19 - Subjective Subjective: GI for Dr. Laboy Pt s&e w attending. ZUNILDA. Denies abd pain. Having BM. Denies F/C/N/V/CP/SOB Objective - Vital Signs/Intake and Output Vital Signs (last 24 hours): Temp Pulse Resp BP Pulse Ox 98.1 F 64 17 130/69 100 12/13/16 06:00 12/13/16 09:02 12/13/16 06:00 12/13/16 09:02 12/13/16 06:00 Intake and Output: 12/13/16 12/13/16 06:59 18:59 Intake Total 740 Output Total 1100 Balance -360 - Medications Medications: Current Medications Acetaminophen (Tylenol 325mg Tab) 650 mg PO Q6H PRN PRN Reason: Headache Last Admin: 12/10/16 21:51 Dose: 650 mg Acetylcysteine (Acetylcysteine 20%) 4 ml IH BIDRESP DONNA Last Admin: 12/13/16 07:44 Dose: 4 ml Albuterol/Ipratropium (Duoneb 3 Mg/0.5 Mg (3 Ml) Ud) 3 ml IH [id number] PRN PRN Reason: Shortness of Breath Last Admin: 12/13/16 07:44 Dose: 3 ml Arformoterol Tartrate (Brovana) 15 mcg IH [id number] [facility] Last Admin: 12/13/16 07:44 Dose: 15 mcg Aspirin (Aspirin Chewable) 81 mg PO DAILY DONNA Last Admin: 12/13/16 09:03 Dose: 81 mg Atenolol (Tenormin) 25 mg PO BID DONNA Last Admin: 12/13/16 09:02 Dose: 25 mg Atorvastatin Calcium (Lipitor) 10 mg PO DAILY [facility] Last Admin: 12/13/16 09:03 Dose: 10 mg Bisacodyl (Dulcolax) 5 mg PO DAILY PRN PRN Reason: Constipation Last Admin: 12/06/16 10:51 Dose: 5 mg Budesonide (Pulmicort Respules) 0.5 mg IH [id number] [facility] Last Admin: 12/13/16 07:44 Dose: 0.5 mg Doxycycline Hyclate (Doryx) 100 mg PO Q12 [facility] PRN Reason: Protocol Last Admin: 12/13/16 09:03 Dose: 100 mg Ergocalciferol (Drisdol 50,000 Intl Units Cap) 1 cap PO Q7D [facility] Last Admin: 12/12/16 17:51 Dose: 1 cap Ferrous Sulfate (Feosol) 324 mg PO DAILY [facility] Last Admin: 12/13/16 09:02 Dose: 324 mg Folic Acid (Folic Acid) 1 mg PO DAILY [facility] Last Admin: 12/13/16 09:02 Dose: 1 mg Hydromorphone HCl (Dilaudid) 2 mg IVP Q3H PRN PRN Reason: Pain, severe (8-10) Last Admin: 12/13/16 12:26 Dose: 2 mg Lactulose (Enulose) 20 gm PO HS [facility] Last Admin: 12/12/16 22:21 Dose: 20 gm Lidocaine (Lidoderm) 2 ea TD DAILY [facility] Last Admin: 12/13/16 09:01 Dose: 2 ea Meclizine HCl (Antivert) 12.5 mg PO Q8H PRN PRN Reason: Dizziness Last Admin: 12/12/16 13:19 Dose: 12.5 mg Mirtazapine (Remeron) 30 mg PO HS [facility] Last Admin: 12/12/16 22:21 Dose: 30 mg Multivitamins (Thera Tab) 1 tab PO DAILY [facility] Last Admin: 12/13/16 09:02 Dose: 1 tab Non-Formulary Medication (Vit B12/Pyridoxine/Thiamine [Pv Neuro Nisha Tablet]) 1 ,000 mg PO DAILY [facility] Last Admin: 12/12/16 10:49 Dose: Not Given Oxycodone HCl (Oxycodone Immediate Release Tab) 15 mg PO Q4H PRN PRN Reason: Pain, moderate (4-7) Last Admin: 12/11/16 04:18 Dose: 15 mg Pantoprazole Sodium (Protonix Ec Tab) 40 mg PO DAILY [facility] Last Admin: 12/13/16 09:02 Dose: 40 mg Polyethylene Glycol (Miralax) 17 gm PO BID [facility] Last Admin: 12/13/16 09:02 Dose: 17 gm Prednisone (Prednisone Tab) 20 mg PO DAILY [facility] Last Admin: 12/13/16 09:03 Dose: 20 mg Roflumilast (Daliresp) 500 mcg PO DAILY DONNA Last Admin: 12/13/16 09:03 Dose: 500 mcg Zolpidem Tartrate (Ambien) 10 mg PO HS PRN; Protocol PRN Reason: Insomnia Last Admin: 12/10/16 21:51 Dose: 10 mg - Labs Labs: 12/12/16 08:30 12/11/16 06:50 PT 13.7 Seconds (9.9-11.8) H 11/28/16 11:52 INR 1.27 (0.93-1.08) H 11/28/16 11:52 APTT 35.9 Seconds (23.7-30.8) H 11/28/16 11:52 - Constitutional Appears: Non-toxic, Chronically Ill - Head Exam Head Exam: ATRAUMATIC, NORMAL INSPECTION, NORMOCEPHALIC - Eye Exam Eye Exam: EOMI, Normal appearance, PERRL Pupil Exam: NORMAL ACCOMODATION, PERRL - ENT Exam ENT Exam: Mucous Membranes Moist, Normal Exam - Neck Exam Neck Exam: Full ROM, Normal Inspection. absent: Lymphadenopathy - Respiratory Exam Respiratory Exam: Clear to Ausculation Bilateral, NORMAL BREATHING PATTERN - Cardiovascular Exam Cardiovascular Exam: REGULAR RHYTHM, +S1, +S2. absent: Murmur - GI/Abdominal Exam GI & Abdominal Exam: Soft, Normal Bowel Sounds. absent: Distended, Firm, Tenderness - Extremities Exam Extremities Exam: Full ROM, Normal Capillary Refill, Normal Inspection. absent : Joint Swelling, Pedal Edema - Back Exam Back Exam: NORMAL INSPECTION - Neurological Exam Neurological Exam: Alert, Awake, CN II-XII Intact, Normal Gait, Oriented x3 - Psychiatric Exam Psychiatric exam: Normal Affect, Normal Mood - Skin Skin Exam: Dry, Intact, Normal Color, Warm Assessment and Plan - Assessment and Plan (Free Text) Assessment: Stage IV Lung cancer Pneumonia CPOD Improved Chronic consitpation, narcotic induced, had few doses of Relistor Resolved abdominal pain Celiac Disease PLAN: continue Miralax, on Dulcolax prn, lacutolose in PM, monitor stools Pain control:avoid narcotics gluten-free diet as per oncology,ID, pulmonary Seen and case discussed with Dr. Laboy. <Celestino Laboy V - Last Filed: 01/28/17 20:42> Objective - Vital Signs/Intake and Output Vital Signs (last 24 hours): Temp Pulse Resp BP Pulse Ox 97.5 F L 90 18 100/60 100 12/15/16 16:00 12/15/16 16:00 12/15/16 16:00 12/15/16 17:04 12/15/16 16:00 - Labs Labs: 12/15/16 06:45 12/15/16 06:45 PT 13.7 Seconds (9.9-11.8) H 11/28/16 11:52 INR 1.27 (0.93-1.08) H 11/28/16 11:52 APTT 35.9 Seconds (23.7-30.8) H 11/28/16 11:52 Assessment and Plan - Assessment and Plan (Free Text) Assessment: Addendum to the GI progress note of Dr. Doll. Patient seen, examined and chart reviewed. Patient constipation has improved, will continue present management. On Gluten Free diet.
--- NOTE | 2016-12-13 16:08 | PN ---
DATE: 12/13/2016 This is the patient's hospital visit on the medical floor. For Dr. Ma. SUBJECTIVE: The patient is a 71-year-old male seen lying awake in bed, reporting that he still has l eft lower rib cage discomfort despite being on significant doses of narcotic analgesics along with fe ntanyl patch. The patient is known to have stage IV nonsmall cell CA of the lung is status post aguilar sfusion for symptomatic anemia with good effect, with severe constipation, opioid-induced, now [facility] ed. There is also question of disposition with consideration for placement of this patient as per Dr Rolly Greer and family. Otherwise, the patient reports that his bowel movements are normal again and is otherwise resting comfortably. OBJECTIVE: PHYSICAL EXAMINATION: VITAL SIGNS: Temperature 98.1, pulse 64, respirations 17, blood pressure 130/69, pulse ox 100%. HEENT: Unremarkable. NECK: Supple. HEART: Regular rate, occasional ectopic beat. ABDOMEN: Soft, nontender with the patient complaining of the left upper abdomen/left lower chest dis comfort in 1 spot specifically, with a Lidoderm patch located right next to this spot. EXTREMITIES: No edema. SKIN: Warm, dry and clear. NEUROLOGIC: Awake, alert and oriented. LABORATORY DATA: The patient's labs were done. White blood cell count of 3.3, hemoglobin of 11.0 do ne yesterday, hematocrit of 32.5, platelet count of 351,000. His hemoglobin was 8.5 prior to transfu yuval 2 days ago. Chem metabolic panel also done 2 days prior was within normal range. ASSESSMENT: For this patient is that of stage IV nonsmall cell carcinoma of the lung, status post tr ansfusion for symptomatic anemia; intractable pain of cancer; opioid-induced constipation, resolved; hospital-acquired pneumonia, chronic obstructive pulmonary disease, cardiomyopathy, chronic back pain , deconditioning. DISPOSITION: Plan for this patient is as per Dr. Greer and Dr. Vargas. Will continue the present me dical regimen with consideration for resumption of his chemotherapy once the patient is stable. Vincenzo Dias MD cc: [id number] TT: 12/13/2016 16:07:11 Confirmation # [id number] Dictation # [id number] mn
--- NOTE | 2016-12-13 17:20 | PN ---
DATE: 12/13/2016 REFERRING PHYSICIAN: Dr. Greer. SUBJECTIVE: The patient is lying in the bed, head at 45 degrees, gets short of breath with minimal e xertion. No cough, no sputum production, no nausea, no vomiting, diarrhea. No leg pain or leg swell ing. OBJECTIVE: GENERAL: No acute distress. VITAL SIGNS: Temperature is 98, heart rate is 64, respiratory rate is 20, blood pressure 130/69, pul se ox 100% on nasal cannula. HEENT: Moist mucous membrane. No ulcer or thrush noted. NECK: Supple. No JVD. LUNGS: Has a fair airflow with few rhonchi. HEART: S1, S2. ABDOMEN: Soft, nontender. No organomegaly. EXTREMITIES: There is no edema. NEUROLOGIC: Awake, alert, follows simple command. MEDICATIONS: He is on Mucomyst inhaler q. 12 hours, Ambien 10 mg at bedtime p.r.n., Antivert 12.5 m g q. 8 hours, aspirin 81 mg daily, Brovana 15 mcg inhaled twice a day, Daliresp 500 mcg daily, Dilaud id 2 mg IV q. 3 hours p.r.n., doxycycline 100 mg twice a day, vitamin D 1 capsule q. 7 days, Dulcolax on p.r.n. basis, albuterol-Atrovent nebulizers q. 6 hours, lactulose 20 grams at bedtime, ferrous valentin lfate 324 mg daily, folic acid 1 mg daily, Lidoderm patch daily, Lipitor 10 mg daily, MiraLax 17 gram s twice a day, oxycodone immediate release 15 mg q. 4 hours p.r.n., prednisone 20 mg daily, Protonix 40 mg daily, Pulmicort inhaled twice daily, Remeron 30 mg at bedtime, Tenormin 25 mg twice a day, mul tivitamins daily, Tylenol on p.r.n. basis. LABORATORY DATA: Reviewed and noted. No new lab is available since yesterday. Microbiology: Blood cultures have been negative. IMPRESSION AND PLAN: Chronic obstructive lung disease with pulmonary fibrosis, lung cancer, anemia, chronic constipation, cardiomyopathy, decreased left ventricular ejection fraction, persistent shortn ess of breath, malnourished, activities of daily living dysfunction. Case discussed with oncology se gabi. The patient is very deconditioned and short of breath with minimal exertion. Family request ing long-term placement. For now, continue p.o. inhaled bronchodilator. Gastric prophylaxis. DVT p rophylaxis. Fall precautions. Encouraged to get out of bed to chair. Keep close eye for fall. [place] nk you and will follow with you. Shell Vargas MD cc: [id number] TT: 12/13/2016 17:19:30 Confirmation # [id number] Dictation # [id number] mn
[2016-12-13] MEDS: oxyCODONE 15 mg Immediate Release Tab PO PRN (17:56)
[2016-12-14] MEDS: HYDROmorphone 2 mg/ml ISec IVP PRN ×6 (01:53→21:40)
[2016-12-14 07:15] LABS: ADD MANUAL DIFF? NO
[2016-12-14 07:22] LABS: EOS % 0.7 % (1.5-5.0); GRAN # 3.66 (1.4-6.5); GRAN % 62.4 % (50.0-68.0); HEMATOCRIT 33.8 % (42.0-52.0); LYMPH % 17.1 % (22.0-35.0); MEAN CELL VOLUME 83.5 fL (80.0-105.0); MEAN CORPUSCULAR HEMOGLOBIN 27.4 pg (25.0-35.0); MEAN CORPUSCULAR HGB CONC 32.8 g/dl (31.0-37.0); MEAN PLATELET VOLUME 8.3 fl (7.0-11.0); MONO # 1.2 (0.1-0.6); MONO % 19.8 % (1.0-6.0); PLATELET COUNT 350 10^3/uL (120.0-450.0); WHITE BLOOD COUNT 5.9 10^3/ul (4.5-11.0)
[2016-12-14 07:48] LABS: ALB/GLOB RATIO 1.1 (1.1-1.8); ALKALINE PHOSPHATASE 94 U/L (38-133); ALT/SGPT 49 U/L (7-56); AST/SGOT 40 U/L (15-59); BILIRUBIN,TOTAL 0.5 mg/dL (0.2-1.3); BLOOD UREA NITROGEN 15 mg/dL (7-21); CALCIUM 9.3 mg/dL (8.4-10.5); CARBON DIOXIDE 31 mmol/L (21-33); CHLORIDE 100 mmol/L (98-107); GFR AFRICAN-AMERICAN > 60; GLUCOSE,RANDOM 84 mg/dL (70-110); POTASSIUM 3.5 mmol/L (3.6-5.0); SODIUM 137 mmol/L (132-148); TOTAL PROTEIN 6.3 g/dL (5.8-8.3)
[2016-12-14] MEDS: Budesonide 0.5 mg/2 ml Inhal Susp UD IH SCH ×2 (08:06→19:55)
[2016-12-14] MEDS: Acetylcysteine 20% Inhal Soln (4ml) IH SCH ×2 (08:06→19:58)
[2016-12-14] MEDS: Arformoterol 15 mcg/2 ml Inh Sol IH SCH ×2 (08:06→19:58)
[2016-12-14] MEDS: Lidocaine 5% Patch TD SCH (10:05)
[2016-12-14] MEDS: Multivitamin Therapeutic Tab PO SCH (10:06)
[2016-12-14] MEDS: THIAMINE PO SCH (10:07)
[2016-12-14] MEDS: Pantoprazole 40 mg EC Tab PO SCH (10:07)
[2016-12-14] MEDS: POLYETHYLENE GLYCOL 3350 17 GM/Dose PACKET PO SCH ×2 (10:07→17:42)
[2016-12-14] MEDS: PYRIDOXINE PO SCH (10:07)
[2016-12-14] MEDS: CYANOCOBALAMIN PO SCH (10:07)
[2016-12-14] MEDS: oxyCODONE 15 mg Immediate Release Tab PO PRN ×3 (11:04→20:49)
[2016-12-14] MEDS: Potassium Chloride 20 mEq ER Tab PO SCH (11:04)
--- NOTE | 2016-12-14 13:03 | PN ---
DATE: 12/14/2016 The patient is in bed, in no acute distress, nontoxic. PHYSICAL EXAMINATION: VITAL SIGNS: Temperature is 98, blood pressure is 120/60, respiratory rate 18, heart rate of 77. HEENT: Unremarkable. NECK: Supple. LUNGS: Have decreased breath sounds. HEART: Normal S1, S2. ABDOMEN: Soft. LABORATORY DATA: Reveals a white count of 5.9, hemoglobin of 11, platelets of 350. Chemistries reve al the BUN of 15, creatinine 0.4. Procalcitonin 0.08. Urinalysis is noted. Microbiology reveals th e blood cultures are negative. ASSESSMENT AND PLAN: This is a 71-year-old male with a healthcare-associated pneumonia, patient with a chronic obstructive lung disease. Completed 7 days of doxycycline; today will be day #8. Will di scontinue the doxycycline. On prednisone. Dr. Vargas's note is reviewed. Mack Dubose MD cc: [id number] TT: 12/14/2016 13:03:01 Confirmation # [id number] Dictation # [id number] mn
--- NOTE | 2016-12-14 17:23 | PN ---
DATE: 12/14/2016 This is the patient's hospital visit on the medical floor. For Dr. Ma. SUBJECTIVE: The patient is a 71-year-old male, appearing in modest distress, reporting that he has a n isolated spot on his left lateral 7th rib with significant discomfort to gentle palpation despite n egative bone scan recently. With this, the patient does have stage IV nonsmall cell CA of the lung a nd status post transfusion with severe constipation, opioid induced, now also resolved. With this, t he patient is otherwise without complaint except for this spot, which analgesics help minimally. The patient did have a PET CT scan done on 06/22/2016 with normal FDG activity seen in the axial skel eton. However, at that time, there was interval almost complete resolving of previously left pleural effusion, multiple foci, pleural thickening and pleural based nodule left chest, more prominent in t he lung bases with diffuse FDG uptake. The max FDG seen at the peripheral left lower chest is 7.0 wi th interval reexpansion of the left lung. There was no evidence of mediastinal adenopathy at that ti me. The patient did have a CT scan of the chest done on 11/28/2016 with a consideration for underlying pul monary nodules with the patient being status post left lung surgery with architectural distortion con sistent with pulmonary fibrosis on the right greater than left lung, mass-like consolidation along th e peripheral aspect of the sickle fissure along with left lung base could represent atelectasis versu s pneumonia. Other testing included a chest x-ray done 12/05 showing a small left pleural effusion. He also had a bone scan on 12/09/2016 which was read as no evidence of bony metastatic disease. OBJECTIVE AND PHYSICAL EXAMINATION: VITAL SIGNS: Temperature 98.4, pulse 80, respirations 18, blood pressure 127/63, pulse ox 100%. HEENT: Unremarkable. He appears cachectic. NECK: Supple. HEART: Regular rate. LUNGS: Scattered rhonchi with minimal tenderness to gentle palpation of the left lower chest wall. ABDOMEN: Soft, nontender with Lidoderm patches on. EXTREMITIES: No edema. SKIN: Warm, dry and clear. NEUROLOGIC: Awake and alert. The patient's labs were done. White blood cell count 5.9, hemoglobin 11.1, hematocrit of 33.8 with a platelet count of 350,000. He is status post transfusion of 2 units of packed red blood cells 3 day s prior. His chem metabolic panel shows a potassium of 3.5, otherwise normal chem metabolic panel. It should be noted that the patient has been hospitalized approximately 16 days with 7 units of packe d cells transfused in that period of time. ASSESSMENT: Stage IV nonsmall cancer of the lung with intractable pain of cancer, opioid-induced con stipation, improved, status post transfusion for symptomatic anemia, hospital-acquired pneumonia, chr onic obstructive pulmonary disease, cardiomyopathy, chronic back pain, deconditioning with left lower thorax pain. After conversation with Dr. Ma, we will recommend a consult with Dr. Diego Ordaz, pain consul tant, as this was ordered earlier in the patient's hospital stay with a reconsult regarding possible trigger point injection for this area, with continuation of the patient's present medical regimen, al so for replenishment of his potassium as indicated. We will monitor clinically and with labs. Vincenzo Dias MD cc: [id number] TT: 12/14/2016 17:22:33 Confirmation # [id number] Dictation # [id number]
[2016-12-14] MEDS: Albuterol-Ipratrop 3 mg / 0.5 (3 ml) UD IH PRN (19:58)
--- NOTE | 2016-12-14 22:17 | PN ---
DATE: 12/14/2016 PULMONARY PROGRESS NOTE REFERRING PHYSICIAN: Dr. Greer. SUBJECTIVE: He is lying in the bed, head at 45 degrees, complaining about a back and left-sided disc omfort, improved by manipulating, short of breath with minimal exertion. No nausea, no vomiting, no diarrhea. No leg pain or leg swelling. OBJECTIVE: GENERAL: No acute distress. VITAL SIGNS: Temp is 98, heart rate 75, respiratory rate is 20, blood pressure 112/70, pulse ox 100% on 2 liters nasal cannula. HEENT: Moist mucous membrane. No ulcer or thrush noted. NECK: Supple. No JVD. LUNGS: Has a fair airflow with few rhonchi, prolonged expiratory phase. HEART: S1, S2. ABDOMEN: Soft, nontender. No organomegaly. EXTREMITIES: There is no edema. NEUROLOGIC: Awake, alert, follows simple command. MEDICATIONS: He is on Mucomyst 20% twice a day, Ambien 10 mg at bedtime p.r.n., Antivert 12.5 mg q. 8 hours p.r.n., aspirin 81 mg daily, Brovana 15 mcg inhaled twice, Daliresp 500 mcg daily, Dila udid 2 mg IV q. 3 hours p.r.n., vitamin D 50,000 units q. 7 days, Dulcolax p.r.n. basis, DuoNeb q. 4 hours p.r.n., lactulose 20 grams at bedtime, ferrous sulfate 324 mg daily, folic acid 1 mg daily, po tassium 20 mEq daily, Lidoderm patch daily, Lipitor 10 mg daily, MiraLax 17 grams twice a day, oxycod one immediate release 15 mg q. 4 hours p.r.n., prednisone 20 mg daily, Protonix 40 mg daily, Pulmicor t inhaled twice a day, Remeron 30 mg at bedtime, atenolol 25 mg twice a day, multivitamins daily. LABORATORY DATA: Shows hemoglobin 11.9, hematocrit 33.8, WBC 5.9, and platelet is . Sodium 137 , potassium 3.5, chloride 100, bicarbonate 31, BUN 15, creatinine 0.4, glucose 84, calcium 9.3, AST 4 0, ALT 49, alkaline phosphatase is 94, albumin is 3.3. Microbiology: Blood cultures have been negat benjie. IMPRESSION AND PLAN: Chronic obstructive lung disease with pulmonary fibrosis, lung cancer, anemia, chronic constipation, cardiomyopathy, decreased LV ejection fraction, persist shortness of breath, sanjay lnourished, activities of daily living dysfunction. I spoke to nursing staff and requested to get hi m out of bed to chair as much as possible. Continue p.o. and inhaled bronchodilator. Gastric prophy laxis. DVT prophylaxis. Overall, poor prognosis, family wishing his placement in long-term care, sanjay peters consult palliative care. Thank you and will follow with you. Shell Vargas MD cc: [phone] TT: 12/14/2016 22:16:55 Confirmation # [id number] Dictation # [id number] mn
--- NOTE | 2016-12-14 23:37 | PN ---
DATE: 12/14/2016 SUBJECTIVE: This patient was seen and evaluated earlier today. The patient is comfortable, moving h is bowels. No complaints of any abdominal pain. No complaints of any abdominal pain. PHYSICAL EXAMINATION: VITAL SIGNS: He is afebrile, blood pressure is 112/70, respirations 20, heart rate is 75. HEENT: Atraumatic, anicteric. NECK: Supple. HEART: S1, S2 heard. LUNGS: Bilateral air entry present. ABDOMEN: Soft. There is no mass, no tenderness. EXTREMITIES: No cyanosis, no clubbing, no edema. LABORATORY DATA: Hemoglobin 11.5, 11.9, hematocrit 38, 33.8. IMPRESSION: This 71-year-old patient with chronic obstructive pulmonary disease, lung cancer, chroni c constipation, now with moving his bowels regularly with the regimen. We will continue the present regimen. Thank you very much for allowing us to participate in the care of this patient. Celestino Laboy MD cc: [id number] TT: 12/14/2016 23:36:21 Confirmation # [id number] Dictation # [id number] brayan
[2016-12-15] MEDS: HYDROmorphone 2 mg/ml ISec IVP PRN ×4 (02:53→15:57)
[2016-12-15] MEDS: oxyCODONE 15 mg Immediate Release Tab PO PRN (05:32)
[2016-12-15 07:14] LABS: ADD MANUAL DIFF? NO
[2016-12-15 07:37] LABS: ALB/GLOB RATIO 1.1 (1.1-1.8); ALKALINE PHOSPHATASE 99 U/L (38-133); ALT/SGPT 55 U/L (7-56); AST/SGOT 47 U/L (15-59); BILIRUBIN,TOTAL 0.7 mg/dL (0.2-1.3); BLOOD UREA NITROGEN 12 mg/dL (7-21); CALCIUM 9.5 mg/dL (8.4-10.5); CARBON DIOXIDE 31 mmol/L (21-33); CHLORIDE 100 mmol/L (98-107); GFR AFRICAN-AMERICAN > 60; GLUCOSE,RANDOM 83 mg/dL (70-110); POTASSIUM 3.7 mmol/L (3.6-5.0); SODIUM 137 mmol/L (132-148); TOTAL PROTEIN 6.4 g/dL (5.8-8.3)
--- NOTE | 2016-12-15 08:03 | PN ---
DATE: 12/14/2016 A 71-year-old male with lung cancer, abdominal pain, constipation, left side chest pain, probably due to nerve injury. The patient is generally weak, cannot go home and still complains of pain. The pa tient supposedly to be seen by Dr. Ordaz for local nerve injections nerve block. We will try to reach Dr. Ordaz. PHYSICAL EXAMINATION: VITAL SIGNS: Temperature 97.6, heart rate 75, blood pressure 112/70, respirations 20, saturation 100 %. HEAD AND NECK: Normal. No JVD, no thyromegaly. CHEST: Clear, diminished sounds. CARDIAC: First sound, second sound normal. ABDOMEN: Soft, nontender. EXTREMITIES: No edema. NEUROLOGIC: Generally weak, but normal, nonfocal. He is alert, awake, oriented x 3. LABORATORY STUDIES: Shows white count 5.9, hemoglobin 11.1, hematocrit 33.8, platelets 350. Software Test Specialist ry: Sodium 137, potassium 3.5, chloride 100, bicarb 31, BUN 15, creatinine 0.4. Liver function test is normal. IMPRESSION: 1. Abdominal pain due to constipation, resolved. Continue current medications. The patient getting Relistor, lactulose, MiraLax, Dulcolax p.r.n. 2. Electrolyte abnormality, hypokalemia. Will replace that. 3. Left-sided rib severe rib pain and will continue pain medication as it is. We will get Dr. Elin murrieta for evaluation, pain management. 4. Lung cancer stage IV as per Dr. Ma. Continue current treatment. 5. Chronic obstructive pulmonary disease, history of pneumonia, resolved. The patient is stable. 6. Anemia. The patient is status post transfusion 2 units. Hemoglobin went up to 11. PLAN: Continue current medications. Probably, patient should go to rehab. Seen by Dr. Ordaz as o utpatient or inpatient if possible and continue current treatment. Will talk to the family. Diego Greer MD cc: [phone] TT: 12/15/2016 08:02:56 Confirmation # [id number] Dictation # [id number] en
[2016-12-15] MEDS: Acetylcysteine 20% Inhal Soln (4ml) IH SCH (08:11)
[2016-12-15] MEDS: Arformoterol 15 mcg/2 ml Inh Sol IH SCH (08:11)
[2016-12-15] MEDS: Budesonide 0.5 mg/2 ml Inhal Susp UD IH SCH (08:12)
--- NOTE | 2016-12-15 08:25 | PN ---
DATE: 12/12/2016 REASON FOR CONSULTATION AND FOLLOWUP: ____, lung carcinoma, chest pain due to lung carcinoma, hypoka lemia, chronic obstructive pulmonary disease, pneumonia. BRIEF CLINICAL HISTORY: The patient is a 71-year-old male with past medical history significant for lung CA, history for COPD intractable, left ____ carcinoma of the lung, complaining of sinus tachycar jory. Echo showed ____ LV function 42%. Denies any palpitation today, but complaining of some dizzin ess. The patient is currently being discharged. PHYSICAL EXAMINATION: VITAL SIGNS: Temperature afebrile, heart rate 73, blood pressure 122/____. HEENT: PERRLA. Extraocular muscles intact. NECK: Supple. No carotid bruits. No thyromegaly. CHEST: Clear to auscultation. HEART: S1, S2 regular. ABDOMEN: Soft. EXTREMITIES: Clubbing and cyanosis negative. LABORATORY DATA: Blood workup as follows: WBC ____, hemoglobin 11, hematocrit 32.5, platelet count 351. Chemistry shows sodium 130, potassium ____, chloride 97, carbon dioxide 33, anion gap of 10, BU N 15, creatinine 0.4. IMPRESSION: Intractable chest pain secondary to ____ probably from tumor and lung carcinoma, inopera ble, stage IV, sinus tachycardia improved on beta arlene. RECOMMENDATION: Continue meclizine for dizziness. Continue aspirin. We will sign off and glad to telma grossman Thank you, Dr. Greer, for providing the opportunity in taking care of the patient. We will follow w yi motta. Shell Mota MD cc: [phone] TT: 12/12/2016 15:11:33 Confirmation # [id number] Dictation # [id number] deniz
[2016-12-15] MEDS: Potassium Chloride 20 mEq ER Tab PO SCH (08:38)
[2016-12-15 09:12] LABS: BASO # 0.01 K/mm3 (0.0-2.0); BASO % 0.2 % (0.0-3.0); EOS % 0.8 % (1.5-5.0); GRAN # 2.93 (1.4-6.5); HEMATOCRIT 33.4 % (42.0-52.0); LYMPH # 1.1 (1.2-3.4); LYMPH % 22.6 % (22.0-35.0); MEAN CELL VOLUME 83.3 fL (80.0-105.0); MEAN CORPUSCULAR HEMOGLOBIN 27.4 pg (25.0-35.0); MEAN CORPUSCULAR HGB CONC 32.9 g/dl (31.0-37.0); MEAN PLATELET VOLUME 8.7 fl (7.0-11.0); MONO # 0.9 (0.1-0.6); MONO % 18.4 % (1.0-6.0); PLATELET COUNT 325 10^3/uL (120.0-450.0); RED CELL DISTRIBUTION WIDTH 17.3 % (11.5-14.5); WHITE BLOOD COUNT 5.1 10^3/ul (4.5-11.0)
[2016-12-15] MEDS: PYRIDOXINE PO SCH (10:30)
[2016-12-15] MEDS: CYANOCOBALAMIN PO SCH (10:30)
[2016-12-15] MEDS: THIAMINE PO SCH (10:30)
[2016-12-15] MEDS: Pantoprazole 40 mg EC Tab PO SCH (10:32)
[2016-12-15] MEDS: Multivitamin Therapeutic Tab PO SCH (10:32)
[2016-12-15] MEDS: POLYETHYLENE GLYCOL 3350 17 GM/Dose PACKET PO SCH ×2 (10:33→17:06)
[2016-12-15] MEDS: Lidocaine 5% Patch TD SCH (10:33)
--- NOTE | 2016-12-15 12:12 | PN ---
DATE: 12/15/2016 Seen and examined at the bedside late this morning. His grandson is visiting. The patient does repo rt he is having bowel movements. He had one earlier this morning. Denies any bleeding. No complain ts of abdominal pain. He is tolerating his oral intake. VITAL SIGNS: Temperature is 98, blood pressure is 103/51, pulse 86, respirations 17, 98 nasal cannul a. LABORATORY DATA: WBC is 5.1, H and H is 11.0 and 33.4, platelets of 325. Chem: Sodium 137, K is 3. 7, BUN 12, creatinine is 0.5. LFTs are within normal limits. PHYSICAL EXAMINATION: HEENT: Sclerae are anicteric. NECK: Supple. CARDIAC: S1, S2. LUNGS: Decreased breath sounds but good air entry. No wheezing. ABDOMEN: With bowel sounds, soft, it is not distended. No tenderness on palpation, rebound or guard ing. EXTREMITIES: No edema. ASSESSMENT: The patient with resolved abdominal pain, likely secondary to the constipation. The pat ient is moving his bowels now. He is on a bowel regimen. The patient also has left-sided rib pain. He has stage IV lung cancer, chronic obstructive pulmonary disease and anemia. He is status post 2 units of packed RBCs. PLAN: The patient may go to rehabilitation. We will continue the bowel regimen. He is on multiple laxatives. He is on Dulcolax p.r.n. He is also on lactulose, getting MiraLax. Did get doses of Rel istor before. Continue PPI. The patient is on iron supplements and is on aspirin, on Lidoderm for p ain medication, oxycodone. The patient was seen and discussed with Dr. Laboy. Elo MELISSA cc: [phone] TT: 12/15/2016 12:11:40 Confirmation # [id number] Dictation # [id number] eugene
--- NOTE | 2016-12-15 13:49 | CP.PCM.PN ---
Subjective - Date & Time of Evaluation Date of Evaluation: 12/15/16 Time of Evaluation: 10:55 - Subjective Subjective: Comfortable, afebrile, not in distress. Objective - Vital Signs/Intake and Output Vital Signs (last 24 hours): Temp Pulse Resp BP Pulse Ox 98 F 86 17 103/51 L 98 12/15/16 08:27 12/15/16 08:27 12/15/16 08:27 12/15/16 10:32 12/15/16 08:27 Intake and Output: 12/15/16 12/15/16 06:59 18:59 Output Total 750 Balance -750 - Medications Medications: Current Medications Acetaminophen (Tylenol 325mg Tab) 650 mg PO Q6H PRN PRN Reason: Headache Last Admin: 12/10/16 21:51 Dose: 650 mg Acetylcysteine (Acetylcysteine 20%) 4 ml IH BIDRESP [facility] Last Admin: 12/15/16 08:11 Dose: 4 ml Albuterol/Ipratropium (Duoneb 3 Mg/0.5 Mg (3 Ml) Ud) 3 ml IH [id number] PRN PRN Reason: Shortness of Breath Last Admin: 12/14/16 19:58 Dose: 3 ml Arformoterol Tartrate (Brovana) 15 mcg IH [id number] [facility] Last Admin: 12/15/16 08:11 Dose: 15 mcg Aspirin (Aspirin Chewable) 81 mg PO DAILY [facility] Last Admin: 12/15/16 10:32 Dose: 81 mg Atenolol (Tenormin) 25 mg PO BID DONNA Last Admin: 12/15/16 10:32 Dose: 25 mg Atorvastatin Calcium (Lipitor) 10 mg PO DAILY [facility] Last Admin: 12/15/16 10:32 Dose: 10 mg Bisacodyl (Dulcolax) 5 mg PO DAILY PRN PRN Reason: Constipation Last Admin: 12/06/16 10:51 Dose: 5 mg Budesonide (Pulmicort Respules) 0.5 mg IH [id number] [facility] Last Admin: 12/15/16 08:12 Dose: 0.5 mg Ergocalciferol (Drisdol 50,000 Intl Units Cap) 1 cap PO Q7D [facility] Last Admin: 12/12/16 17:51 Dose: 1 cap Ferrous Sulfate (Feosol) 324 mg PO DAILY [facility] Last Admin: 12/15/16 10:32 Dose: 324 mg Folic Acid (Folic Acid) 1 mg PO DAILY [facility] Last Admin: 12/15/16 10:32 Dose: 1 mg Hydromorphone HCl (Dilaudid) 2 mg IVP Q3H PRN PRN Reason: Pain, severe (8-10) Last Admin: 12/15/16 12:06 Dose: 2 mg Lactulose (Enulose) 20 gm PO HS [facility] Last Admin: 12/14/16 21:40 Dose: 20 gm Lidocaine (Lidoderm) 2 ea TD DAILY [facility] Last Admin: 12/15/16 10:33 Dose: 2 ea Meclizine HCl (Antivert) 12.5 mg PO Q8H PRN PRN Reason: Dizziness Last Admin: 12/14/16 14:44 Dose: 12.5 mg Mirtazapine (Remeron) 30 mg PO HS [facility] Last Admin: 12/14/16 21:40 Dose: 30 mg Multivitamins (Thera Tab) 1 tab PO DAILY [facility] Last Admin: 12/15/16 10:32 Dose: 1 tab Non-Formulary Medication (Vit B12/Pyridoxine/Thiamine [Pv Neuro Nisha Tablet]) 1 ,000 mg PO DAILY [facility] Last Admin: 12/14/16 10:07 Dose: Not Given Oxycodone HCl (Oxycodone Immediate Release Tab) 15 mg PO Q4H PRN PRN Reason: Pain, moderate (4-7) Last Admin: 12/15/16 05:32 Dose: 15 mg Pantoprazole Sodium (Protonix Ec Tab) 40 mg PO DAILY [facility] Last Admin: 12/15/16 10:32 Dose: 40 mg Polyethylene Glycol (Miralax) 17 gm PO BID [facility] Last Admin: 12/15/16 10:33 Dose: 17 gm Potassium Chloride (K-Dur 20 Meq Er Tab) 20 meq PO BRK [facility] Last Admin: 12/15/16 08:38 Dose: 20 meq Prednisone (Prednisone Tab) 20 mg PO DAILY [facility] Last Admin: 12/15/16 10:32 Dose: 20 mg Roflumilast (Daliresp) 500 mcg PO DAILY [facility] Last Admin: 12/15/16 10:32 Dose: 500 mcg Zolpidem Tartrate (Ambien) 10 mg PO HS PRN; Protocol PRN Reason: Insomnia Last Admin: 12/14/16 21:40 Dose: 10 mg - Labs Labs: 12/15/16 06:45 12/15/16 06:45 PT 13.7 Seconds (9.9-11.8) H 11/28/16 11:52 INR 1.27 (0.93-1.08) H 11/28/16 11:52 APTT 35.9 Seconds (23.7-30.8) H 11/28/16 11:52 - Constitutional Appears: Non-toxic, No Acute Distress - Head Exam Head Exam: NORMAL INSPECTION - Respiratory Exam Respiratory Exam: Decreased Breath Sounds - Cardiovascular Exam Cardiovascular Exam: +S1, +S2 - GI/Abdominal Exam GI & Abdominal Exam: Soft. absent: Tenderness Assessment and Plan - Assessment and Plan (Free Text) Plan: Assessment consider HCAP in this patient being treated for COPD exacerbation, clinically improved and S/P treatment history of hospital-acquired pneumonia lung cancer on chemotherapy chronic anemia dyslipidemia S/P appendectomy Plan completed 7 days of doxycycline Will continue to monitor clinically off antibiotics since he is at risk for nosocomial infections
[2016-12-15 17:04] VITALS: BP 100/60
[2016-12-15 17:54] VITALS: PULSE 90; RESP 18; TEMP 97.5; O2SAT 100
--- NOTE | 2016-12-16 01:26 | PN ---
DATE: 12/15/2016 LOCATION: The patient is currently in room 367, bed 2. SUBJECTIVE: The patient is being discharged today. The patient examined at the bedside. Family is visiting. I spoke to the daughter in great length. The patient continues to have good bowel movemen ts. Still complaining of pinpoint tenderness over the left intercostal space over the 9th and 10th r ib region interval pinpoint, which would probably benefit from a trigger point injection to alleviate the pain. The patient denies any history of nausea, vomiting, fevers or chills. PHYSICAL EXAMINATION: VITAL SIGNS: Stable. T-max is 98.4, blood pressure is 103/51, pulse is 86, respirations 17, O2 satu ration on nasal cannula is 98%. LABORATORY DATA: Reveals a white count of 5.1, hemoglobin 11, hematocrit 35, platelet count is 325,0 00. Chemistries reveal a sodium of 137, K is 3.7, BUN of 12, creatinine of 0.6. LFTs are within nor mal limits. OBJECTIVE: GENERAL: The patient is awake, alert, and oriented, in some distress because of the pinpoint tendern ess over the left rib cage region. NECK: Supple. There is no adenopathy. HEART: Reveals S1 and S2 to be normal. No gallop or murmur is heard. ABDOMEN: Reveals bowel sounds to be present. Abdomen is not distended. No rebound, rigidity or gua rding is noted. ASSESSMENT NOTES AND PLAN: The patient has resolved abdominal pain likely secondary to constipation, moving his bowels now, on a bowel regimen. 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 The patient received 2 units of blood just a few days ag o while in the hospital. PLAN: The patient will continue rehabilitation. Will continue his bowel regimen and p.o. antibiotic s. Routine post exam instructions have been given to the patient. I have also given a script of ext ra dose of Dilaudid to 25 mcg to make it 100 mcg q. 72 hours. The patient will be seen in the office in the next several days. I told her to make an appointment for the patient to be seen by Dr. Elin murrieta for local regional block as well. Josee Ma MD cc: [phone] TT: 12/16/2016 01:25:05 Confirmation # [id number] Dictation # [id number] mn
--- NOTE | 2016-12-16 15:42 | PN ---
DATE: 12/15/2016 The patient is stable. He feels weak, but advised to continue rehab. Constipation resolved. Still complained of left rib side localized pain. PHYSICAL EXAMINATION: VITAL SIGNS: Temperature 98, heart rate 86, blood pressure 103/51, respirations 17, saturating 98%. HEAD AND NECK: Normal. No JVD, no thyromegaly. CHEST: Clear, good air entry. CARDIAC: First sound, second sound normal. ABDOMEN: Soft, nontender. EXTREMITIES: No edema. NEUROLOGIC: He is normal nonfocal. LABORATORY DATA: White count 5.1, hemoglobin 11, hematocrit 33.4, platelets 325. His chemistry note d for sodium 137, potassium 3.7, chloride 100, bicarb 31, BUN 12, creatinine 0.5. Liver function geeta t is normal. The patient is hemodynamically stable. Will be discharged home. Follow up with Dr. Diego tony nd seen by Dr. Ma. ____ the Duragesic patch increased to 125 mcg. All prescriptions given, and he will be discharged home today. DISCHARGE DIAGNOSES: 1. Acute abdominal pain. 2. Chronic constipation with acute worsening secondary to opioid-induced constipation. 3. Chronic obstructive pulmonary disease. 4. Lung cancer, stage IV, status post chemotherapy. 5. Left side chest pain, localized pain, probably due to nerve injury. Will follow up with Dr. Alistair nicole for nerve block. 6. Anemia, resolved, status post blood transfusion 2 units, stable. 7. Generalized weakness. The patient well advised to continue rehabilitation. ____ discussed with the family. They decline any long-term rehab for 4 weeks at [place] or at [facility]. They are prepared to take him home. Will continue current management as outpatient. See Dr Rolly Ma, see in office within a week. Diego Greer MD cc: [phone] TT: 12/16/2016 15:42:03 Confirmation # [id number] Dictation # [id number] mn
== END 2016-12-15 18:16 | disposition home or self-care (01) | DRG 391 ==
LOC: ED 11:51 → ERH 16:08 → 3RNO 17:00
PROVIDERS: ADMIT Internal Medicine; ATTEND Internal Medicine
PROC: 30233N1 Transfusion of Nonautologous Red Blood Cells into Peripheral Vein, Percutaneous Approach (ICD-10-PCS; principal; 2016-12-11)
DX: K59.03 Drug induced constipation (principal); J18.9 Pneumonia, unspecified organism; E46 Unspecified protein-calorie malnutrition; J91.0 Malignant pleural effusion; R64 Cachexia; I42.9 Cardiomyopathy, unspecified; C34.90 Malignant neoplasm of unspecified part of unspecified bronchus or lung; J44.0 Chronic obstructive pulmonary disease with (acute) lower respiratory infection; J44.1 Chronic obstructive pulmonary disease with (acute) exacerbation; N28.1 Cyst of kidney, acquired; D63.8 Anemia in other chronic diseases classified elsewhere; J84.10 Pulmonary fibrosis, unspecified; I10 Essential (primary) hypertension; E87.5 Hyperkalemia; E78.5 Hyperlipidemia, unspecified; D50.9 Iron deficiency anemia, unspecified; R00.0 Tachycardia, unspecified; E78.00 Pure hypercholesterolemia, unspecified; E87.6 Hypokalemia; F11.10 Opioid abuse, uncomplicated; F41.9 Anxiety disorder, unspecified; F51.02 Adjustment insomnia; F51.04 Psychophysiologic insomnia; G89.3 Neoplasm related pain (acute) (chronic); H91.90 Unspecified hearing loss, unspecified ear; K21.9 Gastro-esophageal reflux disease without esophagitis; K56.41 Fecal impaction; K90.0 Celiac disease; M19.90 Unspecified osteoarthritis, unspecified site; R62.7 Adult failure to thrive; Y95 Nosocomial condition; Z79.899 Other long term (current) drug therapy; Z80.1 Family history of malignant neoplasm of trachea, bronchus and lung; Z87.01 Personal history of pneumonia (recurrent); Z87.891 Personal history of nicotine dependence; Z90.49 Acquired absence of other specified parts of digestive tract; Z91.19 Patient's noncompliance with other medical treatment and regimen; Z92.21 Personal history of antineoplastic chemotherapy; L98.9 Disorder of the skin and subcutaneous tissue, unspecified; M54.9 Dorsalgia, unspecified; K52.9 Noninfective gastroenteritis and colitis, unspecified; R32 Unspecified urinary incontinence; Z87.898 Personal history of other specified conditions; R10.9 Unspecified abdominal pain; R07.9 Chest pain, unspecified; E53.8 Deficiency of other specified B group vitamins; K29.70 Gastritis, unspecified, without bleeding; I51.7 Cardiomegaly; S24.9XXA Injury of unspecified nerve of thorax, initial encounter

== ENCOUNTER 2016-12-23 08:04 | Inpatient (IN) | payer MEDICARE, OTHER ==
[2016-12-23] MEDS ORDERED: Albuterol-Ipratrop 3 mg / 0.5 (3 ml) UD ONE (08:23)
[2016-12-23] MEDS: Albuterol-Ipratrop 3 mg / 0.5 (3 ml) UD IH SCH ×4 (08:30→20:55)
--- NOTE | 2016-12-23 09:09 | ED PDOC ---
Arrival/HPI - General Time Seen by Provider: 12/23/16 08:06 Historian: Patient - History of Present Illness Narrative History of Present Illness (Text): 12/23/16 09:06 71 year old male presents to the emergency department complaining of chronic chest pain/side pain. Patient states pain worsened last night despite Fentanyl patch. Denies abdominal pain, nausea, or vomiting. Symptom Onset: Gradual Modifying Factors (Text): None Associated Symptoms (Text): None Past Medical History - Provider Review Nursing Documentation Reviewed: Yes - Infectious Disease Hx of Infectious Diseases: None - Tetanus Immunization Tetanus Immunization: Unknown - Cardiac Hx Cardiac Disorders: Yes - Pulmonary Hx Respiratory Disorders: Yes Hx Chronic Obstructive Pulmonary Disease (COPD): Yes Hx Pneumonia: Yes Other/Comment: SMOKED 2-3 PPD QUIT 2014 - Neurological Hx Neurological Disorder: Yes - HEENT Hx HEENT Disorder: Yes Hx Deafness: Yes - Renal Hx Renal Disorder: No - Endocrine/Metabolic Hx Endocrine Disorders: No - Hematological/Oncological Hx Blood Disorders: Yes Hx Anemia: Yes (BLOOD TRANSFUSION) - Integumentary Hx Dermatological Disorder: Yes (GENERALIZED SKIN DRYNESS) - Musculoskeletal/Rheumatological Hx Musculoskeletal Disorders: Yes Hx Back Pain: Yes Hx Falls: Yes Hx Herniated Disk: Yes - Gastrointestinal Hx Gastrointestinal Disorders: Yes (POOR APPETITE,COLITIS) Hx Gastroesophageal Reflux: Yes Other/Comment: CONSTIPATION,11-28-16 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 - Genitourinary/Gynecological Hx Genitourinary Disorders: Yes Hx Incontinence: Yes - Psychiatric Hx Psychophysiologic Disorder: Yes (H/O SMOKING 2-3 PPD QUIT,ETOH ABUSE DRANK 9- 10 CANS OF BEER A WEEK.) Hx Emotional Abuse: No Hx Physical Abuse: No Hx Substance Use: No - Surgical History Hx Appendectomy: Yes Hx Cardiac Catheterization: Yes Other/Comment: R chest port - Anesthesia Hx Anesthesia: Yes - Suicidal Assessment Feels Threatened In Home Enviroment: No Family/Social History - Physician Review Nursing Documentation Reviewed: Yes Family/Social History: Unknown Family HX Smoking Status: Former Smoker Hx Alcohol Use: Yes (QUIT,DRANK 9-10 BEERS/WEEK) Hx Substance Use: No Hx Substance Use Treatment: No Allergies/Home Meds Allergies/Adverse Reactions: Allergies shellfish derived Allergy (Verified 12/23/16 09:26) ANAPHYLAXIS Home Medications: Home Meds Medication Instructions Recorded Confirmed Folic Acid 1 mg PO DAILY 10/23/16 12/23/16 Review of Systems - Physician Review All systems were reviewed & negative as marked: Yes Physical Exam - Physical Exam Narrative Physical Exam (Text): - Review of Systems Constitutional: Normal. absent: Fatigue, Weight Change, Fevers Eyes: Normal ENT: Normal Respiratory: Normal absent: SOB, Cough, Sputum Cardiovascular: Chest pain absent: Palpitations, Syncope Gastrointestinal: Normal absent: Abdominal pain, Diarrhea, Nausea, Vomiting Genitourinary: Normal. absent: Dysuria, Frequency, Hematuria Musculoskeletal: Normal. absent: Arthralgias, Back Pain, Neck Pain Skin: Normal Neurological: Normal absent: Focal Weakness Endocrine: Normal Hemo/Lymphatic: Normal Psychiatric: Normal - Physical exam Patient appears age appropriate - Systems Exam Head: Present: Atraumatic, Normocephalic Pupils: Present: PERRL Extraocular Muscles: Present: EOMI Conjunctiva: Present: Normal Mouth: Present: Moist Mucous Membranes Neck: Present: Normal Range of Motion. No: MIDLINE TENDERNESS, Paraspinal Tenderness Respiratory/Chest: Present: Bibasilar crackles, Mild Respiratory Distress. No: Accessory Muscle Use, Tachypneic Cardiovascular: Present: Tachycardic. Regular Rhythm, Normal S1, S2, Peripheral Pulses Present. No: Murmurs Abdomen: Present: Normal Bowel Sounds, No: Tenderness, Peritoneal Signs, Rebound, Guarding, Distention Back: Present: Normal Inspection. No: Midline Tenderness, Paraspinal Tenderness Upper Extremity: Present: Normal Inspection. No: Cyanosis, Edema Lower Extremity: Present: Normal Inspection. No: Edema Neurological: Present: GCS=15, Speech Normal, cranial nerves II through XII fully intact with no cerebellar abnormality, neuro-sensory fully intact. No focal neurological deficits. Skin: Present: Warm, Dry, Normal Color. No: Rashes Lymphatic: Present: OX3, NI, NC Psychiatric: Present: Alert, Oriented x 3, Normal Insight, Normal Concentration Vital Signs Reviewed: Yes Vital Signs Temp Pulse Resp BP Pulse Ox 12/23/16 14:49 114 H 20 111/59 L 97 12/23/16 14:16 116 H 18 101/56 L 99 12/23/16 12:03 127 H 18 95/23 L 99 12/23/16 11:38 127 H 12/23/16 11:15 127 H 22 104/49 L 99 12/23/16 10:00 119 H 12/23/16 08:10 98.3 F 122 H 30 H 112/58 L 80 L Temperature: Afebrile Blood Pressure: Normal Pulse: Tachycardic Respiratory Rate: Tachypneic Appearance: Positive for: Well-Appearing, Non-Toxic Mental Status: Positive for: Alert and Oriented X 3 Medical Decision Making ED Course and Treatment: Impression: 71 year old male presents to the emergency department complaining of chronic chest pain/side pain. On physical exam, patient has bibasilar crackles, is tachycardic, in mild respiratory distress. Differential Diagnosis include but are not limited to: PE vs pneumonia Plan: -- EKG, Chest x-ray -- Aspirin -- Labs -- Reassess and disposition Prior Visits: Notes and results from previous visits were reviewed. Patient has a history of abdominal pain, chronic constipation, worsening due to opiate use, COPD, stage IV lung cancer, left sided chest pain localized likely due to nerve injury as per Dr. Greer's note. Patient also has history of anemia for which he received blood transfusion. Progress Notes: BiPap ordered with inline nebs pt tolerating well 12/23/16 09:30 Chest x-ray read by me shows no cardiomegaly, worsening right interstitial infiltrate 12/23/16 10:[address] Rushing, spoke about possibility of PE and anticoagulation. States to get CT angio first due to increased risk of bleeding due to possible endobronchial lesion. PROCEDURE: ULTRASOUND GUIDED IV PLACEMENT Performed by the emergency provider Time: 10:40 Consent: Informed consent, after discussion of the risks, benefits, and alternatives to the procedure, was obtained. Timeout: A timeout to verify the correct patient, procedure, and site was performed immediately prior to the procedure. Indication: Nurse unable to obtain adequate venous access. Skin Preparation: Hand hygiene performed prior to venous catheter insertion. The area was cleansed and prepped with alcohol. Location: LUE Technique: A 20 gauge long IV was placed under direct visualization via US guidance Assessment: Good patency and blood return. Post-procedure: Patient tolerated the procedure well with no immediate complications. Distal neurovasc. intact. 12/23/16 11:07 Patient is on BIPAP on 2L O2, and does not appear to be in respiratory distress. Patient is doing better. Chest CT Plating Operator: Jw Hernandez MD IMPRESSION: No evidence of pulmonary embolus. No change in appearance of pulmonary fibrosis. Increased sub carinal adenopathy. Case discussed with Dr. Rushing, casino cage manager, accepts to ICU. Case discussed with Dr. Greer, agrees with plan. 12/23/16 15:00 off bipap, ate food, states he feels better 12/23/16 15:04 EKG shows sinus tachycardia, no ST segment elevations, 124bpm. Interpreted by me. - Critical Care Critical Care Minutes: 60 minutes - Lab Interpretations Lab Results: 12/23/16 10:00 12/23/16 10:00 Lab Results 12/23/16 10:33: pCO2 37, pO2 114.0 H, HCO3 26.3, ABG pH 7.46 H, ABG Total CO2 27.4, ABG O2 Saturation 99.2 H, ABG O2 Content 12.5 L, ABG Base Excess 2.4, ABG Hemoglobin 9.1 L, ABG Carboxyhemoglobin 2.1 H, POC ABG HHb (Measured) 0.8, ABG Methemoglobin 1.2, ABG O2 Capacity 12.6 L, Hgb O2 Saturation 95.9, FiO2 40.0 12/23/16 10:06: pO2 80 H, VBG pH 7.40, VBG pCO2 48.0, VBG HCO3 29.7 H, VBG Total CO2 31.2 H, VBG O2 Sat (Calc) 97.6 H, VBG Base Excess 4.0 H, VBG Potassium 3.8, Glucose 113 H, Lactate 1.3, FiO2 21.0, Sodium 135.0, Chloride 100.0, Venous Blood Potassium 3.8 12/23/16 10:00: Sodium 134, Potassium 3.9, Chloride 96 L, Carbon Dioxide 29, Anion Gap 13, BUN 11, Creatinine 0.5, Est GFR ( Amer) > 60, Est GFR (Non- Af Amer) > 60, Random Glucose 113 H, Calcium 9.2, Total Bilirubin 0.8, AST 48, ALT 40, Alkaline Phosphatase 117, Lactate Dehydrogenase 1093 H, Total Creatine Kinase 61, Troponin I 0.12 D, NT-Pro-B Natriuret Pep 1260 H, Total Protein 7.1 , Albumin 3.5, Globulin 3.7, Albumin/Globulin Ratio 0.9 L 12/23/16 10:00: PT 14.7 H, INR 1.36 H, APTT 35.9 H 12/23/16 10:00: WBC 6.1, RBC 3.75, Hgb 10.1 L, Hct 32.0 L, MCV 85.3, MCH 26.9, MCHC 31.6, RDW 17.3 H, Plt Count 293, MPV 8.7, Gran % 81.1 H, Lymph % (Auto) 8.0 L, Bacon % (Auto) 9.9 H, Eos % (Auto) 0.5 L, Baso % (Auto) 0.5, Gran # 4.98, Lymph # 0.5 L, Bacon # 0.6, Eos # 0.0, Baso # 0.03 - RAD Interpretation Radiology Orders: 12/23/16 08:15 CHEST PORTABLE [RAD] Stat 12/23/16 09:26 ANGIO CHEST PE PROTOCOL [CT] Stat - Medication Orders Current Medication Orders: Albuterol/Ipratropium (Duoneb 3 Mg/0.5 Mg (3 Ml) Ud) 3 ml IH Q2 PRN PRN Reason: Shortness of Breath Albuterol/Ipratropium (Duoneb 3 Mg/0.5 Mg (3 Ml) Ud) 3 ml IH Q6 DONNA Hydromorphone HCl (Dilaudid) 2 mg IVP Q3 PRN PRN Reason: Pain, moderate (4-7) Sodium Chloride (Sodium Chloride 0.9%) 1,000 mls @ 75 mls/hr IV .[id number] DONNA Methylprednisolone (Solu-Medrol) 60 mg IVP Q8 DONNA Discontinued Medications Albuterol/Ipratropium (Duoneb 3 Mg/0.5 Mg (3 Ml) Ud) 3 ml IH Q15M DONNA Stop: 12/23/16 09:01 Last Admin: 12/23/16 09:40 Dose: 3 ml Albuterol/Ipratropium (Duoneb 3 Mg/0.5 Mg (3 Ml) Ud) Confirm Administered Dose 9 ml .ROUTE .STK-MED ONE Stop: 12/23/16 08:24 Last Admin: 12/23/16 08:20 Dose: Aspirin (Aspirin Chewable) 324 mg PO STAT STA Stop: 12/23/16 08:38 Last Admin: 12/23/16 09:39 Dose: 324 mg Hydromorphone HCl (Dilaudid) 2 mg IVP STAT STA Stop: 12/23/16 14:24 Last Admin: 12/23/16 14:45 Dose: 2 mg Levofloxacin/Dextrose (Levaquin 750mg) 750 mg in 150 mls @ 100 mls/hr IV STAT STA Stop: 12/23/16 11:15 Last Admin: 12/23/16 11:11 Dose: 100 mls/hr Vancomycin HCl (Vancomycin 1gm) 1 gm in 250 mls @ 133.333 mls/hr IVPB STAT STA PRN Reason: Protocol Stop: 12/23/16 11:38 Last Admin: 12/23/16 13:14 Dose: 133.333 mls/hr Piperacillin Sod/Tazobactam Sod (Zosyn 4.5 Gm In Ns 100ml) 4.5 gm in 100 mls @ 200 mls/hr IVPB STAT STA PRN Reason: Protocol Stop: 12/23/16 10:15 Last Admin: 12/23/16 10:04 Dose: 200 mls/hr Sodium Chloride (Sodium Chloride 0.9%) 500 mls @ 1,000 mls/hr IV .Q30M STA Stop: 12/23/16 12:41 Last Admin: 12/23/16 13:19 Dose: 1,000 mls/hr Iodixanol (Visipaque 320 Mg/Ml 100 Ml) Confirm Administered Dose 100 ml IV .STK- MED ONE Stop: 12/23/16 10:45 - Scribe Statement The provider has reviewed the documentation as recorded by the Nic Luciano Provider Scribe Attestation: All medical record entries made by the Nic were at my direction and personally dictated by me. I have reviewed the chart and agree that the record accurately reflects my personal performance of the history, physical exam, medical decision making, and the department course for this patient. I have also personally directed, reviewed, and agree with the discharge instructions and disposition. Disposition/Present on Arrival - Present on Arrival Any Indicators Present on Arrival: No History of DVT/PE: No History of Uncontrolled Diabetes: No Urinary Catheter: No History Surgical Site Infection Following: None - Disposition Have Diagnosis and Disposition been Completed?: Yes Diagnosis: Dyspnea Disposition: HOSPITALIZED Disposition Time: 12:10 Condition: CRITICAL
[2016-12-23] MEDS ORDERED: Piperacill/Tazo 4.5gm in NS 4.5 GM/100 ML BAG IVPB STA (09:46)
[2016-12-23] MEDS ORDERED: levoFLOXacin 750 mg in D5W 750 MG/150 ML BAG IV STA (09:46)
[2016-12-23] MEDS ORDERED: Vancomycin 1gm in NS 250ml 1 GM/250 ML BAG IVPB STA (09:46)
[2016-12-23 10:01] LABS: ADD MANUAL DIFF? NO
[2016-12-23 10:10] LABS: BASO # 0.03 K/mm3 (0.0-2.0); BASO % 0.5 % (0.0-3.0); EOS % 0.5 % (1.5-5.0); GRAN # 4.98 (1.4-6.5); GRAN % 81.1 % (50.0-68.0); LYMPH # 0.5 (1.2-3.4); MEAN CELL VOLUME 85.3 fL (80.0-105.0); MEAN CORPUSCULAR HEMOGLOBIN 26.9 pg (25.0-35.0); MEAN CORPUSCULAR HGB CONC 31.6 g/dl (31.0-37.0); MEAN PLATELET VOLUME 8.7 fl (7.0-11.0); MONO # 0.6 (0.1-0.6); MONO % 9.9 % (1.0-6.0); PLATELET COUNT 293 10^3/uL (120.0-450.0); RED CELL DISTRIBUTION WIDTH 17.3 % (11.5-14.5); WHITE BLOOD COUNT 6.1 10^3/ul (4.5-11.0)
[2016-12-23 10:16] LABS: INR 1.36 (0.93-1.08); PARTIAL THROMBOPLASTIN TIME 35.9 Seconds (23.7-30.8)
[2016-12-23 10:17] LABS: ALB/GLOB RATIO 0.9 (1.1-1.8); ALKALINE PHOSPHATASE 117 U/L (38-133); ALT/SGPT 40 U/L (7-56); AST/SGOT 48 U/L (15-59); BILIRUBIN,TOTAL 0.8 mg/dL (0.2-1.3); BLOOD UREA NITROGEN 11 mg/dL (7-21); CALCIUM 9.2 mg/dL (8.4-10.5); CARBON DIOXIDE 29 mmol/L (21-33); CHLORIDE 96 mmol/L (98-107); GFR AFRICAN-AMERICAN > 60; GLUCOSE,RANDOM 113 mg/dL (70-110); POTASSIUM 3.9 mmol/L (3.6-5.0); SODIUM 134 mmol/L (132-148); TOTAL PROTEIN 7.1 g/dL (5.8-8.3)
--- NOTE | 2016-12-23 10:17 | RAD ---
HISTORY: chestt pain,SOB COMPARISON: 12/06/2016 FINDINGS: LUNGS: There is a diffuse right-sided infiltrate consistent with pneumonia. There is a minimal infiltrate at the left lung base. The left lung is otherwise clear. PLEURA: No significant pleural effusion identified, no pneumothorax apparent. CARDIOVASCULAR: Normal. OSSEOUS STRUCTURES: No significant abnormalities. VISUALIZED UPPER ABDOMEN: Normal. OTHER FINDINGS: Right-sided Port-A-Cath IMPRESSION: Diffuse right-sided infiltrate consistent with pneumonia
[2016-12-23 10:31] LABS: TROPONIN I 0.12 ng/mL
[2016-12-23 10:36] LABS: ARTERIAL BLOOD GAS HCO3 26.3 mmol/L (21-28); ARTERIAL BLOOD GAS O2 CAPACITY 12.6 mL/dl (16-24); ARTERIAL BLOOD GAS O2 CONTENT 12.5 ML/dl (15-23); ARTERIAL BLOOD GAS PH 7.46 (7.35-7.45); ARTERIAL BLOOD HGB O2 SAT 95.9 % (95.0-98.0); CARBOXYHEMOGLOBIN 2.1 % (0.5-1.5); HHB 0.8 % (0-5); METHEMOGLOBIN 1.2 % (0.0-3.0)
[2016-12-23] MEDS ORDERED: Iodixanol 320 MG/ML 100 ML BOTTLE IV ONE (10:44)
--- NOTE | 2016-12-23 11:28 | CT ---
PROCEDURE: CT Chest with contrast (Pulmonary Angiogram) HISTORY: r/o PE COMPARISON: 11/28/2016 TECHNIQUE: Axial computed tomography images were obtained of the chest in the pulmonary arterial phase of enhancement. Coronal and sagittal reformatted images were created and reviewed. Intravenous contrast dose: 100 cc of Visipaque Radiation dose: Total exam DLP = 355 mGy-cm. This CT exam was performed using one or more of the following dose reduction techniques: Automated exposure control, adjustment of the mA and/or kV according to patient size, and/or use of iterative reconstruction technique. FINDINGS: PULMONARY ARTERIES: Unremarkable. No pulmonary embolism. AORTA: No acute findings. No thoracic aortic aneurysm. LUNGS: There is no change in the appearance of pulmonary fibrosis right greater than left. PLEURAL SPACES: Unremarkable. No effusion or pneuomothorax. HEART: Unremarkable. No cardiomegaly. No significant pericardial effusion. LYMPH NODES: There is a moderate amount of sub carinal adenopathy. This has increased. BONES, CHEST WALL: Unremarkable. No fracture or destructive lesion OTHER FINDINGS: Unremarkable. IMPRESSION: No evidence of pulmonary embolus. No change in appearance of pulmonary fibrosis. Increased sub carinal adenopathy
--- NOTE | 2016-12-23 11:39 | CP.PCM.CON ---
<Kamilla Nava - Last Filed: 12/23/16 15:06> History of Present Illness - History of Present Illness History of Present Illness: PGY-[address] Claudia Rushing ICU consult: Tachypnea in the setting of tachycardia and chest pain 71 year old male, with PMHx of stage IV lung CA with last chemo 2 months ago, on 3.5L home O2 around the clock, presents to the emergency department complaining of chest pain/L lower lateral side pain. Pt recently discharged from [facility] 1 week ago, staying with grandsons, who took turns to care patient. At 4am, pt states that he was SOB, chest pain. Pt looks pale, so family adjusted O2 to 4L. Pt was shaking, no tongue biting, no soiling, no LOC. Family called PMD who advised pt to come to the ED. As for CP, the pain worsened last night despite Fentanyl patch. left sided chest pain localized likely due to nerve injury as per Dr. Greer's note. Pt cannot quality or quantify the pain. Currently pain worsened with palpation. Denies abdominal pain, nausea, or vomiting. History provided by pt's daughter. Upon ED arrival, T 98.3, HR 122, 112/58, RR30, 80L Hb 10 at baseline. INR 1.36. LDH 1093, trop 0.12, BNP 260. VBG lactate 1.3 ABG: pH 7.46. pCO2 37. HCO3 26.3 CXR: Worsening R sided infiltrate CTA: No PE. Increased sub-carinal adenopathy. No appearance of pulmonary fibrosis Pt is s/p BIPAP, now on 2L O2 satting 99%, and does not appear to be in respiratory distress. Pt received Levaqin, zosyn, Vanco, duoneb, ASA At examination, pt speaks in choppy sentences, able to follow commands, resting comfortably on 2L O2. PMH: Stage IV lung CA, on chemo, on duragesic patch 75mcg and oxycodone COPD on neb HTN, HLD Anemia, chronic, s/p transfusion Chronic constipation, chronic opiod use Chronic back pain from herniated disc Former smoker, 2-3 ppd x 30 years, quit 2014 Former ETOH abuse, DRANK 9-10 BEERS/WEEK PHH: November 2016: hospital-acquired pneumonia; 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 PSH: Cardiac cath 2008 FH: Brother of lung carcinoma SH: Former ETOH/tobacco abuse. Denies drug Lives by himself, now helped by family. , supportive daughter Uses bedside commode at home. Ambulate with 1 assist. All: shellfish, anaphlaxis Med:SEP PMD: Dr. Diego Greer Oncologist: Dr. Melendez Past Patient History - Infectious Disease Hx of Infectious Diseases: None - Tetanus Immunizations Tetanus Immunization: Unknown - Past Medical History & Family History Past Medical History?: Yes - Past Social History Smoking Status: Former Smoker - CARDIAC Hx Cardiac Disorders: Yes - PULMONARY Hx Respiratory Disorders: Yes Hx Chronic Obstructive Pulmonary Disease (COPD): Yes Hx Pneumonia: Yes Other/Comment: SMOKED 2-3 PPD QUIT 2014 - NEUROLOGICAL Hx Neurological Disorder: Yes - HEENT Hx HEENT Problems: Yes Hx Deafness: Yes - RENAL Hx Chronic Kidney Disease: No - ENDOCRINE/METABOLIC Hx Endocrine Disorders: No - HEMATOLOGICAL/ONCOLOGICAL Hx Blood Disorders: Yes Hx Anemia: Yes (BLOOD TRANSFUSION) - INTEGUMENTARY Hx Dermatological Problems: Yes (GENERALIZED SKIN DRYNESS) - MUSCULOSKELETAL/RHEUMATOLOGICAL Hx Musculoskeletal Disorders: Yes Hx Back Pain: Yes Hx Falls: Yes Hx Herniated Disk: Yes - GASTROINTESTINAL Hx Gastrointestinal Disorders: Yes (POOR APPETITE,COLITIS) Hx Gastroesophageal Reflux: Yes Other/Comment: CONSTIPATION,5--17 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 - GENITOURINARY/GYNECOLOGICAL Hx Genitourinary Disorders: Yes Hx Incontinence: Yes - PSYCHIATRIC Hx Psychophysiologic Disorder: Yes (H/O SMOKING 2-3 PPD QUIT,ETOH ABUSE DRANK 9- 10 CANS OF BEER A WEEK.) Hx Emotional Abuse: No Hx Physical Abuse: No Hx Substance Use: No - SURGICAL HISTORY Hx Appendectomy: Yes Hx Cardiac Catheterization: Yes Other/Comment: R chest port - ANESTHESIA Hx Anesthesia: Yes Meds Allergies/Adverse Reactions: Allergies Allergy/AdvReac Type Severity Reaction Status Date / Time shellfish derived Allergy ANAPHYLAXIS Verified 12/23/16 09:26 Physical Exam - Constitutional Appears: No Acute Distress - Head Exam Head Exam: ATRAUMATIC, NORMOCEPHALIC - Eye Exam Eye Exam: EOMI, Normal appearance, PERRL Pupil Exam: NORMAL ACCOMODATION - ENT Exam ENT Exam: Mucous Membranes Moist - Neck Exam Neck exam: Positive for: Normal Inspection Additional comments: No JVD - Respiratory Exam Respiratory Exam: Decreased Breath Sounds (L), Rales (R), NORMAL BREATHING PATTERN - Cardiovascular Exam Cardiovascular Exam: REGULAR RHYTHM, +S1, +S2. absent: Systolic Murmur - GI/Abdominal Exam GI & Abdominal Exam: Soft. absent: Distended, Guarding - Extremities Exam Extremities exam: Positive for: normal capillary refill, pedal pulses present. Negative for: calf tenderness, pedal edema - Back Exam Back exam: absent: CVA tenderness (L), CVA tenderness (R) - Neurological Exam Neurological exam: Alert - Psychiatric Exam Psychiatric exam: Normal Affect, Normal Mood - Skin Skin Exam: Dry, Warm Results - Vital Signs Recent Vital Signs: Last Vital Signs Temp 98.3 F 12/23/16 08:10 Pulse 127 H 12/23/16 11:15 Resp 22 12/23/16 11:15 BP 104/49 L 12/23/16 11:15 Pulse Ox 99 12/23/16 11:15 - Labs Result Diagrams: 12/23/16 10:00 12/23/16 10:00 Labs: Laboratory Results - last 24 hr 12/23/16 12/23/16 12/23/16 10:00 10:00 10:00 WBC 6.1 RBC 3.75 Hgb 10.1 L Hct 32.0 L MCV 85.3 MCH 26.9 MCHC 31.6 RDW 17.3 H Plt Count 293 MPV 8.7 Gran % 81.1 H Lymph % (Auto) 8.0 L [place] % (Auto) 9.9 H Eos % (Auto) 0.5 L Baso % (Auto) 0.5 Gran # 4.98 Lymph # 0.5 L [place] # 0.6 Eos # 0.0 Baso # 0.03 PT 14.7 H INR 1.36 H APTT 35.9 H pCO2 pO2 HCO3 ABG pH ABG Total CO2 ABG O2 Saturation ABG O2 Content ABG Base Excess ABG Hemoglobin ABG Carboxyhemoglobin POC ABG HHb (Measured) ABG Methemoglobin ABG O2 Capacity VBG pH VBG pCO2 VBG HCO3 VBG Total CO2 VBG O2 Sat (Calc) VBG Base Excess VBG Potassium Hgb O2 Saturation Glucose Lactate FiO2 Sodium 134 Potassium 3.9 Chloride 96 L Carbon Dioxide 29 Anion Gap 13 BUN 11 Creatinine 0.5 Est GFR ( Amer) > 60 Est GFR (Non-Af Amer) > 60 Random Glucose 113 H Calcium 9.2 Total Bilirubin 0.8 AST 48 ALT 40 Alkaline Phosphatase 117 Lactate Dehydrogenase 1093 H Total Creatine Kinase 61 Troponin I 0.12 D NT-Pro-B Natriuret Pep 1260 H Total Protein 7.1 Albumin 3.5 Globulin 3.7 Albumin/Globulin Ratio 0.9 L Venous Blood Potassium 12/23/16 12/23/16 10:06 10:33 WBC RBC Hgb Hct MCV MCH MCHC RDW Plt Count MPV Gran % Lymph % (Auto) [place] % (Auto) Eos % (Auto) Baso % (Auto) Gran # Lymph # [place] # Eos # Baso # PT INR APTT pCO2 37 pO2 80 H 114.0 H HCO3 26.3 ABG pH 7.46 H ABG Total CO2 27.4 ABG O2 Saturation 99.2 H ABG O2 Content 12.5 L ABG Base Excess 2.4 ABG Hemoglobin 9.1 L ABG Carboxyhemoglobin 2.1 H POC ABG HHb (Measured) 0.8 ABG Methemoglobin 1.2 ABG O2 Capacity 12.6 L VBG pH 7.40 VBG pCO2 48.0 VBG HCO3 29.7 H VBG Total CO2 31.2 H VBG O2 Sat (Calc) 97.6 H VBG Base Excess 4.0 H VBG Potassium 3.8 Hgb O2 Saturation 95.9 Glucose 113 H Lactate 1.3 FiO2 21.0 40.0 Sodium 135.0 Potassium Chloride 100.0 Carbon Dioxide Anion Gap BUN Creatinine Est GFR ( Amer) Est GFR (Non-Af Amer) Random Glucose Calcium Total Bilirubin AST ALT Alkaline Phosphatase Lactate Dehydrogenase Total Creatine Kinase Troponin I NT-Pro-B Natriuret Pep Total Protein Albumin Globulin Albumin/Globulin Ratio Venous Blood Potassium 3.8 Assessment & Plan - Assessment and Plan (Free Text) Plan: 71 year old male, with PMHx of stage IV lung CA with last chemo 2 months ago, on 3.5L home O2 around the clock, presents to the emergency department complaining of chest pain/L lower lateral side pain with SOB and tachycardia. Pt recently discharged from [facility] 1 week ago for LBO and PNA. CXR showed worsening R sided infiltrate. ICU was consulted for tachypnea and hypoxia and respiratory distress. Sinus tachycardia persists despite resolution of respiratory distress. suspected dehydration vs pneumonia vs pain Neuro AAOx2, which is baseline per family Resume home pain meds. Pulm Hypoxia resolved, s/p bipap, now on 2L CXR: Worsened R sided infiltrate CTA: No PE. Honey combing suggestive of pulmonary fibrosis/NSIP. ground glass appearance suggestive of PNA. BNP 1260 - Pending echo r/o acute ischemic cardiomyopathy solumedrol 60q8, Duoneb, bipap 12/5/45% prn Card Sinus tachycardia persist despite resolution of hypoxic respiratory distress Watch type II [place] Elevated trops 0.12 -- ACS vs LV stretch; serial CE LDH 1093 -- ACS vs tumor lysis Echo (november 2016): EF 41, grade 1 relaxation Will do bedside echo to check fluid status GI Heart health diet Renal Watch i/o for contrast used in CTA Endo Pending TSH Heme chronic anemia Hb stale at baseline 10 ID Suspected PNA - CAP vs HAP NS@75 Prophylasix Protonix, Heparin SC S/R/D/w Dr. Claudia Rushing - Date & Time Date: 12/23/16 Time: 12:44 <Ray Rushing MD - Last Filed: 12/23/16 15:34> Meds - Medications Medications: Current Medications Albuterol/Ipratropium (Duoneb 3 Mg/0.5 Mg (3 Ml) Ud) 3 ml IH Q2 PRN PRN Reason: Shortness of Breath Albuterol/Ipratropium (Duoneb 3 Mg/0.5 Mg (3 Ml) Ud) 3 ml IH Q6 [facility] Fentanyl (Duragesic) 1 patch TD Q72H [facility] Heparin Sodium (Porcine) (Heparin) 5,000 units SC Q8 DONNA PRN Reason: Protocol Hydromorphone HCl (Dilaudid) 2 mg IVP Q3 PRN PRN Reason: Pain, moderate (4-7) Sodium Chloride (Sodium Chloride 0.9%) 1,000 mls @ 75 mls/hr IV .[id number] [facility] Last Admin: 12/23/16 15:01 Dose: 75 mls/hr Lidocaine (Lidoderm) 2 ea TD DAILY [facility] Methylprednisolone (Solu-Medrol) 60 mg IVP Q8 [facility] Oxycodone HCl (Oxycodone Immediate Release Tab) 15 mg PO Q4H PRN PRN Reason: Pain, moderate (4-7) Pantoprazole Sodium (Protonix Ec Tab) 40 mg PO DAILY DONNA Results - Vital Signs Recent Vital Signs: Last Vital Signs Temp 98.3 F 12/23/16 08:10 Pulse 114 H 12/23/16 14:49 Resp 20 12/23/16 14:49 BP 111/59 L 12/23/16 14:49 Pulse Ox 97 12/23/16 14:49 - Labs Result Diagrams: 12/23/16 10:00 12/23/16 10:00 Attending/Attestation - Attestation I have personally seen and examined this patient.: Yes I have fully participated in the care of the patient.: Yes I have reviewed all pertinent clinical information: Yes Notes (Text): 12/23/16 15:30 71 y/o M w/ Lung CA presents w/ acute SOB In the ER received several nebulized treatments and BIPAP Currently seen feeling back at his baseline. Recent hx of PNA treated . No chemo for over 2 months Currently on [address] chest reviewed , found to have worsening fibrosis on R and L increased pleural thickening w/ adenopathy suggesting malignancy as the cause. Would also start Solumedrol in the events, his COPD / Fibrosis is steroid responsive w/ BIPAP as needed . Would need ONC input on goals of care and prognosis . P>E neg on CT chest, Venous dopplers pending. DVT P heparin sq tid PPi cc time 65 min
[2016-12-23] MEDS ORDERED: Sodium Chloride 0.9% 1,000 ML IV STA (12:10)
[2016-12-23] MEDS ORDERED: Sodium Chloride 0.9% 500 ML IV STA (12:12)
[2016-12-23] MEDS ORDERED: HYDROmorphone 2 mg/ml ISec IVP STA (14:23)
[2016-12-23] MEDS: Sodium Chloride 0.9% 1,000 ML IV SCH (15:01)
[2016-12-23 15:31] LABS: MAGNESIUM 1.4 mg/dL (1.7-2.2)
[2016-12-23 15:43] LABS: TROPONIN I 0.09 ng/mL
--- NOTE | 2016-12-23 16:34 | CARD ---
APPROVED REPORT EKG Measurement Heart [id number] <Conclusion> Sinus tachycardia NSSTW
[2016-12-23] MEDS ORDERED: Magnesium Sulfate 2 GM in Sodium Chloride 0.9% 100 ML IVPB ONE (16:55)
[2016-12-23] MEDS ORDERED: Pneumococcal 23-Valent Vaccine IM ONE (18:32)
--- NOTE | 2016-12-23 20:08 | US ---
HISTORY: Leg pain and swelling. Evaluate for DVT PHYSICIAN(S): Lizandro Gray MD. TECHNIQUE: Duplex sonography and color-flow Doppler with graded compression were used to evaluate the deep venous systems of both lower extremities. FINDINGS: The visualized deep venous systems of both lower extremities are sonographically normal and compressible. Normal wave forms and augmentation are seen. There is no sonographic evidence for deep venous thrombosis in the visualized segments of both lower extremities. IMPRESSION: No sonographic evidence for deep venous thrombosis in the visualized segments of both lower extremities.
[2016-12-23] MEDS ORDERED: MethylPREDNISolone 40 mg Vial IVP SCH (22:00)
[2016-12-23 23:07] LABS: TROPONIN I 0.05 ng/mL
[2016-12-23] MEDS: HYDROmorphone 2 mg/ml ISec IVP PRN (23:08)
[2016-12-23] MEDS: Vancomycin 1gm in NS 250ml 1 GM/250 ML BAG IVPB SCH (23:52)
[2016-12-24] MEDS: Piperacillin/Tazobact 3.375 gm 100 ML IVPB SCH ×2 (00:21→05:26)
[2016-12-24] MEDS: Albuterol-Ipratrop 3 mg / 0.5 (3 ml) UD IH SCH ×5 (02:30→20:36)
[2016-12-24] MEDS: Sodium Chloride 0.9% 1,000 ML IV SCH ×3 (05:31→21:29)
[2016-12-24 06:39] LABS: MEAN CELL VOLUME 85.3 fL (80.0-105.0); MEAN CORPUSCULAR HEMOGLOBIN 27.1 pg (25.0-35.0); MEAN CORPUSCULAR HGB CONC 31.7 g/dl (31.0-37.0); MEAN PLATELET VOLUME 8.6 fl (7.0-11.0); PLATELET COUNT 280 10^3/uL (120.0-450.0); RED CELL DISTRIBUTION WIDTH 17.7 % (11.5-14.5)
[2016-12-24 06:59] LABS: WHITE BLOOD COUNT 1.5 10^3/ul (4.5-11.0)
[2016-12-24 07:00] LABS: ADD MANUAL DIFF? YES
[2016-12-24 07:02] LABS: ALB/GLOB RATIO 0.9 (1.1-1.8); ALKALINE PHOSPHATASE 102 U/L (38-133); ALT/SGPT 37 U/L (7-56); AST/SGOT 45 U/L (15-59); BILIRUBIN,TOTAL 0.7 mg/dL (0.2-1.3); BLOOD UREA NITROGEN 9 mg/dL (7-21); CALCIUM 8.8 mg/dL (8.4-10.5); CARBON DIOXIDE 29 mmol/L (21-33); CHLORIDE 101 mmol/L (98-107); GFR AFRICAN-AMERICAN > 60; GLUCOSE,RANDOM 153 mg/dL (70-110); MAGNESIUM 1.7 mg/dL (1.7-2.2); POTASSIUM 3.7 mmol/L (3.6-5.0); SODIUM 138 mmol/L (132-148); TOTAL PROTEIN 6.2 g/dL (5.8-8.3)
--- NOTE | 2016-12-24 08:03 | CP.CCUPN ---
<Kamilla Nava - Last Filed: 12/24/16 15:06> CCU Subjective - Physician Review Subjective (Free Text): 12/24/16 08:51 Pt stable. No acute event overnight. No more chest pain, sob denies f/c CCU Objective - Vital Signs / Intake & Output Vital Signs (Last 4 hours): Vital Signs Pulse Resp BP Pulse Ox 12/24/16 06:00 99 H 23 117/67 99 12/24/16 05:50 97 H 18 98 12/24/16 05:40 99 12/24/16 05:30 109 H 31 H 95 12/24/16 05:20 95 H 17 99 12/24/16 05:10 96 H 16 99 12/24/16 05:00 100 H 17 119/69 99 12/24/16 04:50 101 H 15 98 12/24/16 04:40 112 H 18 99 12/24/16 04:30 104 H 15 98 12/24/16 04:20 110 H 15 99 12/24/16 04:10 109 H 20 98 Intake and Output (Last 8hrs): Intake & Output 12/23/16 12/24/16 12/24/16 22:59 06:59 14:59 Intake Total 780 1300 Output Total 650 950 Balance 130 350 Weight 139 lb 127 lb Intake: IV 340 1250 Left Upper arm 115 Right Subclavian 225 1250 Oral 440 50 Output: Urine 650 950 Urine, Voided 650 950 Other: Voiding Method Urinal # Voids Urine, Voided 4 # Bowel Movements 0 0 - Physical Exam Head: Positive for: Atraumatic, Normocephalic Pupils: Positive for: PERRL Extroacular Muscles: Positive for: EOMI Conjunctiva: Negative for: Injected, Icteric Mouth: Positive for: Moist Mucous Membranes Neck: Negative for: JVD Respiratory/Chest: Positive for: Clear to Auscultation, Decreased Breath Sounds (b/l) Cardiovascular: Positive for: Regular Rate and Rhythm, Normal S1, S2. Negative for: Murmurs Abdomen: Positive for: Normal Bowel Sounds. Negative for: Tenderness, Distention Neurological: Positive for: Speech Normal Skin: Positive for: Warm, Dry Psychiatric: Positive for: Alert, Normal Insight, Normal Concentration - Medications Active Medications: Active Medications Generic Name Dose Route Start Last Admin Trade Name Freq PRN Reason Stop Dose Admin Albuterol/Ipratropium 3 ml 12/23/16 14:39 Duoneb 3 Mg/0.5 Mg (3 Ml) Ud IH Q2 PRN Shortness of Breath Albuterol/Ipratropium 3 ml 12/23/16 18:00 12/24/16 07:53 Duoneb 3 Mg/0.5 Mg (3 Ml) Ud IH 3 ml Q6 DONNA Administration Fentanyl 1 patch 12/23/16 15:15 12/23/16 15:52 Duragesic TD 1 patch Q72H DONNA Administration Heparin Sodium (Porcine) 5,000 units 12/23/16 22:00 12/24/16 05:26 Heparin SC 5,000 units Q8 DONNA Administration Protocol Hydromorphone HCl 2 mg 12/23/16 14:40 12/23/16 23:08 Dilaudid IVP 2 mg Q3 PRN Administration Pain, moderate (4-7) Sodium Chloride 1,000 mls @ 75 mls/hr 12/23/16 14:45 12/24/16 05:31 Sodium Chloride 0.9% IV 75 mls/hr .[id number] DONNA Administration Vancomycin HCl 1 gm in 250 mls @ 167 mls/hr 12/23/16 23:30 12/23/16 23:52 Vancomycin 1gm IVPB 167 mls/hr Q12H DONNA Administration Protocol Levofloxacin/Dextrose 750 mg 12/24/16 10:00 Levaquin 750mg IVPB DAILY DONNA Lidocaine 2 ea 12/24/16 10:00 Lidoderm TD DAILY DONNA Methylprednisolone 60 mg 12/23/16 22:00 12/24/16 05:55 Solu-Medrol IVP 60 mg Q8 DONNA Administration Oxycodone HCl 15 mg 12/23/16 15:09 Oxycodone Immediate Release Tab PO Q4H PRN Pain, moderate (4-7) Pantoprazole Sodium 40 mg 12/24/16 10:00 Protonix Ec Tab PO DAILY DONNA - Patient Studies Lab Studies: Lab Studies 12/24/16 12/24/16 12/23/16 Range/Units 06:29 06:29 22:41 WBC 1.5 L* D (4.5-11.0) 10^3/ul RBC 3.40 L (3.5-6.1) 10^6/uL Hgb 9.2 L (14.0-18.0) gm/dL Hct 29.0 L (42.0-52.0) % MCV 85.3 (80.0-105.0) fL MCH 27.1 (25.0-35.0) pg MCHC 31.7 (31.0-37.0) g/dl RDW 17.7 H (11.5-14.5) % Plt Count 280 (120.0-450.0) 10^3/uL MPV 8.6 (7.0-11.0) fl Gran % Personnel Worker Lymph % (Auto) Personnel Worker [place] % (Auto) Personnel Worker Eos % (Auto) Personnel Worker Baso % (Auto) Personnel Worker Gran # Personnel Worker Lymph # Personnel Worker [place] # Personnel Worker Eos # Personnel Worker Baso # Personnel Worker Sodium 138 (132-148) mmol/L Potassium 3.7 (3.6-5.0) mmol/L Chloride 101 (98-107) mmol/L Carbon Dioxide 29 (21-33) mmol/L Anion Gap 12 (10-20) BUN 9 (7-21) mg/dL Creatinine 0.4 L (0.5-1.4) mg/dL Est GFR ( Amer) > 60 Est GFR (Non-Af Amer) > 60 Random Glucose 153 H (70-110) mg/dL Calcium 8.8 (8.4-10.5) mg/dL Magnesium 1.7 (1.7-2.2) mg/dL Total Bilirubin 0.7 (0.2-1.3) mg/dL AST 45 (15-59) U/L ALT 37 (7-56) U/L Alkaline Phosphatase 102 (38-133) U/L Lactate Dehydrogenase 1110 H (333-699) U/L Total Creatine Kinase 59 (35-230) U/L Troponin I 0.05 D ng/mL Total Protein 6.2 (5.8-8.3) g/dL Albumin 3.0 (3.0-4.8) g/dL Globulin 3.2 gm/dL Albumin/Globulin Ratio 0.9 L (1.1-1.8) TSH 3rd Generation (0.46-4.68) mIU/mL 12/23/16 12/23/16 Range/Units 15:00 15:00 WBC (4.5-11.0) 10^3/ul RBC (3.5-6.1) 10^6/uL Hgb (14.0-18.0) gm/dL Hct (42.0-52.0) % MCV (80.0-105.0) fL MCH (25.0-35.0) pg MCHC (31.0-37.0) g/dl RDW (11.5-14.5) % Plt Count (120.0-450.0) 10^3/uL MPV (7.0-11.0) fl Gran % Lymph % (Auto) [place] % (Auto) Eos % (Auto) Baso % (Auto) Gran # Lymph # [place] # Eos # Baso # Sodium (132-148) mmol/L Potassium (3.6-5.0) mmol/L Chloride (98-107) mmol/L Carbon Dioxide (21-33) mmol/L Anion Gap (10-20) BUN (7-21) mg/dL Creatinine (0.5-1.4) mg/dL Est GFR ( Amer) Est GFR (Non-Af Amer) Random Glucose (70-110) mg/dL Calcium (8.4-10.5) mg/dL Magnesium 1.4 L (1.7-2.2) mg/dL Total Bilirubin (0.2-1.3) mg/dL AST (15-59) U/L ALT (7-56) U/L Alkaline Phosphatase (38-133) U/L Lactate Dehydrogenase 1021 H (333-699) U/L Total Creatine Kinase 57 (35-230) U/L Troponin I 0.09 D ng/mL Total Protein (5.8-8.3) g/dL Albumin (3.0-4.8) g/dL Globulin gm/dL Albumin/Globulin Ratio (1.1-1.8) TSH 3rd Generation 1.09 (0.46-4.68) mIU/mL Laboratory Results - last 24 hr 12/23/16 12/23/16 12/23/16 15:00 15:00 22:41 WBC RBC Hgb Hct MCV MCH MCHC RDW Plt Count MPV Gran % Lymph % (Auto) [place] % (Auto) Eos % (Auto) Baso % (Auto) Gran # Lymph # [place] # Eos # Baso # Sodium Potassium Chloride Carbon Dioxide Anion Gap BUN Creatinine Est GFR ( Amer) Est GFR (Non-Af Amer) Random Glucose Calcium Magnesium 1.4 L Total Bilirubin AST ALT Alkaline Phosphatase Lactate Dehydrogenase 1021 H 1110 H Total Creatine Kinase 57 59 Troponin I 0.09 D 0.05 D Total Protein Albumin Globulin Albumin/Globulin Ratio TSH 3rd Generation 1.09 12/24/16 12/24/16 06:29 06:29 WBC 1.5 L* D RBC 3.40 L Hgb 9.2 L Hct 29.0 L MCV 85.3 MCH 27.1 MCHC 31.7 RDW 17.7 H Plt Count 280 MPV 8.6 Gran % Personnel Worker Lymph % (Auto) Personnel Worker [place] % (Auto) Personnel Worker Eos % (Auto) Personnel Worker Baso % (Auto) Personnel Worker Gran # Personnel Worker Lymph # Personnel Worker [place] # Personnel Worker Eos # Personnel Worker Baso # Personnel Worker Sodium 138 Potassium 3.7 Chloride 101 Carbon Dioxide 29 Anion Gap 12 BUN 9 Creatinine 0.4 L Est GFR ( Amer) > 60 Est GFR (Non-Af Amer) > 60 Random Glucose 153 H Calcium 8.8 Magnesium 1.7 Total Bilirubin 0.7 AST 45 ALT 37 Alkaline Phosphatase 102 Lactate Dehydrogenase Total Creatine Kinase Troponin I Total Protein 6.2 Albumin 3.0 Globulin 3.2 Albumin/Globulin Ratio 0.9 L [facility] 3rd Generation Critical Care Progress Note - Nutrition Nutrition: Nutrition Category Date Time Status Heart Healthy Diet [DIET] Diets 12/23/16 Dinner Ordered Assessment/Plan - Assessment and Plan (Free Text) Plan: 71 year old male, with PMHx of stage IV lung CA with last chemo 2 months ago, on 3.5L home O2 around the clock, presents to the emergency department complaining of chest pain/L lower lateral side pain with SOB and tachycardia. Pt recently discharged from [facility] 1 week ago for LBO and PNA. CXR showed worsening R sided infiltrate. ICU was consulted for tachypnea and hypoxia and respiratory distress. Sinus tachycardia persists despite resolution of respiratory distress. suspected dehydration vs pneumonia vs pain. Neutropenic today despite on steroid. Neuro Rectal 98.9 AAOx2, which is baseline per family Resume home pain meds. Pulm Hypoxia resolved, s/p bipap, now on 3.5 L O2 CXR: Worsened R sided infiltrate CTA: No PE. Honey combing suggestive of pulmonary fibrosis/NSIP. ground glass appearance suggestive of PNA. BNP 1260 - Pending echo r/o acute ischemic cardiomyopathy solumedrol 60q8, Duoneb, bipap 12/5/45% prn Card Sinus tachycardia persist despite resolution of hypoxic respiratory distress - resolved Watch type II AL Elevated trops 0.12, trending down -- ACS vs LV stretch; serial CE LDH 1093 -- ACS vs tumor lysis Echo (november 2016): EF 41, grade 1 relaxation GI Heart health diet Renal Watch i/o for contrast used in CTA Endo Pending TSH Heme Neutropenic at 1.5 suspected bone marrow suppression chronic anemia Hb stale at baseline 10 ID On vanco and levaquin. Suspected PNA - CAP vs HAP NS@75 Prophylasix Protonix, Heparin SC Disposition Pt is currently stable enough to transfer to telemetry Will S/R/D/w Dr. Garibay - Date & Time Date: 12/24/16 Time: 08:02 <Rafi Garibay - Last Filed: 12/24/16 17:27> CCU Objective - Vital Signs / Intake & Output Vital Signs (Last 4 hours): Vital Signs Pulse BP Pulse Ox 12/24/16 17:08 89 133/74 12/24/16 15:50 100 12/24/16 15:40 99 12/24/16 15:30 99 12/24/16 15:20 99 12/24/16 15:10 97 12/24/16 15:00 125/60 99 12/24/16 14:50 94 L 12/24/16 14:40 99 12/24/16 14:30 99 12/24/16 14:20 98 12/24/16 14:10 97 12/24/16 14:00 126/70 99 12/24/16 13:50 99 12/24/16 13:40 99 12/24/16 13:30 65 95 Intake and Output (Last 8hrs): Intake & Output 12/24/16 12/24/16 12/24/16 06:59 14:59 22:59 Intake Total 1300 Output Total 950 Balance 350 Weight 127 lb 127 lb Intake: IV 1250 Right Subclavian 1250 Oral 50 Output: Urine 950 Urine, Voided 950 Other: Voiding Method Urinal # Voids Urine, Voided 4 # Bowel Movements 0 - Medications Active Medications: Active Medications Generic Name Dose Route Start Last Admin Trade Name Freq PRN Reason Stop Dose Admin Albuterol/Ipratropium 3 ml 12/23/16 14:39 Duoneb 3 Mg/0.5 Mg (3 Ml) Ud IH Q2 PRN Shortness of Breath Albuterol/Ipratropium 3 ml 12/23/16 18:00 12/24/16 12:43 Duoneb 3 Mg/0.5 Mg (3 Ml) Ud IH 3 ml Q6 DONAN Administration Fentanyl 1 patch 12/23/16 15:15 12/23/16 15:52 Duragesic TD 1 patch Q72H DONNA Administration Heparin Sodium (Porcine) 5,000 units 12/23/16 22:00 12/24/16 13:12 Heparin SC 5,000 units Q8 DONNA Administration Protocol Hydromorphone HCl 2 mg 12/23/16 14:40 12/24/16 13:21 Dilaudid IVP 2 mg Q3 PRN Administration Pain, moderate (4-7) Sodium Chloride 1,000 mls @ 75 mls/hr 12/23/16 14:45 12/24/16 17:08 Sodium Chloride 0.9% IV 75 mls/hr .[id number] DONNA Administration Vancomycin HCl 1 gm in 250 mls @ 167 mls/hr 12/23/16 23:30 12/24/16 11:27 Vancomycin 1gm IVPB 167 mls/hr Q12H DONNA Administration Protocol Cefepime HCl 1 gm in 100 mls @ 100 mls/hr 12/24/16 14:00 12/24/16 13:15 Maxipime 1gm IVPB 12/31/16 14:01 100 mls/hr Q8 DONNA Administration Protocol Levofloxacin/Dextrose 750 mg 12/24/16 10:00 12/24/16 09:42 Levaquin 750mg IVPB 750 mg DAILY DONNA Administration Lidocaine 2 ea 12/24/16 10:00 12/24/16 09:42 Lidoderm TD 2 ea DAILY DONNA Administration Methylprednisolone 60 mg 12/23/16 22:00 12/24/16 13:13 Solu-Medrol IVP 60 mg Q8 DONNA Administration Metoprolol Tartrate 25 mg 12/24/16 18:00 12/24/16 17:08 Lopressor PO 25 mg BID DONNA Administration Oxycodone HCl 15 mg 12/23/16 15:09 Oxycodone Immediate Release Tab PO Q4H PRN Pain, moderate (4-7) Pantoprazole Sodium 40 mg 12/24/16 10:00 12/24/16 09:44 Protonix Inj IVP 40 mg DAILY DONNA Administration - Patient Studies Lab Studies: Lab Studies 12/24/16 12/24/16 12/24/16 Range/Units 06:29 06:29 06:29 WBC 1.5 L* D (4.5-11.0) 10^3/ul RBC 3.40 L (3.5-6.1) 10^6/uL Hgb 9.2 L (14.0-18.0) gm/dL Hct 29.0 L (42.0-52.0) % MCV 85.3 (80.0-105.0) fL MCH 27.1 (25.0-35.0) pg MCHC 31.7 (31.0-37.0) g/dl RDW 17.7 H (11.5-14.5) % Plt Count 280 (120.0-450.0) 10^3/uL MPV 8.6 (7.0-11.0) fl Gran % Personnel Worker Lymph % (Auto) Personnel Worker [place] % (Auto) Personnel Worker Eos % (Auto) Personnel Worker Baso % (Auto) Personnel Worker Gran # Personnel Worker Lymph # Personnel Worker [place] # Personnel Worker Eos # Personnel Worker Baso # Personnel Worker Neutrophils % (Manual) 90 H (50.0-70.0) % Band Neutrophils % 2 (0-2) % Lymphocytes % (Manual) 7 L (22.0-35.0) % Monocytes % (Manual) 1 (1.0-6.0) % Hypersegmented Polys Slight Platelet Evaluation Normal (NORMAL) Large Platelets Present Polychromasia Slight Hypochromasia 1+ Anisocytosis (manual) 1+ Tear Drop Cells Slight Ovalocytes Slight Sodium 138 (132-148) mmol/L Potassium 3.7 (3.6-5.0) mmol/L Chloride 101 (98-107) mmol/L Carbon Dioxide 29 (21-33) mmol/L Anion Gap 12 (10-20) BUN 9 (7-21) mg/dL Creatinine 0.4 L (0.5-1.4) mg/dL Est GFR ( Amer) > 60 Est GFR (Non-Af Amer) > 60 Random Glucose 153 H (70-110) mg/dL Calcium 8.8 (8.4-10.5) mg/dL Magnesium 1.7 (1.7-2.2) mg/dL Total Bilirubin 0.7 (0.2-1.3) mg/dL AST 45 (15-59) U/L ALT 37 (7-56) U/L Alkaline Phosphatase 102 (38-133) U/L Lactate Dehydrogenase (333-699) U/L Total Creatine Kinase (35-230) U/L Troponin I ng/mL Total Protein 6.2 (5.8-8.3) g/dL Albumin 3.0 (3.0-4.8) g/dL Globulin 3.2 gm/dL Albumin/Globulin Ratio 0.9 L (1.1-1.8) Procalcitonin 1.88 H (0.19-0.49) NG/ML 12/23/16 Range/Units 22:41 WBC (4.5-11.0) 10^3/ul RBC (3.5-6.1) 10^6/uL Hgb (14.0-18.0) gm/dL Hct (42.0-52.0) % MCV (80.0-105.0) fL MCH (25.0-35.0) pg MCHC (31.0-37.0) g/dl RDW (11.5-14.5) % Plt Count (120.0-450.0) 10^3/uL MPV (7.0-11.0) fl Gran % Lymph % (Auto) [place] % (Auto) Eos % (Auto) Baso % (Auto) Gran # Lymph # [place] # Eos # Baso # Neutrophils % (Manual) (50.0-70.0) % Band Neutrophils % (0-2) % Lymphocytes % (Manual) (22.0-35.0) % Monocytes % (Manual) (1.0-6.0) % Hypersegmented Polys Platelet Evaluation (NORMAL) Large Platelets Polychromasia Hypochromasia Anisocytosis (manual) Tear Drop Cells Ovalocytes Sodium (132-148) mmol/L Potassium (3.6-5.0) mmol/L Chloride (98-107) mmol/L Carbon Dioxide (21-33) mmol/L Anion Gap (10-20) BUN (7-21) mg/dL Creatinine (0.5-1.4) mg/dL Est GFR ( Amer) Est GFR (Non-Af Amer) Random Glucose (70-110) mg/dL Calcium (8.4-10.5) mg/dL Magnesium (1.7-2.2) mg/dL Total Bilirubin (0.2-1.3) mg/dL AST (15-59) U/L ALT (7-56) U/L Alkaline Phosphatase (38-133) U/L Lactate Dehydrogenase 1110 H (333-699) U/L Total Creatine Kinase 59 (35-230) U/L Troponin I 0.05 D ng/mL Total Protein (5.8-8.3) g/dL Albumin (3.0-4.8) g/dL Globulin gm/dL Albumin/Globulin Ratio (1.1-1.8) Procalcitonin (0.19-0.49) NG/ML Laboratory Results - last 24 hr 12/23/16 12/24/16 12/24/16 22:41 06:29 06:29 WBC 1.5 L* D RBC 3.40 L Hgb 9.2 L Hct 29.0 L MCV 85.3 MCH 27.1 MCHC 31.7 RDW 17.7 H Plt Count 280 MPV 8.6 Gran % Personnel Worker Lymph % (Auto) Personnel Worker [place] % (Auto) Personnel Worker Eos % (Auto) Personnel Worker Baso % (Auto) Personnel Worker Gran # Personnel Worker Lymph # Personnel Worker [place] # Personnel Worker Eos # Personnel Worker Baso # Personnel Worker Neutrophils % (Manual) 90 H Band Neutrophils % 2 Lymphocytes % (Manual) 7 L Monocytes % (Manual) 1 Hypersegmented Polys Slight Platelet Evaluation Normal Large Platelets Present Polychromasia Slight Hypochromasia 1+ Anisocytosis (manual) 1+ Tear Drop Cells Slight Ovalocytes Slight Sodium Potassium Chloride Carbon Dioxide Anion Gap BUN Creatinine Est GFR ( Amer) Est GFR (Non-Af Amer) Random Glucose Calcium Magnesium Total Bilirubin AST ALT Alkaline Phosphatase Lactate Dehydrogenase 1110 H Total Creatine Kinase 59 Troponin I 0.05 D Total Protein Albumin Globulin Albumin/Globulin Ratio Procalcitonin 1.88 H 12/24/16 06:29 WBC RBC Hgb Hct MCV MCH MCHC RDW Plt Count MPV Gran % Lymph % (Auto) [place] % (Auto) Eos % (Auto) Baso % (Auto) Gran # Lymph # [place] # Eos # Baso # Neutrophils % (Manual) Band Neutrophils % Lymphocytes % (Manual) Monocytes % (Manual) Hypersegmented Polys Platelet Evaluation Large Platelets Polychromasia Hypochromasia Anisocytosis (manual) Tear Drop Cells Ovalocytes Sodium 138 Potassium 3.7 Chloride 101 Carbon Dioxide 29 Anion Gap 12 BUN 9 Creatinine 0.4 L Est GFR ( Amer) > 60 Est GFR (Non-Af Amer) > 60 Random Glucose 153 H Calcium 8.8 Magnesium 1.7 Total Bilirubin 0.7 AST 45 ALT 37 Alkaline Phosphatase 102 Lactate Dehydrogenase Total Creatine Kinase Troponin I Total Protein 6.2 Albumin 3.0 Globulin 3.2 Albumin/Globulin Ratio 0.9 L Procalcitonin Critical Care Progress Note - Nutrition Nutrition: Nutrition Category Date Time Status Heart Healthy Diet [DIET] Diets 12/23/16 Dinner Ordered Addendum Addendum: 12/24/16 17:25 patient was seen, examined and discussed with Dr. Nava at bedside. her note reflects my exam, assessmnt and plan, except as below. Meds/Labs/ONE reviewed. 71 with lung CA, now COPD exacerbation/pneumonia. Respiratory status substantially improved on steroids, abx, BPAP. Ok to downgrade to tele ccm time 40 min
[2016-12-24 08:39] LABS: ANISOCYTOSIS 1+; BAND 2 % (0-2); HYPOCHROMIA 1+; NEUTROPHIL 90 % (50.0-70.0); PLATELET ESTIMATE NORMAL (NORMAL); POLYCHROMASIA SLIGHT
[2016-12-24 08:40] LABS: HYPERSEGMENTED POLYS SLIGHT; LARGE PLATELETS PRESENT; OVALOCYTES SLIGHT; TEAR DROP CELLS SLIGHT
[2016-12-24] MEDS: levoFLOXacin 750 mg in D5W 150 ML BAG IVPB SCH (09:42)
[2016-12-24] MEDS: Lidocaine 5% Patch TD SCH (09:42)
[2016-12-24] MEDS: HYDROmorphone 2 mg/ml ISec IVP PRN ×4 (09:53→21:00)
[2016-12-24] MEDS ORDERED: Pantoprazole 40 mg EC Tab PO SCH (10:00)
--- NOTE | 2016-12-24 11:11 | CON ---
DATE: 12/24/2016 The patient seen earlier today in 129, bed 2. CHIEF COMPLAINT: Weakness times several days. HISTORY OF PRESENT ILLNESS: This is a 71-year-old male with a past medical history significant for l jb cancer on chemotherapy, chronic anemia, dyslipidemia and recent hospitalization for HCAP, who was admitted through the Emergency Room yesterday on 12/23/2016 and in the Emergency Room, patient was se en by Dr. Glen Mccormick and in the Emergency Room, patient had complained of chronic chest pain, p ain worsening. Denied any abdominal pain, nausea or vomiting. PAST MEDICAL HISTORY: Significant for lung cancer and chemotherapy, chronic anemia and chronic obstr uctive lung disease, dyslipidemia and recent hospitalization for HCAP, and a history of colitis. PAST SURGICAL HISTORY: Significant for appendectomy. The patient is a long time ex-smoker. ALLERGIES: THE PATIENT IS ALLERGIC TO SHELLFISH. MEDICATIONS AT HOME: Include the patient to be on pain medication of oxycodone. PHYSICAL EXAMINATION: GENERAL: The patient is in bed, appearing chronically ill, cachectic, end-stage. VITAL SIGNS: Temperature of 98 and BMI of only 17, heart rate of 91, respiratory rate of 25, heart r ate was up to 117. HEENT: Unremarkable. There is temporal wasting. NECK: Supple. LUNGS: Have decreased breath sounds. HEART: Normal S1, S2. ABDOMEN: Soft, nontender. LABORATORY EXAMINATION: Reveals a white count of 6.1, hemoglobin of 10, platelets of 293. Coagulati on is noted. Chemistries reveals the BUN of 11, creatinine of 0.5. LDH is 1000 and BNP is 1200. The patient had a CAT scan of the chest, which showed no pulmonary embolism in the lungs, no change i n the appearance of pulmonary fibrosis, no aneurysm. The patient had an ultrasound of the extremitie s, read by Dr. Lizandro Gray, which was reported as no evidence of DVT. Dr. Kohli note is re viewed from today and she states the patient has a stage IV lung cancer with last chemotherapy 2 garima hs ago with chronic respiratory failure, on home oxygen therapy and who presents with chest pain. Dr Rolly Rushing's consultation is reviewed from yesterday, who states that he had reviewed the imaging and he feels the patient has fibrosis and with COPD. Etiology of the acute shortness of breath and th e chest pain not clear. The patient also had a chest x-ray, which shows a diffuse right-sided infilt rate consistent with a pneumonia, minimal infiltrate in the left base and there is right-sided Port-A -Cath. ASSESSMENT AND PLAN: A 71-year-old male with chronic respiratory failure, on home oxygen therapy, ch ronic obstructive lung disease, lung cancer on chemotherapy, stage IV lung cancer, dyslipidemia, rece ntly hospitalized and treated for healthcare-associated pneumonia, also with history of colitis, pres enting with tachycardia and dyspnea and chest pain. Systemic inflammatory response syndrome and patient was with no new infiltrates on the CAT scan and l ess likely to be a healthcare-associated pneumonia. The etiology of the chest pain is unclear. Curr ently, blood cultures have been ordered to rule out bacteremia from the Port-A-Cath. Procalcitonin h as been ordered by Dr. Laguna to rule out bacterial pneumonia. The patient is currently on vancomycin and IV Levaquin. Pending culture results, procalcitonin results and patient was on doxycycline as o utpatient. The patient is also on Solu-Medrol and will add cefepime. Continue the vancomycin and th e Levaquin for now. We should check on an EKG and the QTC and we will make further recommendations u skylar availability of the initial culture results and initial workup results. Overall, long-term progn osis for this patient is quite poor. Case discussed with nursing staff and the medical team taking c are of the patient in the ICU. Mack Dubose MD cc: [id number] TT: 12/24/2016 11:10:36 Confirmation # [id number] Dictation # [id number] en
[2016-12-24] MEDS: Vancomycin 1gm in NS 250ml 1 GM/250 ML BAG IVPB SCH ×2 (11:27→23:24)
--- NOTE | 2016-12-24 12:27 | HP ---
The patient is a 71-year-old male who came into the hospital because of short of breath, chest pain. The patient was seen in ICU. HISTORY OF PRESENT ILLNESS: A 71-year-old male ____ and underlying COPD, who has been in the [facility] recently and was discharged ____ oxygen and pain meds, came in to the hospital because of more ches t pain, worsened breathing, very short of breath, ____ as per daughter and the patient was advised to come to the ER for evaluation. Denied any fever, but there was shortness of breath, significant ___ _ shortness of breath. The patient takes his medicines and his nebulizers ____, but still complained of left-sided chest pain ____ for the last few weeks and had a ____ scan, was negative. Also, the p atient is short of breath and dyspnea on exertion. Also, he generally feels weak. No nausea, vomiting. No fever, no chills. ____ swelling. ____ history of coronary artery disease. The patient had a cardiac cath maybe 4 years ago and it was negative at [facility] a nd was treated at ____ [facility] ____. PAST MEDICAL HISTORY: As I mentioned, lung CA, received chemo by Dr Ma, COPD, chronic back pain , ____. ALLERGIES: SHELLFISH. SOCIAL HISTORY: Lives by himself. ____ are very supportive, ____ on and also ____. He drinks somet imes, but he stopped recently. ____. REVIEW OF SYSTEMS: As in the present illness, he is generally weak, short of breath, chest pain, lef t sided. Constipation. PHYSICAL EXAMINATION: GENERAL: This patient seen in ICU 12/23/2016. VITAL SIGNS: Temperature is 98.5, heart rate 100, blood pressure 101/50, respiratory rate 34, satura ting 97% nasal cannula. HEAD AND NECK: Normal. No JVD, no thyromegaly. CHEST: There are diminished breath sounds, more on the left than right. There are also a few rales. CARDIAC: First sound, second sound normal. ABDOMEN: Soft, nontender. EXTREMITIES: No edema. NEUROLOGIC: General weakness, but patient is alert, awake, oriented x 3 and moves all extremities. LABORATORY DATA: Includes CT angiogram negative for PE. EKG: Sinus tachycardia with nonspecific ST -T changes. Also the patient had venous Doppler of both lower extremities which was negative. The p bernard also had a ____ which was done in Emergency Room, shows blood count: White count 6.1, hemoglo bin 10.1, hematocrit 32.0, platelets 293. Chemistries: Sodium 134, potassium 3.9, chloride 96, bica rb 29, BUN 11, creatinine 0.5. Liver function test is normal. His lactate dehydrogenase 1093. Trop onin was negative and his proBNP 1260. TSH is normal. Also, patient had a chest x-ray which shows p neumonia on the right and left. IMPRESSION AND PLAN: 1. Acute respiratory distress, underlying chronic obstructive pulmonary disease exacerbation and pne umonia. We will admit the patient to ICU. We will give him oxygen, nebulizer treatment. The patien t seen by layboy tender and started already, currently on IV steroids, IV vancomycin and IV Levaquin. Continue current treatment. We will follow up ____. We will get a pulmonary consult. 2. History of lung cancer, left-sided chest pain from biopsy site. He is supposed to see Dr. ____ f or ____. Also, the patient a ____ that was negative for ____. At this time, continue pain medicatio ns, oxycodone, ____ and follow up clinically. Continue steroids. Continue nebulizer treatment. 3. Chronic constipation. We will observe. The patient ____ Dulcolax, may need enema. 4. General weakness. ____ may need to be in rehab. His general condition is poor. Has been discus sed with the family. Diego Greer MD cc: [phone] TT: 12/24/2016 11:04:07 tn 12/24/2016 11:26:52
[2016-12-24] MEDS: Cefepime 1gm in NS 100ml 1 GM/100 ML BAG IVPB SCH ×2 (13:15→21:28)
[2016-12-25] MEDS: Albuterol-Ipratrop 3 mg / 0.5 (3 ml) UD IH SCH ×5 (00:45→23:16)
[2016-12-25] MEDS ORDERED: MethylPREDNISolone 40 mg Vial IVP STA (00:54)
[2016-12-25] MEDS ORDERED: Albuterol-Ipratrop 3 mg / 0.5 (3 ml) UD IH STA (00:54)
--- NOTE | 2016-12-25 01:01 | CP.PCM.PN ---
Subjective - Date & Time of Evaluation Date of Evaluation: 12/25/16 Time of Evaluation: 00:53 - Subjective Subjective: Patient was seen at bedside. As per nurse his pulse ox was 85% on 3L/min by nasal canula. Patient has an order to place on BiPAP prn. He complains of sob, has no other complaints. Medical record was reviewed. This 71 year old male was admitted for worsening sob and chest pain, COPD exacerbation, PNA.c Has PMH of COPD, lung cancer , chronic back pain, chronic constipation,chronic anemia,dyslipidemia,colitis. Objective - Vital Signs/Intake and Output Vital Signs (last 24 hours): Temp Pulse Resp BP Pulse Ox 97.4 F L 115 H 22 152/95 H 85 L 12/25/16 00:01 12/25/16 00:40 12/25/16 00:40 12/25/16 00:40 12/25/16 00:40 - Medications Medications: Current Medications Albuterol/Ipratropium (Duoneb 3 Mg/0.5 Mg (3 Ml) Ud) 3 ml IH Q2 PRN PRN Reason: Shortness of Breath Albuterol/Ipratropium (Duoneb 3 Mg/0.5 Mg (3 Ml) Ud) 3 ml IH Q6 [facility] Last Admin: 12/25/16 00:45 Dose: 3 ml Fentanyl (Duragesic) 1 patch TD Q72H [facility] Last Admin: 12/23/16 15:52 Dose: 1 patch Heparin Sodium (Porcine) (Heparin) 5,000 units SC Q8 [facility] PRN Reason: Protocol Last Admin: 12/24/16 21:29 Dose: 5,000 units Hydromorphone HCl (Dilaudid) 2 mg IVP Q3 PRN PRN Reason: Pain, moderate (4-7) Last Admin: 12/24/16 21:00 Dose: 2 mg Sodium Chloride (Sodium Chloride 0.9%) 1,000 mls @ 75 mls/hr IV .[id number] [facility] Last Admin: 12/24/16 21:29 Dose: 75 mls/hr Vancomycin HCl (Vancomycin 1gm) 1 gm in 250 mls @ 167 mls/hr IVPB Q12H [facility] PRN Reason: Protocol Last Admin: 12/24/16 23:24 Dose: 167 mls/hr Cefepime HCl (Maxipime 1gm) 1 gm in 100 mls @ 100 mls/hr IVPB Q8 [facility] PRN Reason: Protocol Stop: 12/31/16 14:01 Last Admin: 12/24/16 21:28 Dose: 100 mls/hr Levofloxacin/Dextrose (Levaquin 750mg) 750 mg IVPB DAILY [facility] Last Admin: 12/24/16 09:42 Dose: 750 mg Lidocaine (Lidoderm) 2 ea TD DAILY [facility] Last Admin: 12/24/16 09:42 Dose: 2 ea Methylprednisolone (Solu-Medrol) 60 mg IVP Q8 [facility] Last Admin: 12/24/16 21:29 Dose: 60 mg Metoprolol Tartrate (Lopressor) 25 mg PO BID [facility] Last Admin: 12/24/16 17:08 Dose: 25 mg Oxycodone HCl (Oxycodone Immediate Release Tab) 15 mg PO Q4H PRN PRN Reason: Pain, moderate (4-7) Pantoprazole Sodium (Protonix Inj) 40 mg IVP DAILY [facility] Last Admin: 12/24/16 09:44 Dose: 40 mg - Labs Labs: 12/24/16 06:29 12/24/16 06:29 PT 14.7 Seconds (9.9-11.8) H 12/23/16 10:00 INR 1.36 (0.93-1.08) H 12/23/16 10:00 APTT 35.9 Seconds (23.7-30.8) H 12/23/16 10:00 - Constitutional Appears: Well, No Acute Distress - Head Exam Head Exam: ATRAUMATIC, NORMAL INSPECTION, NORMOCEPHALIC - Eye Exam Eye Exam: Normal appearance - ENT Exam ENT Exam: Normal External Ear Exam - Neck Exam Neck Exam: Normal Inspection - Respiratory Exam Respiratory Exam: Rales (Occassional basal rales present.), Wheezes (bilatera ++ ). absent: Accessory Muscle Use, Respiratory Distress, Stridor - Cardiovascular Exam Cardiovascular Exam: Tachycardia, REGULAR RHYTHM, +S1 (Normal.), +S2 (Normal.). absent: JVD - GI/Abdominal Exam GI & Abdominal Exam: absent: Distended - Rectal Exam Rectal Exam: Deferred - Extremities Exam Extremities Exam: Normal Inspection - Back Exam Back Exam: NORMAL INSPECTION - Neurological Exam Neurological Exam: Alert, Awake - Psychiatric Exam Psychiatric exam: Normal Affect, Normal Mood - Skin Skin Exam: Normal Color Assessment and Plan - Assessment and Plan (Free Text) Assessment: Hypoxia. Dyspnea. Sinus tachycardia. Lung cancer. COPD. Chronic anemia. Dyslipidemia Plan: Apply BiPAP . Hold IV fluid. Stat duoneb nebulizer treatment. Stat Solumedrol 60 mg IV. Continue present management.
[2016-12-25] MEDS: Cefepime 1gm in NS 100ml 1 GM/100 ML BAG IVPB SCH ×3 (05:15→22:56)
[2016-12-25 07:04] LABS: ADD MANUAL DIFF? NO
[2016-12-25 07:19] LABS: GRAN % 94.6 % (50.0-68.0); HEMATOCRIT 28.8 % (42.0-52.0); LYMPH # 0.2 (1.2-3.4); LYMPH % 4.3 % (22.0-35.0); MEAN CELL VOLUME 84.7 fL (80.0-105.0); MEAN CORPUSCULAR HEMOGLOBIN 27.1 pg (25.0-35.0); MEAN CORPUSCULAR HGB CONC 31.9 g/dl (31.0-37.0); MEAN PLATELET VOLUME 8.9 fl (7.0-11.0); MONO % 1.1 % (1.0-6.0); PLATELET COUNT 314 10^3/uL (120.0-450.0); RED CELL DISTRIBUTION WIDTH 17.7 % (11.5-14.5); WHITE BLOOD COUNT 3.7 10^3/ul (4.5-11.0)
[2016-12-25 07:30] LABS: ALB/GLOB RATIO 1.1 (1.1-1.8); ALKALINE PHOSPHATASE 107 U/L (38-133); ALT/SGPT 42 U/L (7-56); AST/SGOT 55 U/L (15-59); BILIRUBIN,TOTAL 0.3 mg/dL (0.2-1.3); BLOOD UREA NITROGEN 16 mg/dL (7-21); CARBON DIOXIDE 31 mmol/L (21-33); CHLORIDE 101 mmol/L (95-110); GFR AFRICAN-AMERICAN > 60; GLUCOSE,RANDOM 165 mg/dL (70-110); MAGNESIUM 1.9 mg/dL (1.7-2.2); POTASSIUM 3.8 mmol/L (3.6-5.0); SODIUM 136 mmol/L (132-148); TOTAL PROTEIN 6.2 g/dL (5.8-8.3)
--- NOTE | 2016-12-25 08:01 | CON ---
DATE: 12/24/2016 REFERRING PHYSICIAN: Dr. Greer. REASON FOR CONSULT: Chronic obstructive lung disease, obstructive sleep apnea syndrome. HISTORY OF PRESENT ILLNESS: This is a 71-year-old gentleman with past medical history significant fo r unresectable lung cancer, history of chemoradiation therapy, chronic obstructive lung disease, maln ourished, recently discharged home. Brought into Emergency Room with shortness of breath, cough, lef t pleuritic type pain. No nausea, no vomiting, no diarrhea, no leg pain or leg swelling. PAST MEDICAL HISTORY: He has an unresectable lung cancer, history of chemotherapy, chronic obstructi ve lung disease, chronic pain syndrome. ALLERGIES: SHELLFISH. SOCIAL HISTORY: Positive history of smoking. FAMILY HISTORY: No history of alcohol abuse. MEDICATIONS: He is on Dilaudid 2 mg IV q. 3 hours p.r.n., DuoNeb q. 2 hours p.r.n., fentanyl patch q . 72 hours, heparin 5000 units subQ q. 8 hours, Levaquin 750 mg daily, Lidoderm patch at affected are a, metoprolol tartrate 25 mg twice a day, oxycodone 50 mg q. 4 hours p.r.n., Protonix mg daily, IV fluid normal saline 75 mL per hour, Solu-Medrol 60 mg q. 8 hours, vancomycin 1 g IV daily. REVIEW OF SYSTEMS: No headache, no rhinitis. Has cough, shortness of breath and left-side pleuritic -type pain. No nausea, no vomiting, no diarrhea. No dysuria. No leg pain or leg swelling. PHYSICAL EXAMINATION: GENERAL: Lying in the bed in mild distress secondary to shortness of breath. VITAL SIGNS: Temp is 98, heart rate is 89, respiratory rate is 20, blood pressure 133/77, pulse ox 1 00% on nasal cannula. HEENT: Moist mucous membrane. Crowded airway. NECK: Supple, no JVD. LUNGS: Have a prolonged expiratory phase with wheezing. HEART: S1 and S2. ABDOMEN: Soft, nontender. No organomegaly. EXTREMITIES: There is no edema. NEUROLOGIC: Awake, alert, follows simple commands. MEDICATIONS: He is on cefepime 1 g IV q. 8 hours, oxycodone immediate release q. 4 hours p.r.n ., Protonix 40 mg daily, IV fluid normal saline 70 mL per hour, Solu-Medrol 60 mg q. 8 hours, vancomy carmen 1 g IV q. 12 hours. REVIEW OF SYSTEMS: No headache, no rhinitis, no nausea, no vomiting. Has chest discomfort. Short o f breath with exertion. No leg pain or leg swelling. PHYSICAL EXAMINATION: GENERAL: Lying in the bed. Family is at bedside. Mild distress secondary to tachypnea. Heart rate is 90, respiratory rate is 20, blood pressure 133/74, pulse ox 100% on nasal cannula. HEENT: Moist mucous membranes. Crowded airway. NECK: Supple. No JVD. LUNGS: Has a poor air flow, prolonged expiratory phase with wheezing. HEART: S1 and S2. ABDOMEN: Soft, nontender. No organomegaly. EXTREMITIES: There is no edema. NEUROLOGIC: Awake, alert, follows simple commands. LABORATORY DATA: Shows hemoglobin 9.2, hematocrit 29.0, WBC 1.5, platelet count is 280. INR 1.36. Had blood gases done. Shows pH 7.46, pCO2 of 37, O2 114. This is on BiPAP, I believe. Blood culture has been negative. He had a venous ultrasound done today through ER, which shows no evidence of DVT. CAT scan of the chest was done through ER on admission, shows no evidence of pulmonary embolism, no change in appearance of pulmonary fibrosis, increased subcarinal adenopathy. IMPRESSION AND PLAN: Chronic obstructive lung disease, lung cancer, malnourished. We will continue IV and inhaled bronchodilator. Gastric prophylaxis. DVT prophylaxis. Pain management. Supplementa l oxygen. We will add BiPAP 10/6 at 30% oxygen while sleeping and/or for respiratory distress. Over all poor prognosis. Thank you and we will follow with you. Shell Vargas MD cc: [phone] TT: 12/24/2016 23:46:50 Confirmation # [id number] Dictation # [id number] ln 12/25/2016 07:00:59
[2016-12-25] MEDS: HYDROmorphone 2 mg/ml ISec IVP PRN ×5 (08:29→22:55)
[2016-12-25 09:44] VITALS: BMI 17.5
--- NOTE | 2016-12-25 10:32 | CP.PCM.PN ---
Subjective - Date & Time of Evaluation Date of Evaluation: 12/25/16 Time of Evaluation: 08:45 - Subjective Subjective: Patient is still complaining of chest pain on the left side, has occasional cough, no fevers overnight, not in distress. Objective - Vital Signs/Intake and Output Vital Signs (last 24 hours): Temp Pulse Resp BP Pulse Ox 97.3 F L 91 H 19 134/92 H 99 12/25/16 06:00 12/25/16 06:00 12/25/16 06:00 12/25/16 06:00 12/25/16 06:00 Intake and Output: 12/25/16 12/25/16 06:59 18:59 Intake Total 1110 Balance 1110 - Medications Medications: Current Medications Albuterol/Ipratropium (Duoneb 3 Mg/0.5 Mg (3 Ml) Ud) 3 ml IH Q2 PRN PRN Reason: Shortness of Breath Albuterol/Ipratropium (Duoneb 3 Mg/0.5 Mg (3 Ml) Ud) 3 ml IH Q6 [facility] Last Admin: 12/25/16 07:59 Dose: 3 ml Fentanyl (Duragesic) 1 patch TD Q72H [facility] Last Admin: 12/23/16 15:52 Dose: 1 patch Heparin Sodium (Porcine) (Heparin) 5,000 units SC Q8 [facility] PRN Reason: Protocol Last Admin: 12/25/16 05:15 Dose: 5,000 units Hydromorphone HCl (Dilaudid) 2 mg IVP Q3 PRN PRN Reason: Pain, moderate (4-7) Last Admin: 12/24/16 21:00 Dose: 2 mg Sodium Chloride (Sodium Chloride 0.9%) 1,000 mls @ 75 mls/hr IV .[id number] [facility] Last Admin: 12/24/16 21:29 Dose: 75 mls/hr Vancomycin HCl (Vancomycin 1gm) 1 gm in 250 mls @ 167 mls/hr IVPB Q12H [facility] PRN Reason: Protocol Last Admin: 12/24/16 23:24 Dose: 167 mls/hr Cefepime HCl (Maxipime 1gm) 1 gm in 100 mls @ 100 mls/hr IVPB Q8 [facility] PRN Reason: Protocol Stop: 12/31/16 14:01 Last Admin: 12/25/16 05:15 Dose: 100 mls/hr Levofloxacin/Dextrose (Levaquin 750mg) 750 mg IVPB DAILY [facility] Last Admin: 12/24/16 09:42 Dose: 750 mg Lidocaine (Lidoderm) 2 ea TD DAILY [facility] Last Admin: 12/24/16 09:42 Dose: 2 ea Methylprednisolone (Solu-Medrol) 60 mg IVP Q8 [facility] Last Admin: 12/25/16 05:15 Dose: 60 mg Metoprolol Tartrate (Lopressor) 25 mg PO BID [facility] Last Admin: 12/24/16 17:08 Dose: 25 mg Oxycodone HCl (Oxycodone Immediate Release Tab) 15 mg PO Q4H PRN PRN Reason: Pain, moderate (4-7) Pantoprazole Sodium (Protonix Inj) 40 mg IVP DAILY [facility] Last Admin: 12/24/16 09:44 Dose: 40 mg - Labs Labs: 12/25/16 06:30 12/25/16 06:30 PT 14.7 Seconds (9.9-11.8) H 12/23/16 10:00 INR 1.36 (0.93-1.08) H 12/23/16 10:00 APTT 35.9 Seconds (23.7-30.8) H 12/23/16 10:00 - Constitutional Appears: Non-toxic, No Acute Distress - Head Exam Head Exam: NORMAL INSPECTION - ENT Exam ENT Exam: Mucous Membranes Moist - Neck Exam Neck Exam: absent: Lymphadenopathy, Meningismus - Respiratory Exam Respiratory Exam: Decreased Breath Sounds - Cardiovascular Exam Cardiovascular Exam: +S1, +S2 - GI/Abdominal Exam GI & Abdominal Exam: Soft. absent: Tenderness Assessment and Plan - Assessment and Plan (Free Text) Plan: Assessment COPD exacerbation; no evidence of HCAP on CT of the chest left sided chest pain, work up ongoing history of hospital-acquired pneumonia lung cancer on chemotherapy chronic anemia dyslipidemia S/P appendectomy Plan on Vancomycin, Cefepime and Levaquin day 2; PCT is elevated, but there is no evidence of pneumonia on CT chest; blood cx are negative - will d/c Vancomycin and will follow clinically
[2016-12-25] MEDS: levoFLOXacin 750 mg in D5W 150 ML BAG IVPB SCH (11:36)
[2016-12-25] MEDS: Lidocaine 5% Patch TD SCH (11:37)
--- NOTE | 2016-12-25 11:39 | CP.PCM.PN ---
Subjective - Date & Time of Evaluation Date of Evaluation: 12/25/16 Time of Evaluation: 10:15 - Subjective Subjective: Patient seen at the request of his RN who stated pt's o2 sat dropped to 82% (on 3L/min by ABHAY)when the physical therapist got him out of bed earlier today. He was promptly placed back in bed and placed on his BIPAP on current settings with improvement of O2 sat to 100% At present ,with the help of his RN for translation,he states he feels better than when he was admitted.His chest pain and SOB has resolved. Denies c/o headache ,nausea,dizziness,chest pain,SOB,cough,abdominal pain or calf pain. The only complaint he has is c/o pain in the L lower rib region and this is a chronic complaint for which he is being medicated. Pt is curently being treated for Pneumonia,exacerbaion of Copd. VS; BP:123/81 P60 RR 20 T 98. O2 sat o BIPAP setting of 12/5 O2 sat 40% is 100 % PMH:COPD,Lung ca,chronic back pain,chronic constipation,chronic anemia, dyslipidemia,colitis. Objective - Vital Signs/Intake and Output Vital Signs (last 24 hours): Temp Pulse Resp BP Pulse Ox 97.3 F L 88 19 134/92 H 99 12/25/16 06:00 12/25/16 08:00 12/25/16 06:00 12/25/16 06:00 12/25/16 06:00 Intake and Output: 12/25/16 12/25/16 06:59 18:59 Intake Total 1110 Balance 1110 - Medications Medications: Current Medications Albuterol/Ipratropium (Duoneb 3 Mg/0.5 Mg (3 Ml) Ud) 3 ml IH Q2 PRN PRN Reason: Shortness of Breath Albuterol/Ipratropium (Duoneb 3 Mg/0.5 Mg (3 Ml) Ud) 3 ml IH Q6 [facility] Last Admin: 12/25/16 07:59 Dose: 3 ml Fentanyl (Duragesic) 1 patch TD Q72H [facility] Last Admin: 12/23/16 15:52 Dose: 1 patch Heparin Sodium (Porcine) (Heparin) 5,000 units SC Q8 [facility] PRN Reason: Protocol Last Admin: 12/25/16 05:15 Dose: 5,000 units Hydromorphone HCl (Dilaudid) 2 mg IVP Q3 PRN PRN Reason: Pain, moderate (4-7) Last Admin: 12/25/16 08:29 Dose: 2 mg Sodium Chloride (Sodium Chloride 0.9%) 1,000 mls @ 75 mls/hr IV .[id number] [facility] Last Admin: 12/24/16 21:29 Dose: 75 mls/hr Cefepime HCl (Maxipime 1gm) 1 gm in 100 mls @ 100 mls/hr IVPB Q8 [facility] PRN Reason: Protocol Stop: 12/31/16 14:01 Last Admin: 12/25/16 05:15 Dose: 100 mls/hr Levofloxacin/Dextrose (Levaquin 750mg) 750 mg IVPB DAILY [facility] Last Admin: 12/24/16 09:42 Dose: 750 mg Lidocaine (Lidoderm) 2 ea TD DAILY [facility] Last Admin: 12/24/16 09:42 Dose: 2 ea Methylprednisolone (Solu-Medrol) 60 mg IVP Q8 [facility] Last Admin: 12/25/16 05:15 Dose: 60 mg Metoprolol Tartrate (Lopressor) 25 mg PO BID [facility] Last Admin: 12/24/16 17:08 Dose: 25 mg Oxycodone HCl (Oxycodone Immediate Release Tab) 15 mg PO Q4H PRN PRN Reason: Pain, moderate (4-7) Pantoprazole Sodium (Protonix Inj) 40 mg IVP DAILY [facility] Last Admin: 12/24/16 09:44 Dose: 40 mg - Labs Labs: 12/25/16 06:30 12/25/16 06:30 PT 14.7 Seconds (9.9-11.8) H 12/23/16 10:00 INR 1.36 (0.93-1.08) H 12/23/16 10:00 APTT 35.9 Seconds (23.7-30.8) H 12/23/16 10:00 - Constitutional Appears: No Acute Distress, Cachectic, Other (is on bipap) - Head Exam Head Exam: ATRAUMATIC, NORMAL INSPECTION, NORMOCEPHALIC - Eye Exam Eye Exam: PERRL - ENT Exam ENT Exam: Mucous Membranes Moist - Neck Exam Neck Exam: Normal Inspection - Respiratory Exam Respiratory Exam: Chest Wall Tenderness (noted in the region of the L lower rib cage ,anterior and lateral aspect), Rales (crepitations noted in the region of the lower lung zepeda,R > L side.), NORMAL BREATHING PATTERN. absent: Accessory Muscle Use, Respiratory Distress Additional comments: Portacath noted in the R upper chest wall - Cardiovascular Exam Cardiovascular Exam: REGULAR RHYTHM - GI/Abdominal Exam GI & Abdominal Exam: Soft, Normal Bowel Sounds. absent: Tenderness - Extremities Exam Extremities Exam: Normal Inspection. absent: Calf Tenderness, Pedal Edema - Neurological Exam Neurological Exam: Alert, Awake, Oriented x3 Additional comments: moves all 4 extremities well - Skin Skin Exam: Dry, Pallor, Warm Assessment and Plan - Assessment and Plan (Free Text) Assessment: Pneumonia COPD Hypoxia Chronic anemia Plan: Continue current management.
--- NOTE | 2016-12-25 12:33 | PN ---
DATE: 12/24/2016 SUBJECTIVE: The patient in ICU. He seems comfortable. Less distress than yesterday, less short of breath. PHYSICAL EXAMINATION: VITAL SIGNS: Temperature 98.4, heart rate 92, blood pressure 143/83, respiration 21, saturation 96% on room air. HEAD AND NECK: Normal. No JVD, no thyromegaly. CHEST: Diminished breath sounds mainly on the left more than right. CARDIAC: First sound, second sound normal. ABDOMEN: Soft, nontender. EXTREMITIES: No edema. NEUROLOGIC: Normal. IMPRESSION AND PLAN: 1. Acute chronic obstructive pulmonary disease exacerbation. Continue IV steroids. Continue cefepi me and vanco and Levaquin. The patient is immunocompromised cancer patient with lung cancer. Contin ue current therapy. Continue inhaled bronchodilators. Follow up with the cable installer repairer helper and ID. 2. Left side chest pain, probably trauma, may be related to biopsy-related nerve injury. We will as k Dr. Ordaz to look at him for local injections. Continue Duragesic patch, continue Dilaudid for p ain management. 3. Tachycardia. Right now on Lopressor 25 mg b.i.d. Cardiology consult, Dr. Mota. Continue curren t therapy. Continue GI and DVT prophylaxis. Follow up clinically. Diego Greer MD cc: [phone] TT: 12/25/2016 12:32:25 Confirmation # [id number] Dictation # [id number] co
--- NOTE | 2016-12-25 16:47 | CON ---
DATE: 12/25/2016 The patient is currently in 260, bed 1. 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 [facility] via the Emergency Room 2 days ago with progressive weakness and worsening pain, especially involving the left chest wall over the eighth and ninth ribs area for which he was supposed to see t he pain specialist for trigger point injections, but was unsuccessful. Prior bone scan did not show any metastatic disease there and there was a question whether the patient would benefit from radiatio n. We have not done a PET CT to really determine whether there is any tumor entrapment that is causi ng the pain. This is the same side where he used to have the chest tube and he had a thoracotomy and intrapleural instillation of tetracycline for malignant pleural effusion. HISTORY OF PRESENT ILLNESS: The patient has a history of stage IV unresectable carcinoma. Had 5 cyc les of carboplatin, Alimta based chemotherapy. Subsequent to that, the patient had several admission s to the hospital, mainly for exacerbation of his COPD and more recently, several episodes where he h as come in with intractable pain despite oral and ____ narcotics used in a patch-like fashion on the skin. The patient also has history of chronic obstructive pulmonary disease. He is malnourished and also has a poor appetite. The patient was brought in through the Emergency Room with shortness of b reath, chronic left pleuritic pain. No nausea, no vomiting, no diarrhea, no leg pain. PAST MEDICAL HISTORY: As mentioned above, stage IV adenocarcinoma of the lung, status post chemother apy, status post surgery and decompressive claudication and placement of left chest tube with intrapl eural instillation of tetracycline for malignant pleural effusion. ALLERGIES: THE PATIENT IS ALLERGIC TO SHELLFISH. SOCIAL HISTORY: Positive for smoking. FAMILY HISTORY: There is no significant family history. No history of ethanol abuse. MEDICATIONS: He is currently on Dilaudid 2 mg IV q.3 hours p.r.n. He is on DuoNeb q.2 hours. He is on fentanyl patch, on 50 mcg q.72 hours. On heparin 5000 units subQ q.8 hours, Levaquin 750 mg jamari y, Lidoderm patch to the affected area on the left side, metoprolol tartrate 25 mg b.i.d., oxycodone ____ mg p.o. q.6 hours p.r.n., Protonix 40 mg daily. He is on IV fluid at 75 mL an hour. He is on S gerhard-Medrol 60 mg q.8 hours and is on vancomycin 1 gram IV daily. REVIEW OF SYSTEMS: The patient is having significant pain. No headache, no rhinitis. Had been sign ificantly short of breath early this morning. Was seen by the house doctor, was placed on BiPAP and his O2 sat which was in the 80s came up to the 100s. The patient was feeling better except for the p leuritic pain. PHYSICAL EXAMINATION: GENERAL: The patient is examined in bed. He is lying in bed. Family is at the bedside. The patien t is in mild respiratory distress secondary to ____. Heart rate is 90. HEENT: Head is normocephalic, atraumatic. Conjunctivae pale. Sclerae are anicteric. Pupils are eq ually reactive to light and accommodation. Examination of the oropharynx reveals no oropharyngeal le sions. VITAL SIGNS: Blood pressure is 133/74, respirations 20, pulse ox is 100% on nasal cannula. MOUTH: Examination of the oropharynx reveals no oropharyngeal lesions. Tongue is coated. NECK: Supple. There is no adenopathy. LUNGS: Poor airflow with prolonged expiratory phase with wheezing. HEART: Reveals S1 and S2 to be normal. No gallop or murmur is heard. ABDOMEN: Soft, nontender. Liver and spleen not palpable. The patient is complaining of significant pain over the left chest wall in the distribution of the 8th, 9th and 10th ribs in the anterior axil samm line, most likely due to nerve entrapment from the chest tube that he had and the intrapleural i nstillation of tetracycline. The patient would benefit from nerve block. NEUROLOGIC: Higher functions are normal. No focal deficits are noted. LABORATORY DATA: Reveals a hemoglobin of 9.2, hematocrit 29, white count is 1.5 with a platelet coun t of 280,000. INR is 1.36. Blood gases show a pH of 7.46, pCO2 of 37, pO2 of 114. This is on BiPAP . Blood cultures have been negative. He had a venous Doppler today which does not show any evidence of DVT. CAT scan shows no evidence of pulmonary embolism, no changes, ____ in the pulmonary fibrosi s are increased. There is increased subcarinal adenopathy. ASSESSMENT NOTES AND PLAN: Chronic obstructive lung disease, history of lung cancer, malnourishment. The patient is getting intravenous and inhaled bronchodilators. Gastric prophylaxis, deep venous t hrombosis prophylaxis. Continue pain management, supplemental oxygen and we will assess to see if he is a candidate for local block while he is in the hospital. Routine post exam instructions have bee n given to the patient. We will continue to monitor the CBC as well. Make sure ____ counts are tren ding down. White count today is better than yesterday's, up to 3.7; hemoglobin 9.2, hematocrit 28 an d platelet count of 314,000. Chemistries reveal BUN of ____, creatinine 0.4. Glucose random sugar i s 165. AST, ALT, total bili are normal. LDH is elevated secondary to his lung issues. Procalcitoni n was high at 1.88, so covering with antibiotics is appropriate for now. We will follow up with labs in a.m. and make appropriate recommendations. Last visit, patient had a bone scan which did not rev eal any bone metastasis at this time involving the pleura or the ribs that would account for the sign ificant pain. Josee Ma MD cc: [id number] TT: 12/25/2016 16:34:52 Confirmation # [id number] Dictation # [id number] sn
--- NOTE | 2016-12-25 19:36 | PN ---
DATE: 12/25/2016 REASON FOR CONSULTATION: Sinus tachycardia. BRIEF CLINICAL HISTORY: This is a 71-year-old gentleman with history of inoperable lung CA, history of chemotherapy, radiation, complaining of left-sided chest pain, admitted again with history of post -obstructive pneumonia. Complaining of left-sided chest pain, tenderness inside the chest. PHYSICAL EXAMINATION: VITAL SIGNS: Temperature afebrile, heart rate 90, blood pressure 123/81. HEENT: PERRLA. Extraocular muscles intact. NECK: Supple. No carotid bruits. No thyromegaly. CHEST: Clear to auscultation. HEART: S1, S2 regular. ABDOMEN: Soft. EXTREMITIES: Clubbing and cyanosis negative. LABORATORY DATA: Blood workup as follows: WBC 3.7, hemoglobin 9.8, hematocrit 28.8, platelet count 314. Chemistry shows sodium 133, potassium , chloride 101, carbon dioxide 30, anion gap of 8, B UN 16, creatinine 0.4. Troponin 0.5. IMPRESSION: Atypical chest pain secondary to malignancy, no evidence of acute myocardial infarction, leukopenia, anemia probably secondary to chemo and upper lung cancer, chronic obstructive pulmonary disease. The patient had echocardiography recently, 12/02/2016, that showed decreased left ventricula r function, moderately impaired, no thrombus noted. RECOMMENDATION: Continue adequate analgesia. No evidence of acute myocardial infarction. Continue low-dose beta-arlene to prevent tachycardia. Overall, patient's condition is critical. Prognosis i s guarded. We will follow with you. Of note, it is important to mention yesterday's consult dictate d so far is not transcribed yet. Does not appear in the system. Shell Mota MD cc: [id number] TT: 12/25/2016 19:35:43 Confirmation # [id number] Dictation # [id number] eugene
--- NOTE | 2016-12-25 19:45 | PN ---
DATE: 12/25/2016 REFERRING PHYSICIAN: Dr. Greer. SUBJECTIVE: The patient is moved out of ICU to telemetry, lying in the bed, head at 45 degrees, feel s a little better. Last light, had some shortness of breath on and off, complaining of pain. At pre sent, no nausea, no vomiting, no diarrhea. No leg pain or leg swelling. OBJECTIVE: GENERAL: No acute distress. VITAL SIGNS: Temperature is 98, heart rate is 90, respiratory rate is 18, blood pressure 150/82, pul se ox 99% on BiPAP. HEENT: Moist mucous membranes. Crowded airway. Mallampati score is 4. NECK: Supple. No JVD. LUNGS: Have a prolonged expiratory phase. HEART: S1 and S2. ABDOMEN: Soft, nontender. No organomegaly. EXTREMITIES: There is no edema. NEUROLOGIC: Awake, alert, follows simple commands. MEDICATIONS: He is on Dilaudid 2 mg IV q. 3 hours p.r.n., DuoNeb q. 6 hours, Duragesic patch q. 72 h ours, heparin 5000 units subQ q. 8 hours, Levaquin 750 mg daily, Lidoderm patch daily, metoprolol tar trate 25 mg twice a day, cefepime 1 g IV q. 8 hours, oxycodone immediate release 15 mg q. 4 hours p.r .n., Protonix 40 mg daily, IV fluid normal saline 75 mL per hour, Solu-Medrol 60 q. 8 hours. LABORATORY DATA: Shows hemoglobin 9.2, hematocrit 28.8, WBC 3.7, platelet count is 314. Sodium 136, potassium 2.8, chloride 111, bicarbonate 31, BUN 16, creatinine 0.4, glucose 165, calcium is 9.0, ma gnesium 1.9. AST 55, ALT 42, alkaline phosphatase is 107. Albumin is 3.2. MICROBIOLOGY: Blood culture has been negative. IMPRESSION AND PLAN: Chronic obstructive lung disease, lung cancer, has been on chemotherapy, chroni c pain syndrome, malnutrition, activities of daily living dysfunction. I will decrease Solu-Medrol t o 20 q. 8 hours. Continue supplemental oxygen, pain management. Gastric prophylaxis, deep venous th rombosis prophylaxis. Fall precaution. Thank you and will follow with you. Shell Vargas MD cc: [phone] TT: 12/25/2016 19:43:56 Confirmation # [id number] Dictation # [id number] ln
[2016-12-25] MEDS: oxyCODONE 15 mg Immediate Release Tab PO PRN (19:58)
[2016-12-25] MEDS: MethylPREDNISolone 40 mg Vial IVP SCH (22:56)
[2016-12-26] MEDS: Cefepime 1gm in NS 100ml 1 GM/100 ML BAG IVPB SCH ×3 (05:38→21:24)
[2016-12-26] MEDS: MethylPREDNISolone 40 mg Vial IVP SCH ×3 (05:39→21:25)
[2016-12-26] MEDS: HYDROmorphone 2 mg/ml ISec IVP PRN ×5 (05:39→21:25)
[2016-12-26 07:09] LABS: ADD MANUAL DIFF? NO
[2016-12-26 07:12] LABS: GRAN # 2.75 (1.4-6.5); GRAN % 92.6 % (50.0-68.0); HEMATOCRIT 28.3 % (42.0-52.0); LYMPH # 0.2 (1.2-3.4); LYMPH % 5.7 % (22.0-35.0); MEAN CELL VOLUME 84.7 fL (80.0-105.0); MEAN CORPUSCULAR HEMOGLOBIN 26.6 pg (25.0-35.0); MEAN CORPUSCULAR HGB CONC 31.4 g/dl (31.0-37.0); MEAN PLATELET VOLUME 8.4 fl (7.0-11.0); MONO # 0.1 (0.1-0.6); MONO % 1.7 % (1.0-6.0); PLATELET COUNT 299 10^3/uL (120.0-450.0); RED CELL DISTRIBUTION WIDTH 17.5 % (11.5-14.5)
[2016-12-26 07:23] LABS: ALB/GLOB RATIO 0.9 (1.1-1.8); ALKALINE PHOSPHATASE 89 U/L (38-133); ALT/SGPT 38 U/L (7-56); AST/SGOT 44 U/L (15-59); BILIRUBIN,TOTAL 0.3 mg/dL (0.2-1.3); BLOOD UREA NITROGEN 16 mg/dL (7-21); CARBON DIOXIDE 33 mmol/L (21-33); CHLORIDE 100 mmol/L (98-107); GFR AFRICAN-AMERICAN > 60; GLUCOSE,RANDOM 145 mg/dL (70-110); MAGNESIUM 1.9 mg/dL (1.7-2.2); POTASSIUM 3.9 mmol/L (3.6-5.0); SODIUM 137 mmol/L (132-148); TOTAL PROTEIN 6.1 g/dL (5.8-8.3)
[2016-12-26] MEDS: Albuterol-Ipratrop 3 mg / 0.5 (3 ml) UD IH SCH ×4 (07:45→21:09)
[2016-12-26] MEDS: levoFLOXacin 750 mg in D5W 150 ML BAG IVPB SCH (09:13)
[2016-12-26] MEDS: Lidocaine 5% Patch TD SCH (09:13)
--- NOTE | 2016-12-26 10:09 | PN ---
DATE: 12/26/2016 The patient is in bed in no acute distress. The patient seen earlier today in 260, bed 1. PHYSICAL EXAMINATION: VITAL SIGNS: Temperature is 97, blood pressure is 140/70, respiratory rate of 18, heart rate of 83. HEENT: Unremarkable. NECK: Supple. LUNGS: Have decreased breath sounds. HEART: Normal S1, S2. ABDOMEN: Soft, nontender. LABORATORY EXAMINATION: Reveals the white count is 3, hemoglobin of 8, platelets of 299. Coagulatio n is noted. Chemistries reveal the BUN of 16, creatinine of 0.5. Procalcitonin is 1.88. Microbiolo gy is noted. The blood culture is no growth. Dr. Vargas's progress note from yesterday is reviewed. Dr. Mota's progress note is reviewed. Dr. Ma's consultation is reviewed. Review of the order s reveals the patient to be on Levaquin IV, cefepime, Solu-Medrol. ASSESSMENT AND PLAN: A 71-year-old with chronic obstructive lung disease and no evidence of healthca re-associated pneumonia on a chest x-ray and a history of hospital-acquired pneumonia, lung cancer on chemotherapy, chronic anemia, dyslipidemia, currently on cefepime day #3 with negative blood culture s, negative CAT scan of the chest; does have an elevated procalcitonin. Also on Levaquin which was s tarted by Dr. Greer. The patient did have an EKG on 12/23 with a QTC of 453. We will follow closely with you. Mack Dubose MD cc: 350 TT: 12/26/2016 10:07:51 Confirmation # [id number] Dictation # [id number] tn
--- NOTE | 2016-12-26 16:51 | PN ---
DATE: 12/26/2016 REFERRING PHYSICIAN: Dr. Greer SUBJECTIVE: The patient is sitting on the side of the bed, having lunch with the family. Night was unremarkable. He gets short of breath with minimal exertion. No chest pain, no nausea, no vomiting, no diarrhea. No leg pain or leg swelling. OBJECTIVE: GENERAL: No acute distress. VITAL SIGNS: Temperature is 98, heart rate is 104, respiratory rate is 20, blood pressure 138/72, pu lse ox 98% on nasal cannula. HEENT: Moist mucous membranes. No ulcer or oral thrush noted. NECK: Supple. No JVD. LUNGS: Has a poor airflow. HEART: S1, S2. ABDOMEN: Soft, nontender. No organomegaly. EXTREMITIES: There is no edema. NEUROLOGIC: Awake, alert, follows simple commands. MEDICATIONS: He is on Dilaudid 2 mg IV q. hours p.r.n., DuoNeb q. 12 hours p.r.n., also DuoNeb q. 6 hours around the clock, Duragesic patch q. 72 hours, heparin 5000 units subQ q. 8 hours, Levaqu in 750 mg daily, Lidoderm patch to the affected area, metoprolol tartrate 25 mg twice a day, cefepime 1 g IV q. 8 hours, oxycodone immediate release 15 mg q. 4 hours p.r.n., Protonix 40 mg daily, IV flu id normal saline 75 mL per hour, Solu-Medrol 20 mg q. 8 hours. LABORATORY DATA: Shows hemoglobin 8.9, hematocrit 28.3, WBC 3.0, and platelet count is 299. Sodium 137, potassium 3.9, chloride 100, bicarbonate 33, BUN 16, creatinine 0.5, glucose is 145, calcium is 9.0, magnesium 1.9, total bilirubin 0.3, AST 44, ALT 38, alkaline phosphatase is 89, albumin is 2.9. Microbiology: Blood cultures have been negative. IMPRESSION AND PLAN: Chronic obstructive lung disease, lung cancer, has been on chemotherapy, chroni c pain syndrome, malnutrition, activities of daily living dysfunction. From pulmonary point of view, he is doing okay. Continue Solu-Medrol, bronchodilators and antibiotics. Gastric prophylaxis, pain management, fall precautions. We will get physical therapy to get him out of bed to chair and also try to . Thank you and I will follow with you. Shell Vargas MD cc: [phone] TT: 12/26/2016 16:49:54 Confirmation # [id number] Dictation # [id number] dn
[2016-12-26] MEDS: POLYETHYLENE GLYCOL 3350 17 GM/Dose PACKET PO SCH (17:16)
[2016-12-26] MEDS: oxyCODONE 15 mg Immediate Release Tab PO PRN (17:16)
--- NOTE | 2016-12-26 21:29 | CP.PCM.PN ---
Subjective - Date & Time of Evaluation Date of Evaluation: 12/26/16 Time of Evaluation: 17:00 - Subjective Subjective: Patient continues to have primarily left sided pleuritic chest pain and shoulder pain. Rates pain as 10/10 with considerable effort though IV medications seem to be affective. Last BM two days prior. 12 ROS otherwise negative Objective - Vital Signs/Intake and Output Vital Signs (last 24 hours): Temp Pulse Resp BP Pulse Ox 98 F 80 20 121/69 99 12/26/16 17:27 12/26/16 18:00 12/26/16 17:27 12/26/16 17:27 12/26/16 06:00 - Medications Medications: Current Medications Albuterol/Ipratropium (Duoneb 3 Mg/0.5 Mg (3 Ml) Ud) 3 ml IH Q2 PRN PRN Reason: Shortness of Breath Albuterol/Ipratropium (Duoneb 3 Mg/0.5 Mg (3 Ml) Ud) 3 ml IH [id number] [facility] Last Admin: 12/26/16 21:09 Dose: 3 ml Docusate Sodium (Colace) 100 mg PO BID [facility] Last Admin: 12/26/16 17:16 Dose: 100 mg Fentanyl (Duragesic) 1 patch TD Q72H [facility] Last Admin: 12/26/16 16:04 Dose: 1 patch Heparin Sodium (Porcine) (Heparin) 5,000 units SC Q8 [facility] PRN Reason: Protocol Last Admin: 12/26/16 14:17 Dose: 5,000 units Hydromorphone HCl (Dilaudid) 2 mg IVP Q3 PRN PRN Reason: Pain, moderate (4-7) Last Admin: 12/26/16 18:49 Dose: 2 mg Sodium Chloride (Sodium Chloride 0.9%) 1,000 mls @ 75 mls/hr IV .[id number] [facility] Last Admin: 12/24/16 21:29 Dose: 75 mls/hr Cefepime HCl (Maxipime 1gm) 1 gm in 100 mls @ 100 mls/hr IVPB Q8 [facility] PRN Reason: Protocol Stop: 12/31/16 14:01 Last Admin: 12/26/16 14:16 Dose: 100 mls/hr Levofloxacin/Dextrose (Levaquin 750mg) 750 mg IVPB DAILY [facility] Last Admin: 12/26/16 09:13 Dose: 750 mg Lidocaine (Lidoderm) 2 ea TD DAILY [facility] Last Admin: 12/26/16 09:13 Dose: 2 ea Methylprednisolone (Solu-Medrol) 20 mg IVP Q8 [facility] Last Admin: 12/26/16 14:16 Dose: 20 mg Metoprolol Tartrate (Lopressor) 25 mg PO BID [facility] Last Admin: 12/26/16 17:16 Dose: 25 mg Oxycodone HCl (Oxycodone Immediate Release Tab) 15 mg PO Q4H PRN PRN Reason: Pain, moderate (4-7) Last Admin: 12/26/16 17:16 Dose: 15 mg Pantoprazole Sodium (Protonix Inj) 40 mg IVP DAILY [facility] Last Admin: 12/26/16 09:13 Dose: 40 mg Polyethylene Glycol (Miralax) 17 gm PO BID [facility] Last Admin: 12/26/16 17:16 Dose: 17 gm - Labs Labs: 12/26/16 07:08 12/26/16 07:08 PT 14.7 Seconds (9.9-11.8) H 12/23/16 10:00 INR 1.36 (0.93-1.08) H 12/23/16 10:00 APTT 35.9 Seconds (23.7-30.8) H 12/23/16 10:00 - Constitutional Appears: Non-toxic, Chronically Ill - Head Exam Head Exam: ATRAUMATIC, NORMAL INSPECTION, NORMOCEPHALIC - Respiratory Exam Respiratory Exam: Clear to Ausculation Bilateral, NORMAL BREATHING PATTERN - Cardiovascular Exam Cardiovascular Exam: REGULAR RHYTHM, +S1, +S2. absent: Murmur - GI/Abdominal Exam GI & Abdominal Exam: Soft, Normal Bowel Sounds. absent: Tenderness - Extremities Exam Extremities Exam: Full ROM, Normal Capillary Refill, Normal Inspection. absent : Joint Swelling, Pedal Edema Assessment and Plan (1) Lung mass Status: Chronic - Assessment and Plan (Free Text) Assessment: Mr Thornton pollo 71 y/o male with COPD and stage IV NSLC s/p 5 cycles of carbo/ Alimta, admitted to the hospital with intractable pain and possible COPD exacerbation. [place] requiring regular IV dilaudid. Would recommend increasing Fentanyl to 100mcg potentially. Additionally would maximize bowel regimen as patient has not had BM in 2 days. Add BID colace with prn Miralax. If patient requires additional pain management titration woudl recommend palliative care consult. Plan was discussed with both patient and patient's daughter Milad Lundy MD Oncology Service
[2016-12-26] MEDS ORDERED: Bisacodyl 5mg EC Tab PO ONE (22:33)
[2016-12-27] MEDS: HYDROmorphone 2 mg/ml ISec IVP PRN ×8 (00:16→23:23)
[2016-12-27] MEDS: Albuterol-Ipratrop 3 mg / 0.5 (3 ml) UD IH PRN (00:20)
[2016-12-27] MEDS: Albuterol-Ipratrop 3 mg / 0.5 (3 ml) UD IH SCH ×4 (03:00→19:57)
[2016-12-27] MEDS: MethylPREDNISolone 40 mg Vial IVP SCH ×3 (06:17→21:06)
[2016-12-27] MEDS: Cefepime 1gm in NS 100ml 1 GM/100 ML BAG IVPB SCH (06:20)
--- NOTE | 2016-12-27 06:52 | PN ---
DATE: 12/25/2016 The patient complained of left side chest pain, constipation; otherwise, no new complaint. His breat gonzalo, on and off he gets short of breath, especially with minimal exertions. PHYSICAL EXAMINATION: VITAL SIGNS: Temperature 98.1, heart rate 102, blood pressure 150/82, respirations 19, saturation 98 %. HEAD AND NECK: Normal. No JVD, no thyromegaly. CHEST: Clear. CARDIAC: First sound, second sound normal. LUNGS: Diminished breath sounds. ABDOMEN: Soft, nontender. EXTREMITIES: No edema. NEUROLOGIC: General weakness, nonfocal. The patient is alert, awake, and oriented x 3. LABORATORY DATA: White count 3.7, hemoglobin 9.2, hematocrit 28.8, platelets 314. Chemistry: Sodiu m 136, potassium 3.8, chloride 101, bicarb 31, BUN 16, creatinine 0.4, blood sugar 165. Liver functi on test is normal. Procalcitonin went down; from 1.88 it went down to 0.44. IMPRESSION AND PLAN: 1. Acute chronic obstructive pulmonary disease exacerbation. Continue IV steroids. Continue inhale d bronchodilators. Continue IV antibiotics for pneumonia. The patient currently getting Maxipime an d Levaquin 750 and he seems doing better with that. Continue current therapy. Will follow up clinic ally. 2. Tachycardia, probably secondary to underlying lung disease and worsening pain. Continue metoprol ol 25 mg b.i.d. 3. Lung cancer with history of pleural effusions, history of lung biopsy. The patient has chemother apy already. Continue local pain management. The patient getting Lidoderm in addition to Dilaudid a nd oxycodone 15 q. 4 hours. Continue current treatment. 4. Opioid-induced constipation. We will continue Colace. The patient is getting Relistor every oth er day p.r.n. Continue GI and DVT prophylaxis. Diego Greer MD cc: [phone] TT: 12/27/2016 06:51:36 Confirmation # [id number] Dictation # [id number] mn
[2016-12-27 07:31] LABS: ADD MANUAL DIFF? NO
[2016-12-27 07:35] LABS: GRAN # 2.84 (1.4-6.5); GRAN % 88.5 % (50.0-68.0); HEMATOCRIT 31.9 % (42.0-52.0); LYMPH # 0.3 (1.2-3.4); LYMPH % 8.1 % (22.0-35.0); MEAN CELL VOLUME 84.6 fL (80.0-105.0); MEAN CORPUSCULAR HEMOGLOBIN 26.5 pg (25.0-35.0); MEAN CORPUSCULAR HGB CONC 31.3 g/dl (31.0-37.0); MEAN PLATELET VOLUME 8.7 fl (7.0-11.0); MONO # 0.1 (0.1-0.6); MONO % 3.4 % (1.0-6.0); PLATELET COUNT 349 10^3/uL (120.0-450.0); RED CELL DISTRIBUTION WIDTH 17.2 % (11.5-14.5); WHITE BLOOD COUNT 3.2 10^3/ul (4.5-11.0)
[2016-12-27 07:59] LABS: ALB/GLOB RATIO 1.1 (1.1-1.8); ALKALINE PHOSPHATASE 105 U/L (38-133); ALT/SGPT 47 U/L (7-56); AST/SGOT 57 U/L (15-59); BILIRUBIN,TOTAL 0.4 mg/dL (0.2-1.3); BLOOD UREA NITROGEN 15 mg/dL (7-21); CALCIUM 9.2 mg/dL (8.4-10.5); CARBON DIOXIDE 34 mmol/L (21-33); CHLORIDE 94 mmol/L (95-110); GFR AFRICAN-AMERICAN > 60; GLUCOSE,RANDOM 157 mg/dL (70-110); MAGNESIUM 1.8 mg/dL (1.7-2.2); POTASSIUM 3.8 mmol/L (3.6-5.0); SODIUM 136 mmol/L (132-148); TOTAL PROTEIN 6.5 g/dL (5.8-8.3)
[2016-12-27] MEDS: POLYETHYLENE GLYCOL 3350 17 GM/Dose PACKET PO SCH ×2 (09:28→17:26)
[2016-12-27] MEDS: levoFLOXacin 750 mg in D5W 150 ML BAG IVPB SCH (09:29)
[2016-12-27] MEDS: Lidocaine 5% Patch TD SCH (09:29)
--- NOTE | 2016-12-27 11:15 | PN ---
DATE: 12/27/2016 The patient is in bed, in no acute distress, nontoxic, no fevers. The patient seen earlier in 260, b ed 1. He is chronically ill, weak and debilitated. PHYSICAL EXAMINATION: VITAL SIGNS: Temperature of 97, blood pressure is 140/90, respiratory rate of 20, heart rate of 92. HEENT: Unremarkable. NECK: Supple. LUNGS: Have decreased breath sounds. HEART: Normal S1, S2. ABDOMEN: Soft, nontender. LABORATORY EXAMINATION: Reveals a white count of 3.2, hemoglobin of 10, platelets of 349. Chemistri es reveals the BUN of 15, creatinine of 0.5. Procalcitonin was 1.88, now it is down to yesterday 0.4 4. Microbiology reveals the blood cultures are no growth. Dr. Greer's note from yesterday is noted. Review of orders reveals the patient to be on Levaquin an d cefepime. The patient is also on Solu-Medrol. Dr. Ma's note from yesterday is also reviewed. He recommends palliative care consultation. ASSESSMENT AND PLAN: A 71-year-old male with chronic obstructive lung disease, no evidence of a heal thcare-associated pneumonia on chest x-ray, history of acquired pneumonia, lung cancer on chemotherap y, chronic anemia, dyslipidemia. Day #4 of cefepime and now with a normal procalcitonin. We will di scontinue the cefepime and change the Levaquin to p.o. to complete. Today is day #4 of 7 days of Lev aquin. Mack Dubose MD cc: 350 TT: 12/27/2016 11:14:28 Confirmation # [id number] Dictation # [id number] en
[2016-12-27] MEDS: oxyCODONE 15 mg Immediate Release Tab PO PRN (12:12)
[2016-12-27] MEDS ORDERED: oxyCODONE 15 mg Immediate Release Tab PO PRN (16:03)
--- NOTE | 2016-12-27 17:40 | PN ---
DATE: 12/27/2016 REFERRING PHYSICIAN: Dr. Greer. SUBJECTIVE: He is lying in the bed, head at 45 degree. Has been in a chair for a couple of hours to day. Short of breath with exertion. No nausea, no vomiting, no diarrhea. Still has left rib and mu scle type pain. No abdominal pain. No dysuria. No leg pain or leg swelling. OBJECTIVE: GENERAL: In no acute distress. VITAL SIGNS: Temp is 98, heart rate is 87, respiratory rate is 20, blood pressure 122/82, pulse ox 9 8% on nasal cannula. HEENT: Moist mucous membranes. Crowded airway. NECK: Supple. No JVD. LUNGS: Has a fair airflow with a few rhonchi. HEART: S1, S2. ABDOMEN: Soft, nontender. No organomegaly. EXTREMITIES: There is no edema. NEUROLOGIC: Awake, alert, follows simple commands. MEDICATIONS: He is on Colace 100 mg twice a day, Dilaudid 2 mg IV q.3 hours p.r.n., DuoNeb q.2 hours p.r.n., DuoNeb q.6 hours around the clock, Duragesic patch q.72 hours, heparin 5000 units subQ q.8 h ours, Levaquin 500 mg daily, Lidoderm patch daily, metoprolol tartrate 25 mg twice a day, MiraLax 17 grams twice a day, oxycodone immediate release 15 mg q.4 hours p.r.n., Protonix 40 mg daily, IV fluid normal saline at 75 mL per hour, Solu-Medrol 20 mg q.8 hours. LABORATORY DATA: Shows hemoglobin 10.0, hematocrit 31.9, WBC 3.2, platelet count is 349. Sodium 136 , potassium 3.8, chloride 94, bicarbonate 34, BUN is 15, creatinine 0.5, glucose 157, calcium 9.2, ma gnesium 1.8, AST 57, ALT 47, alkaline phosphatase is 105, albumin is 3.4. Microbiology: Blood cultu res have been negative. IMPRESSION AND PLAN: Chronic obstructive lung disease, lung cancer, has been on chemotherapy, chroni c pain syndrome, malnutrition, activities of daily living dysfunction. I spoke to the patient's daug hter at the bedside. All their questions were answered. From pulmonary point of view he looks okay. I cannot figure out his pain. Bone scan was negative. CAT scan was unremarkable. just used to his pain medications and requiring more. Not a bad idea to get a pain information management officer from . . May benefit from a nerve block. Continue gastric prophylaxis, deep venous thrombosis pr ophylaxis. Fall precaution. Will decrease Solu-Medrol to 20 q.12 hours. Thank you and will follow with you. Shell Vargas MD cc: [phone] TT: 12/27/2016 17:39:36 Confirmation # [id number] Dictation # [id number] dn
[2016-12-27] MEDS ORDERED: POLYETHYLENE GLYCOL 3350 17 GM/Dose PACKET PO PRN ×2 (19:17→19:18)
--- NOTE | 2016-12-27 20:19 | CP.PCM.PN ---
Subjective - Date & Time of Evaluation Date of Evaluation: 12/27/16 Time of Evaluation: 16:00 - Subjective Subjective: Continues to have pain. REquires IV pain medications. Still no bowel movement. Daughter at bedside today 12 ROS otherwise negative Objective - Vital Signs/Intake and Output Vital Signs (last 24 hours): Temp Pulse Resp BP Pulse Ox 97.8 F 95 H 20 130/76 96 12/27/16 18:00 12/27/16 19:02 12/27/16 18:00 12/27/16 18:00 12/27/16 06:00 - Medications Medications: Current Medications Albuterol/Ipratropium (Duoneb 3 Mg/0.5 Mg (3 Ml) Ud) 3 ml IH Q2 PRN PRN Reason: Shortness of Breath Last Admin: 12/27/16 00:20 Dose: 3 ml Albuterol/Ipratropium (Duoneb 3 Mg/0.5 Mg (3 Ml) Ud) 3 ml IH [id number] [facility] Last Admin: 12/27/16 19:57 Dose: 3 ml Docusate Sodium (Colace) 100 mg PO BID [facility] Last Admin: 12/27/16 17:24 Dose: 100 mg Fentanyl (Duragesic) 1 patch TD Q72H [facility] Heparin Sodium (Porcine) (Heparin) 5,000 units SC Q8 DONNA PRN Reason: Protocol Last Admin: 12/27/16 14:12 Dose: 5,000 units Hydromorphone HCl (Dilaudid) 2 mg IVP Q3H PRN PRN Reason: Pain, moderate (4-7) Last Admin: 12/27/16 17:25 Dose: 2 mg Sodium Chloride (Sodium Chloride 0.9%) 1,000 mls @ 75 mls/hr IV .[id number] [facility] Last Admin: 12/24/16 21:29 Dose: 75 mls/hr Levofloxacin (Levaquin) 500 mg PO DAILY [facility] Stop: 12/31/16 10:01 Lidocaine (Lidoderm) 2 ea TD DAILY [facility] Last Admin: 12/27/16 09:29 Dose: 2 ea Methylprednisolone (Solu-Medrol) 20 mg IVP Q12 [facility] Metoprolol Tartrate (Lopressor) 25 mg PO BID [facility] Last Admin: 12/27/16 17:24 Dose: 25 mg Oxycodone HCl (Oxycodone Immediate Release Tab) 15 mg PO Q4H PRN PRN Reason: Pain, moderate (4-7) Pantoprazole Sodium (Protonix Inj) 40 mg IVP DAILY [facility] Last Admin: 12/27/16 09:28 Dose: 40 mg Polyethylene Glycol (Miralax) 17 gm PO BID PRN PRN Reason: Constipation - Labs Labs: 12/27/16 07:30 12/27/16 07:30 PT 14.7 Seconds (9.9-11.8) H 12/23/16 10:00 INR 1.36 (0.93-1.08) H 12/23/16 10:00 APTT 35.9 Seconds (23.7-30.8) H 12/23/16 10:00 - Constitutional Appears: Non-toxic - Respiratory Exam Respiratory Exam: Clear to Ausculation Bilateral, NORMAL BREATHING PATTERN - Cardiovascular Exam Cardiovascular Exam: REGULAR RHYTHM, +S1, +S2. absent: Murmur - GI/Abdominal Exam GI & Abdominal Exam: Soft, Normal Bowel Sounds. absent: Tenderness - Extremities Exam Extremities Exam: Full ROM, Normal Capillary Refill, Normal Inspection. absent : Joint Swelling, Pedal Edema Assessment and Plan (1) Lung mass Status: Chronic - Assessment and Plan (Free Text) Assessment: Mr Thornton pollo 71 y/o male with COPD and stage IV NSLC s/p 5 cycles of carbo/ Alimta, admitted to the hospital with intractable pain and possible COPD exacerbation. [place] requiring regular IV dilaudid. Agai would recommend increasing Fentanyl to 100mcg potentially. Patient still w/o bowel movement would plan for enema If patient requires additional pain management titration would recommend palliative care consult. Discussed with Dr. Greer the possibilty for nerve block to be done while patient is hospitalized. Plan was discussed with both patient and patient's daughter Milad Lundy MD Oncology Service
[2016-12-28] MEDS: HYDROmorphone 2 mg/ml ISec IVP PRN ×8 (02:27→23:28)
[2016-12-28] MEDS: Albuterol-Ipratrop 3 mg / 0.5 (3 ml) UD IH SCH ×4 (02:40→20:03)
--- NOTE | 2016-12-28 02:56 | PN ---
DATE: 12/27/2016 HISTORY OF PRESENT ILLNESS: Still complains of pain, constipation, did not move his bowels, opioid-i nduced. Otherwise, no new complaints. Short of breath on and off, especially with minimal exertions . No other new complaints. PHYSICAL EXAMINATION: VITAL SIGNS: Temperature 97.8, heart rate 95, blood pressure 130/76, respiration 20. HEAD AND NECK: Normal. No JVD, no thyromegaly. CHEST: Diminished breath sounds, more on the left than right. CARDIAC: First and second sounds are normal. ABDOMEN: Soft, nontender. EXTREMITIES: No edema. NEUROLOGIC: Normal. LABORATORY DATA: White count 3.2, hemoglobin 10, hematocrit 31.9, platelets 349. Chemistry: Sodium 136, potassium 3.8, chloride 94, bicarb 34, BUN 15, creatinine 0.5, blood sugar 157. Liver function test is normal. IMPRESSION AND PLAN: 1. Acute chronic obstructive pulmonary disease exacerbation. Continue inhaled bronchodilator, IV st eroids, seems to be doing better. 2. Left-sided intractable pain, possible trauma to subcostal nerve. Needs a nerve block. We spoke with Dr. Ordaz, cannot come and the patient has difficulty getting there. We will try to get _ ____ pain management team in the hospital for the patient. Continue all current therapy. Continue D uragesic patch, oxycodone and Dilaudid. 3. Opioid-induced constipation. Going to give him Fleet enema. Continue current therapy. 4. Lung cancer, no bone metastasis, negative bone scan. The patient also had no masses on the CT. Continue current therapy. He refused chemo. PLAN: Continue current treatment. Will discharge the patient once this is done. If samia snyder come to the hospital, we will discharge the patient to follow up with pain management as outpatient . Diego Greer MD cc: 223 TT: 12/28/2016 00:26:02 Confirmation # [id number] Dictation # [id number] mn 12/28/2016 01:55:08
[2016-12-28 06:23] LABS: ADD MANUAL DIFF? NO
[2016-12-28 06:31] LABS: GRAN # 3.23 (1.4-6.5); GRAN % 81.2 % (50.0-68.0); HEMATOCRIT 35.2 % (42.0-52.0); LYMPH # 0.5 (1.2-3.4); LYMPH % 12.8 % (22.0-35.0); MEAN CELL VOLUME 83.6 fL (80.0-105.0); MEAN CORPUSCULAR HEMOGLOBIN 27.6 pg (25.0-35.0); MEAN PLATELET VOLUME 8.4 fl (7.0-11.0); MONO # 0.2 (0.1-0.6); PLATELET COUNT 341 10^3/uL (120.0-450.0); RED CELL DISTRIBUTION WIDTH 17.2 % (11.5-14.5)
[2016-12-28 06:52] LABS: ALB/GLOB RATIO 1.1 (1.1-1.8); ALKALINE PHOSPHATASE 107 U/L (38-133); ALT/SGPT 46 U/L (7-56); AST/SGOT 54 U/L (15-59); BILIRUBIN,TOTAL 0.7 mg/dL (0.2-1.3); BLOOD UREA NITROGEN 14 mg/dL (7-21); CALCIUM 9.7 mg/dL (8.4-10.5); CARBON DIOXIDE 37 mmol/L (21-33); CHLORIDE 91 mmol/L (98-107); GFR AFRICAN-AMERICAN > 60; GLUCOSE,RANDOM 131 mg/dL (70-110); MAGNESIUM 1.9 mg/dL (1.7-2.2); POTASSIUM 4.2 mmol/L (3.6-5.0); SODIUM 134 mmol/L (132-148); TOTAL PROTEIN 7.1 g/dL (5.8-8.3)
--- NOTE | 2016-12-28 08:28 | CON ---
DATE: 12/24/2016 REASON FOR CONSULTATION: Sinus tachycardia. BRIEF CLINICAL HISTORY: This is a 71-year-old male with past medical history significant for lung CA , received chemo; history of COPD, chronic back pain, chronic chest pain on the left side of the ches t secondary possibly to the tumor. Cardiology consult was called for sinus tachycardia. The patient was short of breath. PAST MEDICAL HISTORY: Significant for hypertension, hyperlipidemia; lung CA, status post chemo accor ding to the patient; hypertension, hyperlipidemia, ____. PREVIOUS CARDIAC WORKUP: As follows: History of lung CA, inoperable; sinus tachycardia secondary to lung cancer. Last echo shows technically difficult study, normal chamber size, ejection fraction 55 -60%, trace mitral regurgitation, trace tricuspid regurgitation dated 05/25/2016. The patient had a repeat echo done yesterday that showed systolic function is moderately impaired. No thrombus noted. No mitral regurgitation. No pulmonary hypertension. REVIEW OF SYSTEMS: As per HPI. PHYSICAL EXAMINATION: VITAL SIGNS: Temperature afebrile, heart rate 89, blood pressure 133/74. HEENT: PERRLA. Extraocular muscles intact. NECK: Supple. No carotid bruits. No thyromegaly. CHEST: Clear to auscultation. HEART: S1, S2 regular. ABDOMEN: Soft. EXTREMITIES: Clubbing and cyanosis negative. BLOOD WORKUP: As follows: WBC 1.5, hemoglobin 9.2, hematocrit 29.0, platelet count 280. Chemistry shows sodium 130, potassium 3.7, chloride 101, carbon dioxide ____, anion gap of 12, BUN 9, creatinin e 0.4. IMPRESSION: Pancytopenia; chest pain, probably atypical secondary to tumor invasion; troponin remain s negative/flat. Recent echocardiogram shows a decreased left ventricular function; probably this is secondary to the chemotherapy. Prior echocardiogram, preserved left ventricular function. Lung can cer, operable; shortness of breath on exertion secondary to lung cancer, sinus tachycardia secondary to pain. RECOMMENDATIONS: Continue adequate analgesia, low-dose beta-arlene as tolerated. Monitor H and H. Monitor thrombocytopenia secondary to chemo. Will follow with you. Also, platelets are 280; will gi ve DVT prophylaxis. Shell Mota MD cc: [id number] TT: 12/25/2016 08:12:45 Confirmation # [id number] Dictation # [id number] mn
[2016-12-28] MEDS: Pantoprazole 40 mg EC Tab PO SCH (08:30)
--- NOTE | 2016-12-28 08:57 | PN ---
DATE: 12/26/2016 The patient seems comfortable, except his left-sided pain and dyspnea with trying to get out of the b ed. The patient otherwise slept well last night. He got enough pain medication overnight. PHYSICAL EXAMINATION: VITAL SIGNS: His temperature is 98, heart rate is 83, blood pressure 145/74, respirations 18, satura tion 99%. The patient is getting BiPAP machine also. HEAD AND NECK: Normal. No JVD, no thyromegaly. CHEST: Diminished breath sound on the left side. CARDIAC: First sound, second sound normal. ABDOMEN: Soft, nontender. EXTREMITIES: No edema. NEUROLOGIC: The patient has general weakness, nonfocal. Alert, awake, oriented x 3. LABORATORY DATA: Shows sodium 137, potassium 3.9, chloride 100, bicarb 33, BUN 16, creatinine 0.5, b lood sugar shows blood sugar 145. Liver function test is normal. CBC shows white count 3, hemoglobi n 8.9, hematocrit 28.3, platelets 299. IMPRESSION AND PLAN: 1. Acute chronic obstructive pulmonary disease exacerbation. Continue IV steroids, tapering the dos e down. Continue inhaled bronchodilators. 2. Lung cancer status post chemotherapy, had radiation this time. Continue current therapy. 3. Left-sided chest pain. Continue pain management, oxycodone and Dilaudid p.r.n. 4. Opioid-induced constipation. Continue Relistor every other day and Dulcolax, MiraLax as needed. 5. Generalized weakness. The patient may benefit from rehab. Will discuss with the family. Contin ue GI and DVT prophylaxis. 6. Anemia, multifactorial. 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 Will follow up with GI on that. 7. Possible pneumonia. His x-ray sees ____ infiltrate; however, the patient had negative blood cult ures x 2. Will continue Maxipime as per ID and follow up clinically. 8. Continue GI and DVT prophylaxis. Continue pain management. Follow up with other consultants. T he patient may benefit from rehabilitation. Diego Greer MD cc: [phone] TT: 12/27/2016 07:03:41 Confirmation # [id number] Dictation # [id number] mn
[2016-12-28] MEDS: Lidocaine 5% Patch TD SCH (09:26)
[2016-12-28] MEDS: levoFLOXacin 500 MG TAB PO SCH (09:27)
[2016-12-28] MEDS: MethylPREDNISolone 40 mg Vial IVP SCH ×2 (09:28→21:52)
--- NOTE | 2016-12-28 13:47 | CP.PCM.CON ---
History of Present Illness - History of Present Illness History of Present Illness: Pallaiative consult requested by Dr Delmer Greer Reason: Goals of care/advance care planning 71 year old male with metastatic lung cancer who presented to ED with weakness, shortness of breath and intractable pain in left rib cage. PMHx; lung cancer s/p chemo/radiation therapy, s/p intrapleural tetracycline for malignant pleural effusion,COPD, cachexia,s/p bowel obstruction, anorexia, debility. Social History: Former smoker, former alcohol use, no illicit drug olga. , lives with Family History: Non contributory. Advance Care Planning: There is no Advance Directive Review of Systems, As per HPI, anorexia, cachexia,constipation Past Patient History - Infectious Disease Hx of Infectious Diseases: None - Tetanus Immunizations Tetanus Immunization: Unknown - Past Medical History & Family History Past Medical History?: Yes - Past Social History Smoking Status: Former Smoker - CARDIAC Hx Cardiac Disorders: Yes Hx Hypercholesterolemia: Yes - PULMONARY Hx Chronic Obstructive Pulmonary Disease (COPD): Yes - NEUROLOGICAL Hx Neurological Disorder: Yes - HEENT Hx HEENT Problems: Yes Hx Deafness: (denies hearing problems) - RENAL Hx Chronic Kidney Disease: No - ENDOCRINE/METABOLIC Hx Endocrine Disorders: No - HEMATOLOGICAL/ONCOLOGICAL Hx Blood Disorders: Yes Hx Anemia: Yes (BLOOD TRANSFUSION) Hx Cancer: Yes (lung stage 4) Hx Chemotherapy: Yes (finished 10/20/16) - INTEGUMENTARY Hx Dermatological Problems: Yes (GENERALIZED SKIN DRYNESS) - MUSCULOSKELETAL/RHEUMATOLOGICAL Hx Falls: Yes (past) - GASTROINTESTINAL Hx Gastrointestinal Disorders: Yes (POOR APPETITE,COLITIS) Hx Gastroesophageal Reflux: Yes Other/Comment: CONSTIPATION,11-28-17 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 - GENITOURINARY/GYNECOLOGICAL Hx Genitourinary Disorders: Yes Hx Incontinence: Yes (at times used bedpan) - PSYCHIATRIC Hx Psychophysiologic Disorder: Yes (H/O SMOKING 2-3 PPD QUIT,ETOH ABUSE DRANK 9- 10 CANS OF BEER A WEEK.) Hx Emotional Abuse: No Hx Physical Abuse: No Other/Comment: etoh drank 9/10 cans beer a week, quit - SURGICAL HISTORY Hx Appendectomy: Yes Hx Cardiac Catheterization: Yes Other/Comment: R chest port - ANESTHESIA Hx Anesthesia: Yes Meds Allergies/Adverse Reactions: Allergies Allergy/AdvReac Type Severity Reaction Status Date / Time shellfish derived Allergy ANAPHYLAXIS Verified 12/25/16 09:15 , - Medications Medications: Current Medications Albuterol/Ipratropium (Duoneb 3 Mg/0.5 Mg (3 Ml) Ud) 3 ml IH Q2 PRN PRN Reason: Shortness of Breath Last Admin: 12/27/16 00:20 Dose: 3 ml Albuterol/Ipratropium (Duoneb 3 Mg/0.5 Mg (3 Ml) Ud) 3 ml IH [id number] [facility] Last Admin: 12/28/16 13:31 Dose: 3 ml Docusate Sodium (Colace) 100 mg PO BID [facility] Last Admin: 12/28/16 09:24 Dose: 100 mg Fentanyl (Duragesic) 1 patch TD Q72H [facility] Last Admin: 12/28/16 12:48 Dose: 1 patch Heparin Sodium (Porcine) (Heparin) 5,000 units SC Q8 [facility] PRN Reason: Protocol Last Admin: 12/28/16 05:05 Dose: 5,000 units Hydromorphone HCl (Dilaudid) 2 mg IVP Q3H PRN PRN Reason: Pain, moderate (4-7) Last Admin: 12/28/16 11:04 Dose: 2 mg Sodium Chloride (Sodium Chloride 0.9%) 1,000 mls @ 75 mls/hr IV .[id number] [facility] Last Admin: 12/24/16 21:29 Dose: 75 mls/hr Levofloxacin (Levaquin) 500 mg PO DAILY [facility] Stop: 12/31/16 10:01 Last Admin: 12/28/16 09:27 Dose: 500 mg Lidocaine (Lidoderm) 2 ea TD DAILY [facility] Last Admin: 12/28/16 09:26 Dose: 2 ea Methylprednisolone (Solu-Medrol) 20 mg IVP Q12 [facility] Last Admin: 12/28/16 09:28 Dose: 20 mg Metoprolol Tartrate (Lopressor) 25 mg PO BID [facility] Last Admin: 12/28/16 09:27 Dose: 25 mg Oxycodone HCl (Oxycodone Immediate Release Tab) 15 mg PO Q4H PRN PRN Reason: Pain, moderate (4-7) Last Admin: 12/28/16 00:21 Dose: 15 mg Pantoprazole Sodium (Protonix Ec Tab) 40 mg PO ACB [facility] Last Admin: 12/28/16 08:30 Dose: 40 mg Polyethylene Glycol (Miralax) 17 gm PO BID PRN PRN Reason: Constipation Physical Exam - Constitutional Appears: Cachectic, Chronically Ill - Head Exam Head Exam: NORMOCEPHALIC - Eye Exam Eye Exam: Normal appearance, PERRL - ENT Exam ENT Exam: Mucous Membranes Moist, Normal Oropharynx - Neck Exam Neck exam: Positive for: Normal Inspection - Respiratory Exam Respiratory Exam: Decreased Breath Sounds, NORMAL BREATHING PATTERN - Cardiovascular Exam Cardiovascular Exam: REGULAR RHYTHM, +S1, +S2 - GI/Abdominal Exam GI & Abdominal Exam: Normal Bowel Sounds, Soft Additional comments: no tenderness - Extremities Exam Extremities exam: Positive for: normal inspection, pedal pulses present - Back Exam Back exam: NORMAL INSPECTION - Neurological Exam Neurological exam: Alert, Oriented x3 - Skin Skin Exam: Dry, Pallor - Additional Findings Additional findings: Palliative performance scale rating 30 % Results - Vital Signs Recent Vital Signs: Last Vital Signs Temp 97.1 F L 12/28/16 12:00 Pulse 89 12/28/16 12:00 Resp 18 12/28/16 12:00 BP 114/71 12/28/16 12:00 Pulse Ox 99 12/28/16 05:39 - Labs Result Diagrams: 12/28/16 06:00 12/28/16 06:00 Labs: Laboratory Results - last 24 hr 12/28/16 12/28/16 06:00 06:00 WBC 4.0 L D RBC 4.21 Hgb 11.6 L Hct 35.2 L MCV 83.6 MCH 27.6 MCHC 33.0 RDW 17.2 H Plt Count 341 MPV 8.4 Gran % 81.2 H Lymph % (Auto) 12.8 L [place] % (Auto) 6.0 Eos % (Auto) 0.0 L Baso % (Auto) 0.0 Gran # 3.23 Lymph # 0.5 L [place] # 0.2 Eos # 0.0 Baso # 0.00 Sodium 134 Potassium 4.2 Chloride 91 L Carbon Dioxide 37 H Anion Gap 10 BUN 14 Creatinine 0.5 Est GFR ( Amer) > 60 Est GFR (Non-Af Amer) > 60 Random Glucose 131 H Calcium 9.7 Magnesium 1.9 Total Bilirubin 0.7 AST 54 ALT 46 Alkaline Phosphatase 107 Total Protein 7.1 Albumin 3.6 Globulin 3.4 Albumin/Globulin Ratio 1.1 Assessment & Plan - Assessment and Plan (Free Text) Assessment: 71 year male with history of lung cancer admitted with intractable pain, constipation, weakness, cachexia. The patient is s/p chemo/radiation therapy. The patient has considerable pain in left lower rib cage. He is very sensitive when examined. His Fentanyl transdermal patch was increased to 100 mcg today. He is weak,dyspneic and cachectic. I spoke with patients daughter Thania via phone. I explained that patient had progressive lung cancer and that he was in terminal stages of his illness. Daughter states she was originally hopeful that her Dad could to to go to [facility]. She recognizes that he is getting weaker and that because of his intractable pain, it is likely he will not be able to participate in rehab. Daughter states she wants to take her father home. I offered option for comfort care. Hospice services explained in detail, questions answered. Daughter open to idea of home hospice care. She wants to discuss with her siblings before making this decision. Psychosocial support give. Will follow up with her tomorrow. Time spent in discussion with daughter regarding goals of care, and end of life planning, 30 minutes. Plan: Pain management: Fentanyl patch increased to 100 mcg today. Will monitor frequency of breakthrough pain. Would consider starting Dilaudid [employer] with increased titration until pain control is achieved Constipation: Continue Miralax, if patient does not have adequate bowel movement would give Relistor. Will assist family in establishing future goals of care
--- NOTE | 2016-12-28 16:00 | PN ---
DATE: 12/28/2016 REASON FOR CONSULTATION: Sinus tachycardia, lung CA. BRIEF CLINICAL HISTORY: A 71-year-old gentleman with history of inoperable lung cancer, history of c hemotherapy and radiation, complaining of left-sided chest pain, chronic obstructive pulmonary diseas e, complaint of constipation as well. PHYSICAL EXAMINATION: VITAL SIGNS: Temperature afebrile ____ blood pressure 114/71. HEENT: PERRLA. Extraocular muscles intact. NECK: Supple. No carotid bruits. No thyromegaly. CHEST: Clear to auscultation. HEART: S1, S2 regular. ABDOMEN: Soft. EXTREMITIES: Clubbing and cyanosis negative. LABORATORY DATA: Blood workup as follows: WBC 4, hemoglobin ____, hematocrit 35.2, platelet count 3 41. Chemistry shows sodium 134, potassium 4.2, chloride 91, carbon dioxide 37, anion gap of ____, BU N ____, creatinine 0.5. IMPRESSION: Inoperable lung carcinoma, stage IV nonsmall cell, constipation secondary to narcotics, chest pain to the chest wall, nonischemic, noncardiac chest pain, status post chemo, status post radi ation, anemia, chronic obstructive pulmonary disease. The patient's last echo dated 12/02/2016, decre ased left ventricular function, moderately impaired. No thrombus noted. RECOMMENDATION: ____ . No evidence of acute myocardial infarction. No evidence of ischemic chest p ain. Continue low-dose beta-arlene for tachycardia. We will follow with you. We will discontinue telemetry. Thank you, Dr. Greer, for providing the opportunity in taking care of the patient. We will follow w ith you. Shell Mota MD cc: [phone] TT: 12/28/2016 15:59:32 Confirmation # [id number] Dictation # [id number] eugene
--- NOTE | 2016-12-28 16:08 | CP.PCM.PN ---
Subjective - Date & Time of Evaluation Date of Evaluation: 12/28/16 Time of Evaluation: 09:10 - Subjective Subjective: Still having some left sided chest pain but a little less, no fevers overnight, no abdominal pain, no nausea. Objective - Vital Signs/Intake and Output Vital Signs (last 24 hours): Temp Pulse Resp BP Pulse Ox 97.8 F 87 18 154/93 H 99 12/28/16 05:39 12/28/16 05:39 12/28/16 05:39 12/28/16 05:39 12/28/16 05:39 Intake and Output: 12/28/16 12/28/16 06:59 18:59 Intake Total 540 Output Total 2925 Balance -2385 - Medications Medications: Current Medications Albuterol/Ipratropium (Duoneb 3 Mg/0.5 Mg (3 Ml) Ud) 3 ml IH Q2 PRN PRN Reason: Shortness of Breath Last Admin: 12/27/16 00:20 Dose: 3 ml Albuterol/Ipratropium (Duoneb 3 Mg/0.5 Mg (3 Ml) Ud) 3 ml IH [id number] [facility] Last Admin: 12/28/16 08:12 Dose: 3 ml Docusate Sodium (Colace) 100 mg PO BID [facility] Last Admin: 12/27/16 17:24 Dose: 100 mg Fentanyl (Duragesic) 1 patch TD Q72H [facility] Heparin Sodium (Porcine) (Heparin) 5,000 units SC Q8 [facility] PRN Reason: Protocol Last Admin: 12/28/16 05:05 Dose: 5,000 units Hydromorphone HCl (Dilaudid) 2 mg IVP Q3H PRN PRN Reason: Pain, moderate (4-7) Last Admin: 12/28/16 05:05 Dose: 2 mg Sodium Chloride (Sodium Chloride 0.9%) 1,000 mls @ 75 mls/hr IV .[id number] [facility] Last Admin: 12/24/16 21:29 Dose: 75 mls/hr Levofloxacin (Levaquin) 500 mg PO DAILY [facility] Stop: 12/31/16 10:01 Lidocaine (Lidoderm) 2 ea TD DAILY [facility] Last Admin: 12/27/16 09:29 Dose: 2 ea Methylprednisolone (Solu-Medrol) 20 mg IVP Q12 [facility] Last Admin: 12/27/16 21:06 Dose: 20 mg Metoprolol Tartrate (Lopressor) 25 mg PO BID [facility] Last Admin: 12/27/16 17:24 Dose: 25 mg Oxycodone HCl (Oxycodone Immediate Release Tab) 15 mg PO Q4H PRN PRN Reason: Pain, moderate (4-7) Last Admin: 12/28/16 00:21 Dose: 15 mg Pantoprazole Sodium (Protonix Ec Tab) 40 mg PO ACB [facility] Polyethylene Glycol (Miralax) 17 gm PO BID PRN PRN Reason: Constipation - Labs Labs: 12/28/16 06:00 12/28/16 06:00 PT 14.7 Seconds (9.9-11.8) H 12/23/16 10:00 INR 1.36 (0.93-1.08) H 12/23/16 10:00 APTT 35.9 Seconds (23.7-30.8) H 12/23/16 10:00 - Constitutional Appears: Non-toxic, No Acute Distress - Head Exam Head Exam: NORMAL INSPECTION - ENT Exam ENT Exam: Mucous Membranes Moist - Neck Exam Neck Exam: absent: Lymphadenopathy, Meningismus - Respiratory Exam Respiratory Exam: Decreased Breath Sounds - Cardiovascular Exam Cardiovascular Exam: +S1, +S2 - GI/Abdominal Exam GI & Abdominal Exam: Soft. absent: Tenderness Assessment and Plan - Assessment and Plan (Free Text) Plan: Assessment COPD exacerbation; no evidence of HCAP on CT of the chest left sided chest pain, work up ongoing history of hospital-acquired pneumonia lung cancer on chemotherapy chronic anemia dyslipidemia S/P appendectomy Plan on Levaquin day 5, to complete a 5-7 day course; PCT is elevated, but there is no evidence of pneumonia on CT chest; blood cx are negative - will continue to follow clinically
[2016-12-28] MEDS: Albuterol-Ipratrop 3 mg / 0.5 (3 ml) UD IH PRN (22:55)
[2016-12-29] MEDS: HYDROmorphone 2 mg/ml ISec IVP PRN ×8 (02:22→23:27)
[2016-12-29] MEDS: Albuterol-Ipratrop 3 mg / 0.5 (3 ml) UD IH SCH ×4 (03:08→20:30)
--- NOTE | 2016-12-29 07:41 | PN ---
DATE: 12/28/2016 REFERRING PHYSICIAN: Diego Greer MD SUBJECTIVE: He is lying in the bed, sleepy, arousable, no acute distress. There is no cough. No sp utum production. Gets short of breath with minimal exertion. No nausea, no vomiting, diarrhea. No leg pain or leg swelling. OBJECTIVE: GENERAL: No acute distress. VITAL SIGNS: Temp is 98, heart rate is 89, respiratory rate is 20, blood pressure 126/77. HEENT: Moist mucous membrane. No ulcer or oral thrush noted. NECK: Supple. No JVD. LUNGS: Has a fair airflow with few rhonchi. HEART: S1, S2. ABDOMEN: Soft, nontender. No organomegaly. EXTREMITIES: There is no edema. NEUROLOGIC: Sleepy, arousable, follows simple command. MEDICATIONS: He is on Colace 100 mg twice a day, DuoNeb q. 3 hours p.r.n., Duragesic patch q. 72 alyssa rs, heparin 5000 units subQ q. 8 hours, Levaquin 500 mg daily, Lidoderm patch at affected area, metop rolol tartrate 25 mg twice a day, MiraLax 17 grams twice a day p.r.n., oxycodone immediate release 15 mg q. 4 hours p.r.n., Protonix 40 mg daily, IV fluid normal saline 75 mL per hour, Solu-Medrol 20 mg q. 12 hours. LABORATORY DATA: Shows hemoglobin 11.6, hematocrit 35.2, WBC 4.0, platelet is 341. Sodium 134, pota ssium 4.2, chloride 91, bicarbonate 37, BUN 14, creatinine 0.5, glucose 131, calcium is 9.7, magnesiu m 1.9, AST 54, ALT 46, alkaline phosphatase is 107, albumin is 3.6. Microbiology: Blood cultures gomez ve been negative. IMPRESSION AND PLAN: Chronic obstructive lung disease, lung cancer, has been on chemotherapy, chroni c pain syndrome, malnutrition, activities of daily living dysfunction. Pulmonary point of view, he i s doing okay but very deconditioned, gets short of breath on minimal exertion. Seems like he is opia te dependent, may benefit from pain management team's assistance. Gastric prophylaxis, deep venous t hrombosis prophylaxis. Fall precaution. Continue therapy. Thank you and will follow with you. Shell Vargas MD cc: [phone] TT: 12/29/2016 07:40:51 Confirmation # [id number] Dictation # [id number] dn
[2016-12-29] MEDS: Pantoprazole 40 mg EC Tab PO SCH (08:32)
--- NOTE | 2016-12-29 10:02 | CP.PCM.CON ---
History of Present Illness - History of Present Illness History of Present Illness: Weak, dyspnea on exertion. Pain level 5. Past Patient History - Infectious Disease Hx of Infectious Diseases: None - Tetanus Immunizations Tetanus Immunization: Unknown - Past Medical History & Family History Past Medical History?: Yes - Past Social History Smoking Status: Former Smoker - CARDIAC Hx Cardiac Disorders: Yes Hx Hypercholesterolemia: Yes - PULMONARY Hx Chronic Obstructive Pulmonary Disease (COPD): Yes - NEUROLOGICAL Hx Neurological Disorder: Yes - HEENT Hx HEENT Problems: Yes Hx Deafness: (denies hearing problems) - RENAL Hx Chronic Kidney Disease: No - ENDOCRINE/METABOLIC Hx Endocrine Disorders: No - HEMATOLOGICAL/ONCOLOGICAL Hx Blood Disorders: Yes Hx Anemia: Yes (BLOOD TRANSFUSION) Hx Cancer: Yes (lung stage 4) Hx Chemotherapy: Yes (finished 10/20/16) - INTEGUMENTARY Hx Dermatological Problems: Yes (GENERALIZED SKIN DRYNESS) - MUSCULOSKELETAL/RHEUMATOLOGICAL Hx Falls: Yes (past) - GASTROINTESTINAL Hx Gastrointestinal Disorders: Yes (POOR APPETITE,COLITIS) Hx Gastroesophageal Reflux: Yes Other/Comment: CONSTIPATION,11-28-16 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 - GENITOURINARY/GYNECOLOGICAL Hx Genitourinary Disorders: Yes Hx Incontinence: Yes (at times used bedpan) - PSYCHIATRIC Hx Psychophysiologic Disorder: Yes (H/O SMOKING 2-3 PPD QUIT,ETOH ABUSE DRANK 9- 10 CANS OF BEER A WEEK.) Hx Emotional Abuse: No Hx Physical Abuse: No Other/Comment: etoh drank 9/10 cans beer a week, quit - SURGICAL HISTORY Hx Appendectomy: Yes Hx Cardiac Catheterization: Yes Other/Comment: R chest port - ANESTHESIA Hx Anesthesia: Yes Meds Allergies/Adverse Reactions: Allergies Allergy/AdvReac Type Severity Reaction Status Date / Time shellfish derived Allergy ANAPHYLAXIS Verified 12/25/16 09:15 , - Medications Medications: Current Medications Albuterol/Ipratropium (Duoneb 3 Mg/0.5 Mg (3 Ml) Ud) 3 ml IH Q2 PRN PRN Reason: Shortness of Breath Last Admin: 12/28/16 22:55 Dose: 3 ml Albuterol/Ipratropium (Duoneb 3 Mg/0.5 Mg (3 Ml) Ud) 3 ml IH [id number] [facility] Last Admin: 12/29/16 08:42 Dose: 3 ml Docusate Sodium (Colace) 100 mg PO BID [facility] Last Admin: 12/28/16 17:47 Dose: 100 mg Fentanyl (Duragesic) 1 patch TD Q72H [facility] Last Admin: 12/28/16 12:48 Dose: 1 patch Heparin Sodium (Porcine) (Heparin) 5,000 units SC Q8 [facility] PRN Reason: Protocol Last Admin: 12/29/16 05:29 Dose: 5,000 units Hydromorphone HCl (Dilaudid) 2 mg IVP Q3H PRN PRN Reason: Pain, moderate (4-7) Last Admin: 12/29/16 08:32 Dose: 2 mg Sodium Chloride (Sodium Chloride 0.9%) 1,000 mls @ 75 mls/hr IV .[id number] [facility] Last Admin: 12/24/16 21:29 Dose: 75 mls/hr Levofloxacin (Levaquin) 500 mg PO DAILY [facility] Stop: 12/31/16 10:01 Last Admin: 12/28/16 09:27 Dose: 500 mg Lidocaine (Lidoderm) 2 ea TD DAILY [facility] Last Admin: 12/28/16 09:26 Dose: 2 ea Methylprednisolone (Solu-Medrol) 20 mg IVP Q12 [facility] Last Admin: 12/28/16 21:52 Dose: 20 mg Metoprolol Tartrate (Lopressor) 25 mg PO BID [facility] Last Admin: 12/28/16 17:48 Dose: 25 mg Oxycodone HCl (Oxycodone Immediate Release Tab) 15 mg PO Q4H PRN PRN Reason: Pain, moderate (4-7) Last Admin: 12/28/16 00:21 Dose: 15 mg Pantoprazole Sodium (Protonix Ec Tab) 40 mg PO ACB [facility] Last Admin: 12/29/16 08:32 Dose: 40 mg Polyethylene Glycol (Miralax) 17 gm PO BID PRN PRN Reason: Constipation Physical Exam - Constitutional Appears: Cachectic, Chronically Ill - Eye Exam Eye Exam: Normal appearance, PERRL - ENT Exam ENT Exam: Mucous Membranes Moist - Respiratory Exam Respiratory Exam: Decreased Breath Sounds Additional comments: dyspnea - Cardiovascular Exam Cardiovascular Exam: REGULAR RHYTHM, +S1, +S2 - GI/Abdominal Exam GI & Abdominal Exam: Normal Bowel Sounds, Soft - Extremities Exam Extremities exam: Positive for: full ROM, pedal pulses present - Neurological Exam Neurological exam: Alert, Oriented x3 - Skin Skin Exam: Dry, Warm Results - Vital Signs Recent Vital Signs: Last Vital Signs Temp 97.8 F 12/29/16 07:30 Pulse 102 H 12/29/16 07:30 Resp 20 12/29/16 07:30 BP 127/77 12/29/16 07:30 Pulse Ox 97 12/29/16 07:30 - Labs Result Diagrams: 12/28/16 06:00 12/28/16 06:00 Labs: Laboratory Results - last 24 hr 12/25/16 06:30 Phospholipids 132 L Assessment & Plan - Assessment and Plan (Free Text) Assessment: 71 year old male with history of lung cancer admitted with shortness of breath, weakness,intractable pain. Patient remains weak,debilitated. Appetite poor. Reports pain as slightly better today, level of 5. I spoke with patient's daughter Thania today. Family has decided that they want patient to got to [facility]. Family not ready for hospice care. Plan: Transfer to subacute rehab.
[2016-12-29] MEDS: MethylPREDNISolone 40 mg Vial IVP SCH ×2 (11:37→23:23)
[2016-12-29] MEDS: Lidocaine 5% Patch TD SCH (11:38)
--- NOTE | 2016-12-29 12:24 | PN ---
DATE: 12/29/2016 REASON FOR CONSULTATION AND FOLLOWUP: Sinus tachycardia, lung carcinoma. BRIEF CLINICAL HISTORY: The patient is a 71-year-old gentleman with history of inoperable lung cance r, history of chemotherapy and radiation, complaining of left-sided chest pain, chronic obstructive p ulmonary disease, complaining of constipation as well. Chest pain is atypical. PHYSICAL EXAMINATION: VITAL SIGNS: Temperature afebrile, heart rate 89, blood pressure 127/77. HEENT: PERRLA. Extraocular muscles intact. NECK: Supple. No carotid bruits. No thyromegaly. CHEST: Clear to auscultation. HEART: S1, S2 regular. ABDOMEN: Soft. EXTREMITIES: Clubbing and cyanosis negative. BLOOD WORKUP: WBC 4, hemoglobin 11.____, hematocrit 35.2, platelet count 341. Chemistry shows sodiu m 134, potassium 4.2, chloride 91, carbon dioxide 37, anion gap of 10, BUN 14, creatinine 0.5. Tropo xavi 0.09, negative. IMPRESSION: No evidence of acute coronary syndrome, no evidence of unstable angina; lung cancer, christiano perable, stage IV non-____ cell carcinoma; constipation secondary to narcotic; chest pain of the ches t wall, nonischemic, noncardiac chest pain, status post radiation, anemia, chronic obstructive pulmon chandu disease. The patient's echocardiogram 12/02/2016: Decreased left ventricular function, moderate ly impaired left ventricular function. No thrombus noted. No evidence of acute myocardial infarctio n is mentioned. RECOMMENDATION: Continue beta-arlene. Continue adequate analgesia. Telemetry has been discontinue d. Continue low-dose beta-arlene. Will follow with you. Cassidy Medina is working on it for meredith ent to go to subacute rehab facility. Overall, patient's condition is critical. Long-term prognosi s is guarded. Shell Mota MD cc: [id number] TT: 12/29/2016 12:07:04 Confirmation # [id number] Dictation # [id number] mn
--- NOTE | 2016-12-29 13:31 | CP.PCM.PN ---
Subjective - Date & Time of Evaluation Date of Evaluation: 12/29/16 Time of Evaluation: 11:00 - Subjective Subjective: Comfortable, no chest pain currently, not in distress. Objective - Vital Signs/Intake and Output Vital Signs (last 24 hours): Temp Pulse Resp BP Pulse Ox 97.8 F 102 H 20 127/77 97 12/29/16 07:30 12/29/16 07:30 12/29/16 07:30 12/29/16 07:30 12/29/16 07:30 - Medications Medications: Current Medications Albuterol/Ipratropium (Duoneb 3 Mg/0.5 Mg (3 Ml) Ud) 3 ml IH Q2 PRN PRN Reason: Shortness of Breath Last Admin: 12/28/16 22:55 Dose: 3 ml Albuterol/Ipratropium (Duoneb 3 Mg/0.5 Mg (3 Ml) Ud) 3 ml IH [id number] [facility] Last Admin: 12/29/16 08:42 Dose: 3 ml Docusate Sodium (Colace) 100 mg PO BID [facility] Last Admin: 12/28/16 17:47 Dose: 100 mg Fentanyl (Duragesic) 1 patch TD Q72H [facility] Last Admin: 12/28/16 12:48 Dose: 1 patch Heparin Sodium (Porcine) (Heparin) 5,000 units SC Q8 DONNA PRN Reason: Protocol Last Admin: 12/29/16 05:29 Dose: 5,000 units Hydromorphone HCl (Dilaudid) 2 mg IVP Q3H PRN PRN Reason: Pain, moderate (4-7) Last Admin: 12/29/16 08:32 Dose: 2 mg Sodium Chloride (Sodium Chloride 0.9%) 1,000 mls @ 75 mls/hr IV .[id number] [facility] Last Admin: 12/24/16 21:29 Dose: 75 mls/hr Levofloxacin (Levaquin) 500 mg PO DAILY [facility] Stop: 12/31/16 10:01 Last Admin: 12/28/16 09:27 Dose: 500 mg Lidocaine (Lidoderm) 2 ea TD DAILY [facility] Last Admin: 12/28/16 09:26 Dose: 2 ea Methylprednisolone (Solu-Medrol) 20 mg IVP Q12 [facility] Last Admin: 12/28/16 21:52 Dose: 20 mg Metoprolol Tartrate (Lopressor) 25 mg PO BID [facility] Last Admin: 12/28/16 17:48 Dose: 25 mg Oxycodone HCl (Oxycodone Immediate Release Tab) 15 mg PO Q4H PRN PRN Reason: Pain, moderate (4-7) Last Admin: 12/28/16 00:21 Dose: 15 mg Pantoprazole Sodium (Protonix Ec Tab) 40 mg PO ACB [facility] Last Admin: 12/29/16 08:32 Dose: 40 mg Polyethylene Glycol (Miralax) 17 gm PO BID PRN PRN Reason: Constipation - Labs Labs: 12/28/16 06:00 12/28/16 06:00 PT 14.7 Seconds (9.9-11.8) H 12/23/16 10:00 INR 1.36 (0.93-1.08) H 12/23/16 10:00 APTT 35.9 Seconds (23.7-30.8) H 12/23/16 10:00 - Constitutional Appears: Non-toxic, No Acute Distress - Head Exam Head Exam: NORMAL INSPECTION - ENT Exam ENT Exam: Mucous Membranes Moist - Neck Exam Neck Exam: absent: Lymphadenopathy, Meningismus - Respiratory Exam Respiratory Exam: Decreased Breath Sounds - Cardiovascular Exam Cardiovascular Exam: +S1, +S2 - GI/Abdominal Exam GI & Abdominal Exam: Soft. absent: Tenderness Assessment and Plan - Assessment and Plan (Free Text) Plan: Assessment COPD exacerbation; no evidence of HCAP on CT of the chest left sided chest pain, work up ongoing history of hospital-acquired pneumonia lung cancer on chemotherapy chronic anemia dyslipidemia S/P appendectomy Plan on Levaquin day 6, to complete a 5-7 day course; PCT is elevated, but there is no evidence of pneumonia on CT chest; blood cx are negative - will continue to follow clinically
[2016-12-29] MEDS: levoFLOXacin 500 MG TAB PO SCH (13:59)
--- NOTE | 2016-12-29 20:18 | PN ---
DATE: 12/29/2016 REFERRING PHYSICIAN: Dr. Greer. SUBJECTIVE: The patient is lying in the bed, sleepy, arousable, no acute distress, mild cough, short of breath with exertion. No specific pain. No nausea, no vomiting, diarrhea. No leg pain or leg s welling. OBJECTIVE: GENERAL: No acute distress. VITAL SIGNS: Temp is 98, heart rate is 104, respiratory rate is 20, blood pressure 126/79, pulse ox 99% on nasal cannula. HEENT: Moist mucous membrane. Crowded airway. NECK: Supple, no JVD. LUNGS: Have a few scattered rhonchi. HEART: S1, S2. ABDOMEN: Soft, nontender. No organomegaly. EXTREMITIES: There is no edema. NEUROLOGIC: Sleepy, arousable, follows simple commands. MEDICATIONS: He is on Colace 100 mg twice a day, Dilaudid 2 mg IV q. 3 hours p.r.n., DuoNeb q. 2 alyssa rs p.r.n., q. 6 hours around the clock, Duragesic patch, heparin 5000 units subQ q. 8 hours, Levaquin 500 mg daily, metoprolol tartrate 25 mg twice a day, MiraLax 17 grams twice a day p.r.n., oxycodone immediate release 15 mg q. 4 hours p.r.n., Protonix 40 mg a.c. b.i.d., normal saline 75 mL per hour, Solu-Medrol 20 mg q. 12 hours. LABORATORY DATA: Shows no new lab is available since yesterday. IMPRESSION AND PLAN: Chronic obstructive lung disease, lung cancer, been on chemotherapy, chronic pa in syndrome, malnutrition, activities of daily living dysfunction, opiate dependent. Palliative care consultation noted. Arrangements being made to send the patient to subacute for continued care. Pu lmonary point of view, continue supplemental oxygen, continue bronchodilator, encourage CPAP use, judy n management. Gastric prophylaxis, deep venous thrombosis prophylaxis. Thank you and will follow with you. Shell Vargas MD cc: [phone] TT: 12/29/2016 20:17:25 Confirmation # [id number] Dictation # [id number] rn
--- NOTE | 2016-12-29 20:56 | PN ---
DATE: 12/29/2016 This is the patient's hospital visit on the medical floor. For Dr. Ma. SUBJECTIVE: The patient is a 71-year-old male seen lying awake in bed, reporting he has left lateral chest wall pain which was initially improved, now it seems to have worsened. He is otherwise restin g comfortably, recently readmitted to the hospital after discharge approximately a week prior. The patient suffers from stage IV nonsmall cell CA of the lung with severe constipation with rib disc omfort. PHYSICAL EXAMINATION: VITAL SIGNS: Temperature 97.5, pulse 104, respirations 20, blood pressure 126/79, pulse ox 99%. GENERAL: He appears cachectic. HEENT: Temples are sunken. NECK: Supple. HEART: Tachy rate, regular rhythm. LUNGS: Decreased breath sounds. Occasional rhonchi. ABDOMEN: Soft, nontender with minimal tenderness with palpation of the left chest wall. EXTREMITIES: No edema. SKIN: Warm and dry. NEUROLOGIC: Awake and alert. LABORATORY DATA: The patient's labs were done yesterday. Showed a white blood cell count of 4.0, he moglobin 11.6, hematocrit 35.2, platelet count of 241,000 with a chem metabolic panel showing chlorid e of 91, carbon dioxide 37, otherwise normal chem panel. ASSESSMENT: Chronic obstructive pulmonary disease exacerbation, left-sided chest pain, intractable p ain of cancer, stage IV nonsmall cell cancer of the lung, constipation, cardiomyopathy, chronic back pain, deconditioning, anemia of chronic disease. PLAN: The patient is to continue present medical regimen with analgesics as per attending with progn osis for this patient guarded. Vincenzo Dias MD cc: [phone] TT: 12/29/2016 20:55:46 Confirmation # [id number] Dictation # [id number] eugene
[2016-12-30] MEDS: Albuterol-Ipratrop 3 mg / 0.5 (3 ml) UD IH SCH ×4 (02:17→19:51)
[2016-12-30] MEDS: HYDROmorphone 2 mg/ml ISec IVP PRN ×8 (02:45→23:57)
[2016-12-30] MEDS: Pantoprazole 40 mg EC Tab PO SCH (08:01)
[2016-12-30] MEDS: levoFLOXacin 500 MG TAB PO SCH (09:49)
[2016-12-30] MEDS: Lidocaine 5% Patch TD SCH (09:49)
[2016-12-30] MEDS: MethylPREDNISolone 40 mg Vial IVP SCH ×2 (09:49→21:01)
--- NOTE | 2016-12-30 14:34 | PN ---
DATE: 12/29/2016 The patient is comfortable, in no distress. He is getting IV Dilaudid, Duragesic patch. Seems his p ain is controlled well with the medication; however, he seems lethargic. However, he does respond wh en I call his name and he gets awake. PHYSICAL EXAMINATION: VITAL SIGNS: Temperature 97.8, heart rate 96, blood pressure 115/66, respirations 20, saturation 100 %. HEAD AND NECK: Normal. No JVD, no thyromegaly. CHEST: Clear, good entry. CARDIAC: First sound, second sound normal. LUNGS: Show diminished breath sound on the left side. Otherwise, clear. ABDOMEN: Soft, nontender. EXTREMITIES: No edema. NEUROLOGIC: General weakness. He is sedated, however, he does respond and he knows where he is. LABORATORY DATA: No labs for today. IMPRESSION AND PLAN: 1. Lung cancer, adenocarcinoma, stage IV. The patient is not a candidate for radiation therapy or e ither chemotherapy because of poor general conditions. Discussed with the daughter, with Dr. Ma about the plan of care with hospice care or snf. Family cannot do much for him at home, so will discuss with the family again about placement. We will discuss social work associate. Palliative care consult. For now, we will continue pain management. 2. Chronic obstructive pulmonary disease. Continue inhaled and IV bronchodilators. 3. History of pneumonia, stable. Continue Levaquin. 4. Chronic left side chest pain. Continue current pain meds. The patient getting is getting Durage sic, Dilaudid and oxycodone. 5. Opioid-induced constipation, stable. Continue Relistor p.r.n. Continue current meds for now. Plan is to have a meeting with the daughter and the family about placement and hospice care. Diego Greer MD cc: [phone] TT: 12/30/2016 14:34:02 Confirmation # [id number] Dictation # [id number] mn
--- NOTE | 2016-12-30 14:47 | CP.PCM.PN ---
Subjective - Date & Time of Evaluation Date of Evaluation: 12/30/16 Time of Evaluation: 13:00 - Subjective Subjective: Lethargic,weak, cachectic, intractable pain Objective - Vital Signs/Intake and Output Vital Signs (last 24 hours): Temp Pulse Resp BP Pulse Ox 97.8 F 94 H 20 115/66 100 12/30/16 07:59 12/30/16 09:49 12/30/16 07:59 12/30/16 07:59 12/30/16 07:59 Intake and Output: 12/30/16 12/30/16 06:59 18:59 Intake Total 480 300 Output Total 300 500 Balance 180 -200 - Medications Medications: Current Medications Albuterol/Ipratropium (Duoneb 3 Mg/0.5 Mg (3 Ml) Ud) 3 ml IH Q2 PRN PRN Reason: Shortness of Breath Last Admin: 12/28/16 22:55 Dose: 3 ml Albuterol/Ipratropium (Duoneb 3 Mg/0.5 Mg (3 Ml) Ud) 3 ml IH [id number] [facility] Last Admin: 12/30/16 13:46 Dose: 3 ml Bisacodyl (Dulcolax) 10 mg PO DAILY [facility] Docusate Sodium (Colace) 100 mg PO BID [facility] Last Admin: 12/30/16 09:49 Dose: 100 mg Fentanyl (Duragesic) 1 patch TD Q72H [facility] Last Admin: 12/28/16 12:48 Dose: 1 patch Heparin Sodium (Porcine) (Heparin) 5,000 units SC Q8 [facility] PRN Reason: Protocol Last Admin: 12/30/16 13:06 Dose: Not Given Hydromorphone HCl (Dilaudid) 2 mg IVP Q3H PRN PRN Reason: Pain, moderate (4-7) Last Admin: 12/30/16 11:47 Dose: 2 mg Sodium Chloride (Sodium Chloride 0.9%) 1,000 mls @ 75 mls/hr IV .[id number] [facility] Last Admin: 12/24/16 21:29 Dose: 75 mls/hr Levofloxacin (Levaquin) 500 mg PO DAILY [facility] Stop: 12/31/16 10:01 Last Admin: 12/30/16 09:49 Dose: 500 mg Lidocaine (Lidoderm) 2 ea TD DAILY [facility] Last Admin: 12/30/16 09:49 Dose: 2 ea Methylprednisolone (Solu-Medrol) 20 mg IVP Q12 [facility] Last Admin: 12/30/16 09:49 Dose: 20 mg Metoprolol Tartrate (Lopressor) 25 mg PO BID [facility] Last Admin: 12/30/16 09:49 Dose: 25 mg Oxycodone HCl (Oxycodone Immediate Release Tab) 15 mg PO Q4H PRN PRN Reason: Pain, moderate (4-7) Last Admin: 12/28/16 00:21 Dose: 15 mg Pantoprazole Sodium (Protonix Ec Tab) 40 mg PO ACB [facility] Last Admin: 12/30/16 08:01 Dose: 40 mg Polyethylene Glycol (Miralax) 17 gm PO BID PRN PRN Reason: Constipation Last Admin: 12/29/16 11:38 Dose: 17 gm - Labs Labs: 12/28/16 06:00 12/28/16 06:00 PT 14.7 Seconds (9.9-11.8) H 12/23/16 10:00 INR 1.36 (0.93-1.08) H 12/23/16 10:00 APTT 35.9 Seconds (23.7-30.8) H 12/23/16 10:00 - Constitutional Appears: Cachectic, Chronically Ill - Eye Exam Eye Exam: Normal appearance Pupil Exam: NORMAL ACCOMODATION - ENT Exam ENT Exam: Mucous Membranes Moist - Respiratory Exam Respiratory Exam: Decreased Breath Sounds, NORMAL BREATHING PATTERN - Cardiovascular Exam Cardiovascular Exam: REGULAR RHYTHM, +S1, +S2 - GI/Abdominal Exam GI & Abdominal Exam: Soft, Diminished Bowel Sounds - Back Exam Back Exam: NORMAL INSPECTION - Skin Skin Exam: Dry, Pallor Assessment and Plan - Assessment and Plan (Free Text) Assessment: 71 year old male with stage IV lung cancer admitted with intractable pain, debility, cachexia. Petra MEYER, manager mechanical, Kristian Galvez and I met with patient daughters, Geri and Thania.Daughters are aware that patient is in the end stages of terminal illness. Daughters are very concerned with comfort measures. They want to take their father home. Hospice services explained in detail. Questions answered. Family is committed to caring for the patient at home. Family have agreed to meet with hospice admitting clerk. Psychosocial support given. Time spent in goals of care discussion and end of life care planning, 30 minutes Plan: Hospice referral. End of life counseling
[2016-12-30] MEDS: Bisacodyl 5mg EC Tab PO SCH ×2 (15:04→15:10)
--- NOTE | 2016-12-30 15:09 | PN ---
DATE: 12/28/2016 The patient seems comfortable. He is sedated. He is getting enough pain medicine. He seems weak. Still complained of left-sided chest pain. We are still discussing with the family about placement. PHYSICAL EXAMINATION: VITAL SIGNS: Temperature 98.1, heart rate 95, blood pressure 125/77, respirations 19. HEAD AND NECK: Normal. No JVD, no thyromegaly. CHEST: ____. Diminished breath sound on the left. CARDIAC: First sound, second sound normal. ABDOMEN: Soft. EXTREMITIES: No edema. NEUROLOGIC: The patient looks emaciated, loss of muscle mass and general weakness. LABORATORY DATA: On 12/28/2016 show white count 4, hemoglobin 11.6, hematocrit 35.2, platelets 341. Chemistry shows sodium 134, potassium 4.2, chloride 91, bicarb 37, BUN 14, creatinine 0.5, blood sug ar 131. Liver function test is normal. IMPRESSION AND PLAN: 1. Lung cancer, adenocarcinoma, stage IV. The patient received chemotherapy. Last chemo was time. No radiation for him. We will continue current treatment. Dr. Ordaz called for pain management. Seems cannot get it. Dr. Dalton for pain management did now come to the hospital. Will continue Dilaudid, continue the transdermal patch, and continue oxycodone. Will follow up clin ically. The patient will talk to the family. 2. Chronic obstructive pulmonary disease, acute worsening. Continue inhaled bronchodilator, IV ther apy. He is better than before. 3. Pneumonia is better. Continue current therapy. 4. Generalized weakness, deconditioning. The patient may benefit from rehab, maybe long-term placem ent. At this time, continue current therapy, follow up clinically. Can continue inhaled bronchodila tors. Diego Greer MD cc: [phone] TT: 12/30/2016 14:21:08 Confirmation # [id number] Dictation # [id number] mn
--- NOTE | 2016-12-30 15:34 | PN ---
DATE: 12/30/2016 REFERRING PHYSICIAN: Dr. Greer. SUBJECTIVE: He is lying in the bed, head at 45 degrees. Night was unremarkable. Short of breath wi th exertion. No chest pain. No nausea or vomiting. No diarrhea. Complaining about constipation. OBJECTIVE: GENERAL: No acute distress. VITAL SIGNS: Temperature is 98, heart rate 94, respiratory rate is 20, blood pressure 115/66, pulse ox 100% on nasal cannula. HEENT: Moist mucous membrane. No ulcer or thrush noted. NECK: Supple. No JVD. LUNGS: Have fair airflow with a few rhonchi. HEART: S1, S2. ABDOMEN: Soft, nontender. No organomegaly. EXTREMITIES: There is no edema. NEUROLOGIC: Awake, alert, follows simple commands. MEDICATIONS: He is on Colace 100 mg twice a day, Dilaudid 2 mg q. 3 hours p.r.n., DuoNeb q. 2 hours p.r.n. and q. 6 hours around the clock, Duragesic patch daily, heparin 5000 units subQ q. 8 hours, Le vaquin 500 mg daily, metoprolol tartrate 25 mg twice a day, MiraLax 17 grams twice a day p.r.n., oxyc odone immediate release q. 4 hours p.r.n., Protonix 40 mg daily, IV fluid normal saline 75 mg per alyssa r, Solu-Medrol 20 mg q. 12 hours. LABORATORY DATA: Reviewed. No new lab is available since yesterday. IMPRESSION AND PLAN: Chronic obstructive lung disease; lung cancer, been on chemotherapy; chronic pa in syndrome, activities of daily living dysfunction, constipated. Spoke to patient's daughter at bed side. All their questions answered. Will give him a Fleet enema now and on daily basis p.r.n. Con tinue IV and inhaled bronchodilator, pain management. Thank you, and will follow with you. Shell Vargas MD cc: [phone] TT: 12/30/2016 15:34:05 Confirmation # [id number] Dictation # [id number] mn
--- NOTE | 2016-12-30 19:00 | CP.PCM.PN ---
Subjective - Date & Time of Evaluation Date of Evaluation: 12/30/16 Time of Evaluation: 11:50 - Subjective Subjective: Still with chest pain but a little less, no fevers overnight. Objective - Vital Signs/Intake and Output Vital Signs (last 24 hours): Temp Pulse Resp BP Pulse Ox 97.8 F 94 H 20 115/66 100 12/30/16 07:59 12/30/16 09:49 12/30/16 07:59 12/30/16 07:59 12/30/16 07:59 Intake and Output: 12/30/16 12/30/16 06:59 18:59 Intake Total 480 Output Total 300 Balance 180 - Medications Medications: Current Medications Albuterol/Ipratropium (Duoneb 3 Mg/0.5 Mg (3 Ml) Ud) 3 ml IH Q2 PRN PRN Reason: Shortness of Breath Last Admin: 12/28/16 22:55 Dose: 3 ml Albuterol/Ipratropium (Duoneb 3 Mg/0.5 Mg (3 Ml) Ud) 3 ml IH [id number] [facility] Last Admin: 12/30/16 07:25 Dose: 3 ml Docusate Sodium (Colace) 100 mg PO BID [facility] Last Admin: 12/30/16 09:49 Dose: 100 mg Fentanyl (Duragesic) 1 patch TD Q72H [facility] Last Admin: 12/28/16 12:48 Dose: 1 patch Heparin Sodium (Porcine) (Heparin) 5,000 units SC Q8 [facility] PRN Reason: Protocol Last Admin: 12/30/16 05:43 Dose: 5,000 units Hydromorphone HCl (Dilaudid) 2 mg IVP Q3H PRN PRN Reason: Pain, moderate (4-7) Last Admin: 12/30/16 08:42 Dose: 2 mg Sodium Chloride (Sodium Chloride 0.9%) 1,000 mls @ 75 mls/hr IV .[id number] [facility] Last Admin: 12/24/16 21:29 Dose: 75 mls/hr Levofloxacin (Levaquin) 500 mg PO DAILY [facility] Stop: 12/31/16 10:01 Last Admin: 12/30/16 09:49 Dose: 500 mg Lidocaine (Lidoderm) 2 ea TD DAILY [facility] Last Admin: 12/30/16 09:49 Dose: 2 ea Methylprednisolone (Solu-Medrol) 20 mg IVP Q12 [facility] Last Admin: 12/30/16 09:49 Dose: 20 mg Metoprolol Tartrate (Lopressor) 25 mg PO BID [facility] Last Admin: 12/30/16 09:49 Dose: 25 mg Oxycodone HCl (Oxycodone Immediate Release Tab) 15 mg PO Q4H PRN PRN Reason: Pain, moderate (4-7) Last Admin: 12/28/16 00:21 Dose: 15 mg Pantoprazole Sodium (Protonix Ec Tab) 40 mg PO ACB [facility] Last Admin: 12/30/16 08:01 Dose: 40 mg Polyethylene Glycol (Miralax) 17 gm PO BID PRN PRN Reason: Constipation Last Admin: 12/29/16 11:38 Dose: 17 gm - Labs Labs: 12/28/16 06:00 12/28/16 06:00 PT 14.7 Seconds (9.9-11.8) H 12/23/16 10:00 INR 1.36 (0.93-1.08) H 12/23/16 10:00 APTT 35.9 Seconds (23.7-30.8) H 12/23/16 10:00 - Constitutional Appears: Non-toxic, No Acute Distress - Head Exam Head Exam: NORMAL INSPECTION - ENT Exam ENT Exam: Mucous Membranes Moist - Neck Exam Neck Exam: absent: Lymphadenopathy, Meningismus - Respiratory Exam Respiratory Exam: Decreased Breath Sounds - Cardiovascular Exam Cardiovascular Exam: +S1, +S2 - GI/Abdominal Exam GI & Abdominal Exam: Soft. absent: Tenderness Assessment and Plan - Assessment and Plan (Free Text) Plan: Assessment COPD exacerbation; no evidence of HCAP on CT of the chest; clinically improved left sided chest pain, work up ongoing history of hospital-acquired pneumonia lung cancer on chemotherapy chronic anemia dyslipidemia S/P appendectomy Plan on Levaquin day 7 - will discontinue and monitor off antibiotics
--- NOTE | 2016-12-30 21:29 | PN ---
DATE: 12/30/[address] Ma. SUBJECTIVE: The patient is a 71-year-old male seen lying awake in bed, status post visit with BELÉN Merino with the patient now to be considered for hospice after conversation with his daught er earlier today. He is otherwise reporting his pain is still significant despite analgesics as list ed. 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 PHYSICAL EXAMINATION: VITAL SIGNS: Temperature 97.7, pulse 94, respirations 20, blood pressure 98/60 with a pulse ox of 99 %. GENERAL: He appears cachectic. HEENT: Temples are sunken. NECK: Supple. HEART: Tachy rate, regular rhythm. LUNGS: Occasional rhonchi. ABDOMEN: Soft. EXTREMITIES: No edema. SKIN: Warm and dry. NEUROLOGIC: Awake and alert. LABORATORY DATA: The patient's labs were done 2 days prior and will be repeated as per Dr. Greer. 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 PLAN: After conversation with Dr. Ma and the patient's daughter, she is agreeing with hospice e valuation by BELÉN Merino with consideration for home hospice as indicated. We will adjust his pain medications as indicated with comfort measures paramount at this point. Prognosis for this patient unfortunately is poor. DNR/DNI continue. Vincenzo Dias MD cc: [phone] TT: 12/30/2016 21:28:56 Confirmation # [id number] Dictation # [id number] mn
[2016-12-30] MEDS: oxyCODONE 10 mg ER Tab (oxyCONTIN) PO SCH (22:21)
[2016-12-31] MEDS: Albuterol-Ipratrop 3 mg / 0.5 (3 ml) UD IH SCH ×4 (02:39→19:40)
[2016-12-31] MEDS: HYDROmorphone 2 mg/ml ISec IVP PRN ×7 (03:02→21:02)
[2016-12-31] MEDS: Pantoprazole 40 mg EC Tab PO SCH (08:11)
--- NOTE | 2016-12-31 09:04 | PN ---
DATE: 12/30/2016 The patient is a 71-year-old male who has been in the hospital for his chronic pain, left-sided lung cancer, dyspnea. He seems comfortable. He is getting his pain medicine. Left side pain, no other n ew complaint. PHYSICAL EXAMINATION: VITAL SIGNS: Temperature 97.5, heart rate 104, blood pressure 126/79, respirations 20, saturation 99 %. HEAD AND NECK: Normal. No JVD, no thyromegaly. CHEST: Clear. Diminished breath sounds, more on the left than right. CARDIAC: First sound, second sound normal. ABDOMEN: Soft, nontender. EXTREMITIES: No edema. NEUROLOGIC: Normal. IMPRESSION AND PLAN: 1. Lung cancer, adenocarcinoma stage IV, status post chemotherapy, not a candidate for radiation the rapy because of poor general conditions. We will continue supportive care. Discussed with the famil y, with oncology and hospice care would be the next step to move the patient in, make him comfortabl e and pain free. We will follow up clinically. 2. Intractable left side pain, probably due to cancer affecting his left side of the lung where the biopsy was taken also. Less likely to be subcostal nerve injury alone. Could be also the cancer-rel ated pleuritic pain. We will continue Lidoderm, continue Duragesic patch, oxycodone and Dilaudid. 3. Underlying chronic obstructive pulmonary disease, stable. Continue inhaled bronchodilators, cont inue IV steroids for now. 4. Opioid-induced constipation. He is getting Relistor p.r.n. plus MiraLax and Colace, also getting Dulcolax p.r.n. 10 mg p.o. if needed. Continue with current treatment. CURRENT MEDICATIONS: He is getting Colace, Dilaudid, Dulcolax, DuoNeb, Duragesic patch, heparin, Lid oderm, Lopressor 25 b.i.d., MiraLax, OxyContin 10 q. 12, Protonix 40 q. daily and Solu-Medrol. Summer nue current treatment. Diego Greer MD cc: [phone] TT: 12/31/2016 09:03:40 Confirmation # [id number] Dictation # [id number]
[2016-12-31] MEDS: Lidocaine 5% Patch TD SCH (09:11)
[2016-12-31] MEDS: MethylPREDNISolone 40 mg Vial IVP SCH ×2 (09:11→21:36)
[2016-12-31] MEDS: oxyCODONE 10 mg ER Tab (oxyCONTIN) PO SCH ×2 (09:13→23:23)
[2016-12-31] MEDS: Bisacodyl 5mg EC Tab PO SCH (09:15)
--- NOTE | 2016-12-31 13:55 | CP.PCM.PN ---
Subjective - Date & Time of Evaluation Date of Evaluation: 12/31/16 Time of Evaluation: 11:00 - Subjective Subjective: Complains of chronic pain, level 7. Bedbound. Objective - Vital Signs/Intake and Output Vital Signs (last 24 hours): Temp Pulse Resp BP Pulse Ox 98.2 F 96 H 22 121/74 99 12/31/16 08:59 12/31/16 08:59 12/31/16 08:59 12/31/16 08:59 12/31/16 08:59 Intake and Output: 12/31/16 12/31/16 06:59 18:59 Intake Total 720 120 Output Total 800 400 Balance -80 -280 - Medications Medications: Current Medications Albuterol/Ipratropium (Duoneb 3 Mg/0.5 Mg (3 Ml) Ud) 3 ml IH Q2 PRN PRN Reason: Shortness of Breath Last Admin: 12/28/16 22:55 Dose: 3 ml Albuterol/Ipratropium (Duoneb 3 Mg/0.5 Mg (3 Ml) Ud) 3 ml IH [id number] [facility] Last Admin: 12/31/16 13:36 Dose: 3 ml Bisacodyl (Dulcolax) 10 mg PO DAILY [facility] Last Admin: 12/31/16 09:15 Dose: 10 mg Docusate Sodium (Colace) 100 mg PO BID [facility] Last Admin: 12/31/16 09:11 Dose: 100 mg Fentanyl (Duragesic) 1 patch TD Q72H [facility] Last Admin: 12/31/16 09:16 Dose: 1 patch Fentanyl (Duragesic) 1 patch TD Q72H [facility] Last Admin: 12/31/16 12:05 Dose: 1 patch Heparin Sodium (Porcine) (Heparin) 5,000 units SC Q8 DONNA PRN Reason: Protocol Last Admin: 12/31/16 13:11 Dose: Not Given Hydromorphone HCl (Dilaudid) 2 mg IVP Q3H PRN PRN Reason: Pain, moderate (4-7) Last Admin: 12/31/16 12:06 Dose: 2 mg Lidocaine (Lidoderm) 2 ea TD DAILY [facility] Last Admin: 12/31/16 09:11 Dose: 2 ea Methylprednisolone (Solu-Medrol) 20 mg IVP Q12 [facility] Last Admin: 12/31/16 09:11 Dose: 20 mg Metoprolol Tartrate (Lopressor) 25 mg PO BID [facility] Last Admin: 12/31/16 09:12 Dose: 25 mg Oxycodone HCl (Oxycontin Extended Release Tab) 10 mg PO Q12 [facility] Stop: 01/02/17 22:01 Last Admin: 12/31/16 09:13 Dose: 10 mg Pantoprazole Sodium (Protonix Ec Tab) 40 mg PO ACB [facility] Last Admin: 12/31/16 08:11 Dose: 40 mg Polyethylene Glycol (Miralax) 17 gm PO BID PRN PRN Reason: Constipation Last Admin: 12/29/16 11:38 Dose: 17 gm - Labs Labs: 12/28/16 06:00 12/28/16 06:00 PT 14.7 Seconds (9.9-11.8) H 12/23/16 10:00 INR 1.36 (0.93-1.08) H 12/23/16 10:00 APTT 35.9 Seconds (23.7-30.8) H 12/23/16 10:00 - Constitutional Appears: Cachectic, Chronically Ill - Eye Exam Eye Exam: Normal appearance, PERRL - ENT Exam ENT Exam: Mucous Membranes Moist - Neck Exam Neck Exam: Normal Inspection - Respiratory Exam Respiratory Exam: Decreased Breath Sounds, Rhonchi, NORMAL BREATHING PATTERN - Cardiovascular Exam Cardiovascular Exam: REGULAR RHYTHM, +S1, +S2 - GI/Abdominal Exam GI & Abdominal Exam: Soft, Normal Bowel Sounds - Extremities Exam Extremities Exam: Normal Capillary Refill, Normal Inspection - Neurological Exam Neurological Exam: Alert, Oriented x3 - Skin Skin Exam: Dry, Pallor Assessment and Plan - Assessment and Plan (Free Text) Assessment: 71 year old male with stage IV lung cancer admitted with intractable pain, weakness, cachexia, constipation. The patient has persistent pain especially in left rib cage,it is exacerbated with movement. Receiving Fentanyl 100 mcg transdermal patch and Dilaudid regularly for break through pain. He had a large bowel movement yesterday. He is weak and bed bound. Family met director of home care hospice this morning. Family has agreed to take patient home with hospice services. Plan: Increase Fenatnyl dose to 125mcg. Maintain bowel regimen to prevent opioid induced constipation. Home hospice care
--- NOTE | 2016-12-31 16:55 | PN ---
DATE: 12/31/2016 HISTORY OF PRESENT ILLNESS: The patient is in bed in no acute distress, nontoxic. Was seen early th is morning in room 571, bed 1. PHYSICAL EXAMINATION: VITAL SIGNS: Temperature is 98, blood pressure is 120/70, respiratory rate of 22, heart rate of 96. HEENT: Unremarkable. NECK: Supple. LUNGS: Have decreased breath sounds. HEART: Normal S1, S2. ABDOMEN: Soft. LABORATORY DATA: Reveals a white count of 4, hemoglobin of 11. Chemistries reveal the BUN of 14, cr eatinine of 0.5. Cassidy 's note is appreciated. ASSESSMENT AND PLAN: This is a 71-year-old male with chronic obstructive lung disease exacerbation. No evidence of a healthcare-associated pneumonia on CAT scan, history of healthcare-associated pneum onia, history of lung cancer on chemotherapy, off of antibiotics, status post treatment with Levaquin for 7 days. The patient is at risk for developing nosocomial infections. Review of the medication confirms the patient to be off of antibiotics. Overall, prognosis is quite poor for this male who is cachectic, endstage. Mack Dubose MD cc: [phone] TT: 12/31/2016 16:55:17 Confirmation # [id number] Dictation # [id number] brayan
--- NOTE | 2016-12-31 23:02 | PN ---
DATE: 12/31/2016 Hospital visit on the medical floor. For Dr. Ma. SUBJECTIVE: The patient is a 71-year-old male with end-stage, stage IV nonsmall cell cancer of the l jb with intractable pain of cancer, chronic obstructive pulmonary disease. He is now resting comfor tably with analgesics modestly helping his pain. He is now to be a hospice patient as per Dr. Greer and as per conversation with the family. PHYSICAL EXAMINATION: VITAL SIGNS: Temperature 98, pulse 102, respirations 22, blood pressure 109/62, pulse ox 98%. GENERAL: He appears debilitated and cachectic. HEENT: Unremarkable. NECK: Supple. HEART: Tachy rate, regular rhythm. LUNGS: Scattered rhonchi. Decreased breath sounds. ABDOMEN: Soft, scaphoid, nontender. EXTREMITIES: No edema. SKIN: Warm and dry. NEUROLOGIC: Awake and alert. LABORATORY DATA: The patient's labs will be done as per Dr. Greer. ASSESSMENT: Cachexia malignancy, intractable pain of cancer, end-stage, stage IV cancer of the lung, opioid-induced constipation, cardiomyopathy, chronic back pain, deconditioning, anemia of chronic di sease. PLAN: The patient is to continue his analgesics for his pain with hospice as per Dr. Greer and as d iscussed with patient's family. Vincenzo Dias MD cc: [phone] TT: 12/31/2016 23:02:11 Confirmation # [id number] Dictation # [id number] ronaldo
--- NOTE | 2017-01-01 00:59 | PN ---
DATE: 12/31/2016 REFERRING PHYSICIAN: Dr. Greer. SUBJECTIVE: He is lying in the bed, head at 45 degrees, feels okay. Mild cough. No nausea, no vomi ting, no diarrhea. No leg pain or leg swelling. OBJECTIVE: GENERAL: No acute distress. VITAL SIGNS: Temperature is 98, heart rate is 110, respiratory rate is 20, blood pressure 109/62, pu lse ox 98% on room air, no nasal cannula. HEENT: Moist mucous membrane. No ulcer or thrush noted. NECK: Supple. No JVD. LUNGS: Have a fair airflow with few rhonchi. HEART: S1 and S2. ABDOMEN: Soft, nontender. No organomegaly. EXTREMITIES: No edema. NEUROLOGIC: Awake, alert, follows simple commands. MEDICATIONS: Colace 100 mg twice a day, Dilaudid 2 mg q. 3 hours p.r.n., Dulcolax 10 mg at bedtime p .r.n., DuoNeb q. 6 hours, Duragesic patch daily, heparin 5000 units subQ q. 8 hours, q. 72 Duragesic patch, Lidoderm patch daily, metoprolol tartrate 25 mg twice a day, MiraLax 17 grams daily, OxyContin extended release 10 mg q. 12 hours, Protonix 40 mg daily, Solu-Medrol 20 mg q. 12 hours. LABORATORY DATA: Reviewed. No new lab is available since yesterday. IMPRESSION AND PLAN: Chronic obstructive lung disease, lung cancer, history of oral chemotherapy, ch ronic pain syndrome, constipation, activities of daily living dysfunction. Continue p.o. and inhaled bronchodilator, fall precautions, pain management, gastric and deep venous thrombosis prophylaxis. I spoke to patient's daughter at bedside. All the questions answered. Thank you. Will follow with you. Shell Vargas MD cc: [phone] TT: 01/01/2017 00:59:15 Confirmation # [id number] Dictation # [id number] mn
[2017-01-01] MEDS: Albuterol-Ipratrop 3 mg / 0.5 (3 ml) UD IH SCH ×4 (01:26→20:50)
[2017-01-01] MEDS: HYDROmorphone 2 mg/ml ISec IVP PRN ×5 (01:55→19:53)
[2017-01-01] MEDS: Pantoprazole 40 mg EC Tab PO SCH (08:48)
--- NOTE | 2017-01-01 10:13 | PN ---
DATE: 12/31/2016 The patient clinically stable. He is still in a lot of pain, but seems comfortable with current meds . There is no respiratory distress. He is very weak, unsteady. PHYSICAL EXAMINATION: VITAL SIGNS: Temperature 98.2, heart rate 96, blood pressure 121/74, respirations 22, saturation 99% . HEAD AND NECK: Normal. No JVD, no thyromegaly. CHEST: Clear, diminished breath sounds, more on the left side. CARDIAC: First sound, second sound normal. ABDOMEN: Soft, nontender. EXTREMITIES: No edema. NEUROLOGIC: General weakness, unsteady gait. Otherwise, nonfocal. LABORATORY: Pending. IMPRESSION AND PLAN: 1. Stage IV lung carcinoma with positive pleural effusion. The patient had chemotherapy, not a cand idate for radiation. Continue current treatment. 2. Chronic obstructive pulmonary disease. Continue inhaled bronchodilators, continue steroids. We will follow up clinically. 3. Generalized weakness, poor performance because of his comorbid illnesses and poor general conditi ons. The patient is not a candidate for further chemotherapy or radiation. We will keep the patient for hospice care which paper has been signed. Discussed with the daughter in detail. Discussed yudith h the manager case management and paper has been signed and faxed for continuation of hospice care placement. 4. Left-sided pain, severe, intractable. Continue current pain medications. We will follow up clini deirdre. The patient encouraged to increase p.o. intake. We will follow up clinically. Diego Greer MD cc: [phone] TT: 01/01/2017 10:12:56 Confirmation # [id number] Dictation # [id number] tn
[2017-01-01] MEDS: MethylPREDNISolone 40 mg Vial IVP SCH (10:55)
[2017-01-01] MEDS: Bisacodyl 5mg EC Tab PO SCH (11:09)
[2017-01-01] MEDS: oxyCODONE 10 mg ER Tab (oxyCONTIN) PO SCH (11:10)
[2017-01-01] MEDS: Lidocaine 5% Patch TD SCH (11:12)
--- NOTE | 2017-01-01 11:18 | CP.PCM.PN ---
Subjective - Date & Time of Evaluation Date of Evaluation: 01/01/17 Time of Evaluation: 10:00 - Subjective Subjective: Lethargic, rouses easily. Anxious. Complains of chronic pain in left rib cage. Objective - Vital Signs/Intake and Output Vital Signs (last 24 hours): Temp Pulse Resp BP Pulse Ox 97.5 F L 92 H 18 105/61 99 01/01/17 08:43 01/01/17 11:09 01/01/17 08:43 01/01/17 11:09 01/01/17 08:43 Intake and Output: 01/01/17 01/01/17 06:59 18:59 Intake Total 960 Output Total 550 Balance 410 - Medications Medications: Current Medications Albuterol/Ipratropium (Duoneb 3 Mg/0.5 Mg (3 Ml) Ud) 3 ml IH Q2 PRN PRN Reason: Shortness of Breath Last Admin: 12/28/16 22:55 Dose: 3 ml Albuterol/Ipratropium (Duoneb 3 Mg/0.5 Mg (3 Ml) Ud) 3 ml IH [id number] [facility] Last Admin: 01/01/17 07:14 Dose: 3 ml Bisacodyl (Dulcolax) 10 mg PO DAILY [facility] Last Admin: 01/01/17 11:09 Dose: 10 mg Docusate Sodium (Colace) 100 mg PO BID [facility] Last Admin: 01/01/17 10:55 Dose: 100 mg Fentanyl (Duragesic) 1 patch TD Q72H [facility] Last Admin: 12/31/16 09:16 Dose: 1 patch Fentanyl (Duragesic) 1 patch TD Q72H [facility] Last Admin: 12/31/16 12:05 Dose: 1 patch Heparin Sodium (Porcine) (Heparin) 5,000 units SC Q8 DONNA PRN Reason: Protocol Last Admin: 01/01/17 05:19 Dose: 5,000 units Hydromorphone HCl (Dilaudid) 2 mg IVP Q3H PRN PRN Reason: Pain, moderate (4-7) Last Admin: 01/01/17 08:14 Dose: 2 mg Lidocaine (Lidoderm) 2 ea TD DAILY [facility] Last Admin: 12/31/16 09:11 Dose: 2 ea Methylprednisolone (Solu-Medrol) 20 mg IVP Q12 [facility] Last Admin: 12/31/16 21:36 Dose: 20 mg Metoprolol Tartrate (Lopressor) 25 mg PO BID [facility] Last Admin: 01/01/17 11:09 Dose: 25 mg Oxycodone HCl (Oxycontin Extended Release Tab) 10 mg PO Q12 [facility] Stop: 01/02/17 22:01 Last Admin: 01/01/17 11:10 Dose: 10 mg Pantoprazole Sodium (Protonix Ec Tab) 40 mg PO ACB [facility] Last Admin: 01/01/17 08:48 Dose: 40 mg Polyethylene Glycol (Miralax) 17 gm PO BID PRN PRN Reason: Constipation Last Admin: 12/29/16 11:38 Dose: 17 gm - Labs Labs: 12/28/16 06:00 12/28/16 06:00 PT 14.7 Seconds (9.9-11.8) H 12/23/16 10:00 INR 1.36 (0.93-1.08) H 12/23/16 10:00 APTT 35.9 Seconds (23.7-30.8) H 12/23/16 10:00 - Constitutional Appears: Cachectic, Chronically Ill - Eye Exam Eye Exam: Normal appearance, PERRL - ENT Exam ENT Exam: Mucous Membranes Moist - Neck Exam Neck Exam: Normal Inspection - Respiratory Exam Respiratory Exam: Decreased Breath Sounds, Rhonchi, NORMAL BREATHING PATTERN - Cardiovascular Exam Cardiovascular Exam: REGULAR RHYTHM, +S1, +S2 - GI/Abdominal Exam GI & Abdominal Exam: Soft, Diminished Bowel Sounds - Extremities Exam Extremities Exam: Normal Capillary Refill, Normal Inspection - Back Exam Back Exam: NORMAL INSPECTION - Neurological Exam Neurological Exam: Alert, Oriented x3 - Skin Skin Exam: Dry, Warm Assessment and Plan - Assessment and Plan (Free Text) Assessment: 71 year old male admitted with shortness of breath,intractable left rib pain, debility,anorexia,cachexia. History of stage IV lung cancer Patient is anxious. Complains of chronic pain. Vital signs stable.l Patient family is agreed to hospice care. Patient scheduled to be discharged to [facility] services today. Plan: As discussed with Dr Delmer Greer; Continue Fentanyl 125mcg transdermal patch, add Morphine Sulfate liquid as need for breakthrough pain.. Will also add Flexeril 10 mg twice daily. Ativan 0.5mg twice daily as needed for anxiety Continue Lidocaine patch to left rib cage Continue bowel regimen with Miralax daily
[2017-01-01 16:35] VITALS: BP 125/76; PULSE 89; RESP 22; TEMP 97.2; O2SAT 98
--- NOTE | 2017-01-01 22:31 | PN ---
DATE: 01/01/2017 REFERRING PHYSICIAN: Dr. Greer. SUBJECTIVE: He is lying in the bed, head at 45 degrees, sleepy, arousable, mild cough, no sputum pro duction, no nausea, no vomiting, diarrhea. No leg pain or leg swelling. OBJECTIVE: GENERAL: No acute distress. VITAL SIGNS: Temperature is 98, heart rate 89, respiratory rate is 22, blood pressure 125/76, pulse ox 98% on 3 liter nasal cannula. HEENT: Moist mucous membrane. No ulcer or oral thrush noted. NECK: Supple. No JVD. LUNGS: Has prolonged expiratory phase with few rhonchi. HEART: S1 and S2. ABDOMEN: Soft, nontender. No organomegaly. EXTREMITIES: There is no edema. NEUROLOGIC: Awake, alert, follows simple commands. MEDICATIONS: Reviewed. No new changes in medication reported since yesterday. LABORATORY DATA: Reviewed and noted. No new lab is available since yesterday. Microbiology: Blood cultures have been negative. IMPRESSION AND PLAN: Chronic obstructive lung disease, lung cancer, history of chemotherapy in the p ast, chronic pain syndrome, constipation, activities of daily living dysfunction. Pulmonary point of view, doing okay. Continue bronchodilator. Keep head elevated at 45 degrees. Pain management. Ga stric prophylaxis, deep venous thrombosis prophylaxis. Fall precaution. Thank you and will follow wi th you. Shell Vargas MD cc: [phone] TT: 01/01/2017 22:30:17 Confirmation # [id number] Dictation # [id number] jn
--- NOTE | 2017-01-03 19:09 | DS ---
The patient is terminally ill with lung CA stage IV, poor conditions, severe intractable left s valdemar pain. The patient's family meeting and hospice care is agreed. The patient will be discharged f or hospice care. The patient clinically stable. Notice no respiratory distress. PHYSICAL EXAMINATION ON DAY OF DISCHARGE: VITAL SIGNS: Temperature 97.2, heart rate 89, blood pressure 125/76, respirations 22, saturation 98% . HEAD AND NECK: Normal. No JVD. No thyromegaly. CHEST: Clear, good entry. CARDIAC: First and second sounds are normal. ABDOMEN: Soft and nontender. EXTREMITIES: No edema. NEUROLOGIC: Generalized weakness as mainly bedridden. The patient otherwise stable. LABORATORY STUDIES: Sodium 134, potassium 4.2, chloride 91, bicarb 37, BUN 14, creatinine 0.5. CBC shows white count 4, hemoglobin 11.6, hematocrit 35.2, platelets 341. DISCHARGE DIAGNOSES: 1. Stage IV lung adenocarcinoma. [facility]. No further chemo or radiation. Not a candidate. 2. Underlying chronic obstructive pulmonary disease. Continue oxygen. Continue nebulizer treatment s. 2. Left-sided intractable pain, probably cancer related and got worse at the biopsy site. We will c ontinue pain medication as it. The patient getting Duragesic patch and morphine sulfate was given q. 4 hours p.r.n. immediate release in addition to team of hospice care. 3. Generalized weakness, constipation. The patient is already on Relistor. He does have also Movan tik, Dulcolax, MiraLax and will follow up clinically. PLAN: Will discharge the patient for hospice care. We will get a followup with the hospice team, aníbal newell with the team and the nurse supervising the team. Will continue follow up as outpatient. Diego Greer MD cc: [phone] TT: 01/03/2017 19:08:51 ronaldo
--- NOTE | 2017-01-04 08:21 | PN ---
DATE: 01/01/2017 REASON FOR CONSULTATION AND FOLLOWUP: Sinus tachycardia, lung cancer. BRIEF CLINICAL HISTORY: This is a 71-year-old gentleman with history of ____ lung CA, history of latricia motherapy and radiation. Complaining of left-sided chest pain, chronic obstructive pulmonary disease , complained of constipation, now feels better. PHYSICAL EXAMINATION: VITAL SIGNS: Temperature afebrile, heart rate 89, blood pressure ____/76. HEENT: PERRLA. Extraocular muscles intact. NECK: Supple. No carotid bruit. No thyromegaly. CHEST: Clear to auscultation. HEART: S1, S2, ____. ABDOMEN: Soft. EXTREMITIES: Clubbing and cyanosis negative. LABORATORY DATA: Blood workup as follows: WBC 4, hemoglobin 11.____, hematocrit 35.2, platelet coun t 341. Chemistry shows sodium 13____, potassium 4.2, chloride ____, anion gap of 10, BUN 14, creatin ine 0.5. IMPRESSION: Inoperable lung carcinoma, anemia, nonsmall cell cancer, constipation secondary to narco tics, ____ nonischemic from the chest wall, history of chronic obstructive pulmonary disease. The p bernard's last echo 12/02/2016 ____ left ventricular function, moderately impaired left ventricular fu nction, no thrombus, no evidence of acute myocardial infarction, no evidence of coronary syndrome, ta chycardia improved with beta arlene. RECOMMENDATION: Increase nutrition support. Continue antitussives. Continue stool softener. Summer nue metoprolol. We will follow with you. Thank you, Dr. Greer, for providing the opportunity in taking care of this patient. Overall the denise greco's condition is critical, long-term prognosis is guarded. Shell Mota MD cc: [phone] TT: 01/01/2017 19:01:33 Confirmation # [id number] Dictation # [id number] deniz
--- NOTE | 2017-01-04 11:04 | PQF MALNUT ---
This form is a permanent part of the medical record Dr. Ma, Clarification of your documentation is requested to better reflect the severity of illness and intensity of treatment of your patient. Indicators present: please specify the severity of malnourishment. Per Dr. Vargas's PNs indicate malnutrition. [] Cachexia (due to severe malnutrition) [] Albumin < 2.8 [] Decreased Pre-albumin [] Dietary Consult [] Provider documentation reflects BMI of: []_ [] Low serum proteins [] Documented weight loss [] Inability to consume adequate caloric intake [x] Anorexic [] Other: [] Location in the medical record that reflects the above clinical findings: [] Dr. Vargas's PNs; Dr. Ma's consult in 12/25 Treatment Provided: [] PHYSICIAN'S RESPONSE Based on your medical judgment of the clinical indicators outlined above, are you treating this patient for a known or suspected: Type of Malnutrition Severity [] Mild [] Moderate [] Severe [] Protein calorie [] Mild [] Moderate [] severe [] Other, please indicate: []_ [] If Unable to Determine, please check the box, sign and date. Present On Admission (POA) Indicator: [] Present at the time of admission [] Not present at the time of admission [] Clinically Undetermined In responding to this query, please exercise your independent professional judgment. The fact that a question is asked does not imply that any particular answer is desired or expected. Thank you for your clarification on this documentation. 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 Malnutrition may be described as mild, moderate or severe. There are variations in clinical indicators, lab values and risk factors with each type and degree. When reviewing the nutritional status of the client, the entire clinical picture should be assessed and taken into consideration rather than a focus on a single laboratory value. Mild Malnutrition: patient's weight is noted at 85-95% of normal body weight; BMI 18-18.9; serum albumin 3.0-3.4; total lymphocyte count [id number]. Moderate Malnutrition: patient's weight is noted at 75-85% of normal body weight ; BMI 16-17.9; serum albumin 2.4-3.0; total lymphocyte count 800-1500. Severe Malnutrition: patient's weight is noted at <75% of normal body weight, BMI <16, serum albumin <2.4, total lymphocyte count <800, abnormally low VLDL/ LDL levels, creatinine <0.6, BUN <8, cholesterol <160. Other clinical indicators include: loss of subq fat, muscle wasting of the extremities, skin lesions, decubitus ulcers, hair loss, lethargy, constipation, decreased pulse/ respiratory rates, relative hypotension, hepatomegaly d/t fat infiltration, poor wound healing.~~~~~~ Risk: poor intake d/t food avoidance or NPO status for >7 days, protracted nutritional losses from malabsorption states, hypermetabolic state such as sepsis, prolonged fever, extensive trauma or stone, alcohol/drug abuse, advanced age, CKD, trouble chewing or swallowing, some medications, depression/ social isolation, special diets such as low protein Treatment: dietary consultation, protein-calorie dietary supplementation, daily weights, PEG tube, psychiatric consultation, appetite stimulants (Megace). [employer] Principles of Internal Medicine, 17th edition, chapters 9, 72 and 234. The [employer] Nutritional Support Core Curriculum, 2007 MTDD
== END 2017-01-01 21:07 | disposition hospice, home (50) | DRG 191 ==
LOC: ED 08:04 → ERH 12:10 → CCU 17:09 → 2RNO 12-24 21:21 → 5RSO 12-28 21:23
PROVIDERS: ADMIT Internal Medicine; ATTEND Internal Medicine
PROC: 5A09357 Assistance with Respiratory Ventilation, Less than 24 Consecutive Hours, Continuous Positive Airway Pressure (ICD-10-PCS; principal; 2016-12-23)
PROC: 5A09457 Assistance with Respiratory Ventilation, 24-96 Consecutive Hours, Continuous Positive Airway Pressure (ICD-10-PCS; 2016-12-25)
DX: J44.1 Chronic obstructive pulmonary disease with (acute) exacerbation (principal); C34.92 Malignant neoplasm of unspecified part of left bronchus or lung; D61.818 Other pancytopenia; J96.11 Chronic respiratory failure with hypoxia; I42.9 Cardiomyopathy, unspecified; E44.0 Moderate protein-calorie malnutrition; R64 Cachexia; K90.41 Non-celiac gluten sensitivity; Z68.1 Body mass index [BMI] 19.9 or less, adult; G89.3 Neoplasm related pain (acute) (chronic); G89.4 Chronic pain syndrome; E78.5 Hyperlipidemia, unspecified; Z51.5 Encounter for palliative care; K59.03 Drug induced constipation; T40.2X5A Adverse effect of other opioids, initial encounter; D63.8 Anemia in other chronic diseases classified elsewhere; Z66 Do not resuscitate; Z87.891 Personal history of nicotine dependence; Z99.81 Dependence on supplemental oxygen; Z87.01 Personal history of pneumonia (recurrent); Z79.891 Long term (current) use of opiate analgesic